=== PATIENT | female | born 1980 | race Caucasian/White ===

== ENCOUNTER 2020-05-27 09:18 | Outpatient (REF) | payer MEDICARE, MEDICAID, SELFPAY ==
[2020-05-27 10:18] LABS: Hematocrit 41.2 % (37-47); Hemoglobin 13.7 g/dl (12.0-16.0); Mean Corpuscular HGB Conc 33.3 g/dl (31.0-35.0); Mean Corpuscular Hemoglobin 32.2 pg (27.0-33.0); Mean Corpuscular Volume 96.9 fL (80-98); Mean Platelet Volume 12.1 fL (9.4-12.3); Platelet Count 205 X10*3/uL (160-400); Red Blood Count 4.25 X10*6/uL (4.20-5.50); Red Cell Distribution Width 12.4 % (11.0-16.0); White Blood Count 8.6 X10*3/uL (4.8-10.8)
[2020-05-27 10:28] LABS: Estimated Average Glucose 94 mg/dL; Hemoglobin A1c % 4.9 %
[2020-05-27 10:49] LABS: Alanine Aminotransferase 7 U/L (0-31); Albumin Level 4.1 g/dL (3.5-5.0); Alkaline Phosphatase 67 U/L (39-117); Anion Gap 14 (12-20); Aspartate Amino Transferase 12 U/L (5-31); Bilirubin Total 0.6 mg/dL (0.0-1.0); Blood Urea Nitrogen 15 mg/dL (9-16); Calcium 9.1 mg/dL (8.4-10.2); Carbon Dioxide 27 mmol/L (22-29); Chloride 108 mmol/L (96-108); Cholesterol 156 mg/dL; Estimated Glomerular Filt Rate > 60; Glucose Fasting 86 mg/dL (60-99); HDL Cholesterol 38 mg/dL; LDL Cholesterol Calculated 109 mg/dl; Potassium 4.6 mmol/L (3.3-5.1); Sodium 144 mmol/L (135-145); Total Protein 5.9 g/dL (6.5-8.0); Triglycerides 47 mg/dL
[2020-05-27 11:11] LABS: TSH reflex Free T4 0.16 uIU/mL (0.32-4.0)
[2020-05-27 12:04] LABS: Free T4 (Free Thyroxine) 0.79 ng/dL (0.71-1.85)
== END 2020-05-27 09:19 | disposition home or self-care (01) ==
LOC: HO.LAB 09:18
PROVIDERS: PCP Physician Assistant; Visit Provider Physician Assistant
DX: I10 Essential (primary) hypertension (principal); Z13.1 Encounter for screening for diabetes mellitus; Z13.220 Encounter for screening for lipoid disorders; Z13.29 Encounter for screening for other suspected endocrine disorder
CPT/HCPCS: 36415; 80053; 80061; 83036; 84439; 84443; 85027

== ENCOUNTER 2020-09-23 07:38 | Emergency (ER) | payer MEDICARE, MEDICAID, SELFPAY ==
[2020-09-23 08:10] VITALS: BP 102/71; PULSE 77; RESP 17; TEMP 36.6; O2SAT 98; BMI 23.5
--- NOTE | 2020-09-23 08:14 | ED_ITS ---
HPI - Headache General Chief Complaint: Headache Stated Complaint: Headache 2 weeks Time Seen by Provider: 09/23/20 08:13 Source: patient Mode of arrival: ambulatory Limitations: no limitations History of Present Illness MD elicited complaint: migraine Pertinent past history: migraines Onset (ago): week(s) (2) Onset description: gradually and while at rest Location: diffuse Severity: similar to previous episodes (has had headaches this long in the past) Quality & Timing: throbbing Exacerbating factors: light and noise Relieving factors: rest Context: occurred at rest Associated symptoms: nausea and photophobia Treatments prior to arrival: other (tried sumatriptan, imitrex) Related Data Home Medications Medication Instructions Recorded Confirmed divalproex 500 mg tablet,extended 1,500 mg PO tab 05/28/20 08/13/20 release 24 hr lurasidone 120 mg tablet mg PO 05/28/20 08/13/20 sumatriptan succinate 50 mg tablet mg PO 05/28/20 08/13/20 famotidine 40 mg tablet mg PO 07/09/20 08/13/20 Previous Rx's Medication Instructions Recorded omeprazole 20 mg capsule,delayed 20 mg PO DAILY 20 Days #20 cap 05/28/20 release ondansetron HCl 8 mg tablet 8 mg PO Q12H 7 Days #14 tab 05/28/20 sucralfate 1 gram tablet 1 g PO BID #60 tab 07/03/20 nicotine 14 mg/24 hr daily 1 patch TRANSDERMAL DAILY 28 Days 08/13/20 transdermal patch #28 ea clonazepam 1 mg tablet 1 mg PO BID 30 Days #60 tab 08/24/20 Allergies Allergy/AdvReac Type Severity Reaction Status Date / Time olanzapine [From ZYPREXA] Allergy Severe SWELLING Verified 08/13/20 16:13 oxcarbazepine Allergy Severe antony's Verified 08/13/20 16:13 [From TRILEPTAL] Rob syndrome gabapentin Allergy Unknown Loss of Verified 08/13/20 16:13 balance lithium [LITHIUM] Allergy Unknown UNKNOWN Verified 08/13/20 16:13 quetiapine [Seroquel] Allergy Unknown Unknown Verified 08/13/20 16:13 sulfamethoxazole Allergy Unknown severe rash Verified 08/13/20 16:13 [From BACTRIM] trimethoprim [From BACTRIM] Allergy Unknown severe rash Verified 08/13/20 16:13 From SEROQUEL Allergy Unknown UNKNOWN Uncoded 06/14/20 10:12 Review of Systems Review of Systems: Constitutional : No Fever, No Chills, No Fatigue ENT/Mouth : No sore throat, No Rhinorrhea Eyes: No Eye Pain, No Swelling, No Redness Cardiovascular : No Chest Pain, No SOB, No Dyspnea on Exertion Respiratory : No Cough, No Sputum Gastrointestinal : pos Nausea, No Vomiting, No Diarrhea, No abdominal Pain Genitourinary : No Dysuria, No Urinary Frequency, No Hematuria, Musculoskeletal : No joint pain, No Myalgias, No Joint Swelling Skin : No Skin Lesions, No rash Neuro : No Weakness, No Numbness, No Dizziness, positive Headache Psych : No Anxiety/Panic, No Depression Heme/Lymph: No Bruising, No Bleeding,No Lymphadenopathy Endocrine : No Polyuria, No Polydipsia All other systems reviewed and are negative [facility] Past Medical History Attestation statement: The following information was validated with the patient. Medical History Bipolar disorder Migraine Surgical History History of tonsillectomy Family History Family History Mother No problems noted. Father No problems noted. Social History Social History Housing: House Alcohol intake: current Patient Tobacco Use Status: Current everyday Tobacco user Tobacco use type: Cigarette Cigarettes Per Day: 12 Advance Directives: No Advance Directives Information Provided: Yes Patient : No Current occupational status: unemployed Physical Exam Vital Signs: Vital Signs: Last Vital Signs Temp 98 F 09/23/20 08:10 Pulse 77 09/23/20 08:10 Resp 17 09/23/20 08:10 BP 102/71 09/23/20 08:10 Pulse Ox 98 09/23/20 08:10 Body Mass Index 23.5 Appearance: Alert. Oriented X3. No acute distress. Eyes: Pupils equal, round and reactive to light. ENT: Pharynx normal. Neck: Normal inspection. Neck supple. no meningeal signs CVS: Normal heart rate and rhythm. Pulses normal. Respiratory: No respiratory distress. Breath sounds normal. Abdomen: Soft and non-tender. Skin: Skin warm and dry. Normal skin color. Normal skin turgor. Extremities: No lower extremity edema. No calf ttp Neuro: Oriented X 3. No motor deficit. No sensory deficit. 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/SAH Discharge Plan Discharge Clinical Impression: Headache, migraine Qualifiers: Migraine type: without aura Status migrainosus presence: with status migrainosus Intractability: not intractable Qualified Code(s): G43.001 - Migraine without aura, not intractable, with status migrainosus Patient Disposition: Home, Self-Care Instructions: Migraine Headache (ED) Additional Instructions: return to ED for any worsening symptoms or concerns you received toradol, reglan, benadryl, magnesium and low dose dexamethasone with good effect in the emergency department Prescriptions: No Action sucralfate 1 gram tablet 1 g PO BID Qty: 60 RF: 3 clonazepam 1 mg tablet 1 mg PO BID 30 Days Qty: 60 RF: 0 Latuda 120 mg tablet PO RF: 0 sumatriptan succinate 50 mg tablet PO RF: 0 divalproex 500 mg tablet extended release 24 hr 1,500 mg PO RF: 0 omeprazole 20 mg capsule,delayed release(DR/EC) 20 mg PO DAILY 20 Days Qty: 20 RF: 1 ondansetron HCl 8 mg tablet 8 mg PO Q12H 7 Days Qty: 14 RF: 0 famotidine 40 mg tablet PO RF: 0 nicotine 14 mg/24 hr patch 24 hour 1 patch transdermal DAILY 28 Days Qty: 28 RF: 0
[2020-09-23] MEDS: Ketorolac Tromethamine 30 MG/ML VIAL IVPUSH (08:55)
[2020-09-23] MEDS: 0.9 % Sodium Chloride 1,000 ML 999 ML IVCONT (08:55)
[2020-09-23] MEDS: dexAMETHasone sod phosphate 4 MG/ML VIAL 6 MG IVPUSH (08:56)
[2020-09-23] MEDS: diphenhydrAMINE HCL 50 MG/ML VIAL 25 MG IVPUSH (08:57)
[2020-09-23] MEDS: Magnesium Sulfate/H2O 2 GM/50 ML PIGGYBACK IV (08:58)
[2020-09-23] MEDS: Metoclopramide HCl 10 MG/2 ML VIAL IVPUSH (08:58)
[2020-09-23] MEDS: Butalb/Acetamin/Caff 50/325/40 TABLET 1 TAB PO (10:26)
[2020-09-23 10:42] VITALS: BP 110/65; PULSE 77; O2SAT 98
== END 2020-09-23 10:43 | disposition home or self-care (01) ==
PROVIDERS: Emergency Provider Emergency Medicine; PCP Physician Assistant
DX: G43.001 Migraine without aura, not intractable, with status migrainosus (principal)
CPT/HCPCS: 96361; 96365; 96366; 96375; 99283; 99284; J1100; J1200; J1885; J2765; J3475

== ENCOUNTER 2020-11-26 09:50 | Outpatient (REF) | payer MEDICARE, MEDICAID, SELFPAY ==
[2020-11-26 11:42] LABS: TSH reflex Free T4 0.52 uIU/mL (0.32-4.0)
== END 2020-11-26 09:51 | disposition home or self-care (01) ==
LOC: HO.LAB 09:50
PROVIDERS: PCP Physician Assistant; Visit Provider Physician Assistant
DX: R79.89 Other specified abnormal findings of blood chemistry (principal)
CPT/HCPCS: 36415; 84443

== ENCOUNTER 2020-12-17 14:49 | Outpatient (REF) | payer MEDICARE, MEDICAID, SELFPAY ==
--- NOTE | ~2020-12-17 | XR_ITS ---
EXAMINATION: XR CHEST CLINICAL INFORMATION: Chest pain COMPARISON: 03/07/2013 TECHNIQUE: 2 views of the chest were obtained. FINDINGS: No significant abnormality is noted involving the heart, lungs, mediastinum, bony thorax or soft tissues. XR/XR chest 2V IMPRESSION: Unremarkable examination.
[2020-12-17 15:23] LABS: Hemoglobin 13.8 g/dl (12.0-16.0); Mean Corpuscular HGB Conc 32.9 g/dl (31.0-35.0); Mean Corpuscular Hemoglobin 32.6 pg (27.0-33.0); Mean Corpuscular Volume 99.3 fL (80-98); Platelet Count 215 X10*3/uL (160-400); Red Blood Count 4.23 X10*6/uL (4.20-5.50); Red Cell Distribution Width 12.5 % (11.0-16.0); White Blood Count 8.3 X10*3/uL (4.8-10.8)
[2020-12-17 15:56] LABS: Alanine Aminotransferase 12 U/L (0-31); Albumin Level 4.1 g/dL (3.5-5.0); Alkaline Phosphatase 63 U/L (39-117); Anion Gap 10 (12-20); Aspartate Amino Transferase 15 U/L (5-31); Bilirubin Direct < 0.2 mg/dL (0.0-0.5); Bilirubin Total 0.2 mg/dL (0.0-1.0); Blood Urea Nitrogen 9 mg/dL (9-16); Calcium 9.2 mg/dL (8.4-10.2); Carbon Dioxide 27 mmol/L (22-29); Chloride 106 mmol/L (96-108); Estimated Glomerular Filt Rate > 60; Glucose Random 84 mg/dL (60-115); Iron 73 mcg/dL (30-160); Lipase 46 U/L (8-78); Percent Iron Saturation 28 % (15-50); Potassium 4.4 mmol/L (3.3-5.1); Sodium 139 mmol/L (135-145); Total Iron Binding Capacity 258 mcg/dL (228-428); Total Protein 6.3 g/dL (6.5-8.0); Unsaturated Iron Binding 185 ug/dL
[2020-12-17 15:58] LABS: Troponin-I High Sensitivity < 3.5 ng/L (<3.5-17.0)
== END 2020-12-17 14:50 | disposition home or self-care (01) ==
LOC: HO.LAB 14:49
PROVIDERS: Absent Provider Nurse Practitioner Family; PCP Physician Assistant; Visit Provider Physician Assistant
DX: R07.89 Other chest pain (principal); R11.0 Nausea; I10 Essential (primary) hypertension; D50.9 Iron deficiency anemia, unspecified
CPT/HCPCS: 36415; 71046; 80048; 80076; 83540; 83690; 84484; 85027

== ENCOUNTER → 2020-12-21 10:14 | Outpatient (REF) | payer MEDICARE, MEDICAID, SELFPAY ==
--- NOTE | 2020-12-21 10:16 | CA_ITS ---
Acquisition Time: 2020-12-21 10:12:36 Total Exercise Time: 00:07:05 Test Indications: CP Medications: SEE CHART Protocol: ARYAN Max HR: 166 BPM 92% of Pred: 179 BPM Max BP: 130/050 mmHG Max Work Load: 8.6 METS Exercise stress test with exercise 7 min 5 sec of Aryan protocol, without anginal symptoms, without arrythmia, with asymptomatic hypotension at baseline and normotensive response to exercise, without EKG changes meeting criteria for ischemia. Test reviewed with Dr Claudio. Referred By: Skye Meyer Overread By: ISSA SOLANO
== END ==
LOC: HO.CARD 10:14
PROVIDERS: PCP Physician Assistant; Visit Provider Nurse Practitioner Family
DX: R07.89 Other chest pain (principal)
CPT/HCPCS: 93017

== ENCOUNTER 2021-01-25 09:30 | Emergency (ER) | payer MEDICARE, MEDICAID, SELFPAY ==
--- NOTE | ~2021-01-25 | CT_ITS ---
EXAMINATION: CT ABDOMEN AND PELVIS WITH CONTRAST CLINICAL INFORMATION: Upper abdominal pain COMPARISON: Renal ultrasound June [address] of the abdomen and pelvis December 2017 TECHNIQUE: Multidetector volumetric images were obtained from the superior aspect of the liver through the pubic symphysis following administration 85 mL of Omnipaque 350 intravenous contrast. Sagittal and coronal reformatted images were obtained on the technologist's workstation. Oral contrast: Yes This CT examination was performed using dose optimization techniques as appropriate, variously including the following: *Automated exposure control *Adjustment of mA and/or kV according to patient size (this includes techniques or standardized protocols for targeted exams where dose is matched to indication/reason for exam; i.e. extremities or head) *Use of iterative reconstruction technique DLP: 486 mGy-cm FINDINGS: LUNG BASES: The visualized lung bases are unremarkable. LIVER, GALLBLADDER, AND BILIARY TREE: The liver is normal in size, shape, and attenuation. No focal hepatic lesion or biliary ductal dilatation is present. The gallbladder is unremarkable with no evidence of radiopaque gallstones, gallbladder wall thickening, or obvious pericholecystic inflammatory changes. PANCREAS: Unremarkable. SPLEEN: Unremarkable. ADRENAL GLANDS: Unremarkable. KIDNEYS AND URETERS: The kidneys are normal in size, shape, and attenuation. No hydronephrosis, hydroureter, or calculi seen. No perinephric stranding. BLADDER: Unremarkable. GASTROINTESTINAL TRACT: The small and large bowel are unremarkable. The appendix is unremarkable. ABDOMINAL WALL: No significant hernia is appreciated. LYMPH NODES: Normal. VASCULAR: Unremarkable. PELVIC VISCERA: There is an IUD seen outside the uterus in the left pelvis adjacent to the iliac vessels. This is similar to previous CT December 2017 There is a 2.5 x 2.5 cm right adnexal cyst. OSSEOUS STRUCTURES: Unremarkable. CT/CT abdomen pelvis w con IMPRESSION: IUD outside the uterus in the left pelvis adjacent to the iliac vessels. This is similar to December 2017 CT scan. 2.5 x 3.5 cm right adnexal cyst. Fleischner guidelines were followed.
[2021-01-25 10:14] VITALS: BP 114/69; PULSE 82; RESP 16; TEMP 36.8; O2SAT 99; BMI 23.5
--- NOTE | 2021-01-25 11:47 | ED_ITS ---
HPI - Abdominal Pain General Chief Complaint: Nausea/Vomiting/Diarrhea Stated Complaint: Abd pain/diarrhea Time Seen by Provider: 01/25/21 11:41 Source: patient Limitations: no limitations History of Present Illness HPI narrative: This is a 40 years old female presented with a chief complaint of abdominal pain and nausea vomiting and diarrhea pain is localized in the epigastric area without radiation she has history of IBS history of bipolar disorder MD elicited complaint: abdominal pain Pertinent past history: none Onset (ago): day(s) (4) Pain Consistency: constant Location: epigastric Severity: moderate Radiation: none Migration to: no migration Exacerbating factors: nothing Relieving factors: nothing Related Data Home Medications Medication Instructions Recorded Confirmed divalproex 500 mg tablet,extended 1,500 mg PO tab 05/28/20 12/17/20 release 24 hr lurasidone 120 mg tablet mg PO 05/28/20 12/17/20 sumatriptan succinate 50 mg tablet mg PO 05/28/20 12/17/20 famotidine 40 mg tablet mg PO 07/09/20 12/17/20 perphenazine 4 mg tablet 8 mg PO BID 12/03/20 12/17/20 Previous Rx's Medication Instructions Recorded ondansetron HCl 8 mg tablet 8 mg PO Q12H 7 Days #14 tab 05/28/20 sucralfate 1 gram tablet 1 g PO BID #180 tab 09/29/20 hydroxyzine HCl 10 mg tablet 10 mg PO BEDTIME 14 Days #14 tab 12/03/20 omeprazole 40 mg capsule,delayed 40 mg PO DAILY 30 Days #30 cap 12/03/20 release ibuprofen 600 mg tablet 600 mg PO Q8H PRN #15 tab 12/17/20 clonazepam 1 mg tablet 1 mg PO BID 30 Days #60 tab 01/07/21 ondansetron HCl 4 mg tablet 4 mg PO Q8H PRN #14 tab 01/25/21 (Zofran) Allergies Allergy/AdvReac Type Severity Reaction Status Date / Time olanzapine [From ZYPREXA] Allergy Severe SWELLING Verified 12/17/20 16:40 oxcarbazepine Allergy Severe antony's Verified 12/17/20 16:40 [From TRILEPTAL] Rob syndrome gabapentin Allergy Unknown Loss of Verified 12/17/20 16:40 balance lithium [LITHIUM] Allergy Unknown UNKNOWN Verified 12/17/20 16:40 quetiapine [Seroquel] Allergy Unknown Unknown Verified 12/17/20 16:40 sulfamethoxazole Allergy Unknown severe rash Verified 12/17/20 16:40 [From BACTRIM] trimethoprim [From BACTRIM] Allergy Unknown severe rash Verified 12/17/20 16:40 From SEROQUEL Allergy Unknown UNKNOWN Uncoded 12/17/20 16:40 Review of Systems Review of Systems Yes all other systems are reviewed and are negative Reports system reviewed and no additional complaints, except as documented Cardiovascular: Reports no additional cardiovascular complaints Respiratory: Reports no additional respiratory complaints Gastrointestinal: Reports abdominal pain, Reports diarrhea, Reports nausea and Reports vomiting Reports system reviewed and no additional complaints, except as documented Physical Exam Vital Signs: Vital Signs: Last Vital Signs Temp 98.3 F 01/25/21 10:14 Pulse 82 01/25/21 10:14 Resp 16 01/25/21 10:14 BP 114/69 01/25/21 10:14 Pulse Ox 99 01/25/21 10:14 Body Mass Index 23.5 Const: General: cooperative HENMT: Head: Yes normal to inspection Face and sinus: Yes normal facial exam Mouth: Normal oral and palatal mucosa present Throat: Yes posterior oropharynx normal Neck: Neck: Yes normal visual inspection, Yes full ROM, Yes no lymphadenopathy and Yes no meningeal signs Chest: Chest palpation & inspection: normal inspection of the chest Resp: Effort & Inspection: normal respiratory effort Auscultation: clear to auscultation bilaterally Cardio: Jugular venous distension: no JVD Rate: regular rate Rhythm: regular rhythm GI: Inspection: Yes normal to inspection Palpation (GI): Soft to palpation, not firm, nontender and no guarding Skin: General skin exam: no rashes or lesions noted, elasticity normal and turgor normal Lesions: no lesions Rashes: no rashes Trauma: no lacerations or abrasions Wounds: no wounds Neuro: General: no meningeal signs Course Reevaluation(s) Reevaluation #1: feeling better Ct showed normal small BOWELL AND LARGE BOWEL,incidental finding IUD outside the Uterus since prior ct of 2018 ,thi was dislosed to pt and mother,I gave copy of ct,she will call her OBGYN MDM - Abdominal Pain MDM Narrative Medical decision making narrative: This is a 40 years old healthy presented with abdominal pain nausea vomiting diarrhea we are going to get baseline blood work, CT with summer child caregiver fluid antiemetic ,will re-evaluate after above. Lab Data Result diagrams: 01/25/21 12:04 01/25/21 12:04 Labs: Lab Results 01/25/21 01/25/21 01/25/21 Range/Units 12:04 12:04 12:04 WBC 10.5 (4.8-10.8) X10*3/uL RBC 4.07 L (4.20-5.50) X10*6/uL Hgb 13.3 (12.0-16.0) g/dl Hct 39.9 (37.0-47.0) % MCV 98.0 (80.0-98.0) fL MCH 32.7 (27.0-33.0) pg MCHC 33.3 (31.0-35.0) g/dl RDW 13.1 (11.0-16.0) % Plt Count 214 (160-400) X10*3/uL MPV 11.6 (9.4-12.3) fL Immature Gran % (Auto) 0.3 (0.0-0.4) % Neut % (Auto) 63.5 (45-73) % Lymph % (Auto) 29.4 (20-40) % [place]orne % (Auto) 5.4 (2-11) % Eos % (Auto) 1.0 (0-4) % Baso % (Auto) 0.4 (0-2) % Lymph # (Auto) 3.1 (1.2-4.9) X10*3/uL [place]orne # (Auto) 0.6 (0.1-1.2) X10*3/uL Eos # (Auto) 0.1 (0.0-0.4) X10*3/uL Baso # (Auto) 0.0 (0.0-0.2) X10*3/uL Abs Immat Gran (auto) 0.03 (0.00-0.03) X10*3/uL Absolute Neuts (auto) 6.7 (2.0-8.3) x10*3/uL Absolute Nucleated RBC 0.000 (0.0-0.012) X10*3/uL Nucleated RBC % (auto) 0.0 (0.0-0.2) /100WBC Sodium 142 (135-145) mmol/L Potassium 4.1 (3.3-5.1) mmol/L Chloride 109 H (96-108) mmol/L Carbon Dioxide 26 (22-29) mmol/L Anion Gap 11 L (12-20) BUN 10 (9-16) mg/dL Creatinine 0.85 (0.5-1.4) mg/dL Estim Creat Clear Calc 84.7 Estimated GFR > 60 Random Glucose 105 (60-115) mg/dL Calcium 8.7 (8.4-10.2) mg/dL Total Bilirubin 0.3 (0.0-1.0) mg/dL AST 14 (5-31) U/L ALT 12 (0-31) U/L Alkaline Phosphatase 69 (39-117) U/L Total Protein 6.0 L (6.5-8.0) g/dL Albumin 3.9 (3.5-5.0) g/dL Lipase 29 (8-78) U/L Beta HCG, Quant < 2 mIU/mL Imaging Data CT scan - abdomen: Radiologist's impression: BLADDER: Unremarkable.? GASTROINTESTINAL TRACT: The small and large bowel are unremarkable. The appendix is unremarkable.? ABDOMINAL WALL: No significant hernia is appreciated.? LYMPH NODES: Normal. VASCULAR: Unremarkable. PELVIC VISCERA: There is an IUD seen outside the uterus in the left pelvis adjacent to the iliac vessels. This is similar to previous CT December 2017 There is a 2.5 x 2.5 cm right adnexal cyst. OSSEOUS STRUCTURES: Unremarkable.? CT/CT abdomen pelvis w con IMPRESSION: IUD outside the uterus in the left pelvis adjacent to the iliac vessels. This is similar to December 2017 CT scan. 2.5 x 3.5 cm right adnexal cyst. ? Fleischner guidelines were followed. Dictated By: Holley Ruby MD Signed By: <Electronically signed by Holley Ruby MD in OV> 01/25/21 1310 Discharge Plan Discharge Clinical Impression: Nausea, Abdominal pain Patient Disposition: Home, Self-Care Instructions: Abdominal Pain (ED) Additional Instructions: please follow up with your Primary Cre Doctor,The ct showed that you have an IUD outside the Uterus please folow up with your OBGYN as wel Prescriptions: New ondansetron HCl [Zofran] 4 mg tablet 4 mg PO Q8H PRN (Reason: nausea and vomiting) Qty: 14 RF: 0 No Action sucralfate 1 gram tablet 1 g PO BID Qty: 180 RF: 1 clonazepam 1 mg tablet 1 mg PO BID 30 Days Qty: 60 RF: 0 Latuda 120 mg tablet PO RF: 0 sumatriptan succinate 50 mg tablet PO RF: 0 divalproex 500 mg tablet extended release 24 hr 1,500 mg PO RF: 0 ondansetron HCl 8 mg tablet 8 mg PO Q12H 7 Days Qty: 14 RF: 0 famotidine 40 mg tablet PO RF: 0 ibuprofen 600 mg tablet 600 mg PO Q8H PRN (Reason: pain) Qty: 15 RF: 0 perphenazine 4 mg tablet 8 mg PO BID RF: 0 omeprazole 40 mg capsule,delayed release(DR/EC) 40 mg PO DAILY 30 Days Qty: 30 RF: 2 hydroxyzine HCl 10 mg tablet 10 mg PO BEDTIME 14 Days Qty: 14 RF: 0 PMFSH Past Medical History Medical History Bipolar disorder Migraine Surgical History History of tonsillectomy Family History Family History Mother No problems noted. Father No problems noted. Social History Social History Housing: House Alcohol intake: never Patient Tobacco Use Status: Current everyday Tobacco user Tobacco use type: Cigarette Cigarettes Per Day: 12 e-Cigarette/Vaping Use: Never Used Use of substances other than those prescribed or required for medical reasons: No Advance Directives: No Advance Directives Information Provided: No service: No Current occupational status: unemployed and disabled
[2021-01-25] MEDS: 0.9 % Sodium Chloride 1,000 ML 999 ML IVCONT (12:05)
[2021-01-25 12:08] LABS: MANUAL DIFF FLAG NO
[2021-01-25] MEDS: diphenhydrAMINE HCL 50 MG/ML VIAL 25 MG IVPUSH (12:09)
[2021-01-25 12:11] LABS: Basophils Percent Auto 0.4 % (0-2); Eosinophils Absolute Auto 0.1 X10*3/uL (0.0-0.4); Hematocrit 39.9 % (37.0-47.0); Hemoglobin 13.3 g/dl (12.0-16.0); Imm Gran Abs Auto 0.03 X10*3/uL (0.00-0.03); Imm Gran Pct Auto 0.3 % (0.0-0.4); Lymphocytes Absolute Auto 3.1 X10*3/uL (1.2-4.9); Lymphocytes Percent Auto 29.4 % (20-40); Mean Corpuscular HGB Conc 33.3 g/dl (31.0-35.0); Mean Corpuscular Hemoglobin 32.7 pg (27.0-33.0); Mean Platelet Volume 11.6 fL (9.4-12.3); Monocytes Absolute Auto 0.6 X10*3/uL (0.1-1.2); Monocytes Percent Auto 5.4 % (2-11); Neutrophils Absolute Auto 6.7 x10*3/uL (2.0-8.3); Neutrophils Percent Auto 63.5 % (45-73); Platelet Count 214 X10*3/uL (160-400); Red Blood Count 4.07 X10*6/uL (4.20-5.50); Red Cell Distribution Width 13.1 % (11.0-16.0); White Blood Count 10.5 X10*3/uL (4.8-10.8)
[2021-01-25] MEDS: Metoclopramide HCl 10 MG/2 ML VIAL IVPUSH (12:12)
[2021-01-25 12:25] LABS: Alanine Aminotransferase 12 U/L (0-31); Albumin Level 3.9 g/dL (3.5-5.0); Alkaline Phosphatase 69 U/L (39-117); Anion Gap 11 (12-20); Aspartate Amino Transferase 14 U/L (5-31); Bilirubin Total 0.3 mg/dL (0.0-1.0); Blood Urea Nitrogen 10 mg/dL (9-16); Calcium 8.7 mg/dL (8.4-10.2); Carbon Dioxide 26 mmol/L (22-29); Chloride 109 mmol/L (96-108); Creatinine Clr Calc Pharmacy 84.7; Estimated Glomerular Filt Rate > 60; Glucose Random 105 mg/dL (60-115); Lipase 29 U/L (8-78); Potassium 4.1 mmol/L (3.3-5.1); Sodium 142 mmol/L (135-145)
[2021-01-25 12:31] LABS: HCG Quantitative < 2 mIU/mL
[2021-01-25] MEDS: iohexoL 350 MG/ML 100 ML INFUS..BTL IV (13:02)
[2021-01-25] MEDS: ondansetron HCL 4 MG/2 ML VIAL IVPUSH (13:45)
[2021-01-25 14:16] VITALS: BP 100/61; PULSE 68; RESP 18; O2SAT 100
== END 2021-01-25 14:20 | disposition home or self-care (01) ==
PROVIDERS: Emergency Provider Emergency Medicine; PCP Physician Assistant
DX: R11.0 Nausea (principal); R10.9 Unspecified abdominal pain; R93.5 Abnormal findings on diagnostic imaging of other abdominal regions, including retroperitoneum; T83.32XA Displacement of intrauterine contraceptive device, initial encounter; Y82.8 Other medical devices associated with adverse incidents
CPT/HCPCS: 36415; 74177; 80053; 83690; 84702; 85025; 96361; 96374; 96375; 99284; J1200; J2405; J2765; Q9967

== ENCOUNTER 2021-03-16 09:38 | Outpatient (REF) | payer MEDICARE, MEDICAID, SELFPAY ==
--- NOTE | ~2021-03-16 | FL_ITS ---
EXAMINATION: UPPER GI AIR-CONTRAST STUDY/BARIUM SWALLOW CLINICAL INFORMATION: Nausea with vomiting. COMPARISON: None. TECHNIQUE: Routine upper GI air-contrast study was performed applied and lying position. Barium swallow was performed in upright view. FINDINGS: Following oral administration of thick barium and and effervescent granules, there is normal propagation of bolus from the oral cavity through the pharynx and esophagus and into the stomach without any evidence of obstruction, narrowing or stricture. On oral administration of barium-coated turkey, there is normal propagation of bolus from the oral cavity through the esophagus and stomach without any evidence of obstruction, narrowing or stricture. No extrinsic compression is seen. The mucosal pattern of the esophagus is normal. On placing patient supine and prone lying, the course, caliber and peristalsis of the stomach, duodenal bulb and the sweep are normal. The mucosal pattern of the stomach and the duodenum is normal. Mild gastroesophageal reflux without hiatal hernia is noted. FL/FL upper GI w Ba Swallow IMPRESSION: Mild gastroesophageal reflux without hiatal hernia in supine position. The esophagus is widely patent. The mucosal pattern of the stomach and the esophagus is normal. Fluoroscopy time: 2.4 minutes. Dose area product: 10.66 Gy-cm2
== END 2021-03-16 09:39 | disposition home or self-care (01) ==
LOC: HO.XRAY 09:38
PROVIDERS: PCP Physician Assistant; Visit Provider Physician Assistant
DX: R13.10 Dysphagia, unspecified (principal); R11.2 Nausea with vomiting, unspecified
CPT/HCPCS: 74240

== ENCOUNTER → 2021-04-05 14:08 | Outpatient (BNVA) | payer MEDICARE, MEDICAID, SELFPAY | PROVIDERS: PCP Physician Assistant; Referring Provider Physician Assistant; Visit Provider Internal Medicine Gastroenterology | DX: K21.9 Gastro-esophageal reflux disease without esophagitis (principal); R11.2 Nausea with vomiting, unspecified | CPT/HCPCS: Q3014 ==

== ENCOUNTER → 2021-04-14 08:05 | Outpatient (REF) | payer MEDICARE, MEDICAID, SELFPAY ==
--- NOTE | ~2021-04-14 | NM_ITS ---
EXAMINATION: RADIONUCLIDE SOLID FOOD GASTRIC EMPTYING 4-HOUR STUDY CLINICAL INFORMATION: Early satiety. COMPARISON: No previous gastric emptying study is available for comparison. TECHNIQUE: A standard meal consisting of 4 oz of Egg Beaters brand equivalent tagged with 1.0 mCi Tc-99m Sulfur Colloid, 8 oz water and 2 slices of toast with jelly was administered orally to the patient. Images were obtained using a dual head gamma camera in the anterior and posterior projections over of the stomach immediately post ingestion and at hourly intervals up to 4 hours post ingestion. The anterior and posterior counts at each time interval were averaged using the geometric mean and expressed as percentage of the immediate post ingestion counts. FINDINGS: There is good visualization of activity in the stomach immediately post ingestion. As the study progresses, there is only fair clearance of activity from the stomach as a study progresses. At the end of the study there is moderately severe abnormal retention of activity in the stomach at 4 hours. Retention in the stomach at each time interval was: 1 hour 91% (normal 37%-90%) 2 hours 77% (normal 30%-60%) 3 hours 39% 4 hours 37% (normal 0%-10%) NM/NM gastric emptying study IMPRESSION: Abnormal study. There is moderately severe abnormal retention of solid food in the stomach at 4 hours.
== END ==
LOC: HO.NUCMED 08:05
PROVIDERS: Visit Provider Internal Medicine Gastroenterology
DX: R68.81 Early satiety (principal)
CPT/HCPCS: 78264; A9541

== ENCOUNTER 2021-05-07 08:06 | Outpatient (REF) | payer MEDICARE, MEDICAID, SELFPAY ==
[2021-05-07 09:11] LABS: MANUAL DIFF FLAG NO
[2021-05-07 09:53] LABS: Basophils Percent Auto 0.4 % (0-2); Eosinophils Absolute Auto 0.1 X10*3/uL (0.0-0.4); Eosinophils Percent Auto 1.3 % (0-4); Hematocrit 43.3 % (37.0-47.0); Hemoglobin 14.2 g/dl (12.0-16.0); Imm Gran Abs Auto 0.03 X10*3/uL (0.00-0.03); Imm Gran Pct Auto 0.3 % (0.0-0.4); Lymphocytes Absolute Auto 1.7 X10*3/uL (1.2-4.9); Lymphocytes Percent Auto 17.4 % (20-40); Mean Corpuscular HGB Conc 32.8 g/dl (31.0-35.0); Mean Corpuscular Hemoglobin 32.6 pg (27.0-33.0); Mean Corpuscular Volume 99.3 fL (80.0-98.0); Mean Platelet Volume 12.8 fL (9.4-12.3); Monocytes Absolute Auto 0.7 X10*3/uL (0.1-1.2); Monocytes Percent Auto 7.3 % (2-11); Neutrophils Percent Auto 73.3 % (45-73); Platelet Count 155 X10*3/uL (160-400); Red Blood Count 4.36 X10*6/uL (4.20-5.50); Red Cell Distribution Width 13.1 % (11.0-16.0); White Blood Count 9.6 X10*3/uL (4.8-10.8)
[2021-05-07 10:00] LABS: Alanine Aminotransferase 16 U/L (0-31); Albumin Level 4.2 g/dL (3.5-5.0); Alkaline Phosphatase 75 U/L (39-117); Anion Gap 11 (12-20); Aspartate Amino Transferase 17 U/L (5-31); Bilirubin Total 0.4 mg/dL (0.0-1.0); Blood Urea Nitrogen 10 mg/dL (9-16); Calcium 9.4 mg/dL (8.4-10.2); Carbon Dioxide 27 mmol/L (22-29); Chloride 105 mmol/L (96-108); Estimated Glomerular Filt Rate > 60; Glucose Random 82 mg/dL (60-115); Potassium 4.2 mmol/L (3.3-5.1); Sodium 139 mmol/L (135-145); Total Protein 6.6 g/dL (6.5-8.0)
[2021-05-07 10:20] LABS: Ferritin 66 ng/mL (10-250); TSH reflex Free T4 0.16 uIU/mL (0.32-4.0); Vitamin D 25-OH Total 18.2 ng/mL (>30)
[2021-05-07 10:55] LABS: Free T4 (Free Thyroxine) 0.88 ng/dL (0.71-1.85)
[2021-05-07 10:58] LABS: Folate 19.4 ng/mL (> or = 4.0); Vitamin B12 1664 pg/mL (200-900)
[2021-05-08 07:07] LABS: Triiodothyronine T3 Total 89 ng/dL (76-181)
[2021-05-10 18:32] LABS: IgA 178 mg/dL (47-310); IgG 799 mg/dL (600-1640); IgM 154 mg/dL (50-300)
[2021-05-10 21:36] LABS: Gliadin Deamidated IgA Ab 6.6 U/mL; Gliadin Deamidated IgG Ab <1.0 U/mL; Transglutaminase Ab IgG <1.0 U/mL; Transglutaminase IgA <1.0 U/mL
[2021-05-11 12:52] LABS: Zinc 69 mcg/dL (60-130)
[2021-05-11 16:02] LABS: Vitamin C 1.5 mg/dL (0.3-2.7)
[2021-05-11 16:36] LABS: Triiodothyronine T3 Reverse 14 ng/dL (8-25)
[2021-05-12 17:21] LABS: Alpha-Tocopherol 11.8 mg/L (5.7-19.9); Beta-Gamma Tocopherol 1.9 mg/L (<=4.3); Vitamin B6 9.4 ng/mL (2.1-21.7)
[2021-05-13 10:05] LABS: Vitamin A 48 mcg/dL (38-98)
[2021-05-13 17:27] LABS: Gastrin 883 pg/mL (<=100)
[2021-05-14 02:17] LABS: Nicotinamide <20 ng/mL; Vit B3 - Nicotinic Acid <20 ng/mL
[2021-05-14 17:51] LABS: Histamine Plasma <1.5 ng/mL (< OR = 1.8)
[2021-05-14 23:41] LABS: Hu Antibody Screen, IFA Serum FLUORESCENCE NOTED (NEGATIVE); Hu Antibody Western Blot NEGATIVE (NEGATIVE); Yo Antibody, Serum Screen FLUORESCENCE NOTED (NEGATIVE)
[2021-05-15 19:46] LABS: Vitamin B5 (Pantothenic Acid) 48 ng/mL (<275)
[2021-05-18 22:27] LABS: Vitamin K1 252 pg/mL (130-1500)
== END 2021-05-07 08:07 | disposition home or self-care (01) ==
LOC: HO.LAB 08:06
PROVIDERS: PCP Physician Assistant; Visit Provider Internal Medicine Gastroenterology
DX: K52.839 Microscopic colitis, unspecified (principal); R11.2 Nausea with vomiting, unspecified; R19.7 Diarrhea, unspecified; K75.81 Nonalcoholic steatohepatitis (NASH); G89.29 Other chronic pain; R10.33 Periumbilical pain; R13.10 Dysphagia, unspecified; K31.84 Gastroparesis; R79.89 Other specified abnormal findings of blood chemistry; K21.9 Gastro-esophageal reflux disease without esophagitis
CPT/HCPCS: 36415; 80053; 82180; 82306; 82607; 82728; 82746; 82784; 82941; 83088; 83516; 83520; 84181; 84207; 84439; 84443; 84446; 84480; 84482; 84590; 84591; 84597; 84630; 85025; 86003; 86255; 86256; 86258; 86364

== ENCOUNTER 2021-05-11 18:00 | Emergency (ER) | payer MEDICARE, MEDICAID, SELFPAY ==
--- NOTE | ~2021-05-11 | XR_ITS ---
EXAMINATION: XR ABDOMEN KUB CLINICAL INDICATION: Constipation. Evaluate for ileus. COMPARISON: Gastric emptying study dated from 04/14/[address] abdomen/pelvis dated from 01/25/2021. TECHNIQUE: AP view of the abdomen. FINDINGS: Nonobstructive bowel gas pattern with large volume of stool throughout the colon. Air and stool are identified in the rectum. No acute osseous abnormalities. Pelvic phleboliths. XR/XR KUB IMPRESSION: Nonobstructive bowel gas pattern. Large volume of stool.
[2021-05-11 18:12] VITALS: BP 105/70; PULSE 84; RESP 16; TEMP 36.2; O2SAT 99; BMI 22.4
[2021-05-11 20:11] LABS: Basophils Percent Auto 0.5 % (0-2); Eosinophils Absolute Auto 0.2 X10*3/uL (0.0-0.4); Eosinophils Percent Auto 2.2 % (0-4); Hematocrit 39.3 % (37.0-47.0); Hemoglobin 12.8 g/dl (12.0-16.0); Imm Gran Abs Auto 0.03 X10*3/uL (0.00-0.03); Imm Gran Pct Auto 0.4 % (0.0-0.4); Lymphocytes Absolute Auto 3.5 X10*3/uL (1.2-4.9); Lymphocytes Percent Auto 42.9 % (20-40); MANUAL DIFF FLAG NO; Mean Corpuscular HGB Conc 32.6 g/dl (31.0-35.0); Mean Corpuscular Hemoglobin 32.7 pg (27.0-33.0); Mean Corpuscular Volume 100.5 fL (80.0-98.0); Mean Platelet Volume 11.5 fL (9.4-12.3); Monocytes Absolute Auto 0.8 X10*3/uL (0.1-1.2); Monocytes Percent Auto 9.1 % (2-11); Neutrophils Absolute Auto 3.7 x10*3/uL (2.0-8.3); Neutrophils Percent Auto 44.9 % (45-73); Platelet Count 219 X10*3/uL (160-400); Red Blood Count 3.91 X10*6/uL (4.20-5.50); Red Cell Distribution Width 13.2 % (11.0-16.0); White Blood Count 8.3 X10*3/uL (4.8-10.8)
[2021-05-11 20:19] LABS: Appearance Urine CLEAR; Color Urine YELLOW; Glucose Urine UA NEG (NEG); Leukocyte Esterase Urine NEG (NEG); Nitrite Urine NEG (NEG); Specific Gravity - Urine <= 1.005 (1.005-1.025); Urine Blood NEG (NEG); Urine Ketones NEG (NEG); Urine Protein NEG (NEG-TRACE)
[2021-05-11 20:22] LABS: UPreg QC Valid YES; Urine Pregnancy NEGATIVE (NEGATIVE)
[2021-05-11 20:28] LABS: Anion Gap 14 (12-20); Blood Urea Nitrogen 9 mg/dL (9-16); Calcium 9.5 mg/dL (8.4-10.2); Carbon Dioxide 29 mmol/L (22-29); Chloride 107 mmol/L (96-108); Creatinine Clr Calc Pharmacy 82.8; Estimated Glomerular Filt Rate > 60; Glucose Random 80 mg/dL (60-115); Potassium 4.9 mmol/L (3.3-5.1); Sodium 145 mmol/L (135-145)
[2021-05-11 20:32] LABS: RBC Urine 0 /HPF (0); Squamous Epithelial Cell Urine 1+ /LPF; WBC Urine 0 /HPF (0-4)
[2021-05-11 22:59] VITALS: BP 114/52; PULSE 87; RESP 16; TEMP 36.7; O2SAT 95
--- NOTE | 2021-05-11 23:12 | ED_ITS ---
HPI - Nausea/Vomiting/Diarrhea General Chief complaint: Nausea/Vomiting/Diarrhea Stated complaint: dehydrated vomiting since last wk Time Seen by Provider: 05/11/21 23:12 Source: patient Mode of arrival: ambulatory Limitations: no limitations History of Present Illness HPI Narrative: Patient history of gastroparesis been having diffuse abdominal pain with nausea and vomiting been constipated for last 10 days unable to eat much patient does have psychiatric issues also unable to take Reglan because of psychiatric medication interactions Related Data Home Medications Medication Instructions Recorded Confirmed divalproex 500 mg tablet,extended 1,500 mg PO tab 05/28/20 05/11/21 release 24 hr lurasidone 120 mg tablet mg PO 05/28/20 05/11/21 sumatriptan succinate 50 mg tablet mg PO 05/28/20 05/11/21 famotidine 40 mg tablet mg PO 07/09/20 05/11/21 perphenazine 4 mg tablet 8 mg PO BID 12/03/20 05/11/21 benztropine 0.5 mg tablet 0.5 mg PO DAILY 04/05/21 05/11/21 lurasidone 120 mg tablet (Latuda) 120 mg PO DAILY 04/05/21 05/11/21 topiramate 100 mg capsule 100 mg PO DAILY 04/05/21 05/11/21 sprinkle,extended release 24 hr Previous Rx's Medication Instructions Recorded hydroxyzine HCl 10 mg tablet 10 mg PO BEDTIME 14 Days #14 tab 12/03/20 ibuprofen 600 mg tablet 600 mg PO Q8H PRN #15 tab 12/17/20 ondansetron HCl 4 mg tablet 4 mg PO Q8H PRN #14 tab 01/25/21 (Zofran) sucralfate 1 gram tablet 1 g PO BID #180 tab 02/03/21 clonazepam 1 mg tablet 1 mg PO BID 30 Days #60 tab 03/10/21 omeprazole 40 mg capsule,delayed 40 mg PO DAILY 90 Days #90 cap 05/03/21 release ondansetron HCl 8 mg tablet 8 mg PO Q8H 7 Days #21 tab 05/06/21 cholecalciferol (vitamin D3) 50 50 mcg PO DAILY 90 Days #90 cap 05/11/21 mcg (2,000 unit) capsule bisacodyl 5 mg tablet,delayed 10 mg PO BEDTIME PRN 2 Days #30 tab 05/12/21 release (Bisa-Lax (bisacodyl)) polyethylene glycol 3350 17 17 g PO DAILY #510 g 05/12/21 gram/dose oral powder (Miralax) Allergies Allergy/AdvReac Type Severity Reaction Status Date / Time olanzapine [From ZYPREXA] Allergy Severe SWELLING Verified 05/11/21 11:51 oxcarbazepine Allergy Severe antony's Verified 05/11/21 11:51 [From TRILEPTAL] Rob syndrome gabapentin Allergy Unknown Loss of Verified 05/11/21 11:51 balance lithium [LITHIUM] Allergy Unknown UNKNOWN Verified 05/11/21 11:51 quetiapine [Seroquel] Allergy Unknown Unknown Verified 05/11/21 11:51 sulfamethoxazole Allergy Unknown severe rash Verified 05/11/21 11:51 [From BACTRIM] trimethoprim [From BACTRIM] Allergy Unknown severe rash Verified 05/11/21 11:51 From SEROQUEL Allergy Unknown UNKNOWN Uncoded 04/05/21 14:39 Review of Systems Review of Systems: Yes all other systems are reviewed and are negative [facility] Past Medical History Medical History Bipolar disorder Migraine Surgical History History of tonsillectomy Family History Family History Mother No problems noted. Father No problems noted. Social History Social History Housing: House Alcohol intake: never Patient Tobacco Use Status: Current everyday Tobacco user Tobacco use type: Cigarette Cigarettes Per Day: 12 e-Cigarette/Vaping Use: Never Used Advance Directives: No Advance Directives Information Provided: No service: No Current occupational status: unemployed and disabled Physical Exam Vital Signs: Vital Signs: Last Vital Signs Temp 98.0 F 05/11/21 22:59 Pulse 87 05/11/21 22:59 Resp 16 05/11/21 22:59 BP 114/52 L 05/11/21 22:59 Pulse Ox 95 05/11/21 22:59 BMI result Body Mass Index 22.4 Appearance: Alert. Oriented X3. No acute distress. Anxious Eyes: No pallor/ icterus ENT: Pharynx normal. Oral Mucosa moist Neck: Normal inspection. Neck supple. CVS: Normal heart rate and rhythm. Pulses normal. Respiratory: No respiratory distress. Equal air entry bilateral, no wheezing/rales/rhonchi Abdomen: Soft, mild tenderness upper abdomen Bowel sounds are present, no mass palpable, no CVA tenderness Skin: Skin warm and dry. Normal skin color. Normal skin turgor. Extremities: No lower extremity edema. No calf tenderness Neuro: Oriented X 3. MDM - Nausea/Vomiting/Diarrhea MDM Narrative Medical decision making narrative: Patient gastroparesis and constipation will give Dulcolax and Mag citrate advised to follow with owner Lab Data Attestation: I reviewed the patient's lab results. Result diagrams: 05/11/21 20:06 05/11/21 20:06 Labs: Lab Results 05/11/21 05/11/21 05/11/21 Range/Units 20:06 20:06 20:06 WBC 8.3 (4.8-10.8) X10*3/uL RBC 3.91 L (4.20-5.50) X10*6/uL Hgb 12.8 (12.0-16.0) g/dl Hct 39.3 (37.0-47.0) % MCV 100.5 H (80.0-98.0) fL MCH 32.7 (27.0-33.0) pg MCHC 32.6 (31.0-35.0) g/dl RDW 13.2 (11.0-16.0) % Plt Count 219 D (160-400) X10*3/uL MPV 11.5 (9.4-12.3) fL Immature Gran % (Auto) 0.4 (0.0-0.4) % Neut % (Auto) 44.9 L (45-73) % Lymph % (Auto) 42.9 H (20-40) % Hartley % (Auto) 9.1 (2-11) % Eos % (Auto) 2.2 (0-4) % Baso % (Auto) 0.5 (0-2) % Lymph # (Auto) 3.5 (1.2-4.9) X10*3/uL Hartley # (Auto) 0.8 (0.1-1.2) X10*3/uL Eos # (Auto) 0.2 (0.0-0.4) X10*3/uL Baso # (Auto) 0.0 (0.0-0.2) X10*3/uL Abs Immat Gran (auto) 0.03 (0.00-0.03) X10*3/uL Absolute Neuts (auto) 3.7 (2.0-8.3) x10*3/uL Absolute Nucleated RBC 0.000 (0.0-0.012) X10*3/uL Nucleated RBC % (auto) 0.0 (0.0-0.2) /100WBC Sodium 145 (135-145) mmol/L Potassium 4.9 (3.3-5.1) mmol/L Chloride 107 (96-108) mmol/L Carbon Dioxide 29 (22-29) mmol/L Anion Gap 14 (12-20) BUN 9 (9-16) mg/dL Creatinine 0.86 (0.5-1.4) mg/dL Estim Creat Clear Calc 82.8 Estimated GFR > 60 Random Glucose 80 (60-115) mg/dL Calcium 9.5 (8.4-10.2) mg/dL Magnesium 2.2 (1.6-2.6) mg/dL Urine Color YELLOW Urine Appearance CLEAR Urine pH 6.0 (5.0-8.0) Ur Specific [place] <= 1.005 (1.005-1.025) Urine Protein NEG (NEG-TRACE) MG/DL Urine Glucose (UA) NEG (NEG) MG/DL Urine Ketones NEG (NEG) MG/DL Urine Blood NEG (NEG) Urine Nitrite NEG (NEG) Ur Leukocyte Esterase NEG (NEG) Urine RBC 0 (0) /HPF Urine WBC 0 (0-4) /HPF Ur Squamous Epith Cells 1+ /LPF Urine Bacteria NONE /LPF Urine Test (NEGATIVE) 05/11/21 Range/Units 20:06 WBC (4.8-10.8) X10*3/uL RBC (4.20-5.50) X10*6/uL Hgb (12.0-16.0) g/dl Hct (37.0-47.0) % MCV (80.0-98.0) fL MCH (27.0-33.0) pg MCHC (31.0-35.0) g/dl RDW (11.0-16.0) % Plt Count (160-400) X10*3/uL MPV (9.4-12.3) fL Immature Gran % (Auto) (0.0-0.4) % Neut % (Auto) (45-73) % Lymph % (Auto) (20-40) % Hartley % (Auto) (2-11) % Eos % (Auto) (0-4) % Baso % (Auto) (0-2) % Lymph # (Auto) (1.2-4.9) X10*3/uL Hartley # (Auto) (0.1-1.2) X10*3/uL Eos # (Auto) (0.0-0.4) X10*3/uL Baso # (Auto) (0.0-0.2) X10*3/uL Abs Immat Gran (auto) (0.00-0.03) X10*3/uL Absolute Neuts (auto) (2.0-8.3) x10*3/uL Absolute Nucleated RBC (0.0-0.012) X10*3/uL Nucleated RBC % (auto) (0.0-0.2) /100WBC Sodium (135-145) mmol/L Potassium (3.3-5.1) mmol/L Chloride (96-108) mmol/L Carbon Dioxide (22-29) mmol/L Anion Gap (12-20) BUN (9-16) mg/dL Creatinine (0.5-1.4) mg/dL Estim Creat Clear Calc Estimated GFR Random Glucose (60-115) mg/dL Calcium (8.4-10.2) mg/dL Magnesium (1.6-2.6) mg/dL Urine Color Urine Appearance Urine pH (5.0-8.0) Ur Specific [place] (1.005-1.025) Urine Protein (NEG-TRACE) MG/DL Urine Glucose (UA) (NEG) MG/DL Urine Ketones (NEG) MG/DL Urine Blood (NEG) Urine Nitrite (NEG) Ur Leukocyte Esterase (NEG) Urine RBC (0) /HPF Urine WBC (0-4) /HPF Ur Squamous Epith Cells /LPF Urine Bacteria /LPF Urine Test NEGATIVE (NEGATIVE) Discharge Plan Discharge Clinical Impression: Gastroparesis, Constipation Patient Disposition: Home, Self-Care Instructions: Constipation (ED), Gastroparesis (ED) Additional Instructions: Take stool softener as prescribed Follow with owner as scheduled Prescriptions: New polyethylene glycol 3350 [Miralax] 17 gram/dose powder 17 g PO DAILY Qty: 510 0RF bisacodyl [Bisa-Lax (bisacodyl)] 5 mg tablet,delayed release (DR/EC) 10 mg PO BEDTIME PRN (Reason: constipation) 2 Days Qty: 30 0RF No Action sucralfate 1 gram tablet 1 g PO BID Qty: 180 1RF clonazepam 1 mg tablet 1 mg PO BID 30 Days Qty: 60 2RF Rx Instructions: will start taking Rx BID omeprazole 40 mg capsule,delayed release(DR/EC) 40 mg PO DAILY 90 Days Qty: 90 2RF ondansetron HCl 8 mg tablet 8 mg PO Q8H 7 Days Qty: 21 0RF ondansetron HCl [Zofran] 4 mg tablet 4 mg PO Q8H PRN (Reason: nausea and vomiting) Qty: 14 0RF Latuda 120 mg tablet PO 0RF sumatriptan succinate 50 mg tablet PO 0RF divalproex 500 mg tablet extended release 24 hr 1,500 mg PO 0RF famotidine 40 mg tablet PO 0RF ibuprofen 600 mg tablet 600 mg PO Q8H PRN (Reason: pain) Qty: 15 0RF perphenazine 4 mg tablet 8 mg PO BID 0RF hydroxyzine HCl 10 mg tablet 10 mg PO BEDTIME 14 Days Qty: 14 0RF Rx Instructions: For sleep cholecalciferol (vitamin D3) 50 mcg (2,000 unit) capsule 50 mcg PO DAILY 90 Days Qty: 90 1RF Latuda 120 mg tablet 120 mg PO DAILY 0RF Rx Instructions: must administer with food (at least 350 calories) topiramate 100 mg cap,spralmazle,ER 24hr dose pack 100 mg PO DAILY 0RF benztropine 0.5 mg tablet 0.5 mg PO DAILY 0RF
[2021-05-11 23:48] LABS: Magnesium 2.2 mg/dL (1.6-2.6)
[2021-05-12] MEDS: bisacodyL 5 MG TABLET.DR 10 MG PO (00:57)
[2021-05-12] MEDS: Magnesium Citrate 300 ML SOLUTION PO (00:58)
== END 2021-05-12 01:03 | disposition home or self-care (01) ==
PROVIDERS: Emergency Provider Internal Medicine; PCP Physician Assistant
DX: K31.84 Gastroparesis (principal); K59.00 Constipation, unspecified; F17.200 Nicotine dependence, unspecified, uncomplicated
CPT/HCPCS: 36415; 74018; 80048; 81001; 81025; 83735; 85025; 99283

== ENCOUNTER 2021-05-17 17:02 | Emergency (ER) | payer MEDICARE, MEDICAID, SELFPAY | END 2021-05-17 21:05 | disposition left against medical advice (07) | PROVIDERS: Emergency Provider Emergency Medicine; PCP Physician Assistant | DX: R10.9 Unspecified abdominal pain (principal) ==

== ENCOUNTER 2021-05-18 09:34 | Inpatient (IN) | payer MEDICARE, MEDICAID, SELFPAY ==
--- NOTE | ~2021-05-18 | CT_ITS ---
EXAMINATION: CT CHEST WITHOUT CONTRAST CLINICAL INFORMATION: Evaluate for squamous cell lung carcinoma in view of paraneoplastic syndrome and equivocal antibody test. COMPARISON: No similar priors. TECHNIQUE: Multidetector volumetric CT imaging of the chest was done. Axial MIP volume rendering provided. Sagittal and coronal reformatted images were obtained. This CT examination was performed using dose optimization techniques as appropriate, variously including the following: *Automated exposure control. *Adjustment of mA and/or kV according to patient size (this includes techniques or standardized protocols for targeted exams where dose is matched to indication/reason for exam; i.e. extremities or head). *Use of iterative reconstruction technique. DLP: 108 mGy-cm FINDINGS: LUNGS: No focal airspace opacities, pulmonary nodules or masses. MEDIASTINUM: Normal heart size. No pericardial effusion. No mediastinal lymphadenopathy. No definite hilar lymphadenopathy, although evaluation of the hilar structures is very limited in the absence of intravenous contrast. Normal appearance of the thyroid gland. PLEURA: There is no pleural effusion. No pleural mass or thickening. AXILLA: No lymphadenopathy. UPPER ABDOMEN: Unremarkable. OSSEOUS STRUCTURES: Unremarkable. CT/CT chest wo con IMPRESSION: Normal examination. It is important to know that evaluation of the hilar structures/regions is somewhat suboptimal in the absence of intravenous contrast. Therefore, if there is high clinical suspicious for squamous cell carcinoma, correlation with a CT of the chest with intravenous contrast is recommended as many of these tumors have a central location.
--- NOTE | ~2021-05-18 | XR_ITS ---
EXAMINATION: XR ABDOMEN KUB CLINICAL INDICATION: Constipation. Vomiting. COMPARISON: Previous KUB from earlier this month TECHNIQUE: AP view of the abdomen. FINDINGS: The bowel gas pattern is normal. There is no evidence of free air. There are no suspicious calcifications. Bony structures are unremarkable. XR/XR KUB IMPRESSION: Unremarkable exam.
--- NOTE | ~2021-05-18 | XR_ITS ---
EXAMINATION: XR ABDOMEN KUB CLINICAL INDICATION: Constipation COMPARISON: Previous CT of the abdomen and pelvis 05/18/2021 TECHNIQUE: AP view of the abdomen. FINDINGS: There is decreased stool in the colon. There are no dilated loops of bowel to suggest obstruction. There is no evidence of free air. There are small pelvic calcifications probably representing calcified phleboliths. Bony structures are unremarkable. XR/XR KUB IMPRESSION: Decreased stool the colon. No evidence of obstruction.
--- NOTE | ~2021-05-18 | XR_ITS ---
EXAMINATION: XR HAND, RIGHT CLINICAL INFORMATION: Punched wall COMPARISON: 11/06/2015 TECHNIQUE: PA, lateral, and oblique views of the right hand. FINDINGS: No fracture or dislocation. Alignment is anatomic. Joint spaces are maintained. Mild dorsal soft tissue swelling. XR/XR hand RT 2V IMPRESSION: No fracture or malalignment.
--- NOTE | ~2021-05-18 | CT_ITS ---
EXAMINATION: CT ABDOMEN AND PELVIS WITHOUT CONTRAST CLINICAL INFORMATION: Gastroparesis. COMPARISON: CT abdomen and pelvis 01/25/2021. TECHNIQUE: Multidetector volumetric images were obtained from the superior aspect of the liver through the pubic symphysis without intravenous contrast. Sagittal and coronal reformatted images were obtained on the technologist's workstation. Oral Contrast: Yes, Redicat [address] examination was performed using dose optimization techniques as appropriate, variously including the following: *Automated exposure control. *Adjustment of mA and/or kV according to patient size (this includes techniques or standardized protocols for targeted exams where dose is matched to indication/reason for exam; i.e. extremities or head). *Use of iterative reconstruction technique. DLP: 455 mGy-cm FINDINGS: LUNG BASES: The visualized lung bases are unremarkable. LIVER, GALLBLADDER, AND BILIARY TREE: The liver is normal in size, shape, and attenuation. No focal hepatic lesion or biliary ductal dilatation is present. The gallbladder is unremarkable with no evidence of radiopaque gallstones, gallbladder wall thickening, or obvious pericholecystic inflammatory changes. PANCREAS: Unremarkable. SPLEEN: Unremarkable. ADRENAL GLANDS: Unremarkable. KIDNEYS AND URETERS: The kidneys are normal in size, shape, and attenuation. No hydronephrosis, hydroureter, or calculi seen. No perinephric stranding. BLADDER: The bladder is markedly dilated rising to the level just over 4 cm below the umbilicus with a volume of well over 1 L. No bladder mass or calculi are seen. GASTROINTESTINAL TRACT: The stomach is not dilated. Contrast fills the stomach, small bowel and colon down to the distal rectum. The small and large bowel are unremarkable. The appendix is unremarkable. ABDOMINAL WALL: No significant hernia is appreciated. LYMPH NODES: No retroperitoneal lymphadenopathy. VASCULAR: Unremarkable. PELVIC VISCERA: Normal-appearing uterus is present. An adnexal mass or free intraperitoneal fluid is not seen. OSSEOUS STRUCTURES: Unremarkable. CT/CT abdomen pelvis wo con IMPRESSION: 1. The stomach does not appear dilated and there is no evidence to suggest gastroparesis. 2. Excellent transit time with oral contrast media seen throughout the entire bowel which appears unremarkable. 3. Incidentally noted markedly distended urinary bladder. Fleischner guidelines were followed.
[2021-05-18 09:39] VITALS: BP 136/66; PULSE 111; RESP 20; TEMP 36.6; O2SAT 100; BMI 21.9
--- NOTE | 2021-05-18 10:30 | ED.NAVMDI ---
HPI - Nausea/Vomiting/Diarrhea General Chief complaint: Nausea/Vomiting/Diarrhea Stated complaint: weakness/vomiting/chills Time Seen by Provider: 05/18/21 10:27 Source: patient and family Mode of arrival: ambulatory Limitations: no limitations History of Present Illness MD elicited complaint: nausea, vomiting, abdominal pain and other (constipation) Pertinent past history: other (gastroparesis) Onset (ago): week(s) (2) Description of vomiting: food contents and watery Associated nausea: Yes Associated abdominal pain: Yes Location of pain: diffuse Radiation: diffuse Pain consistency: constant Severity: moderate Quality: dull Exacerbating factors: eating Relieving factors: none Context: other (anxiety, hx of similar episodes) Associated symptoms: loss of appetite, malaise, nausea/vomiting and other (constipation) Treatment prior to arrival: other (tried enemas and lactulose) Related Data Home Medications Medication Instructions Recorded Confirmed divalproex 500 mg tablet,extended 1,500 mg PO DAILY tab 05/28/20 05/18/21 release 24 hr lurasidone 120 mg tablet 120 mg PO DAILY 05/28/20 05/18/21 sumatriptan succinate 50 mg tablet 50 mg PO DAILY PRN 05/28/20 05/18/21 famotidine 40 mg tablet 40 mg PO BEDTIME 07/09/20 05/18/21 perphenazine 4 mg tablet 8 mg PO BID 12/03/20 05/18/21 benztropine 0.5 mg tablet 0.5 mg PO DAILY 04/05/21 05/18/21 bupropion HCl 100 mg tablet,12 hr 2 tab PO QAM 05/18/21 05/18/21 sustained-release erenumab-aooe 140 mg/mL mg SUBCUT Q4W 05/18/21 subcutaneous auto-injector (Aimovig Autoinjector) prucalopride 1 mg tablet 1 tab PO DAILY 05/18/21 05/18/21 (Motegrity) topiramate 100 mg tablet 1 tab PO DAILY 05/18/21 05/18/21 Previous Rx's Medication Instructions Recorded hydroxyzine HCl 10 mg tablet 10 mg PO BEDTIME 14 Days #14 tab 12/03/20 ibuprofen 600 mg tablet 600 mg PO Q8H PRN #15 tab 12/17/20 sucralfate 1 gram tablet 1 g PO BID #180 tab 02/03/21 clonazepam 1 mg tablet 1 mg PO BID 30 Days #60 tab 03/10/21 omeprazole 40 mg capsule,delayed 40 mg PO DAILY 90 Days #90 cap 05/03/21 release ondansetron HCl 8 mg tablet 8 mg PO Q8H 7 Days #21 tab 05/06/21 cholecalciferol (vitamin D3) 50 50 mcg PO DAILY 90 Days #90 cap 05/11/21 mcg (2,000 unit) capsule bisacodyl 5 mg tablet,delayed 10 mg PO BEDTIME PRN 2 Days #30 tab 05/12/21 release (Bisa-Lax (bisacodyl)) polyethylene glycol 3350 17 17 g PO DAILY #510 g 05/12/21 gram/dose oral powder (Miralax) Allergies Allergy/AdvReac Type Severity Reaction Status Date / Time olanzapine [From ZYPREXA] Allergy Severe SWELLING Verified 05/13/21 12:17 oxcarbazepine Allergy Severe antony's Verified 05/13/21 12:17 [From TRILEPTAL] Rob syndrome gabapentin Allergy Unknown Loss of Verified 05/13/21 12:17 balance lithium [LITHIUM] Allergy Unknown UNKNOWN Verified 05/13/21 12:17 quetiapine [Seroquel] Allergy Unknown Unknown Verified 05/13/21 12:17 sulfamethoxazole Allergy Unknown severe rash Verified 05/13/21 12:17 [From BACTRIM] trimethoprim [From BACTRIM] Allergy Unknown severe rash Verified 05/13/21 12:17 From SEROQUEL Allergy Unknown UNKNOWN Uncoded 04/05/21 14:39 Review of Systems Review of Systems: Constitutional : No Weight loss, No Fever, No Chills ENT/Mouth : No sore throat, No Rhinorrhea Eyes: No Swelling, No Redness Cardiovascular : No Chest Pain, No SOB, NoEdema Respiratory : No Cough, No Sputum, No Wheezing Gastrointestinal : Positive Nausea, Positive Vomiting, no Diarrhea, positive abdominal Pain, No Hematochezia, No Melena, pos constipation Genitourinary : No Dysuria, No Urinary Frequency, No Hematuria, No Urgency Musculoskeletal : No joint pain, No Myalgias, No Joint Swelling Skin : No Skin Lesions, No rash Neuro : No Weakness, No Numbness, No Dizziness, No Headache Psych : No Anxiety/Panic, No Depression Heme/Lymph: No Bruising, No Lymphadenopathy Endocrine : No Polyuria, No Polydipsia All other systems reviewed and are negative. Gastrointestinal: Gastrointestinal: Reports nausea PMFSH Past Medical History Attestation statement: The following information was validated with the patient. Medical History Bipolar disorder Chronic nausea GLORIA (generalized anxiety disorder) Gastroparesis Migraine Surgical History History of tonsillectomy Family History Family History Mother No problems noted. Father No problems noted. Social History Social History Housing: House Alcohol intake: never Patient Tobacco Use Status: Current everyday Tobacco user Tobacco use type: Cigarette Cigarettes Per Day: 12 e-Cigarette/Vaping Use: Never Used Use of substances other than those prescribed or required for medical reasons: No Advance Directives: No Advance Directives Information Provided: No Patient : No service: No Current occupational status: unemployed and disabled Physical Exam Vital Signs: Vital Signs: Last Vital Signs Temp 98.1 F 05/18/21 14:32 Pulse 88 05/18/21 14:32 Resp 18 05/18/21 14:32 BP 100/57 L 05/18/21 14:32 Pulse Ox 97 05/18/21 14:32 BMI result Body Mass Index 21.9 Appearance: Alert. Oriented X3. Anxious mild acute distress. Eyes: Pupils equal, round and reactive to light. ENT: Pharynx mildly dry MM Neck: Normal inspection. Neck supple. CVS: Normal heart rate and rhythm. Pulses normal. Respiratory: No respiratory distress. Breath sounds normal. Abdomen: Soft and mild diffuse ttp Rectal: small non-thrombosed hemorrhoids, no impaction felt Skin: Skin warm and dry. Normal skin color. Normal skin turgor. Extremities: No lower extremity edema. Neuro: Oriented X 3. No motor deficit. No sensory deficit. Course Course Course Narrative: Dr. Miller is requesting admission at this time for patient - patient and family aware MDM - Nausea/Vomiting/Diarrhea MDM Narrative Medical decision making narrative: 41 yo female with hx of bipolar disorder, gastroparesis, here with repeat bouts of vomiting here with 2 weeks of vomiting and constipation seen here and [facility] [place] with CT scan on 10/16 given mag citrate and lactulose without relief she is having flatus sent in to ED by her GI doctor for possible admission. At this time records from [facility] [place] requested of CT scan as well as IVF x 2L, IV ativan, zofran, pepcid, KUB for stool burden dispo per results and clinical improvement. Lab Data Result diagrams: 05/18/21 11:14 05/18/21 11:14 Labs: Lab Results 05/18/21 05/18/21 05/18/21 Range/Units 11:14 11:14 11:14 WBC 7.4 (4.8-10.8) X10*3/uL RBC 3.79 L (4.20-5.50) X10*6/uL Hgb 12.5 (12.0-16.0) g/dl Hct 37.5 (37.0-47.0) % MCV 98.9 H (80.0-98.0) fL MCH 33.0 (27.0-33.0) pg MCHC 33.3 (31.0-35.0) g/dl RDW 13.0 (11.0-16.0) % Plt Count 193 (160-400) X10*3/uL MPV 11.9 (9.4-12.3) fL Immature Gran % (Auto) 0.4 (0.0-0.4) % Neut % (Auto) 74.5 H (45-73) % Lymph % (Auto) 17.5 L (20-40) % Jenkins % (Auto) 6.9 (2-11) % Eos % (Auto) 0.3 (0-4) % Baso % (Auto) 0.4 (0-2) % Lymph # (Auto) 1.3 (1.2-4.9) X10*3/uL Jenkins # (Auto) 0.5 (0.1-1.2) X10*3/uL Eos # (Auto) 0.0 (0.0-0.4) X10*3/uL Baso # (Auto) 0.0 (0.0-0.2) X10*3/uL Abs Immat Gran (auto) 0.03 (0.00-0.03) X10*3/uL Absolute Neuts (auto) 5.5 (2.0-8.3) x10*3/uL Absolute Nucleated RBC 0.000 (0.0-0.012) X10*3/uL Nucleated RBC % (auto) 0.0 (0.0-0.2) /100WBC Sodium 143 (135-145) mmol/L Potassium 4.3 (3.3-5.1) mmol/L Chloride 108 (96-108) mmol/L Carbon Dioxide 25 (22-29) mmol/L Anion Gap 14 (12-20) BUN 7 L (9-16) mg/dL Creatinine 0.69 (0.5-1.4) mg/dL Estim Creat Clear Calc 103.3 Estimated GFR > 60 Random Glucose 88 (60-115) mg/dL Calcium 9.2 (8.4-10.2) mg/dL Magnesium 1.9 (1.6-2.6) mg/dL Total Bilirubin 0.2 (0.0-1.0) mg/dL Direct Bilirubin 0.2 (0.0-0.5) mg/dL AST 19 (5-31) U/L ALT 18 (0-31) U/L Alkaline Phosphatase 62 (39-117) U/L Total Protein 5.8 L (6.5-8.0) g/dL Albumin 3.7 (3.5-5.0) g/dL Lipase 16 (8-78) U/L Beta HCG, Quant < 2 mIU/mL COVID-19 (MANDY) Negative (Negative) COVID-19 Clin Com See Note 05/18/21 Range/Units 11:14 WBC (4.8-10.8) X10*3/uL RBC (4.20-5.50) X10*6/uL Hgb (12.0-16.0) g/dl Hct (37.0-47.0) % MCV (80.0-98.0) fL MCH (27.0-33.0) pg MCHC (31.0-35.0) g/dl RDW (11.0-16.0) % Plt Count (160-400) X10*3/uL MPV (9.4-12.3) fL Immature Gran % (Auto) (0.0-0.4) % Neut % (Auto) (45-73) % Lymph % (Auto) (20-40) % [place] % (Auto) (2-11) % Eos % (Auto) (0-4) % Baso % (Auto) (0-2) % Lymph # (Auto) (1.2-4.9) X10*3/uL Jenkins # (Auto) (0.1-1.2) X10*3/uL Eos # (Auto) (0.0-0.4) X10*3/uL Baso # (Auto) (0.0-0.2) X10*3/uL Abs Immat Gran (auto) (0.00-0.03) X10*3/uL Absolute Neuts (auto) (2.0-8.3) x10*3/uL Absolute Nucleated RBC (0.0-0.012) X10*3/uL Nucleated RBC % (auto) (0.0-0.2) /100WBC Sodium (135-145) mmol/L Potassium (3.3-5.1) mmol/L Chloride (96-108) mmol/L Carbon Dioxide (22-29) mmol/L Anion Gap (12-20) BUN (9-16) mg/dL Creatinine (0.5-1.4) mg/dL Estim Creat Clear Calc Estimated GFR Random Glucose (60-115) mg/dL Calcium 9.6 (8.4-10.2) mg/dL Magnesium (1.6-2.6) mg/dL Total Bilirubin (0.0-1.0) mg/dL Direct Bilirubin (0.0-0.5) mg/dL AST (5-31) U/L ALT (0-31) U/L Alkaline Phosphatase (39-117) U/L Total Protein (6.5-8.0) g/dL Albumin (3.5-5.0) g/dL Lipase (8-78) U/L Beta HCG, Quant mIU/mL COVID-19 (MANDY) (Negative) COVID-19 Clin Com Discharge Plan Discharge Clinical Impression: Gastroparesis Vomiting Qualifiers: Vomiting type: unspecified Nausea presence: with nausea Qualified Code(s): R11.2 - Nausea with vomiting, unspecified Patient Disposition: Admitted As Inpatient
--- NOTE | 2021-05-18 10:48 | PHA.MEDREC ---
Pharmacy Consult ? Medication Reconciliation Pharmacy has completed the medication reconciliation.
[2021-05-18 11:20] LABS: MANUAL DIFF FLAG NO
[2021-05-18] MEDS: ondansetron HCL 4 MG/2 ML VIAL IVPUSH (11:24)
[2021-05-18] MEDS: LORazepam 2 MG/ML VIAL 1 MG IVPUSH ×2 (11:24→14:29)
[2021-05-18] MEDS: 0.9 % Sodium Chloride 1,000 ML 999 ML IVCONT ×2 (11:24→11:44)
[2021-05-18] MEDS: Famotidine/PF 20 MG/2 ML VIAL IVPUSH (11:24)
[2021-05-18 11:34] LABS: Calcium 9.6 mg/dL (8.4-10.2)
[2021-05-18 11:35] LABS: Basophils Percent Auto 0.4 % (0-2); Eosinophils Percent Auto 0.3 % (0-4); Hematocrit 37.5 % (37.0-47.0); Hemoglobin 12.5 g/dl (12.0-16.0); Imm Gran Abs Auto 0.03 X10*3/uL (0.00-0.03); Imm Gran Pct Auto 0.4 % (0.0-0.4); Lymphocytes Absolute Auto 1.3 X10*3/uL (1.2-4.9); Lymphocytes Percent Auto 17.5 % (20-40); Mean Corpuscular HGB Conc 33.3 g/dl (31.0-35.0); Mean Corpuscular Volume 98.9 fL (80.0-98.0); Mean Platelet Volume 11.9 fL (9.4-12.3); Monocytes Absolute Auto 0.5 X10*3/uL (0.1-1.2); Monocytes Percent Auto 6.9 % (2-11); Neutrophils Absolute Auto 5.5 x10*3/uL (2.0-8.3); Neutrophils Percent Auto 74.5 % (45-73); Platelet Count 193 X10*3/uL (160-400); Red Blood Count 3.79 X10*6/uL (4.20-5.50); White Blood Count 7.4 X10*3/uL (4.8-10.8)
[2021-05-18 11:40] LABS: Alanine Aminotransferase 18 U/L (0-31); Albumin Level 3.7 g/dL (3.5-5.0); Alkaline Phosphatase 62 U/L (39-117); Anion Gap 14 (12-20); Aspartate Amino Transferase 19 U/L (5-31); Bilirubin Direct 0.2 mg/dL (0.0-0.5); Bilirubin Total 0.2 mg/dL (0.0-1.0); Blood Urea Nitrogen 7 mg/dL (9-16); Calcium 9.2 mg/dL (8.4-10.2); Carbon Dioxide 25 mmol/L (22-29); Chloride 108 mmol/L (96-108); Creatinine Clr Calc Pharmacy 103.3; Estimated Glomerular Filt Rate > 60; Glucose Random 88 mg/dL (60-115); Lipase 16 U/L (8-78); Magnesium 1.9 mg/dL (1.6-2.6); Potassium 4.3 mmol/L (3.3-5.1); Sodium 143 mmol/L (135-145); Total Protein 5.8 g/dL (6.5-8.0)
[2021-05-18 11:43] LABS: COVID-19 Test Negative (Negative); IDNOW Serial# 16C4AD1C
[2021-05-18 11:46] LABS: HCG Quantitative < 2 mIU/mL
[2021-05-18] MEDS: Ondansetron ODT 8 MG TAB.RAPDIS TRANSLINGU ×2 (13:52→21:17)
--- NOTE | 2021-05-18 13:54 | PM.IMHP ---
History of Present Illness Date of Service: 05/18/21 Chief Complaint: Vomiting 41 yo female with hx of bipolar disorder, gastroparesis, here with repeat bouts of vomiting here with 2 weeks of vomiting and constipation seen here and [facility] with CT scan on 10/16 given mag citrate and lactulose without relief she is having flatus sent in to ED by her GI doctor for possible admission. ER Course Given IV fluids x2 L along with IV Ativan Zofran and Pepcid. Call placed to GI who asked for permission and they will see in house Review of Systems Review of Systems: Denies chest pain Denies shortness of breath Admits to nausea vomiting denies diarrhea Denies fever chills PMFSH Medical History Bipolar disorder Chronic nausea GLORIA (generalized anxiety disorder) Gastroparesis Migraine Family History Mother No problems noted. Father No problems noted. Surgical History History of tonsillectomy Social History Housing: House Alcohol intake: never Patient Tobacco Use Status: Current everyday Tobacco user Tobacco use type: Cigarette Cigarettes Per Day: 12 e-Cigarette/Vaping Use: Never Used Use of substances other than those prescribed or required for medical reasons: No Advance Directives: No Advance Directives Information Provided: No Patient : No service: No Current occupational status: unemployed and disabled Meds Allergies Allergy/AdvReac Type Severity Reaction Status Date / Time olanzapine [From ZYPREXA] Allergy Severe SWELLING Verified 05/13/21 12:17 oxcarbazepine Allergy Severe antony's Verified 05/13/21 12:17 [From TRILEPTAL] Rob syndrome gabapentin Allergy Unknown Loss of Verified 05/13/21 12:17 balance lithium [LITHIUM] Allergy Unknown UNKNOWN Verified 05/13/21 12:17 quetiapine [Seroquel] Allergy Unknown Unknown Verified 05/13/21 12:17 sulfamethoxazole Allergy Unknown severe rash Verified 05/13/21 12:17 [From BACTRIM] trimethoprim [From BACTRIM] Allergy Unknown severe rash Verified 05/13/21 12:17 From SEROQUEL Allergy Unknown UNKNOWN Uncoded 04/05/21 14:39 Active Medications: Current Medications Benztropine Mesylate (Benztropine Mesylate 0.5 Mg Tablet) 0.5 mg PO DAILY COUNTS INCLUDE 234 BEDS AT THE [facility] Bisacodyl (Bisacodyl 5 Mg Tablet.Dr) 10 mg PO BEDTIME PRN PRN Reason: constipation Bupropion HCl (Bupropion Hcl Xl 150 Mg Tab.Er.24h) 150 mg PO DAILY COUNTS INCLUDE 234 BEDS AT THE [facility] Clonazepam (Clonazepam 1 Mg Tablet) 1 mg PO BID COUNTS INCLUDE 234 BEDS AT THE [facility] Divalproex Sodium (Divalproex Sodium Er 500 Mg Tab.Er.24h) 1,500 mg PO DAILY COUNTS INCLUDE 234 BEDS AT THE [facility] Enoxaparin Sodium (Enoxaparin Sodium 40 Mg/0.4 Ml Syringe) 40 mg SUBCUT Q24H COUNTS INCLUDE 234 BEDS AT THE [facility] Famotidine (Famotidine 20 Mg Tablet) 40 mg PO BEDTIME [facility] Hydroxyzine HCl (Hydroxyzine Hcl 10 Mg Tablet) 10 mg PO BEDTIME COUNTS INCLUDE 234 BEDS AT THE [facility] Non-Formulary Medication (Lurasidone) 120 mg PO DAILY COUNTS INCLUDE 234 BEDS AT THE [facility] Non-Formulary Medication (Prucalopride [Motegrity]) 1 tab PO DAILY COUNTS INCLUDE 234 BEDS AT THE [facility] Omeprazole (Omeprazole 40 Mg Capsule.) 40 mg PO DAILY@0630 COUNTS INCLUDE 234 BEDS AT THE [facility] Ondansetron HCl (Ondansetron Odt 8 Mg Tab.Rapdis) 8 mg TRANSLINGU Q8H PRN PRN Reason: Nausea and Vomiting Last Admin: 05/18/21 13:52 Dose: 8 mg Documented by: Perphenazine (Perphenazine 8 Mg Tablet) 8 mg PO BID COUNTS INCLUDE 234 BEDS AT THE [facility] Pharmacy Consult (Consult Rx Perform Med Rec) 1 each MISCELLANE ONCE PRN PRN Reason: Consult order Polyethylene Glycol (Polyethylene Glycol 3350 17 Gm Powd.Pack) 17 gm PO DAILY COUNTS INCLUDE 234 BEDS AT THE [facility] Sodium Chloride (0.9 % Sodium Chloride Flush 3 Ml Syringe) 3 ml IVFLUSH QSHIFT COUNTS INCLUDE 234 BEDS AT THE [facility] Sucralfate (Sucralfate 1 Gm Tablet) 1 gm PO BID COUNTS INCLUDE 234 BEDS AT THE [facility] Sumatriptan Succinate (Sumatriptan Succinate 50 Mg Tablet) 50 mg PO DAILY PRN PRN Reason: Migraine Headache Topiramate (Topiramate 100 Mg Tablet) 100 mg PO DAILY COUNTS INCLUDE 234 BEDS AT THE [facility] Vitamin D (Cholecalciferol (Vitamin D3) 25 Mcg Tablet) 50 mcg PO DAILY COUNTS INCLUDE 234 BEDS AT THE [facility] Home Medications Medication Instructions Recorded Confirmed Last Taken Type divalproex 500 mg tablet,extended 1,500 mg PO DAILY tab 05/28/20 05/18/21 Unknown History release 24 hr lurasidone 120 mg tablet 120 mg PO DAILY 05/28/20 05/18/21 Unknown History sumatriptan succinate 50 mg tablet 50 mg PO DAILY PRN 05/28/20 05/18/21 Unknown History famotidine 40 mg tablet 40 mg PO BEDTIME 07/09/20 05/18/21 Unknown History perphenazine 4 mg tablet 8 mg PO BID 12/03/20 05/18/21 Unknown History benztropine 0.5 mg tablet 0.5 mg PO DAILY 04/05/21 05/18/21 Unknown History bupropion HCl 100 mg tablet,12 hr 2 tab PO QAM 05/18/21 05/18/21 Unknown History sustained-release erenumab-aooe 140 mg/mL mg SUBCUT Q4W 05/18/21 Unknown History subcutaneous auto-injector (Aimovig Autoinjector) prucalopride 1 mg tablet 1 tab PO DAILY 05/18/21 05/18/21 Unknown History (Motegrity) topiramate 100 mg tablet 1 tab PO DAILY 05/18/21 05/18/21 Unknown History Physical Exam Vital Signs and Narrative: Vital Signs: Last Vital Signs Temp 97.8 F 05/18/21 09:39 Pulse 111 H 05/18/21 09:39 Resp 20 05/18/21 09:39 BP 136/66 05/18/21 09:39 Pulse Ox 100 05/18/21 09:39 BMI result Body Mass Index 21.9 Const: Other: Awake alert oriented x3 no acute distress HENMT: Other: Membranes moist Resp: Other: Clear to auscultation bilaterally no rales rhonchi and wheezes Cardio: Other: No S4; positive S1-S2; no S3 murmurs or gallops GI: Other: Soft nontender nondistended with normoactive bowel sounds Extrem: Other: No edema bilaterally Results Labs CBC and Chem 7: 05/18/21 11:14 05/18/21 11:14 Labs: Laboratory Results - last 24 hr 05/18/21 05/18/21 05/18/21 11:14 11:14 11:14 MCV 98.9 H MCH 33.0 MCHC 33.3 RDW 13.0 Plt Count 193 MPV 11.9 Immature Gran % (Auto) 0.4 Neut % (Auto) 74.5 H Lymph % (Auto) 17.5 L [place] % (Auto) 6.9 Eos % (Auto) 0.3 Baso % (Auto) 0.4 Lymph # (Auto) 1.3 [place] # (Auto) 0.5 Eos # (Auto) 0.0 Baso # (Auto) 0.0 Abs Immat Gran (auto) 0.03 Absolute Neuts (auto) 5.5 Absolute Nucleated RBC 0.000 Nucleated RBC % (auto) 0.0 Anion Gap 14 Estim Creat Clear Calc 103.3 Estimated GFR > 60 Random Glucose 88 Calcium 9.2 Magnesium 1.9 Total Bilirubin 0.2 Direct Bilirubin 0.2 AST 19 ALT 18 Alkaline Phosphatase 62 Total Protein 5.8 L Albumin 3.7 Lipase 16 Beta HCG, Quant < 2 COVID-19 ([facility]) Negative COVID-19 Clin Com See Note 05/18/21 11:14 MCV MCH MCHC RDW Plt Count MPV Immature Gran % (Auto) Neut % (Auto) Lymph % (Auto) [place] % (Auto) Eos % (Auto) Baso % (Auto) Lymph # (Auto) [place] # (Auto) Eos # (Auto) Baso # (Auto) Abs Immat Gran (auto) Absolute Neuts (auto) Absolute Nucleated RBC Nucleated RBC % (auto) Anion Gap Estim Creat Clear Calc Estimated GFR Random Glucose Calcium 9.6 Magnesium Total Bilirubin Direct Bilirubin AST ALT Alkaline Phosphatase Total Protein Albumin Lipase Beta HCG, Quant COVID-19 ([facility]) COVID-19 Clin Com Imaging Radiologist's Impressions: Impressions KUB X-Ray 05/18/21 10:52 IMPRESSION: Unremarkable exam. Assessment and Plan (1) Gastroparesis: Status: Acute (2) Bipolar disorder: Status: Acute Plan 41 yo female with hx of bipolar disorder, gastroparesis, here with repeat bouts of vomiting here with 2 weeks of vomiting and constipation seen here and [facility] with CT scan on 10/16 given mag citrate and lactulose without relief she is having flatus sent in to ED by her GI doctor for possible admission. 1.Gastroparesis -IVFs; will trial reglan as off psych meds x 5 days -Discussed with GI; will order CT abd /pelvis(attempt contrast) 2.Bipolar - will hold meds and trial reglan. -add back when appropriate(stable now) Full Code Lovenox Will require inpatient admission for 2 midnights given inability take orals; liquid or solids. GI consult and further workup as dictated Quality Stroke Does the patient have a stroke diagnosis?: No VTE Prior VTE?: No VTE Risk Level:: Medical - moderate - high VTE Device Contraindication: Treatment Not Indicated VTE Drug Contraindication: N/A - Med Ordered
--- NOTE | 2021-05-18 13:56 | PC.NURSE ---
PT GIVEN PRN MEDICATION FOR NAUSEA, WILL AWAIT POSITIVE EFFECT BEFORE GIVING ORDERED PO HS MEDS.
[2021-05-18] MEDS: Metoclopramide HCl 10 MG/2 ML VIAL 5 MG IVPUSH (14:26)
[2021-05-18] MEDS: Enoxaparin Sodium 40 MG/0.4 ML SYRINGE SUBCUT (14:26)
[2021-05-18] MEDS: Benztropine Mesylate 0.5 MG TABLET PO (14:31)
[2021-05-18 14:32] VITALS: BP 100/57; PULSE 88; RESP 18; TEMP 36.7; O2SAT 97
[2021-05-18 16:43] VITALS: BP 119/59; PULSE 82; RESP 16; TEMP 36.6; O2SAT 100
[2021-05-18] MEDS: Nicotine 14 MG PATCH.TD24 TRANSDERMA (16:58)
--- NOTE | 2021-05-18 17:04 | PC.NURSE ---
pt transferred from main ED. VSS. pt resting comfortably in the hospital bed. pt drinking PO contrast. denies nausea at this time. Pt also denies pain. pt to go to CT scan after finishing second bottle of contrast.
--- NOTE | 2021-05-18 18:46 | P.CNGI_ITS ---
History of Present Illness Data of Consult Service Date: 05/18/21 Requesting physician: Tamir Molina Primary Care Provider: Unknown Physician HPI Reason for consult: nausea, vomiting, abdo pain ?? 41 yr old f with hx of bipolar d/o and exp lap for IUD perforation of uterus 02/23 who I am asked to see for assessment for abdominal pain and nausea Patient known to me from recent office visit c/o nocturnal emesis, with hives, mental fogginess, and bloating with weight loss and poor appetite. Now presents with 2 wks of ongoing nausea and non blood emesis with severe lower and upper abodminal pain, can be worse with ot without food or positional at times. She has been constipated for last few weeks, passing only small amounts of stool and urine, not passing gas. She has been unable to take her medications for 5 f and feels dehydrated and weak. She also has chills and feels shaky. Not taking narcotics or recreational drugs She has been to [facility] and had CT there which was unremarkable except for portal edema. Other tests; KUB today, unremarkable Routine labs- unremarkable Ba swallow: 03/16/21== mild GERD, no hiatal hernia gasrin elevated at 800 anti Hu and Yo Ab pos, western blot neg GES: pos -37% at 4 hrs TSH- low, fT4 and T3 nml Review of Systems Review of Systems: ROS: Constitutional : No Weight loss, No Fever, + Chills ENT/Mouth :? No sore throat, No Rhinorrhea Eyes: No Swelling, No Redness Cardiovascular : No Chest Pain, No SOB, No Edema Respiratory : No Cough, No Sputum, No Wheezing Gastrointestinal : see HPI Genitourinary : NO??Dysuria, No Urinary Frequency, No Hematuria, No Urgency Musculoskeletal : No joint pain, No Myalgias, No Joint Swelling Skin : No Skin Lesions, No rash Neuro : + Weakness, No Numbness, No Dizziness, No Headache Psych : No Anxiety/Panic, No Depression Heme/Lymph: No Bruising, No Lymphadenopathy Endocrine : No Polyuria, No Polydipsia Yes all other systems are reviewed and are negative [facility] Past Medical History Medical History Bipolar disorder Chronic nausea GLORIA (generalized anxiety disorder) Gastroparesis Migraine Family History Family History Mother No problems noted. Father No problems noted. Surgical History Surgical History History of tonsillectomy Social History Social History Housing: House Alcohol intake: never Patient Tobacco Use Status: Current everyday Tobacco user Tobacco use type: Cigarette Cigarettes Per Day: 12 e-Cigarette/Vaping Use: Never Used Use of substances other than those prescribed or required for medical reasons: No Advance Directives: No Advance Directives Information Provided: No Patient : No service: No Current occupational status: unemployed and disabled Meds Allergies Allergy/AdvReac Type Severity Reaction Status Date / Time olanzapine [From ZYPREXA] Allergy Severe SWELLING Verified 05/13/21 12:17 oxcarbazepine Allergy Severe antony's Verified 05/13/21 12:17 [From TRILEPTAL] Rob syndrome gabapentin Allergy Unknown Loss of Verified 05/13/21 12:17 balance lithium [LITHIUM] Allergy Unknown UNKNOWN Verified 05/13/21 12:17 quetiapine [Seroquel] Allergy Unknown Unknown Verified 05/13/21 12:17 sulfamethoxazole Allergy Unknown severe rash Verified 05/13/21 12:17 [From BACTRIM] trimethoprim [From BACTRIM] Allergy Unknown severe rash Verified 05/13/21 12:17 From SEROQUEL Allergy Unknown UNKNOWN Uncoded 04/05/21 14:39 Active Medications: Current Medications Benztropine Mesylate (Benztropine Mesylate 0.5 Mg Tablet) 0.5 mg PO DAILY [facility] Last Admin: 05/18/21 14:31 Dose: 0.5 mg Documented by: Bisacodyl (Bisacodyl 5 Mg Tablet.Dr) 10 mg PO BEDTIME PRN PRN Reason: constipation Bupropion HCl (Bupropion Hcl Xl 150 Mg Tab.Er.24h) 150 mg PO DAILY [facility] Clonazepam (Clonazepam 1 Mg Tablet) 1 mg PO BID [facility] Divalproex Sodium (Divalproex Sodium Er 500 Mg Tab.Er.24h) 1,500 mg PO DAILY [facility] Enoxaparin Sodium (Enoxaparin Sodium 40 Mg/0.4 Ml Syringe) 40 mg SUBCUT Q24H [facility] Last Admin: 05/18/21 14:26 Dose: 40 mg Documented by: Famotidine (Famotidine 20 Mg Tablet) 40 mg PO BEDTIME [facility] Hydroxyzine HCl (Hydroxyzine Hcl 10 Mg Tablet) 10 mg PO BEDTIME [facility] Nicotine (Nicotine 14 Mg Patch.Td24) 14 mg TRANSDERMA DAILY [facility] Last Admin: 05/18/21 16:58 Dose: 14 mg Documented by: Non-Formulary Medication (Lurasidone) 120 mg PO DAILY [facility] Non-Formulary Medication (Prucalopride [Motegrity]) 1 tab PO DAILY [facility] Omeprazole (Omeprazole 40 Mg Capsule.Dr) 40 mg PO DAILY@0630 [facility] Ondansetron HCl (Ondansetron Odt 8 Mg Tab.Rapdis) 8 mg TRANSLINGU Q8H PRN PRN Reason: Nausea and Vomiting Last Admin: 05/18/21 13:52 Dose: 8 mg Documented by: Perphenazine (Perphenazine 8 Mg Tablet) 8 mg PO BID [facility] Pharmacy Consult (Consult Rx Perform Med Rec) 1 each MISCELLANE ONCE PRN PRN Reason: Consult order Polyethylene Glycol (Polyethylene Glycol 3350 17 Gm Powd.Pack) 17 gm PO DAILY [facility] Sodium Chloride (0.9 % Sodium Chloride Flush 3 Ml Syringe) 3 ml IVFLUSH QSHIFT [facility] Last Admin: 05/18/21 14:59 Dose: Not Given Documented by: Sucralfate (Sucralfate 1 Gm Tablet) 1 gm PO BID [facility] Sumatriptan Succinate (Sumatriptan Succinate 50 Mg Tablet) 50 mg PO DAILY PRN PRN Reason: Migraine Headache Topiramate (Topiramate 100 Mg Tablet) 100 mg PO DAILY [facility] Vitamin D (Cholecalciferol (Vitamin D3) 25 Mcg Tablet) 50 mcg PO DAILY [facility] Home Medications Medication Instructions Recorded Confirmed Last Taken Type divalproex 500 mg tablet,extended 1,500 mg PO DAILY tab 05/28/20 05/18/21 Unknown History release 24 hr lurasidone 120 mg tablet 120 mg PO DAILY 05/28/20 05/18/21 Unknown History sumatriptan succinate 50 mg tablet 50 mg PO DAILY PRN 05/28/20 05/18/21 Unknown History famotidine 40 mg tablet 40 mg PO BEDTIME 07/09/20 05/18/21 Unknown History perphenazine 4 mg tablet 8 mg PO BID 12/03/20 05/18/21 Unknown History benztropine 0.5 mg tablet 0.5 mg PO DAILY 04/05/21 05/18/21 Unknown History bupropion HCl 100 mg tablet,12 hr 2 tab PO QAM 05/18/21 05/18/21 Unknown History sustained-release erenumab-aooe 140 mg/mL mg SUBCUT Q4W 05/18/21 Unknown History subcutaneous auto-injector (Aimovig Autoinjector) prucalopride 1 mg tablet 1 tab PO DAILY 05/18/21 05/18/21 Unknown History (Motegrity) topiramate 100 mg tablet 1 tab PO DAILY 05/18/21 05/18/21 Unknown History Physical Exam Vital Signs: Vital Signs: Last Vital Signs Temp 98 F 05/18/21 16:43 Pulse 82 05/18/21 16:43 Resp 16 05/18/21 16:43 BP 119/59 L 05/18/21 16:43 Pulse Ox 100 05/18/21 16:43 BMI result Body Mass Index 21.9 EXAM: GENERAL: The patient is uncomfortable and weak looking VITAL SIGNS:see workflow HEENT: Nonicteric sclerae, PERRLA, EOMI. Oropharynx clear. Moist mucous membranes. Conjunctivae appear well perfused. No thyroid mass. CHEST: Chest wall is nontender. HEART: Regular rate and rhythm without murmurs. LUNGS: Clear to auscultation bilaterally. ABDOMEN: Soft, positive bowel sounds, nontender, no organomegaly.no flank tenderness SKIN: No rash, no excessive bruising, petechiae, or purpura. dermographism NEUROLOGIC: Cranial nerves II-XII intact without motor/sensory deficit. Psych- appropriate Results Labs CBC & Chem 7: 05/18/21 11:14 05/18/21 11:14 Labs: Short CBC 05/18/21 Range/Units 11:14 WBC 7.4 (4.8-10.8) X10*3/uL Hgb 12.5 (12.0-16.0) g/dl Hct 37.5 (37.0-47.0) % Plt Count 193 (160-400) X10*3/uL BMP 05/18/21 05/18/21 11:14 11:14 Sodium 143 Potassium 4.3 Chloride 108 Carbon Dioxide 25 BUN 7 L Creatinine 0.69 Calcium 9.2 9.6 Liver Function 05/18/21 Range/Units 11:14 Total Bilirubin 0.2 (0.0-1.0) mg/dL Direct Bilirubin 0.2 (0.0-0.5) mg/dL AST 19 (5-31) U/L ALT 18 (0-31) U/L Alkaline Phosphatase 62 (39-117) U/L Albumin 3.7 (3.5-5.0) g/dL Assessment and Plan (1) Gastroparesis: Status: Acute (2) Constipation: Qualifiers: Constipation type: slow transit constipation Qualified Code(s): K59.01 - Slow transit constipation Status: Acute (3) Vomiting: Qualifiers: Vomiting type: unspecified Nausea presence: with nausea Qualified Code(s): R11.2 - Nausea with vomiting, unspecified Status: Acute Plan 1/ Nausea, vomiting and abdominal pain with no obvious causes thus far except for gastroparesis the etiology if which is uncertain. She does have pos anti Hu althought western blot neg, and low TSH with nml T4, and T3 as well as high gastrin (had been on PPI). Thyroid labs may be sign of sick euthyroid syndrome vs partial pituiatry lesion. she may also have adhesions from her recent surgery from IUD perforation which maybe contributing to her symptoms. PLAN: 1/ Recommend IV fluid resus as doing, check orthostatics and cortisol levels 2/ CT A/P with PO and IV contrast, consider CT chest as well givne link of anti hu ab with SCLC 3/scheduled anti emetics, can try short course of IV erythromycin or reglan after getting ECG and making sure QTc is ok 4/ if ongoing sx then may need further w/u with EGD, and brain imaging to r/o central cause Procedures Date of Service Date of Service: 05/18/21
[2021-05-18] MEDS: Barium Sulfate Oral (Vanilla) 450 ML ORAL.SUSP 900 ML PO ×2 (19:15→19:31)
[2021-05-18 21:05] VITALS: BP 112/63; PULSE 73; RESP 18; TEMP 36.1; O2SAT 97
[2021-05-18] MEDS: Perphenazine 8 MG TABLET PO (21:13)
[2021-05-18] MEDS: Sucralfate 1 GM TABLET PO (21:35)
[2021-05-18] MEDS: bisacodyL 5 MG TABLET.DR 10 MG PO (21:36)
[2021-05-18] MEDS: hydrOXYzine HCL 10 MG TABLET PO (21:37)
[2021-05-18] MEDS: clonazePAM 1 MG TABLET PO (21:37)
[2021-05-18] MEDS: Famotidine 20 MG TABLET 40 MG PO (21:37)
[2021-05-18] MEDS: Divalproex Sodium ER 500 MG TAB.ER.24H 1500 MG PO (21:59)
[2021-05-18] MEDS: SUMAtriptan succinate 50 MG TABLET PO (22:41)
[2021-05-18] MEDS: NaPROXEN 500 MG TABLET PO (23:01)
[2021-05-18] MEDS: LORazepam 2 MG/ML VIAL 0.5 MG IVPUSH (23:01)
--- NOTE | 2021-05-18 23:24 | PC.NURSE ---
Assumed care of pt Pt medicated per MAY Pt tolerated well Pt tolerating PO fluids C/o nausea but no vomiting Pt states having migraine/BOYD and panic attack Pt states takes imitrex as a cocktail with aleve and caffeine. Pt given imitrex with diet coke. Dr. Queen asked for aleve. Awaiting orders. Dr. Queen made aware of panic attack. Awaiting orders. Will continue to monitor
[2021-05-18 23:25] VITALS: BP 100/52; PULSE 72; RESP 16; TEMP 36.8; O2SAT 99
--- NOTE | 2021-05-19 | ECG_ITS ---
Test Reason : check qtc Blood Pressure : / mmHG Vent. Rate : 062 BPM Atrial Rate : 062 BPM P-R Int : 136 ms QRS Dur : 072 ms QT Int : 426 ms P-R-T Axes : 059 085 052 degrees QTc Int : 432 ms Normal sinus rhythm Normal ECG When compared with ECG of 24-DEC-2015 11:04, No significant change was found Referred By: Fan Queen Electronically Signed By:NOAH PALACIOS
--- NOTE | 2021-05-19 00:02 | PC.NURSE ---
Pt medicated per orders Pt resting on stretcher with eyes closed Breathing even and unlabored NAD Will continue to monitor
[2021-05-19] MEDS: LORazepam 2 MG/ML VIAL 0.5 MG IVPUSH ×2 (00:55→04:30)
--- NOTE | 2021-05-19 01:02 | PC.NURSE ---
Pt c/o restlessness and shakyness inside. Dr. Queen made aware.
--- NOTE | 2021-05-19 01:03 | PC.NURSE ---
Per central supply technician, pt attempting to walk out of ED. Pt re-directed back to bed. Pt medicated per MAR Per pt, I just feel like I'm going crazy. Pt states takes thorazine at home and helps her when her anxiety gets too bad. Pt requesting dose here. Dr. Queen made aware. Awaiting for orders
--- NOTE | 2021-05-19 01:40 | PC.NURSE ---
Pt still restless at bedside Spoke with Dr. Queen. Per order, will obtain EKG prior to giving thorazine.
[2021-05-19] MEDS: chlorproMAZINE HCl 25 MG TABLET 100 MG PO (02:10)
--- NOTE | 2021-05-19 02:13 | PC.NURSE ---
Pt medicated per MAY. Explained to pt that medication will take a few minutes to work because it is not IV. Pt verbalized understanding Will continue to monitor
--- NOTE | 2021-05-19 02:30 | PC.NURSE ---
Pt pacing in room and in front of room. Pt states I'm just going crazy laying down. Pt reminded that medication will take a while to work. Pt verbalized understanding. Will continue to monitor
--- NOTE | 2021-05-19 03:42 | PC.NURSE ---
Per pt, anxiety is getting better, and she just wants to go to sleep. Pt's curtains closed TV turned off Extra blankets given per request Will continue to monitor
--- NOTE | 2021-05-19 04:29 | PM.EVENT ---
Event Note Date of Service: 05/19/21 Event Note: anxiety: Patient had severe anxiety. Mentioned that she was taking her home medications but nothing stays down secondary to her nausea and vomiting. Patient was given Ativan IV x2, Thorazine. Will consult Psychiatry further recommendations of severe anxiety Right hand injury: Patient mentioned her hand into the wall secondary to severe anxiety. will obtain right hand x-ray.
--- NOTE | 2021-05-19 04:36 | PC.NURSE ---
0406 This nurse was on the phone with Dr. Queen for pt's anxiety. Pt is frustrated and restless in bed. After speaking with the MD, this nurse was made aware by tech that pt punched the wall while this nurse was on the phone. Pt is back on stretcher 2 lacerations noted on RT knuckle. Bleeding controlled. Cleaned and placed bacitracin on lac. Covered with telfa and gauze. Pt tolerated well Pt oriented x 4. Pt denies any SI/HI. Per pt, I'm just tired of this. I just need to release the pressure. 0427 Dr. Queen made aware Pt medicated per MAY Per Dr. Queen, plan is for pt to have psych consult this AM and will manage anxiety with ativan. Will continue to monitor
[2021-05-19 04:56] LABS: MANUAL DIFF FLAG NO
[2021-05-19 04:58] LABS: Basophils Percent Auto 0.8 % (0-2); Eosinophils Absolute Auto 0.1 X10*3/uL (0.0-0.4); Eosinophils Percent Auto 2.1 % (0-4); Hematocrit 34.2 % (37.0-47.0); Hemoglobin 11.6 g/dl (12.0-16.0); Imm Gran Abs Auto 0.01 X10*3/uL (0.00-0.03); Imm Gran Pct Auto 0.2 % (0.0-0.4); Lymphocytes Absolute Auto 2.3 X10*3/uL (1.2-4.9); Mean Corpuscular HGB Conc 33.9 g/dl (31.0-35.0); Mean Corpuscular Hemoglobin 33.1 pg (27.0-33.0); Mean Corpuscular Volume 97.7 fL (80.0-98.0); Mean Platelet Volume 11.9 fL (9.4-12.3); Monocytes Absolute Auto 0.5 X10*3/uL (0.1-1.2); Monocytes Percent Auto 9.5 % (2-11); Neutrophils Absolute Auto 2.3 x10*3/uL (2.0-8.3); Neutrophils Percent Auto 43.4 % (45-73); Platelet Count 179 X10*3/uL (160-400); White Blood Count 5.3 X10*3/uL (4.8-10.8)
[2021-05-19 05:20] LABS: Alanine Aminotransferase 15 U/L (0-31); Albumin Level 3.3 g/dL (3.5-5.0); Alkaline Phosphatase 58 U/L (39-117); Anion Gap 12 (12-20); Aspartate Amino Transferase 15 U/L (5-31); Bilirubin Total 0.3 mg/dL (0.0-1.0); Blood Urea Nitrogen 4 mg/dL (9-16); Calcium 9.1 mg/dL (8.4-10.2); Carbon Dioxide 23 mmol/L (22-29); Chloride 112 mmol/L (96-108); Creatinine Clr Calc Pharmacy 103.3; Estimated Glomerular Filt Rate > 60; Glucose Fasting 78 mg/dL (60-99); Potassium 3.6 mmol/L (3.3-5.1); Sodium 143 mmol/L (135-145); Total Protein 5.1 g/dL (6.5-8.0)
[2021-05-19] MEDS: clonazePAM 1 MG TABLET PO ×2 (06:16→20:05)
[2021-05-19] MEDS: buPROPion HCl XL 150 MG TAB.ER.24H PO (06:16)
--- NOTE | 2021-05-19 06:18 | PC.NURSE ---
Pt pulled bandage off RT hand Pt crying at bedside, stating I don't know why I'm so anxious. Dr. Queen made aware. Per Dr. Queen, ok to give klonopin and wellbutrin early. Pt medicated per MAY Pt tolerated well Explained to pt plan: awaiting psych provider in AM. Pt verbalized understanding. Will continue to monitor
[2021-05-19] MEDS: Nicotine 14 MG PATCH.TD24 TRANSDERMA (09:48)
[2021-05-19] MEDS: Sucralfate 1 GM TABLET PO ×2 (09:48→20:12)
[2021-05-19] MEDS: polyethylene glycoL 3350 17 GM POWD.PACK PO (09:48)
[2021-05-19] MEDS: Topiramate 100 MG TABLET PO (09:48)
[2021-05-19] MEDS: Perphenazine 8 MG TABLET PO ×2 (09:48→20:05)
[2021-05-19] MEDS: Benztropine Mesylate 0.5 MG TABLET PO (09:48)
[2021-05-19] MEDS: Omeprazole 40 MG CAPSULE.DR PO (09:48)
[2021-05-19] MEDS: Cholecalciferol (Vitamin D3) 25 MCG TABLET 50 MCG PO (09:48)
[2021-05-19] MEDS: 0.9 % Sodium Chloride Flush 3 ML SYRINGE IVFLUSH ×3 (09:49→23:32)
[2021-05-19 12:17] LABS: Appearance Urine HAZY; Color Urine STRAW; Glucose Urine UA NEG (NEG); Leukocyte Esterase Urine NEG (NEG); Nitrite Urine NEG (NEG); Specific Gravity - Urine <= 1.005 (1.005-1.025); Urine Blood NEG (NEG); Urine Ketones 5 MG/DL (NEG); Urine Protein NEG (NEG-TRACE)
[2021-05-19] MEDS: Enoxaparin Sodium 40 MG/0.4 ML SYRINGE SUBCUT (12:40)
[2021-05-19 12:42] VITALS: BP 110/72; PULSE 90; RESP 18; TEMP 36.6; O2SAT 98
--- NOTE | 2021-05-19 13:01 | PC.NURSE ---
attempted the foely cath twice with a 16french and or northern irish unsuccessful at this time, dr real aware. pt states she always has a hard time with insertion
[2021-05-19 13:04] LABS: Amphetamine Screen Urine Not Detected (Not Detect); Barbiturates, Urine Not Detected (Not Detect); Benzodiazepines Screen Urine Not Detected (Not Detect); Cannabinoid Screen Urine POSITIVE (Not Detect); Cocaine Screen Urine Not Detected (Not Detect); Fentanyl, urine POSITIVE (Not Detect); Opiate Screen Urine Not Detected (Not Detect); Phencyclidine Screen Urine Not Detected (Not Detect)
[2021-05-19] MEDS: LORazepam 2 MG/ML VIAL 1 MG IVPUSH (13:14)
[2021-05-19] MEDS: Morphine Sulfate 4 MG/ML CARTRIDGE IVPUSH ×2 (13:47→19:05)
--- NOTE | 2021-05-19 14:23 | P.PNIM_ITS ---
Subjective Subjective Date of Service: 05/19/21 Interval History: Increased anxiety overnight with acting out behaviors. Punch wall 2nd anxiety. Remains anxious and fairly uncooperative Review of Systems Denies chest pain Denies shortness of breath Denies nausea vomiting diarrhea Admits to extreme anxiety Physical Exam Vital Signs: Vital Signs: Last Vital Signs Temp 97.9 F 05/19/21 12:42 Pulse 90 05/19/21 12:42 Resp 18 05/19/21 12:42 BP 110/72 05/19/21 12:42 Pulse Ox 98 05/19/21 12:42 BMI result Body Mass Index 21.9 Const: Other: Awake alert oriented x3 no acute distress HENMT: Other: Membranes moist Resp: Other: Clear to auscultation bilaterally no rales rhonchi and wheezes Cardio: Other: No S4; positive S1-S2; no S3 murmurs or gallops GI: Other: Soft nontender nondistended with normoactive bowel sounds Extrem: Other: No edema bilaterally Objective Data Active Medications Benztropine Mesylate (Benztropine Mesylate 0.5 Mg Tablet) 0.5 mg PO DAILY [facility] Last Admin: 05/19/21 09:48 Dose: 0.5 mg Documented by: STEPHEN Bisacodyl (Bisacodyl 5 Mg Tablet.Dr) 10 mg PO BEDTIME PRN PRN Reason: constipation Last Admin: 05/18/21 21:36 Dose: 10 mg Documented by: ANGEL Bupropion HCl (Bupropion Hcl Xl 150 Mg Tab.Er.24h) 150 mg PO DAILY [facility] Last Admin: 05/19/21 06:16 Dose: 150 mg Documented by: ANGEL Clonazepam (Clonazepam 1 Mg Tablet) 1 mg PO BID [facility] Last Admin: 05/19/21 06:16 Dose: 1 mg Documented by: ANGEL Divalproex Sodium (Divalproex Sodium Er 500 Mg Tab.Er.24h) 1,500 mg PO BEDTIME [facility] Last Admin: 05/18/21 21:59 Dose: 1,500 mg Documented by: ANGEL Enoxaparin Sodium (Enoxaparin Sodium 40 Mg/0.4 Ml Syringe) 40 mg SUBCUT Q24H [facility] Last Admin: 05/19/21 12:40 Dose: 40 mg Documented by: STEPHEN Famotidine (Famotidine 20 Mg Tablet) 40 mg PO BEDTIME [facility] Last Admin: 05/18/21 21:37 Dose: 40 mg Documented by: ANGEL Hydroxyzine HCl (Hydroxyzine Hcl 10 Mg Tablet) 10 mg PO BEDTIME [facility] Last Admin: 05/18/21 21:37 Dose: 10 mg Documented by: ANGEL Lurasidone HCl 40 mg/ (Lurasidone HCl 80 mg) 120 mg PO DAILY [facility] Last Admin: 05/19/21 10:44 Dose: 120 mg Documented by: TATI Nicotine (Nicotine 14 Mg Patch.Td24) 14 mg TRANSDERMA DAILY [facility] Last Admin: 05/19/21 09:48 Dose: 14 mg Documented by: STEPHEN Patient Own Medication ( Prucalopride [ Motegrity] 1 Mg Tablet) 1 each PO DAILY [facility] Last Admin: 05/19/21 14:19 Dose: 1 each Documented by: AMAURY Omeprazole (Omeprazole 40 Mg Capsule.Dr) 40 mg PO DAILY@0630 [facility] Last Admin: 05/19/21 09:48 Dose: 40 mg Documented by: STEPHEN Ondansetron HCl (Ondansetron Odt 8 Mg Tab.Rapdis) 8 mg TRANSLINGU Q8H PRN PRN Reason: Nausea and Vomiting Last Admin: 05/18/21 21:17 Dose: 8 mg Documented by: ANGEL Perphenazine (Perphenazine 8 Mg Tablet) 8 mg PO BID [facility] Last Admin: 05/19/21 09:48 Dose: 8 mg Documented by: STEPHEN Pharmacy Consult (Consult Rx Perform Med Rec) 1 each MISCELLANE ONCE PRN PRN Reason: Consult order Polyethylene Glycol (Polyethylene Glycol 3350 17 Gm Powd.Pack) 17 gm PO DAILY [facility] Last Admin: 05/19/21 09:48 Dose: 17 gm Documented by: STEPHEN Sodium Chloride (0.9 % Sodium Chloride Flush 3 Ml Syringe) 3 ml IVFLUSH QSHIFT [facility] Last Admin: 05/19/21 09:49 Dose: 3 ml Documented by: STEPHEN Sucralfate (Sucralfate 1 Gm Tablet) 1 gm PO BID [facility] Last Admin: 05/19/21 09:48 Dose: 1 gm Documented by: STEPHEN Sumatriptan Succinate (Sumatriptan Succinate 50 Mg Tablet) 50 mg PO DAILY PRN PRN Reason: Migraine Headache Last Admin: 05/18/21 22:41 Dose: 50 mg Documented by: ANGEL Topiramate (Topiramate 100 Mg Tablet) 100 mg PO DAILY [facility] Last Admin: 05/19/21 09:48 Dose: 100 mg Documented by: STEPHEN Vitamin D (Cholecalciferol (Vitamin D3) 25 Mcg Tablet) 50 mcg PO DAILY [facility] Last Admin: 05/19/21 09:48 Dose: 50 mcg Documented by: STEPHEN Labs CBC & Chem 7: 05/19/21 04:49 05/19/21 04:49 Labs: Laboratory Results - last 24 hr 05/19/21 05/19/21 05/19/21 04:49 04:49 11:49 MCV 97.7 MCH 33.1 H MCHC 33.9 RDW 13.0 Plt Count 179 MPV 11.9 Immature Gran % (Auto) 0.2 Neut % (Auto) 43.4 L Lymph % (Auto) 44.0 H [place] % (Auto) 9.5 Eos % (Auto) 2.1 Baso % (Auto) 0.8 Lymph # (Auto) 2.3 [place] # (Auto) 0.5 Eos # (Auto) 0.1 Baso # (Auto) 0.0 Abs Immat Gran (auto) 0.01 Absolute Neuts (auto) 2.3 Absolute Nucleated RBC 0.000 Nucleated RBC % (auto) 0.0 Anion Gap 12 Estim Creat Clear Calc 103.3 Estimated GFR > 60 Fasting Glucose 78 Calcium 9.1 Total Bilirubin 0.3 AST 15 ALT 15 Alkaline Phosphatase 58 Total Protein 5.1 L Albumin 3.3 L Urine Color STRAW Urine Appearance HAZY Urine pH 7.0 Ur Specific [place] <= 1.005 Urine Protein NEG Urine Glucose (UA) NEG Urine Ketones 5 Urine Blood NEG Urine Nitrite NEG Ur Leukocyte Esterase NEG Urine Opiates Screen Urine Fentanyl Screen Ur Barbiturates Screen Ur Phencyclidine Scrn Ur Amphetamines Screen U Benzodiazepines Scrn Urine Cocaine Screen U Marijuana (THC) Screen 05/19/21 Unknown MCV MCH MCHC RDW Plt Count MPV Immature Gran % (Auto) Neut % (Auto) Lymph % (Auto) [place] % (Auto) Eos % (Auto) Baso % (Auto) Lymph # (Auto) [place] # (Auto) Eos # (Auto) Baso # (Auto) Abs Immat Gran (auto) Absolute Neuts (auto) Absolute Nucleated RBC Nucleated RBC % (auto) Anion Gap Estim Creat Clear Calc Estimated GFR Fasting Glucose Calcium Total Bilirubin AST ALT Alkaline Phosphatase Total Protein Albumin Urine Color Urine Appearance Urine pH Ur Specific [place] Urine Protein Urine Glucose (UA) Urine Ketones Urine Blood Urine Nitrite Ur Leukocyte Esterase Urine Opiates Screen Not Detected Urine Fentanyl Screen POSITIVE H Ur Barbiturates Screen Not Detected Ur Phencyclidine Scrn Not Detected Ur Amphetamines Screen Not Detected U Benzodiazepines Scrn Not Detected Urine Cocaine Screen Not Detected U Marijuana (THC) Screen POSITIVE H Assessment and Plan (1) Gastroparesis: Status: Acute (2) Bipolar disorder: Status: Acute (3) Urinary retention: Status: Acute Plan 41 yo female with hx of bipolar disorder, gastroparesis, here with repeat bouts of vomiting here with 2 weeks of vomiting and constipation ; CT scan essentially unremarkable save markedly distended bladder. Initial scan postvoid 650 cc: Fully attempted x3 2nd postvoid residual 1 L. Patient refusing additional fully attempts 1.Gastroparesis -IVFs; will trial reglan as off psych meds x 5 days -CT abd unremarkable save distended bladder 2.Bipolar - given overnight actions...Psych consult 3. Urinary Retention - Urgent consult to Urology Full Code Lovenox Will require inpatient admission for 2 midnights given inability take orals; liquid or solids. GI consult and further workup as dictated Quality Stroke Does the patient have a stroke diagnosis?: No VTE Prior VTE?: No VTE Risk Level:: Medical - moderate - high VTE Device Contraindication: Treatment Not Indicated VTE Drug Contraindication: N/A - Med Ordered
--- NOTE | 2021-05-19 14:50 | MHC.CM.PN ---
Met with patient and mother, Paty in regards to discharge planning. Patient lives with Paty, ambulates independently and had no services prior to coming to the hospital. PCP verified. Copy of HCP obtained from Paty and placed in chart. Patient received 3 Moderna vaccines. IMM explained and signed. Paty will transport patient home when medically stable. No services anticipated to be needed because patient is not homebound. Continue to monitor for d/c needs.
--- NOTE | 2021-05-19 15:45 | PC.NURSE ---
dr hinson the psy at bedside evaluating
[2021-05-19 16:00] VITALS: BP 114/69; PULSE 97; RESP 18; TEMP 36.9; O2SAT 98
--- NOTE | 2021-05-19 16:11 | PC.NURSE ---
pt reporting abd pain 11/13, dr real aware, tigered dr real still no marlow in place, dr carey attempted with out any success
--- NOTE | 2021-05-19 17:03 | PC.NURSE ---
dr negro at bedside, fiordaliza 12 luxembourger at bedside
--- NOTE | 2021-05-19 17:14 | PM.PSYCN ---
History of Present Illness Date of Service: 05/19/21 Chief Complaint: gastroparesis Reason for Consult: off psych meds for 5 days HPI Narrative: per ED note from 05/18/21: 41 yo female with hx of bipolar disorder, gastroparesis, here with repeat bouts of vomiting here with 2 weeks of vomiting and constipation seen here and [facility] [place] with CT scan on 10/16 given mag citrate and lactulose without relief she is having flatus sent in to ED by her GI doctor for possible admission. At this time records from [facility] [place] requested of CT scan as well as IVF x 2L, IV ativan, zofran, pepcid, KUB for stool burden dispo per results and clinical improvement. psychiatry was consulted for recommendations on this case as pt had been off of her psych meds for 5 days prior to presentation at the ED. she reported to this sba underwriter that she has been suffering chronic vomiting for weeks, however, and she is not certain how much medication has actually been getting absorbed by her body for that reason. in the past 24H, her usual psychiatric medications of cogentin, wellbutrin, klonopin, depakote, latuda, trilafon, and topamax were restarted, all at their prior outpatient doses aside from wellbutrin. on interview she was fairly sedated, but she had recently gotten some ativan and opiate for pain. she stated she felt she was tolerating the re-initiation of her outpatient regimen well and did not want to modify the dosing presently. she reported she has not been sleeping recently and has had quite an irritable mood. she recognized these as signs of a hypomania. she denied any safety concerns Past Psychiatric History: bipolar disorder, h/o inpatient on M5. outpatient provider through [facility]. Medical Evaluation Reviewed: Yes [facility] Medical History Bipolar disorder Chronic nausea GLORIA (generalized anxiety disorder) Gastroparesis Migraine Surgical History History of tonsillectomy Substance History: tobacco, cannabis Diagnostics Vital Signs (24Hr): Vital Signs - 24 hr 05/18/21 21:05 05/18/21 23:25 05/19/21 12:42 Temperature 97 F 98.2 F 97.9 F Pulse Rate 73 72 90 Respiratory Rate 18 16 18 Blood Pressure 112/63 100/52 L 110/72 Pulse Oximetry 97 99 98 BMI result Body Mass Index 21.9 Labs Results: 05/19/21 04:49 05/19/21 04:49 Labs: Laboratory Results - last 48 hr 05/18/21 05/18/21 05/18/21 11:14 11:14 11:14 WBC 7.4 RBC 3.79 L Hgb 12.5 Hct 37.5 MCV 98.9 H MCH 33.0 MCHC 33.3 RDW 13.0 Plt Count 193 MPV 11.9 Immature Gran % (Auto) 0.4 Neut % (Auto) 74.5 H Lymph % (Auto) 17.5 L [place] % (Auto) 6.9 Eos % (Auto) 0.3 Baso % (Auto) 0.4 Lymph # (Auto) 1.3 [place] # (Auto) 0.5 Eos # (Auto) 0.0 Baso # (Auto) 0.0 Abs Immat Gran (auto) 0.03 Absolute Neuts (auto) 5.5 Absolute Nucleated RBC 0.000 Nucleated RBC % (auto) 0.0 Sodium 143 Potassium 4.3 Chloride 108 Carbon Dioxide 25 Anion Gap 14 BUN 7 L Creatinine 0.69 Estim Creat Clear Calc 103.3 Estimated GFR > 60 Random Glucose 88 Fasting Glucose Calcium 9.2 Magnesium 1.9 Total Bilirubin 0.2 Direct Bilirubin 0.2 AST 19 ALT 18 Alkaline Phosphatase 62 Total Protein 5.8 L Albumin 3.7 Lipase 16 Beta HCG, Quant < 2 Urine Color Urine Appearance Urine pH Ur Specific [place] Urine Protein Urine Glucose (UA) Urine Ketones Urine Blood Urine Nitrite Ur Leukocyte Esterase Urine Opiates Screen Urine Fentanyl Screen Ur Barbiturates Screen Ur Phencyclidine Scrn Ur Amphetamines Screen U Benzodiazepines Scrn Urine Cocaine Screen U Marijuana (THC) Screen COVID-19 (MANDY) Negative COVID-19 Clin Com See Note 05/18/21 05/19/21 05/19/21 11:14 04:49 04:49 WBC 5.3 RBC 3.50 L Hgb 11.6 L Hct 34.2 L MCV 97.7 MCH 33.1 H MCHC 33.9 RDW 13.0 Plt Count 179 MPV 11.9 Immature Gran % (Auto) 0.2 Neut % (Auto) 43.4 L Lymph % (Auto) 44.0 H [place] % (Auto) 9.5 Eos % (Auto) 2.1 Baso % (Auto) 0.8 Lymph # (Auto) 2.3 [place] # (Auto) 0.5 Eos # (Auto) 0.1 Baso # (Auto) 0.0 Abs Immat Gran (auto) 0.01 Absolute Neuts (auto) 2.3 Absolute Nucleated RBC 0.000 Nucleated RBC % (auto) 0.0 Sodium 143 Potassium 3.6 Chloride 112 H Carbon Dioxide 23 Anion Gap 12 BUN 4 L Creatinine 0.69 Estim Creat Clear Calc 103.3 Estimated GFR > 60 Random Glucose Fasting Glucose 78 Calcium 9.6 9.1 Magnesium Total Bilirubin 0.3 Direct Bilirubin AST 15 ALT 15 Alkaline Phosphatase 58 Total Protein 5.1 L Albumin 3.3 L Lipase Beta HCG, Quant Urine Color Urine Appearance Urine pH Ur Specific [place] Urine Protein Urine Glucose (UA) Urine Ketones Urine Blood Urine Nitrite Ur Leukocyte Esterase Urine Opiates Screen Urine Fentanyl Screen Ur Barbiturates Screen Ur Phencyclidine Scrn Ur Amphetamines Screen U Benzodiazepines Scrn Urine Cocaine Screen U Marijuana (THC) Screen COVID-19 (MANDY) COVID-19 Direct Sitters 05/19/21 05/19/21 11:49 Unknown WBC RBC Hgb Hct MCV MCH MCHC RDW Plt Count MPV Immature Gran % (Auto) Neut % (Auto) Lymph % (Auto) [place] % (Auto) Eos % (Auto) Baso % (Auto) Lymph # (Auto) [place] # (Auto) Eos # (Auto) Baso # (Auto) Abs Immat Gran (auto) Absolute Neuts (auto) Absolute Nucleated RBC Nucleated RBC % (auto) Sodium Potassium Chloride Carbon Dioxide Anion Gap BUN Creatinine Estim Creat Clear Calc Estimated GFR Random Glucose Fasting Glucose Calcium Magnesium Total Bilirubin Direct Bilirubin AST ALT Alkaline Phosphatase Total Protein Albumin Lipase Beta HCG, Quant Urine Color STRAW Urine Appearance HAZY Urine pH 7.0 Ur Specific [place] <= 1.005 Urine Protein NEG Urine Glucose (UA) NEG Urine Ketones 5 Urine Blood NEG Urine Nitrite NEG Ur Leukocyte Esterase NEG Urine Opiates Screen Not Detected Urine Fentanyl Screen POSITIVE H Ur Barbiturates Screen Not Detected Ur Phencyclidine Scrn Not Detected Ur Amphetamines Screen Not Detected U Benzodiazepines Scrn Not Detected Urine Cocaine Screen Not Detected U Marijuana (THC) Screen POSITIVE H COVID-19 (MANDY) COVID-19 [employer] Com Imaging Radiology Impressions: ITS Impressions KUB X-Ray 05/18/21 10:52 IMPRESSION: Unremarkable exam. Abdomen/Pelvis CT 05/18/21 19:28 IMPRESSION: 1. The stomach does not appear dilated and there is no evidence to suggest gastroparesis. 2. Excellent transit time with oral contrast media seen throughout the entire bowel which appears unremarkable. 3. Incidentally noted markedly distended urinary bladder. Fleischner guidelines were followed. Hand X-Ray 05/19/21 04:50 IMPRESSION: No fracture or malalignment. Mental Status Exam Mental Status Exam Narrative: lying in bed, covered in blanket. quite sedated, rousable to loud voice and physical contact by RN. good eye contact, no PMA/PMR. cooperative with interview. speech nml rate, amount, loudness, tone, latency. affect constricted, normo-intense, non-labile. mood irritable. denies SI/HI. endorses AH. Medications Medications Current Medications Benztropine Mesylate (Benztropine Mesylate 0.5 Mg Tablet) 0.5 mg PO DAILY [facility] Last Admin: 05/19/21 09:48 Dose: 0.5 mg Documented by: Bisacodyl (Bisacodyl 5 Mg Tablet.) 10 mg PO BEDTIME PRN PRN Reason: constipation Last Admin: 05/18/21 21:36 Dose: 10 mg Documented by: Bupropion HCl (Bupropion Hcl Xl 150 Mg Tab.Er.24h) 150 mg PO DAILY [facility] Last Admin: 05/19/21 06:16 Dose: 150 mg Documented by: Clonazepam (Clonazepam 1 Mg Tablet) 1 mg PO BID [facility] Last Admin: 05/19/21 06:16 Dose: 1 mg Documented by: Divalproex Sodium (Divalproex Sodium Er 500 Mg Tab.Er.24h) 1,500 mg PO BEDTIME [facility] Last Admin: 05/18/21 21:59 Dose: 1,500 mg Documented by: Enoxaparin Sodium (Enoxaparin Sodium 40 Mg/0.4 Ml Syringe) 40 mg SUBCUT Q24H [facility] Last Admin: 05/19/21 12:40 Dose: 40 mg Documented by: Famotidine (Famotidine 20 Mg Tablet) 40 mg PO BEDTIME [facility] Last Admin: 05/18/21 21:37 Dose: 40 mg Documented by: Hydroxyzine HCl (Hydroxyzine Hcl 10 Mg Tablet) 10 mg PO BEDTIME [facility] Last Admin: 05/18/21 21:37 Dose: 10 mg Documented by: Lurasidone HCl 40 mg/ (Lurasidone HCl 80 mg) 120 mg PO DAILY [facility] Last Admin: 05/19/21 10:44 Dose: 120 mg Documented by: Nicotine (Nicotine 14 Mg Patch.Td24) 14 mg TRANSDERMA DAILY [facility] Last Admin: 05/19/21 09:48 Dose: 14 mg Documented by: Patient Own Medication ( Prucalopride [ Motegrity] 1 Mg Tablet) 1 each PO DAILY [facility] Last Admin: 05/19/21 14:19 Dose: 1 each Documented by: Omeprazole (Omeprazole 40 Mg Capsule.Dr) 40 mg PO DAILY@0630 [facility] Last Admin: 05/19/21 09:48 Dose: 40 mg Documented by: Ondansetron HCl (Ondansetron Odt 8 Mg Tab.Rapdis) 8 mg TRANSLINGU Q8H PRN PRN Reason: Nausea and Vomiting Last Admin: 05/18/21 21:17 Dose: 8 mg Documented by: Perphenazine (Perphenazine 8 Mg Tablet) 8 mg PO BID [facility] Last Admin: 05/19/21 09:48 Dose: 8 mg Documented by: Pharmacy Consult (Consult Rx Perform Med Rec) 1 each MISCELLANE ONCE PRN PRN Reason: Consult order Polyethylene Glycol (Polyethylene Glycol 3350 17 Gm Powd.Pack) 17 gm PO DAILY [facility] Last Admin: 05/19/21 09:48 Dose: 17 gm Documented by: Sodium Chloride (0.9 % Sodium Chloride Flush 3 Ml Syringe) 3 ml IVFLUSH [facility] Last Admin: 05/19/21 09:49 Dose: 3 ml Documented by: Sucralfate (Sucralfate 1 Gm Tablet) 1 gm PO BID [facility] Last Admin: 05/19/21 09:48 Dose: 1 gm Documented by: Sumatriptan Succinate (Sumatriptan Succinate 50 Mg Tablet) 50 mg PO DAILY PRN PRN Reason: Migraine Headache Last Admin: 05/18/21 22:41 Dose: 50 mg Documented by: Topiramate (Topiramate 100 Mg Tablet) 100 mg PO DAILY [facility] Last Admin: 05/19/21 09:48 Dose: 100 mg Documented by: Vitamin D (Cholecalciferol (Vitamin D3) 25 Mcg Tablet) 50 mcg PO DAILY [facility] Last Admin: 05/19/21 09:48 Dose: 50 mcg Documented by: Allergies Allergies Allergy/AdvReac Type Severity Reaction Status Date / Time olanzapine [From ZYPREXA] Allergy Severe SWELLING Verified 05/13/21 12:17 oxcarbazepine Allergy Severe antony's Verified 05/13/21 12:17 [From TRILEPTAL] Rob syndrome gabapentin Allergy Unknown Loss of Verified 05/13/21 12:17 balance lithium [LITHIUM] Allergy Unknown UNKNOWN Verified 05/13/21 12:17 quetiapine [Seroquel] Allergy Unknown Unknown Verified 05/13/21 12:17 sulfamethoxazole Allergy Unknown severe rash Verified 05/13/21 12:17 [From BACTRIM] trimethoprim [From BACTRIM] Allergy Unknown severe rash Verified 05/13/21 12:17 From SEROQUEL Allergy Unknown UNKNOWN Uncoded 04/05/21 14:39 Assessment & Plan Assessment & Plan (1) Adverse effect of anticholinergic: Status: Acute Code(s): T44.3X5A - Adverse effect of other parasympatholytics [anticholinergics and antimuscarinics] and spasmolytics, initial encounter (2) Bipolar disorder: Status: Acute Code(s): F31.9 - Bipolar disorder, unspecified Plan pt's home meds have essentially be restarted as she had been taking them prior to 5 days ago, and she is content with that for now. that said, she appears to present with symptoms consistent with excessive anti-cholinergic activity: urinary retention, gastroparesis with vomiting (although CT not supportive), and constipation. her psychiatric regimen contains a medication which has strong anti-cholinergic effects, such as cogentin, and others which may have some moderate anti-cholinergic properties, such as trilafon. depakote can cause nausea as well. she is on two antipsychotics; generally speaking, monotherapy is preferred. polypharmacy may be causing her symptoms, and a close evaluation of the need for her medications should be undertaken and her regimen pared down as much as possible. I spent ___60___ minutes with the patient and/or on the patient floor today, greater than?50% of which was spent counseling/coordinating care.
[2021-05-19] MEDS: Ondansetron ODT 8 MG TAB.RAPDIS TRANSLINGU (18:17)
[2021-05-19 19:59] VITALS: BP 105/53; PULSE 108; RESP 18; TEMP 36.4; O2SAT 96
[2021-05-19] MEDS: Famotidine 20 MG TABLET 40 MG PO (20:05)
[2021-05-19] MEDS: hydrOXYzine HCL 10 MG TABLET PO (20:05)
[2021-05-19] MEDS: Divalproex Sodium ER 500 MG TAB.ER.24H 1500 MG PO (20:06)
[2021-05-19] MEDS: LORazepam 1 MG TABLET PO ×2 (20:29→22:30)
[2021-05-19 20:52] LABS: Lyme Abs Screen <0.90 index
--- NOTE | 2021-05-19 22:27 | PC.NURSE ---
P patient requested Ativan for anxiety I Dr. Queen notified,patient reassured E will adm as ordered
[2021-05-19 23:25] VITALS: BP 100/54; PULSE 76; RESP 17; TEMP 37.1; O2SAT 96
[2021-05-20] MEDS: Omeprazole 40 MG CAPSULE.DR PO (05:53)
[2021-05-20] MEDS: clonazePAM 1 MG TABLET PO ×2 (06:06→21:04)
--- NOTE | 2021-05-20 06:10 | PC.NURSE ---
PATIENT STATED TO BE FEELING INCREASED ANXIETY AND REQUESTING HER PO KLONOPIN TO BE GIVEN AT THIS TIME IF ABLE, 0600. HOSPITALIST ON DUTY WAS ASKED VIA TIGER TEXT AND APPROVAL GIVEN; THEREFORE PATIENT GIVEN HER SCHEDULED 0900 1 MG KLONOPIN AT THIS TIME 0610.
[2021-05-20 06:15] LABS: MANUAL DIFF FLAG NO
[2021-05-20 06:18] LABS: Basophils Percent Auto 0.6 % (0-2); Eosinophils Absolute Auto 0.2 X10*3/uL (0.0-0.4); Eosinophils Percent Auto 3.9 % (0-4); Hematocrit 36.2 % (37.0-47.0); Lymphocytes Absolute Auto 2.9 X10*3/uL (1.2-4.9); Mean Corpuscular HGB Conc 33.1 g/dl (31.0-35.0); Mean Corpuscular Hemoglobin 32.4 pg (27.0-33.0); Mean Corpuscular Volume 97.8 fL (80.0-98.0); Mean Platelet Volume 12.2 fL (9.4-12.3); Monocytes Absolute Auto 0.5 X10*3/uL (0.1-1.2); Monocytes Percent Auto 9.2 % (2-11); Neutrophils Absolute Auto 1.3 x10*3/uL (2.0-8.3); Neutrophils Percent Auto 27.3 % (45-73); Platelet Count 200 X10*3/uL (160-400); White Blood Count 4.9 X10*3/uL (4.8-10.8)
[2021-05-20 06:38] LABS: Alanine Aminotransferase 16 U/L (0-31); Albumin Level 3.4 g/dL (3.5-5.0); Alkaline Phosphatase 56 U/L (39-117); Anion Gap 12 (12-20); Aspartate Amino Transferase 13 U/L (5-31); Bilirubin Total 0.3 mg/dL (0.0-1.0); Blood Urea Nitrogen 4 mg/dL (9-16); Carbon Dioxide 24 mmol/L (22-29); Chloride 111 mmol/L (96-108); Creatinine Clr Calc Pharmacy 93.8; Estimated Glomerular Filt Rate > 60; Glucose Fasting 76 mg/dL (60-99); Potassium 3.8 mmol/L (3.3-5.1); Sodium 143 mmol/L (135-145); Total Protein 5.1 g/dL (6.5-8.0)
[2021-05-20 07:00] VITALS: BP 98/50; PULSE 74; RESP 18; TEMP 36.1; O2SAT 96
[2021-05-20 07:56] LABS: Prolactin 7.7 ng/mL
[2021-05-20] MEDS: Cholecalciferol (Vitamin D3) 25 MCG TABLET 50 MCG PO (08:48)
[2021-05-20] MEDS: Sucralfate 1 GM TABLET PO ×2 (08:49→21:04)
[2021-05-20] MEDS: 0.9 % Sodium Chloride Flush 3 ML SYRINGE IVFLUSH (08:49)
[2021-05-20] MEDS: polyethylene glycoL 3350 17 GM POWD.PACK PO (08:49)
[2021-05-20] MEDS: Benztropine Mesylate 0.5 MG TABLET PO (08:49)
[2021-05-20] MEDS: Nicotine 14 MG PATCH.TD24 TRANSDERMA ×2 (08:49→11:31)
[2021-05-20] MEDS: buPROPion HCl XL 150 MG TAB.ER.24H PO (08:49)
[2021-05-20] MEDS: Topiramate 100 MG TABLET PO (08:49)
[2021-05-20] MEDS: Ondansetron ODT 8 MG TAB.RAPDIS TRANSLINGU (08:50)
[2021-05-20] MEDS: Perphenazine 8 MG TABLET PO ×2 (08:56→21:05)
[2021-05-20 09:34] VITALS: BP 112/70; PULSE 87
[2021-05-20 09:35] VITALS: BP 111/78; PULSE 109
[2021-05-20 09:36] VITALS: BP 132/75; PULSE 117
--- NOTE | 2021-05-20 11:11 | PC.NURSE ---
Skin/wound assessment completed. Patient has 2 skin tears to knuckles on right hand. Xeroform applied to wounds and covered with Tegaderm. No other skin issues noted at this time.
[2021-05-20] MEDS: Enoxaparin Sodium 40 MG/0.4 ML SYRINGE SUBCUT (11:33)
--- NOTE | 2021-05-20 12:32 | HO.PM.IMPN ---
Subjective Subjective Date of Service: 05/20/21 Interval History: Still nauseous, not taking anything PO Armendariz placed Anxious She says her outpatient psychiatrist hasn't seen her in over 2 years Review of Systems Review of Systems: Yes all other systems are reviewed and are negative Physical Exam Vital Signs: Vital Signs: Last Vital Signs Temp 97 F 05/20/21 07:00 Pulse 117 H 05/20/21 09:36 Resp 18 05/20/21 07:00 BP 132/75 05/20/21 09:36 Pulse Ox 96 05/20/21 07:00 BMI result Body Mass Index 21.9 Gen: in no acute distress HEENT: sclera anicteric, moist mucus membranes Neck: supple Lungs: clear to auscultation bilaterally Heart: regular rate and rhythm, no murmurs Abd: soft, non-tender, non-distended Ext: no edema Skin: warm/well-perfused Neuro: alert and oriented x3, no focal findings Psych: appropriate affect Objective Data Active Medications Benztropine Mesylate (Benztropine Mesylate 0.5 Mg Tablet) 0.5 mg PO DAILY [facility] Last Admin: 05/20/21 08:49 Dose: 0.5 mg Documented by: GAIL Bisacodyl (Bisacodyl 5 Mg Tablet.Dr) 10 mg PO BEDTIME PRN PRN Reason: constipation Last Admin: 05/18/21 21:36 Dose: 10 mg Documented by: ANGEL Bupropion HCl (Bupropion Hcl Xl 150 Mg Tab.Er.24h) 150 mg PO DAILY [facility] Last Admin: 05/20/21 08:49 Dose: 150 mg Documented by: GAIL Clonazepam (Clonazepam 1 Mg Tablet) 1 mg PO BID [facility] Last Admin: 05/20/21 06:06 Dose: 1 mg Documented by: DARRIAN Divalproex Sodium (Divalproex Sodium Er 500 Mg Tab.Er.24h) 1,500 mg PO BEDTIME [facility] Last Admin: 05/19/21 20:06 Dose: 1,500 mg Documented by: MIC Enoxaparin Sodium (Enoxaparin Sodium 40 Mg/0.4 Ml Syringe) 40 mg SUBCUT Q24H [facility] Last Admin: 05/20/21 11:33 Dose: 40 mg Documented by: GAIL Famotidine (Famotidine 20 Mg Tablet) 40 mg PO BEDTIME [facility] Last Admin: 05/19/21 20:05 Dose: 40 mg Documented by: MIC Hydroxyzine HCl (Hydroxyzine Hcl 10 Mg Tablet) 10 mg PO BEDTIME [facility] Last Admin: 05/19/21 20:05 Dose: 10 mg Documented by: MIC Lurasidone HCl 40 mg/ (Lurasidone HCl 80 mg) 120 mg PO DAILY [facility] Last Admin: 05/20/21 08:48 Dose: 120 mg Documented by: GAIL Nicotine (Nicotine 14 Mg Patch.Td24) 14 mg TRANSDERMA DAILY [facility] Last Admin: 05/20/21 11:31 Dose: 14 mg Documented by: GAIL Patient Own Medication ( Prucalopride [ Motegrity] 1 Mg Tablet) 1 each PO DAILY [facility] Last Admin: 05/20/21 09:06 Dose: Not Given Documented by: GAIL Non-Admin Reason: Med Not Available Omeprazole (Omeprazole 40 Mg Capsule.Dr) 40 mg PO DAILY@0630 [facility] Last Admin: 05/20/21 05:53 Dose: 40 mg Documented by: DARRIAN Ondansetron HCl (Ondansetron Odt 8 Mg Tab.Rapdis) 8 mg TRANSLINGU Q8H PRN PRN Reason: Nausea and Vomiting Last Admin: 05/20/21 08:50 Dose: 8 mg Documented by: GAIL Perphenazine (Perphenazine 8 Mg Tablet) 8 mg PO BID [facility] Last Admin: 05/20/21 08:56 Dose: 8 mg Documented by: GAIL Pharmacy Consult (Consult Rx Perform Med Rec) 1 each MISCELLANE ONCE PRN PRN Reason: Consult order Polyethylene Glycol (Polyethylene Glycol 3350 17 Gm Powd.Pack) 17 gm PO DAILY [facility] Last Admin: 05/20/21 08:49 Dose: 17 gm Documented by: GAIL Sodium Chloride (0.9 % Sodium Chloride Flush 3 Ml Syringe) 3 ml IVFLUSH QSHIFT [facility] Last Admin: 05/20/21 08:49 Dose: 3 ml Documented by: GAIL Sucralfate (Sucralfate 1 Gm Tablet) 1 gm PO BID [facility] Last Admin: 05/20/21 08:49 Dose: 1 gm Documented by: GAIL Sumatriptan Succinate (Sumatriptan Succinate 50 Mg Tablet) 50 mg PO DAILY PRN PRN Reason: Migraine Headache Last Admin: 05/18/21 22:41 Dose: 50 mg Documented by: ANGEL Topiramate (Topiramate 100 Mg Tablet) 100 mg PO DAILY [facility] Last Admin: 05/20/21 08:49 Dose: 100 mg Documented by: GAIL Vitamin D (Cholecalciferol (Vitamin D3) 25 Mcg Tablet) 50 mcg PO DAILY [facility] Last Admin: 05/20/21 08:48 Dose: 50 mcg Documented by: GAIL Labs CBC & Chem 7: 05/20/21 05:43 05/20/21 05:43 Labs: Laboratory Results - last 24 hr 05/18/21 05/19/21 05/19/21 11:14 11:18 Unknown MCV MCH MCHC RDW Plt Count MPV Immature Gran % (Auto) Neut % (Auto) Lymph % (Auto) [place] % (Auto) Eos % (Auto) Baso % (Auto) Lymph # (Auto) [place] # (Auto) Eos # (Auto) Baso # (Auto) Abs Immat Gran (auto) Absolute Neuts (auto) Absolute Nucleated RBC Nucleated RBC % (auto) Anion Gap Estim Creat Clear Calc Estimated GFR Fasting Glucose Calcium Total Bilirubin AST ALT Alkaline Phosphatase Total Protein Albumin Prolactin 7.7 Urine Opiates Screen Not Detected Urine Fentanyl Screen POSITIVE H Ur Barbiturates Screen Not Detected Ur Phencyclidine Scrn Not Detected Ur Amphetamines Screen Not Detected U Benzodiazepines Scrn Not Detected Urine Cocaine Screen Not Detected U Marijuana (THC) Screen POSITIVE H [place] Screen IgG & IgM <0.90 05/20/21 05/20/21 05:43 05:43 MCV 97.8 MCH 32.4 MCHC 33.1 RDW 13.0 Plt Count 200 MPV 12.2 Immature Gran % (Auto) 0.0 Neut % (Auto) 27.3 L Lymph % (Auto) 59.0 H [place] % (Auto) 9.2 Eos % (Auto) 3.9 Baso % (Auto) 0.6 Lymph # (Auto) 2.9 [place] # (Auto) 0.5 Eos # (Auto) 0.2 Baso # (Auto) 0.0 Abs Immat Gran (auto) 0.00 Absolute Neuts (auto) 1.3 L Absolute Nucleated RBC 0.000 Nucleated RBC % (auto) 0.0 Anion Gap 12 Estim Creat Clear Calc 93.8 Estimated GFR > 60 Fasting Glucose 76 Calcium 9.0 Total Bilirubin 0.3 AST 13 ALT 16 Alkaline Phosphatase 56 Total Protein 5.1 L Albumin 3.4 L Prolactin Urine Opiates Screen Urine Fentanyl Screen Ur Barbiturates Screen Ur Phencyclidine Scrn Ur Amphetamines Screen U Benzodiazepines Scrn Urine Cocaine Screen U Marijuana (THC) Screen Lyme Screen IgG & IgM Assessment and Plan (1) Gastroparesis: Status: Acute (2) Bipolar disorder: Status: Acute (3) Urinary retention: Status: Acute Plan hospital d#3 41yo F with bipolar disorder + gastroparesis admitted with 2 wk of vomiting/constipation and noted to have urinary retention # gastroparesis - continue IV fluids, ondansetron. Unable to use metoclopramide at this point given she is already on 2 antipsychotics. GI folowing # urinary retention - Armendariz, Urology consult, minimize anticholinergics # bipolar disorder - will reach out to psychiatry salon sales consultant to modify regimen to minimize anticholinergic side effects, especially given patient report that she has not seen her outpatient psychiatrist in over 2 years. Currently, she is on valproate, benztropine, bupropion, clonazepam, lurasidone, perphenazine, and topiramate # tobacco abuse - NRT # Utox positive for fentanyl - CARE Team consult # VTE ppx - LMWH Quality Stroke Does the patient have a stroke diagnosis?: No VTE Prior VTE?: No VTE Risk Level:: Medical - moderate - high VTE Device Contraindication: Treatment Not Indicated VTE Drug Contraindication: N/A - Med Ordered
[2021-05-20] MEDS: Lactated Ringers 1,000 ML 100 ML IVCONT (13:16)
--- NOTE | 2021-05-20 14:59 | MHC.CM.PN ---
nurse case resource manager note electronic medical record reviewed along with case discussed on multiple disciplianry rounds , met with patient good eye contact very please and answered my questions reported she still feels nausea . per documetnation patient admutted ( with gastroparesis s/p 2 week hoistory of emesis /constipation and urinary retention, toicology notes positive for fentanyl andmarijuana and bipolar disorder (patients reports she has not seen her psychiatrist in two years plan of care per documentation continue iv fluids , iv onstansetron,gi consult, #for urinary retention marlow catheter placed, for positive drug screen referral to care team to be seen today, mental health - psych referral was done and evaluated by psych discharge plan to be further determined home with her mom no services vs home with care team recomendations as well as psych recomendations care manger to continue to follow pcp dr inna cedillo transportation patient reports she can self arrange
[2021-05-20 15:09] VITALS: BP 102/57; PULSE 94; RESP 18; TEMP 36.9; O2SAT 98
--- NOTE | 2021-05-20 15:24 | MHC.RECOVRN ---
Met with pt in 372 after consult placed to CARE Team for positive fentanyl in UDS. Pt awake, alert, sitting in bed, bright affect. Mom visiting, pt asked mom to leave for discussion. Pt reports utilizing marijuana occasionally to help with anxiety, states I'm a one hit wonder now. I used to smoke all the time but not anymore. Pt reports buying marijuana from a new person and became sick after smoking, states I was sick for a week puking. Pt denies any other substance use. Pt educated regarding risks of overdose, Narcan, importance of getting substances from a known supplier or dispensary. Pt denies questions or concerns. Pt provided with t/w contact information if needed.
--- NOTE | 2021-05-20 16:27 | HO.PSYCHPN ---
Subjective Subjective Date of Service: 05/20/21 Reason For Visit: gastroparesis Interim History: Met with patient and her parents this afternoon, as a follow-up. Dr. Menchaca had seen patient in ED yesterday. She has had gastro paresis, on multiple psychiatric medications, and has had symptoms consistent with excessive anticholinergic activity. I reviewed her medications with them. Was sitting up in bed, fully alert and oriented. Denied any thoughts of harm to self or others, denies any hallucinations. Reports that she feels safe and stable at this time. Medication Compliance: Yes Side effects from medications: Yes (gastroparesis) Review of Systems Acute medical concerns: Yes gastroparesis Review of Systems Constitutional: Reports as per HPI and Reports no additional constitutional complaints Mental Status Exam Mental Status Exam Narrative: Well-developed, well-nourished female, appears stated age. NAD. Eye contact within normal limits. Alert and oriented x4. No involuntary movements noted, motor activity calm, posture within normal limits. [place] in behavior were calm, cooperative. Speech was fluent, unimpaired. Mood ?anxious ?. Affect was mood congruent. Cognition and memory fully intact. Thought process/associations were goal directed, logical, linear. Thought content normal, future oriented. No evidence of any type of delusional thought, no evidence of any type of hallucinations observed, and none reported. Denies any SI/HI. Appears to be a reliable historian. Judgment and insight appear intact at this time. Ambulation not observed. No cogwheeling or rigidity noted. Diagnostics Vital Signs (24Hr): Vital Signs - 24 hr 05/19/21 19:59 05/19/21 23:25 05/20/21 07:00 Temperature 97.5 F 98.7 F 97 F Pulse Rate 108 H 76 74 Respiratory Rate 18 17 18 Blood Pressure 105/53 L 100/54 L 98/50 L Pulse Oximetry 96 96 96 05/20/21 09:34 05/20/21 09:35 05/20/21 09:36 Temperature Pulse Rate 87 109 H 117 H Respiratory Rate Blood Pressure 112/70 111/78 132/75 Pulse Oximetry 05/20/21 15:09 Temperature 98.5 F Pulse Rate 94 Respiratory Rate 18 Blood Pressure 102/57 L Pulse Oximetry 98 BMI result Body Mass Index 21.9 Labs Results: 05/21/21 05:39 05/21/21 05:39 Labs: Laboratory Results - last 48 hr 05/18/21 05/19/21 05/19/21 11:14 04:49 04:49 WBC 5.3 RBC 3.50 L Hgb 11.6 L Hct 34.2 L MCV 97.7 MCH 33.1 H MCHC 33.9 RDW 13.0 Plt Count 179 MPV 11.9 Immature Gran % (Auto) 0.2 Neut % (Auto) 43.4 L Lymph % (Auto) 44.0 H [place] % (Auto) 9.5 Eos % (Auto) 2.1 Baso % (Auto) 0.8 Lymph # (Auto) 2.3 [place] # (Auto) 0.5 Eos # (Auto) 0.1 Baso # (Auto) 0.0 Abs Immat Gran (auto) 0.01 Absolute Neuts (auto) 2.3 Absolute Nucleated RBC 0.000 Nucleated RBC % (auto) 0.0 Sodium 143 Potassium 3.6 Chloride 112 H Carbon Dioxide 23 Anion Gap 12 BUN 4 L Creatinine 0.69 Estim Creat Clear Calc 103.3 Estimated GFR > 60 Fasting Glucose 78 Calcium 9.1 Total Bilirubin 0.3 AST 15 ALT 15 Alkaline Phosphatase 58 Total Protein 5.1 L Albumin 3.3 L Prolactin Urine Color Urine Appearance Urine pH Ur Specific [place] Urine Protein Urine Glucose (UA) Urine Ketones Urine Blood Urine Nitrite Ur Leukocyte Esterase Urine Opiates Screen Urine Fentanyl Screen Ur Barbiturates Screen Ur Phencyclidine Scrn Ur Amphetamines Screen U Benzodiazepines Scrn Urine Cocaine Screen U Marijuana (THC) Screen Lyme Screen IgG & IgM <0.90 05/19/21 05/19/21 05/19/21 11:18 11:49 Unknown WBC RBC Hgb Hct MCV MCH MCHC RDW Plt Count MPV Immature Gran % (Auto) Neut % (Auto) Lymph % (Auto) [place] % (Auto) Eos % (Auto) Baso % (Auto) Lymph # (Auto) [place] # (Auto) Eos # (Auto) Baso # (Auto) Abs Immat Gran (auto) Absolute Neuts (auto) Absolute Nucleated RBC Nucleated RBC % (auto) Sodium Potassium Chloride Carbon Dioxide Anion Gap BUN Creatinine Estim Creat Clear Calc Estimated GFR Fasting Glucose Calcium Total Bilirubin AST ALT Alkaline Phosphatase Total Protein Albumin Prolactin 7.7 Urine Color STRAW Urine Appearance HAZY Urine pH 7.0 Ur Specific [place] <= 1.005 Urine Protein NEG Urine Glucose (UA) NEG Urine Ketones 5 Urine Blood NEG Urine Nitrite NEG Ur Leukocyte Esterase NEG Urine Opiates Screen Not Detected Urine Fentanyl Screen POSITIVE H Ur Barbiturates Screen Not Detected Ur Phencyclidine Scrn Not Detected Ur Amphetamines Screen Not Detected U Benzodiazepines Scrn Not Detected Urine Cocaine Screen Not Detected U Marijuana (THC) Screen POSITIVE H Lyme Screen IgG & IgM 05/20/21 05/20/21 05:43 05:43 WBC 4.9 RBC 3.70 L Hgb 12.0 Hct 36.2 L MCV 97.8 MCH 32.4 MCHC 33.1 RDW 13.0 Plt Count 200 MPV 12.2 Immature Gran % (Auto) 0.0 Neut % (Auto) 27.3 L Lymph % (Auto) 59.0 H [place] % (Auto) 9.2 Eos % (Auto) 3.9 Baso % (Auto) 0.6 Lymph # (Auto) 2.9 [place] # (Auto) 0.5 Eos # (Auto) 0.2 Baso # (Auto) 0.0 Abs Immat Gran (auto) 0.00 Absolute Neuts (auto) 1.3 L Absolute Nucleated RBC 0.000 Nucleated RBC % (auto) 0.0 Sodium 143 Potassium 3.8 Chloride 111 H Carbon Dioxide 24 Anion Gap 12 BUN 4 L Creatinine 0.76 Estim Creat Clear Calc 93.8 Estimated GFR > 60 Fasting Glucose 76 Calcium 9.0 Total Bilirubin 0.3 AST 13 ALT 16 Alkaline Phosphatase 56 Total Protein 5.1 L Albumin 3.4 L Prolactin Urine Color Urine Appearance Urine pH Ur Specific [place] Urine Protein Urine Glucose (UA) Urine Ketones Urine Blood Urine Nitrite Ur Leukocyte Esterase Urine Opiates Screen Urine Fentanyl Screen Ur Barbiturates Screen Ur Phencyclidine Scrn Ur Amphetamines Screen U Benzodiazepines Scrn Urine Cocaine Screen U Marijuana (THC) Screen Lyme Screen IgG & IgM Imaging Radiology Impressions: ITS Impressions KUB X-Ray 05/18/21 10:52 IMPRESSION: Unremarkable exam. Abdomen/Pelvis CT 05/18/21 19:28 IMPRESSION: 1. The stomach does not appear dilated and there is no evidence to suggest gastroparesis. 2. Excellent transit time with oral contrast media seen throughout the entire bowel which appears unremarkable. 3. Incidentally noted markedly distended urinary bladder. Fleischner guidelines were followed. Hand X-Ray 05/19/21 04:50 IMPRESSION: No fracture or malalignment. Medications Medications Current Medications Benztropine Mesylate (Benztropine Mesylate 0.5 Mg Tablet) 0.5 mg PO DAILY [facility] Last Admin: 05/20/21 08:49 Dose: 0.5 mg Documented by: Bisacodyl (Bisacodyl 5 Mg Tablet.) 10 mg PO BEDTIME PRN PRN Reason: constipation Last Admin: 05/18/21 21:36 Dose: 10 mg Documented by: Bupropion HCl (Bupropion Hcl Xl 150 Mg Tab.Er.24h) 150 mg PO DAILY [facility] Last Admin: 05/20/21 08:49 Dose: 150 mg Documented by: Clonazepam (Clonazepam 1 Mg Tablet) 1 mg PO BID [facility] Last Admin: 05/20/21 06:06 Dose: 1 mg Documented by: Divalproex Sodium (Divalproex Sodium Er 500 Mg Tab.Er.24h) 1,500 mg PO BEDTIME [facility] Last Admin: 05/19/21 20:06 Dose: 1,500 mg Documented by: Enoxaparin Sodium (Enoxaparin Sodium 40 Mg/0.4 Ml Syringe) 40 mg SUBCUT Q24H [facility] Last Admin: 05/20/21 11:33 Dose: 40 mg Documented by: Famotidine (Famotidine 20 Mg Tablet) 40 mg PO BEDTIME [facility] Last Admin: 05/19/21 20:05 Dose: 40 mg Documented by: Hydroxyzine HCl (Hydroxyzine Hcl 10 Mg Tablet) 10 mg PO BEDTIME [facility] Last Admin: 05/19/21 20:05 Dose: 10 mg Documented by: Lactated Ringer's (Lr) 1,000 mls @ 100 mls/hr IVCONT .Q10H [facility] Last Admin: 05/20/21 13:16 Dose: 100 mls/hr Documented by: Lurasidone HCl 40 mg/ (Lurasidone HCl 80 mg) 120 mg PO DAILY@1700 [place] Nicotine (Nicotine 14 Mg Patch.Td24) 14 mg TRANSDERMA DAILY [facility] Last Admin: 05/20/21 11:31 Dose: 14 mg Documented by: Patient Own Medication ( Prucalopride [ Motegrity] 1 Mg Tablet) 1 each PO DAILY [facility] Last Admin: 05/20/21 13:07 Dose: 1 each Documented by: Omeprazole (Omeprazole 40 Mg Capsule.) 40 mg PO DAILY@0630 [facility] Last Admin: 05/20/21 05:53 Dose: 40 mg Documented by: Ondansetron HCl (Ondansetron Odt 8 Mg Tab.Rapdis) 8 mg TRANSLINGU Q8H PRN PRN Reason: Nausea and Vomiting Last Admin: 05/20/21 08:50 Dose: 8 mg Documented by: Perphenazine (Perphenazine 8 Mg Tablet) 8 mg PO BID [facility] Last Admin: 05/20/21 08:56 Dose: 8 mg Documented by: Pharmacy Consult (Consult Rx Perform Med Rec) 1 each MISCELLANE ONCE PRN PRN Reason: Consult order Polyethylene Glycol (Polyethylene Glycol 3350 17 Gm Powd.Pack) 17 gm PO DAILY [facility] Last Admin: 05/20/21 08:49 Dose: 17 gm Documented by: Sodium Chloride (0.9 % Sodium Chloride Flush 3 Ml Syringe) 3 ml IVFLUSH QSHIFT [facility] Last Admin: 05/20/21 15:18 Dose: Not Given Documented by: Sucralfate (Sucralfate 1 Gm Tablet) 1 gm PO BID [facility] Last Admin: 05/20/21 08:49 Dose: 1 gm Documented by: Sumatriptan Succinate (Sumatriptan Succinate 50 Mg Tablet) 50 mg PO DAILY PRN PRN Reason: Migraine Headache Last Admin: 05/18/21 22:41 Dose: 50 mg Documented by: Topiramate (Topiramate 100 Mg Tablet) 100 mg PO DAILY [facility] Last Admin: 05/20/21 08:49 Dose: 100 mg Documented by: Vitamin D (Cholecalciferol (Vitamin D3) 25 Mcg Tablet) 50 mcg PO DAILY [facility] Last Admin: 05/20/21 08:48 Dose: 50 mcg Documented by: Allergies Allergies Allergy/AdvReac Type Severity Reaction Status Date / Time olanzapine [From ZYPREXA] Allergy Severe SWELLING Verified 05/13/21 12:17 oxcarbazepine Allergy Severe antony's Verified 05/13/21 12:17 [From TRILEPTAL] Rob syndrome gabapentin Allergy Unknown Loss of Verified 05/13/21 12:17 balance lithium [LITHIUM] Allergy Unknown UNKNOWN Verified 05/13/21 12:17 quetiapine [Seroquel] Allergy Unknown Unknown Verified 05/13/21 12:17 sulfamethoxazole Allergy Unknown severe rash Verified 05/13/21 12:17 [From BACTRIM] trimethoprim [From BACTRIM] Allergy Unknown severe rash Verified 05/13/21 12:17 From SEROQUEL Allergy Unknown UNKNOWN Uncoded 04/05/21 14:39 Assessment & Plan Assessment & Plan (1) Gastroparesis: Status: Acute Code(s): K31.84 - Gastroparesis (2) Bipolar disorder: Status: Acute Code(s): F31.9 - Bipolar disorder, unspecified Assessment and Plan: Discussed patient's multiple psychiatric medications, and anticholinergic side effects, which have greatly contributed to her current inpatient medical stay. Mother was present during interview, per patient's request. Father was in room, but did not participate in conversation. Patient reports she has been on her medications for 20 years, and does not feel comfortable reducing doses or stopping any of them while here. She states she is concerned, as she does not want to experience a hypomanic/manic episode as a result, or become suicidal. She states that she needs the Depakote as is, as she relies on this to keep her mood stable. She states that she needs the Latuda and perphenazine as well. Cogentin was lowered while here to 0.5 mg daily. She had been receiving 1 mg b.i.d. as outpatient. She states though that although she is fearful of developing tardive dyskinesia, she is willing to keep it at the lower dose for now if it will help with gastric motility. She reports that her outpatient provider has not seen her in 2 years, and that the provider has canceled the last 3 scheduled visits. She states that the visits are over the phone due to COVID. She is looking for new provider. (3) Urinary retention: Status: Acute Code(s): R33.9 - Retention of urine, unspecified Plan Psych follow-up 05/20/21: 1. Keep benzotropine at lower dose of 0.5 mg daily rather than outpatient dose of 1 mg b.i.d Will f/u in am tomorrow. hospital d#3 41yo F with bipolar disorder + gastroparesis admitted with 2 wk of vomiting/constipation and noted to have urinary retention # gastroparesis - continue IV fluids, ondansetron. Unable to use metoclopramide at this point given she is already on 2 antipsychotics. GI folowing # urinary retention - Armendariz, Urology consult, minimize anticholinergics # bipolar disorder - will reach out to psychiatry multi site leasing consultant to modify regimen to minimize anticholinergic side effects, especially given patient report that she has not seen her outpatient psychiatrist in over 2 years. Currently, she is on valproate, benztropine, bupropion, clonazepam, lurasidone, perphenazine, and topiramate # tobacco abuse - NRT # Utox positive for fentanyl - CARE Team consult # VTE ppx - LMWH I spent minutes with the patient and/or on the patient floor today, greater than?50% of which was spent counseling/coordinating care. Reason for contiued inpatient stay Substantial Risk for: rapid decompensation and med/psych decompensation
--- NOTE | 2021-05-20 17:08 | PM.UROCN ---
History of Present Illness Consult details Consult date: 05/20/21 Narrative: Agnieszka is a 41-year-old female. Consult regarding urinary retention and difficult Armendariz catheter placement Longstanding psychiatric medications anticholinergic full side effects Urinary retention Gastro paresis Difficult Armendariz catheter placement Twelve Spanish Armendariz catheter placed Narrowed urethra 850 cc drainage it placement of catheter Catheter should remain for 5-7 days per for voiding trial Adequate bowel regimen should be installed Review of Systems Constitutional: Constitutional: Reports as per HPI and Reports no additional constitutional complaints Cardiovascular: Cardiovascular: Reports as per HPI and Reports no additional cardiovascular complaints Respiratory: Respiratory: Reports as per HPI and Reports no additional respiratory complaints Gastrointestinal: Gastrointestinal: Reports as per HPI and Reports no additional gastrointestinal complaints Genitourinary: Genitourinary: Reports as per HPI Musculoskeletal: Musculoskeletal: Reports no additional musculoskeletal complaints and Reports as per HPI Neurologic: Reports system reviewed and no additional complaints, except as documented and Reports as per HPI PMFSH Past Medical History Medical History Bipolar disorder Chronic nausea GLORIA (generalized anxiety disorder) Gastroparesis Migraine Family History Family History Mother No problems noted. Father No problems noted. Surgical History Surgical History History of tonsillectomy Social History Social History Household Members: Other Household Members Other:: mother Housing: House Do you presently have visiting nurse or other home services: No Alcohol intake: never Patient Tobacco Use Status: Current everyday Tobacco user Tobacco use type: Cigarette Cigarette Packs Per Day: 0.5 Cigarettes Per Day: 10.0 Years Smoked: 25 e-Cigarette/Vaping Use: Never Used Second Hand Smoke Exposure: Yes Substance Use Type: Marijuana Advance Directives Date on File: 05/19/21 service: No Current occupational status: unemployed and disabled Meds Allergies Allergy/AdvReac Type Severity Reaction Status Date / Time olanzapine [From ZYPREXA] Allergy Severe SWELLING Verified 05/13/21 12:17 oxcarbazepine Allergy Severe antony's Verified 05/13/21 12:17 [From TRILEPTAL] Rob syndrome gabapentin Allergy Unknown Loss of Verified 05/13/21 12:17 balance lithium [LITHIUM] Allergy Unknown UNKNOWN Verified 05/13/21 12:17 quetiapine [Seroquel] Allergy Unknown Unknown Verified 05/13/21 12:17 sulfamethoxazole Allergy Unknown severe rash Verified 05/13/21 12:17 [From BACTRIM] trimethoprim [From BACTRIM] Allergy Unknown severe rash Verified 05/13/21 12:17 From SEROQUEL Allergy Unknown UNKNOWN Uncoded 04/05/21 14:39 Active Medications: Current Medications Benztropine Mesylate (Benztropine Mesylate 0.5 Mg Tablet) 0.5 mg PO DAILY [facility] Last Admin: 05/20/21 08:49 Dose: 0.5 mg Documented by: Bisacodyl (Bisacodyl 5 Mg Tablet.Dr) 10 mg PO BEDTIME PRN PRN Reason: constipation Last Admin: 05/18/21 21:36 Dose: 10 mg Documented by: Bupropion HCl (Bupropion Hcl Xl 150 Mg Tab.Er.24h) 150 mg PO DAILY [facility] Last Admin: 05/20/21 08:49 Dose: 150 mg Documented by: Clonazepam (Clonazepam 1 Mg Tablet) 1 mg PO BID [facility] Last Admin: 05/20/21 06:06 Dose: 1 mg Documented by: Divalproex Sodium (Divalproex Sodium Er 500 Mg Tab.Er.24h) 1,500 mg PO BEDTIME [facility] Last Admin: 05/19/21 20:06 Dose: 1,500 mg Documented by: Enoxaparin Sodium (Enoxaparin Sodium 40 Mg/0.4 Ml Syringe) 40 mg SUBCUT Q24H [facility] Last Admin: 05/20/21 11:33 Dose: 40 mg Documented by: Famotidine (Famotidine 20 Mg Tablet) 40 mg PO BEDTIME [facility] Last Admin: 05/19/21 20:05 Dose: 40 mg Documented by: Hydroxyzine HCl (Hydroxyzine Hcl 10 Mg Tablet) 10 mg PO BEDTIME [facility] Last Admin: 05/19/21 20:05 Dose: 10 mg Documented by: Lactated Ringer's (Lr) 1,000 mls @ 100 mls/hr IVCONT .Q10H [facility] Last Admin: 05/20/21 13:16 Dose: 100 mls/hr Documented by: Lorazepam (Lorazepam 1 Mg Tablet) 1 mg PO ONCE ONE Stop: 05/20/21 17:04 Lurasidone HCl 40 mg/ (Lurasidone HCl 80 mg) 120 mg PO DAILY@1700 [facility] Nicotine (Nicotine 14 Mg Patch.Td24) 14 mg TRANSDERMA DAILY [facility] Last Admin: 05/20/21 11:31 Dose: 14 mg Documented by: Patient Own Medication ( Prucalopride [ Motegrity] 1 Mg Tablet) 1 each PO DAILY [facility] Last Admin: 05/20/21 13:07 Dose: 1 each Documented by: Omeprazole (Omeprazole 40 Mg Capsule.Dr) 40 mg PO DAILY@0630 [facility] Last Admin: 05/20/21 05:53 Dose: 40 mg Documented by: Ondansetron HCl (Ondansetron Odt 8 Mg Tab.Rapdis) 8 mg TRANSLINGU Q8H PRN PRN Reason: Nausea and Vomiting Last Admin: 05/20/21 08:50 Dose: 8 mg Documented by: Perphenazine (Perphenazine 8 Mg Tablet) 8 mg PO BID [facility] Last Admin: 05/20/21 08:56 Dose: 8 mg Documented by: Pharmacy Consult (Consult Rx Perform Med Rec) 1 each MISCELLANE ONCE PRN PRN Reason: Consult order Polyethylene Glycol (Polyethylene Glycol 3350 17 Gm Powd.Pack) 17 gm PO DAILY [facility] Last Admin: 05/20/21 08:49 Dose: 17 gm Documented by: Sodium Chloride (0.9 % Sodium Chloride Flush 3 Ml Syringe) 3 ml IVFLUSH QSHIFT [facility] Last Admin: 05/20/21 15:18 Dose: Not Given Documented by: Sucralfate (Sucralfate 1 Gm Tablet) 1 gm PO BID [facility] Last Admin: 05/20/21 08:49 Dose: 1 gm Documented by: Sumatriptan Succinate (Sumatriptan Succinate 50 Mg Tablet) 50 mg PO DAILY PRN PRN Reason: Migraine Headache Last Admin: 05/18/21 22:41 Dose: 50 mg Documented by: Topiramate (Topiramate 100 Mg Tablet) 100 mg PO DAILY [facility] Last Admin: 05/20/21 08:49 Dose: 100 mg Documented by: Vitamin D (Cholecalciferol (Vitamin D3) 25 Mcg Tablet) 50 mcg PO DAILY [facility] Last Admin: 05/20/21 08:48 Dose: 50 mcg Documented by: Home Medications Medication Instructions Recorded Confirmed Last Taken Type divalproex 500 mg tablet,extended 1,500 mg PO DAILY tab 05/28/20 05/18/21 Unknown History release 24 hr lurasidone 120 mg tablet 120 mg PO DAILY 05/28/20 05/18/21 Unknown History sumatriptan succinate 50 mg tablet 50 mg PO DAILY PRN 05/28/20 05/18/21 Unknown History famotidine 40 mg tablet 40 mg PO BEDTIME 07/09/20 05/18/21 Unknown History perphenazine 4 mg tablet 8 mg PO BID 12/03/20 05/18/21 Unknown History benztropine 0.5 mg tablet 0.5 mg PO DAILY 04/05/21 05/18/21 Unknown History benztropine 1 mg tablet 1 tab PO BID 05/18/21 05/18/21 05/14/21 History bupropion HCl 100 mg tablet,12 hr 2 tab PO QAM 05/18/21 05/18/21 Unknown History sustained-release chlorpromazine 100 mg tablet 100 mg PO TID 05/18/21 05/18/21 05/14/21 History erenumab-aooe 140 mg/mL mg SUBCUT Q4W 05/18/21 Unknown History subcutaneous auto-injector (Aimovig Autoinjector) prucalopride 1 mg tablet 1 tab PO DAILY 05/18/21 05/18/21 Unknown History (Motegrity) topiramate 100 mg tablet 1 tab PO DAILY 05/18/21 05/18/21 Unknown History Physical Exam Vital Signs: Vital Signs: Last Vital Signs Temp 98.5 F 05/20/21 15:09 Pulse 94 05/20/21 15:09 Resp 18 05/20/21 15:09 BP 102/57 L 05/20/21 15:09 Pulse Ox 98 05/20/21 15:09 BMI result Body Mass Index 21.9 Const: General: cooperative, healthy appearing, comfortable and no acute distress Orientation/consciousness: patient oriented x3 HENMT: Face and sinus: Yes normal facial exam Mouth: moist mucous membranes Neck: Neck: Yes normal visual inspection, Yes full ROM and Yes trachea midline Chest: Chest palpation & inspection: normal inspection of the chest Resp: Effort & Inspection: normal respiratory effort, able to speak in complete sentences and no respiratory distress GI: Inspection: Yes normal to inspection Back/Spine/Pelvis: Cervical Spine: normal cervical lordosis Thoracic/Lumbar Spine: thoracic and lumbar spine normal to inspection Skin: General skin exam: no rashes or lesions noted Neuro: General: patient oriented x3, tone normal and moves all extremities Extrem: General: Yes normal to inspection and Yes capillary refill normal Results Labs Result diagrams: 05/20/21 05:43 05/20/21 05:43 Labs: Abnormal lab results 05/20/21 05/20/21 Range/Units 05:43 05:43 RBC 3.70 L (4.20-5.50) X10*6/uL Hct 36.2 L (37.0-47.0) % Neut % (Auto) 27.3 L (45-73) % Lymph % (Auto) 59.0 H (20-40) % Absolute Neuts (auto) 1.3 L (2.0-8.3) x10*3/uL Chloride 111 H (96-108) mmol/L BUN 4 L (9-16) mg/dL Total Protein 5.1 L (6.5-8.0) g/dL Albumin 3.4 L (3.5-5.0) g/dL Short CBC 05/20/21 Range/Units 05:43 WBC 4.9 (4.8-10.8) X10*3/uL Hgb 12.0 (12.0-16.0) g/dl Hct 36.2 L (37.0-47.0) % Plt Count 200 (160-400) X10*3/uL BMP 05/20/21 05:43 Sodium 143 Potassium 3.8 Chloride 111 H Carbon Dioxide 24 BUN 4 L Creatinine 0.76 Calcium 9.0 Liver Function 05/20/21 Range/Units 05:43 Total Bilirubin 0.3 (0.0-1.0) mg/dL AST 13 (5-31) U/L ALT 16 (0-31) U/L Alkaline Phosphatase 56 (39-117) U/L Albumin 3.4 L (3.5-5.0) g/dL Urine 05/19/21 Range/Units 11:49 Urine Color STRAW Urine Appearance HAZY Urine pH 7.0 (5.0-8.0) Ur Specific [place] <= 1.005 (1.005-1.025) Urine Protein NEG (NEG-TRACE) MG/DL Urine Glucose (UA) NEG (NEG) MG/DL All other labs normal. Assessment and Plan (1) Urinary retention: Status: Acute Plan Voiding trial in 5-7 days Procedures Date of Service Date of Service: 05/19/21 Catheter Insertion (Urinary) Date of insertion: 05/19/21 Replacement of catheter present on admission: No Reason for placing: Acute urinary retention Antiseptic solution prep: Povidone-Iodine Topical anesthesia used: Yes Catheter type/location: Urethral Size (Spanish): 12 Results: successfully catheterized-immediate flow Comment: Difficult Armendariz catheter placement, and 50 cc residual
--- NOTE | 2021-05-20 17:28 | PC.NURSE ---
p patient is requesting Ativan for anxiety notified E Ativan administered as ordered
[2021-05-20] MEDS: LORazepam 1 MG TABLET PO (17:30)
[2021-05-20] MEDS: Divalproex Sodium ER 500 MG TAB.ER.24H 1500 MG PO (21:04)
[2021-05-20] MEDS: Famotidine 20 MG TABLET 40 MG PO (21:05)
[2021-05-20] MEDS: hydrOXYzine HCL 10 MG TABLET PO (21:05)
--- NOTE | 2021-05-20 22:48 | PC.NURSE ---
p patient requesting Trazodone I Dr. Queen notified E awaiting new orders ,patient made aware
[2021-05-20] MEDS: traZODone HCL 50 MG TABLET PO (23:13)
[2021-05-20 23:26] VITALS: BP 100/60; PULSE 89; RESP 17; TEMP 36.3; O2SAT 96
[2021-05-21] MEDS: LORazepam 2 MG/ML VIAL 1 MG IVPUSH (00:53)
[2021-05-21] MEDS: Lactated Ringers 1,000 ML 100 ML IVCONT (00:56)
--- NOTE | 2021-05-21 03:16 | PC.NURSE ---
PATIENT UNHAPPY AT START OF THIS 11-7 SHIFT, AWAITING MEDICATIONS AND FEELS TAKING TOO LONG AND UPSET WITH PPREVIOUS SHIFT RN DESPITE THAT SHE HAD TALKED SEVERAL TIMES VIA TIGER TEXT WITH HOSPITALIST ON DUTY. MD PLACED TRAZADONE ORDER PT REQUESTED AND GIVEN BY THIS WRITE AT APPROXIMATELY 2305. PT VERBALIZING UPSET THAT ITS ONLY ONE TAB AND SHE ASKED FOR 2 TABS STATING TAKES 100MG AT HOME, HOWEVER, NOT NOTED ON HOME MEDICATION LIST. INFORMED PT THAT THIS TILE PICKER WOULD REACH OUT TO MD FOR ADDITIONAL DOSE. PT ALERT, AMBULATORY, STEADY, DENYING PAIN, BUT STATING FEELING INCREASED ANXIETY. PT BECAME RESTLESS VERY QUICKLY, AMBULATED IN HALLWAY, RETURNED TO HER ROOM AND NOTED FIRST BY HER GATEKEEPER TO BE HITTING THE WALL WITH HER HANDS, SHOWING FRUSTRATION, BANGING HER IV POLE INTO FURNITURE, AND UNSAFE SIBLEY CATHETER STRETCHING. UPON ENTERING HER ROOM SHE HAD PROCEEDED TO LIE ON HER BED BUT WAS ROLLING SIDE TO SIDE AND BANGING HER HEAD TO EACH SIDE OF THE BED RAILS. PT ALSO KICKING LOWER BED AND YELLING OUT THAT HER ANXIETY WAS STOPPING HER FROM BEING ABLE TO STOP. SECURITY WAS CALLED FOR ASSISTANCE AND THIS TILE PICKER STAYED AT BEDSIDE TO PROMOTE SAFETY AND CONTINUE TO VERBALLY REDIRECT AND OFFER COMFORT. WHEN SECURITY ARRIVED PT HAD ALREADY STOPPED THRASHING AND HITTING HER HEAD. THEY KINDLY TALKED TO HER AND OFFERED SAFETY MEASURES. NURSING DEVELOPMENTAL WRITING INSTRUCTOR ALERTED AND ALSO SPOKE WITH PATIENT AND HER STAFF. HOSPITALIST ORDERED PO ATIVAN FOR ANXIETY BUT PT INSISTED NEEDED IT THRU HER IV AND AFTER MD UPDATED HE MADE CHANGES TO 1MG IVP WHICH WAS GIVEN AT 0100. PATIENT THEN STATED HER CATHETER WAS BURNING AND IT HURT. NO BLOOD NOTED IN TUBING OR BAG, BALLOON DEFLATED AND POSITION CHECKED WITH URINE FLOW. PT CONTINUED TO VERBALIZE SHE WANTED THE CATHETER OUT DESPITE ALL EXPLANATIONS THAT WHEN IT WAS TUGGED IT MOST LIKELY CAUSED SOME IRRITATION BUT WAS IN PROPER POSITION AND NO BLOOD TINGE NOTED. PT AGAIN WALKED IN HALLWAY, RESTLESS, FIXATED TO REMOVE CATHETER. AGAIN DISCUSSION AND ALSO THAT SIBLEY WAS ORIGINALLY PLACED FOR RETENTION AND IF SHE TRIED LYING DOWN, TRY A COLD PACK,EMPTY DRAINAGE BAG FOR WEIGHT.........PT HOWEVER, WANTED IT OUT AND SAID SHE NEVER USUALLY HAS A CATHETER. NURSING DEVELOPMENTAL WRITING INSTRUCTOR WAS ASKED FOR GUIDANCE AND SHE STATED TO REMOVE IF PATIENT UNCOMFORTABLE AND REQUESTING IT. SIBLEY REMOVED AT 0145 AND EXPLAINED URGE TO VOID MAY TAKE 4-6 HOURS. PT AGAIN BACK INTO BED BUT IMMEDIATELY BACK UP WALKING SAYING SHE NEEDED TO URINATE. NO LUCK IN BR AND SIBLEY CONTENTS WAS AT 650ML UPON REMOVAL. ONCE AGAIN IN BED AND THEN TALKING OF FEELING PRESSURE; BLADDER SCANNED FOR 45ML AT 0210 AND EXPLAINED THE SMALL AMOUNT AND SHOWED HER WHAT 45ML LOOKED LIKE. BY 0245 REQUESTING TO BE SCANNED AGAIN AND AMOUNT NOW 46ML AFTER SEVERAL TESTS. PT RANG BY 0255, NOW WANTING MORE TRAZADONE. NURSING DEVELOPMENTAL WRITING INSTRUCTOR UPDATED AND NOTED UPON RETURN TO HER ROOM AT 0310 THAT SHE WAS RIGHT SIDE LYING, EYES CLOSED AND QUIET. WILL CONTINUE TO MONITOR CLOSELY AND ALLOW HER TO SLEEP.
[2021-05-21] MEDS: Omeprazole 40 MG CAPSULE.DR PO (05:57)
[2021-05-21 06:00] LABS: MANUAL DIFF FLAG NO
[2021-05-21 06:06] LABS: Basophils Absolute Auto 0.1 X10*3/uL (0.0-0.2); Eosinophils Absolute Auto 0.1 X10*3/uL (0.0-0.4); Eosinophils Percent Auto 2.2 % (0-4); Hematocrit 34.5 % (37.0-47.0); Hemoglobin 11.7 g/dl (12.0-16.0); Imm Gran Abs Auto 0.01 X10*3/uL (0.00-0.03); Imm Gran Pct Auto 0.2 % (0.0-0.4); Lymphocytes Absolute Auto 2.2 X10*3/uL (1.2-4.9); Lymphocytes Percent Auto 43.5 % (20-40); Mean Corpuscular HGB Conc 33.9 g/dl (31.0-35.0); Mean Corpuscular Hemoglobin 32.9 pg (27.0-33.0); Mean Corpuscular Volume 96.9 fL (80.0-98.0); Monocytes Absolute Auto 0.5 X10*3/uL (0.1-1.2); Monocytes Percent Auto 10.5 % (2-11); Neutrophils Absolute Auto 2.1 x10*3/uL (2.0-8.3); Neutrophils Percent Auto 42.6 % (45-73); Platelet Count 180 X10*3/uL (160-400); Red Blood Count 3.56 X10*6/uL (4.20-5.50)
[2021-05-21 06:25] LABS: Alanine Aminotransferase 15 U/L (0-31); Albumin Level 3.4 g/dL (3.5-5.0); Alkaline Phosphatase 53 U/L (39-117); Anion Gap 12 (12-20); Aspartate Amino Transferase 11 U/L (5-31); Bilirubin Total 0.3 mg/dL (0.0-1.0); Blood Urea Nitrogen 4 mg/dL (9-16); Calcium 8.8 mg/dL (8.4-10.2); Carbon Dioxide 21 mmol/L (22-29); Chloride 109 mmol/L (96-108); Creatinine Clr Calc Pharmacy 104.8; Estimated Glomerular Filt Rate > 60; Glucose Fasting 85 mg/dL (60-99); Potassium 3.4 mmol/L (3.3-5.1); Sodium 139 mmol/L (135-145); Total Protein 5.1 g/dL (6.5-8.0)
--- NOTE | 2021-05-21 06:29 | PC.NURSE ---
PATIENT GOT OOB AROUND 0450 AND FORGET SHE HAD IVF AND A POLE AND PROCEEDED TO WALK AWAY FROM IT WHICH CAUSED HER IV SITE TO HER LEFT AC TO COME OUT, PT WALKED OUT TO HALLWAY TO SAY WHAT HAPPENED. IV CATHETER NOTED OUT AND INTACT, NO INJURY AND MINIMAL BLEEDING THAT STOPPED VERY QUICKLY. NEW #[address] TO LEFT HAND
[2021-05-21 07:21] LABS: Cortisol Random 4.5 ug/dL
[2021-05-21 07:27] VITALS: BP 108/64; PULSE 90; RESP 19; TEMP 36.1; O2SAT 99
[2021-05-21] MEDS: bisacodyL 5 MG TABLET.DR 10 MG PO ×2 (07:35→21:16)
[2021-05-21] MEDS: Cholecalciferol (Vitamin D3) 25 MCG TABLET 50 MCG PO (07:36)
[2021-05-21] MEDS: Nicotine 14 MG PATCH.TD24 TRANSDERMA (07:36)
[2021-05-21] MEDS: Perphenazine 8 MG TABLET PO ×2 (07:36→21:16)
[2021-05-21] MEDS: Topiramate 100 MG TABLET PO (07:36)
[2021-05-21] MEDS: buPROPion HCl XL 150 MG TAB.ER.24H PO (07:37)
[2021-05-21] MEDS: clonazePAM 1 MG TABLET PO ×2 (07:37→21:16)
[2021-05-21] MEDS: Benztropine Mesylate 0.5 MG TABLET PO (07:37)
[2021-05-21] MEDS: Sucralfate 1 GM TABLET PO ×2 (07:37→21:16)
[2021-05-21] MEDS: polyethylene glycoL 3350 17 GM POWD.PACK PO (07:38)
[2021-05-21] MEDS: Morphine Sulfate 4 MG/ML CARTRIDGE IVPUSH ×2 (09:03→19:07)
--- NOTE | 2021-05-21 09:24 | HO.PM.IMPN ---
Subjective Subjective Date of Service: 05/21/21 Interval History: Reportedly agitated overnight, complaining of pain/burning from Armendariz. Was banging her head into the wall and the catheter came loose. It was removed by nursing staff. Now in extreme discomfort from urinary retention >1L. No BM in weeks. Review of Systems Review of Systems: Yes all other systems are reviewed and are negative Physical Exam Vital Signs: Vital Signs: Last Vital Signs Temp 96.9 F 05/21/21 07:27 Pulse 90 05/21/21 07:27 Resp 19 05/21/21 07:27 BP 108/64 05/21/21 07:27 Pulse Ox 99 05/21/21 07:27 BMI result Body Mass Index 21.9 Gen: uncomfortable + anxious HEENT: sclera anicteric, moist mucus membranes Neck: supple Lungs: clear to auscultation bilaterally Heart: regular rate and rhythm, no murmurs Abd: suprapubic fullness Ext: no edema Skin: warm/well-perfused Neuro: alert and oriented x3, no focal findings Psych: anxious Objective Data Active Medications Benztropine Mesylate (Benztropine Mesylate 0.5 Mg Tablet) 0.5 mg PO DAILY [facility] Last Admin: 05/21/21 07:37 Dose: 0.5 mg Documented by: GAIL Bisacodyl (Bisacodyl 5 Mg Tablet.Dr) 10 mg PO BEDTIME [facility] Bupropion HCl (Bupropion Hcl Xl 150 Mg Tab.Er.24h) 150 mg PO DAILY [facility] Last Admin: 05/21/21 07:37 Dose: 150 mg Documented by: GAIL Clonazepam (Clonazepam 1 Mg Tablet) 1 mg PO BID [facility] Last Admin: 05/21/21 07:37 Dose: 1 mg Documented by: GAIL Divalproex Sodium (Divalproex Sodium Er 500 Mg Tab.Er.24h) 1,500 mg PO BEDTIME [facility] Last Admin: 05/20/21 21:04 Dose: 1,500 mg Documented by: MIC Enoxaparin Sodium (Enoxaparin Sodium 40 Mg/0.4 Ml Syringe) 40 mg SUBCUT Q24H [facility] Last Admin: 05/20/21 11:33 Dose: 40 mg Documented by: GAIL Famotidine (Famotidine 20 Mg Tablet) 40 mg PO BEDTIME [facility] Last Admin: 05/20/21 21:05 Dose: 40 mg Documented by: MIC Hydroxyzine HCl (Hydroxyzine Hcl 10 Mg Tablet) 10 mg PO BEDTIME [facility] Last Admin: 05/20/21 21:05 Dose: 10 mg Documented by: MIC Lactated Ringer's (Lr) 1,000 mls @ 100 mls/hr IVCONT .Q10H [facility] Last Admin: 05/21/21 00:56 Dose: 100 mls/hr Documented by: DARRIAN Lurasidone HCl 40 mg/ (Lurasidone HCl 80 mg) 120 mg PO DAILY@1700 [facility] Morphine Sulfate (Morphine Sulfate 4 Mg/Ml Cartridge) 4 mg IVPUSH Q4H PRN; Protocol PRN Reason: severe pain Last Admin: 05/21/21 09:03 Dose: 4 mg Documented by: GAIL Nicotine (Nicotine 14 Mg Patch.Td24) 14 mg TRANSDERMA DAILY [facility] Last Admin: 05/21/21 07:36 Dose: 14 mg Documented by: GAIL Patient Own Medication ( Prucalopride [ Motegrity] 1 Mg Tablet) 1 each PO DAILY [facility] Last Admin: 05/21/21 07:37 Dose: 1 each Documented by: GAIL Omeprazole (Omeprazole 40 Mg Capsule.Dr) 40 mg PO DAILY@0630 [facility] Last Admin: 05/21/21 05:57 Dose: 40 mg Documented by: DARRIAN Ondansetron HCl (Ondansetron Odt 8 Mg Tab.Rapdis) 8 mg TRANSLINGU Q8H PRN PRN Reason: Nausea and Vomiting Last Admin: 05/20/21 08:50 Dose: 8 mg Documented by: GAIL Perphenazine (Perphenazine 8 Mg Tablet) 8 mg PO BID [facility] Last Admin: 05/21/21 07:36 Dose: 8 mg Documented by: GAIL Pharmacy Consult (Consult Rx Perform Med Rec) 1 each MISCELLANE ONCE PRN PRN Reason: Consult order Polyethylene Glycol (Polyethylene Glycol 3350 17 Gm Powd.Pack) 17 gm PO DAILY [facility] Last Admin: 05/21/21 07:38 Dose: 17 gm Documented by: GAIL Sodium Chloride (0.9 % Sodium Chloride Flush 3 Ml Syringe) 3 ml IVFLUSH QSHIFT [facility] Last Admin: 05/21/21 07:26 Dose: Not Given Documented by: GAIL Non-Admin Reason: IV Running Sucralfate (Sucralfate 1 Gm Tablet) 1 gm PO BID [facility] Last Admin: 05/21/21 07:37 Dose: 1 gm Documented by: GAIL Sumatriptan Succinate (Sumatriptan Succinate 50 Mg Tablet) 50 mg PO DAILY PRN PRN Reason: Migraine Headache Last Admin: 05/18/21 22:41 Dose: 50 mg Documented by: ANGEL Topiramate (Topiramate 100 Mg Tablet) 100 mg PO DAILY [facility] Last Admin: 05/21/21 07:36 Dose: 100 mg Documented by: GAIL Vitamin D (Cholecalciferol (Vitamin D3) 25 Mcg Tablet) 50 mcg PO DAILY [facility] Last Admin: 05/21/21 07:36 Dose: 50 mcg Documented by: GAIL Labs CBC & Chem 7: 05/21/21 05:39 05/21/21 05:39 Labs: Laboratory Results - last 24 hr 05/21/21 05/21/21 05/21/21 05:39 05:39 05:39 MCV 96.9 MCH 32.9 MCHC 33.9 RDW 13.0 Plt Count 180 MPV 12.0 Immature Gran % (Auto) 0.2 Neut % (Auto) 42.6 L Lymph % (Auto) 43.5 H Clark % (Auto) 10.5 Eos % (Auto) 2.2 Baso % (Auto) 1.0 Lymph # (Auto) 2.2 Clark # (Auto) 0.5 Eos # (Auto) 0.1 Baso # (Auto) 0.1 Abs Immat Gran (auto) 0.01 Absolute Neuts (auto) 2.1 Absolute Nucleated RBC 0.000 Nucleated RBC % (auto) 0.0 Anion Gap 12 Estim Creat Clear Calc 104.8 Estimated GFR > 60 Random Glucose TNP Fasting Glucose 85 Calcium 8.8 Total Bilirubin 0.3 AST 11 ALT 15 Alkaline Phosphatase 53 Total Protein 5.1 L Albumin 3.4 L Random Cortisol 4.5 Assessment and Plan (1) Gastroparesis: Status: Acute (2) Bipolar disorder: Status: Acute (3) Urinary retention: Status: Acute Plan hospital d#4 41yo F with bipolar disorder + gastroparesis admitted with 2 wk of vomiting/constipation and noted to have urinary retention # urinary retention - Urology following, replace Armendariz, will need for at least 7d, address constipation # constipation - Miralax, Dulcolax, KUB to check stool burden # gastroparesis - prn ondansetron. unable to use metoclopramide at this point given she is already on 2 antipsychotics. outpt GI f/u. try to minimize anticholinergic medications. # bipolar disorder # agitation - psychiatry consult to modify regimen to minimize anticholinergic side effects, especially given patient report [corroborrated by her mother] that she has not seen her outpatient psychiatrist in over 2 years. currently, she is on valproate, benztropine, bupropion, clonazepam, lurasidone, perphenazine, and topiramate. I believe she would benefit from inpatient psychiatric care given her medical issues are secondary to psychiatric medications and not likely to improve without medication adjustment, which puts her at risk of psychiatric decompensation. # tobacco abuse - NRT # Utox positive for fentanyl - CARE Team consulted, pt denies opioid use # VTE ppx - LMWH Quality Stroke Does the patient have a stroke diagnosis?: No VTE Prior VTE?: No VTE Risk Level:: Medical - moderate - high VTE Device Contraindication: Treatment Not Indicated VTE Drug Contraindication: N/A - Med Ordered
--- NOTE | 2021-05-21 09:33 | MHC.CARE ---
CARE Team met with Pt to provide support. Pt reported she was headbanging last evening because of her anxiety and pain nobody was helping me and stated I usually take klonpin for my anxiety but they said I couldn't have it . T/w spoke with Pt about other coping skills to utilize. Pt reported she was in a lot of pain and wanted to rest. Pt made aware CARE Team is available upon request for further support.
[2021-05-21 11:53] VITALS: BP 93/54; PULSE 100; RESP 18; TEMP 36.4; O2SAT 99
[2021-05-21] MEDS: Enoxaparin Sodium 40 MG/0.4 ML SYRINGE SUBCUT (13:20)
--- NOTE | 2021-05-21 14:39 | PC.NURSE ---
0730 PT UNCOMFORTABLE UNABLE TO VOID. BLADDER SCANNED FOR >999. DR YAN MADE AWARE. ATTEMPTED TO INSERT #12 SIBLEY CATH X2 WITHOUT SUCCESS. DR RUTLEDGE MADE AWARE AND WAS UNABLE TO SEE PT UNTIL THE AFTERNOON. PT WAS GIVEN MORPHINE 4MG IV AT 0900 WITH GOOD EFFECT. SHE DID MANAGE TO NAP. IV FLUIDS WERE ALSO DC'D. KUB WAS DONE TO EVALUATE CONSTIPATION. PT WAS ALSO GIVE MIRALAX AND DUCOLAX. DR RUTLEDGE INTO SEE PT AT APPROX 1400 #12 SIBLEY WAS PLACED AND DRAINED 1200MLS. PT NOW MORE COMFORTABLE.
--- NOTE | 2021-05-21 14:40 | P.CNPS_ITS ---
History of Present Illness Date of Service: 05/21/21 Chief Complaint: gastroparesis Reason for Consult: Reported delayed gastric emptying vomiting urinary retention question of anticholinergic syndrome Requesting physician: Pastora Berrios Discussed with referring provider: Yes Sources of Information: patient interviewed and chart reviewed HPI Narrative: Patient was initially seen by Dr. Menchaca patient has had nausea vomiting times weeks intermittent urinary retention. Has been on a combination of Wellbutrin Depakote Latuda and perphenazine. She does have a history of schizoaffective disorder history of intermittent substance use. Patient tells me she occasional ly smokes marijuana from a dispensary. Denies any regular use of opiates cocaine or other substances. Has some degree of chronic dysphoria intermittent auditory hallucinations. Latuda is used for bipolar depression generally Depakote a mood stabilizer for bipolar disorder and she has been on this chronically. She has also been on Cogentin which was lowered Past Psychiatric History: bipolar disorder, h/o inpatient on M5. outpatient provider through [facility]. Medical Evaluation Reviewed: Yes Case reviewed with the medical staff abdominal CT reviewed which was not generally remarkable there was a slow gastric emptying study. Dr. 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 Substance History: Intermittent use of marijuana cigarettes past use of cocaine and other substances past history of opiate use Trauma History: unclear Diagnostics Vital Signs (24Hr): Vital Signs - 24 hr 05/20/21 15:09 05/20/21 23:26 05/21/21 07:27 Temperature 98.5 F 97.4 F 96.9 F Pulse Rate 94 89 90 Respiratory Rate 18 17 19 Blood Pressure 102/57 L 100/60 108/64 Pulse Oximetry 98 96 99 05/21/21 11:53 Temperature 97.6 F Pulse Rate 100 Respiratory Rate 18 Blood Pressure 93/54 L Pulse Oximetry 99 BMI result Body Mass Index 21.9 Labs Results: 05/21/21 05:39 05/24/21 05:54 Labs: Laboratory Results - last 48 hr 05/18/21 05/19/21 05/20/21 11:14 11:18 05:43 WBC 4.9 RBC 3.70 L Hgb 12.0 Hct 36.2 L MCV 97.8 MCH 32.4 MCHC 33.1 RDW 13.0 Plt Count 200 MPV 12.2 Immature Gran % (Auto) 0.0 Neut % (Auto) 27.3 L Lymph % (Auto) 59.0 H [place] % (Auto) 9.2 Eos % (Auto) 3.9 Baso % (Auto) 0.6 Lymph # (Auto) 2.9 [place] # (Auto) 0.5 Eos # (Auto) 0.2 Baso # (Auto) 0.0 Abs Immat Gran (auto) 0.00 Absolute Neuts (auto) 1.3 L Absolute Nucleated RBC 0.000 Nucleated RBC % (auto) 0.0 Sodium Potassium Chloride Carbon Dioxide Anion Gap BUN Creatinine Estim Creat Clear Calc Estimated GFR Random Glucose Fasting Glucose Calcium Total Bilirubin AST ALT Alkaline Phosphatase Total Protein Albumin Prolactin 7.7 Random Cortisol Lyme Screen IgG & IgM <0.90 Lyme Progressive Test TNP 05/20/21 05/21/21 05/21/21 05:43 05:39 05:39 WBC RBC Hgb Hct MCV MCH MCHC RDW Plt Count MPV Immature Gran % (Auto) Neut % (Auto) Lymph % (Auto) [place] % (Auto) Eos % (Auto) Baso % (Auto) Lymph # (Auto) [place] # (Auto) Eos # (Auto) Baso # (Auto) Abs Immat Gran (auto) Absolute Neuts (auto) Absolute Nucleated RBC Nucleated RBC % (auto) Sodium 143 139 Potassium 3.8 3.4 Chloride 111 H 109 H Carbon Dioxide 24 21 L Anion Gap 12 12 BUN 4 L 4 L Creatinine 0.76 0.68 Estim Creat Clear Calc 93.8 104.8 Estimated GFR > 60 > 60 Random Glucose TNP Fasting Glucose 76 85 Calcium 9.0 8.8 Total Bilirubin 0.3 0.3 AST 13 11 ALT 16 15 Alkaline Phosphatase 56 53 Total Protein 5.1 L 5.1 L Albumin 3.4 L 3.4 L Prolactin Random Cortisol 4.5 Lyme Screen IgG & IgM Lyme Progressive Test 05/21/21 05:39 WBC 5.0 RBC 3.56 L Hgb 11.7 L Hct 34.5 L MCV 96.9 MCH 32.9 MCHC 33.9 RDW 13.0 Plt Count 180 MPV 12.0 Immature Gran % (Auto) 0.2 Neut % (Auto) 42.6 L Lymph % (Auto) 43.5 H [place] % (Auto) 10.5 Eos % (Auto) 2.2 Baso % (Auto) 1.0 Lymph # (Auto) 2.2 [place] # (Auto) 0.5 Eos # (Auto) 0.1 Baso # (Auto) 0.1 Abs Immat Gran (auto) 0.01 Absolute Neuts (auto) 2.1 Absolute Nucleated RBC 0.000 Nucleated RBC % (auto) 0.0 Sodium Potassium Chloride Carbon Dioxide Anion Gap BUN Creatinine Estim Creat Clear Calc Estimated GFR Random Glucose Fasting Glucose Calcium Total Bilirubin AST ALT Alkaline Phosphatase Total Protein Albumin Prolactin Random Cortisol Lyme Screen IgG & IgM Lyme Progressive Test Imaging Radiology Impressions: ITS Impressions KUB X-Ray 05/18/21 10:52 IMPRESSION: Unremarkable exam. Abdomen/Pelvis CT 05/18/21 19:28 IMPRESSION: 1. The stomach does not appear dilated and there is no evidence to suggest gastroparesis. 2. Excellent transit time with oral contrast media seen throughout the entire bowel which appears unremarkable. 3. Incidentally noted markedly distended urinary bladder. Fleischner guidelines were followed. Hand X-Ray 05/19/21 04:50 IMPRESSION: No fracture or malalignment. KUB X-Ray 05/21/21 10:37 IMPRESSION: Decreased stool the colon. No evidence of obstruction. Mental Status Exam Mental Status Exam Narrative: Well-developed, well-nourished female, appears stated age. NAD. Eye contact within normal limits. Alert and oriented x4. some dysphoria and irritability noted reactivity to her mother Speech was fluent, unimpaired. Mood ?anxious ?. Affect was mood congruent. Cognition and memory fully intact. Thought process/associations were goal directed, logical, linear. Thought content normal, future oriented. patient did state she intermittently had auditory hallucinations at home at times with paranoid nature periods of depression Denies any SI/HI. Appears to be a reliable historian. Judgment and insight appear intact at this time. Ambulation not observed. No cogwheeling or rigidity noted. Medications Medications Current Medications Benztropine Mesylate (Benztropine Mesylate 0.5 Mg Tablet) 0.5 mg PO DAILY [facility] Last Admin: 05/21/21 07:37 Dose: 0.5 mg Documented by: Bisacodyl (Bisacodyl 5 Mg Tablet.) 10 mg PO BEDTIME [facility] Bupropion HCl (Bupropion Hcl Xl 150 Mg Tab.Er.24h) 150 mg PO DAILY [facility] Last Admin: 05/21/21 07:37 Dose: 150 mg Documented by: Clonazepam (Clonazepam 1 Mg Tablet) 1 mg PO Q12H PRN PRN Reason: anxiety Divalproex Sodium (Divalproex Sodium Er 500 Mg Tab.Er.24h) 1,500 mg PO BEDTIME [facility] Last Admin: 05/20/21 21:04 Dose: 1,500 mg Documented by: Enoxaparin Sodium (Enoxaparin Sodium 40 Mg/0.4 Ml Syringe) 40 mg SUBCUT Q24H [facility] Last Admin: 05/21/21 13:20 Dose: 40 mg Documented by: Famotidine (Famotidine 20 Mg Tablet) 40 mg PO BEDTIME [facility] Last Admin: 05/20/21 21:05 Dose: 40 mg Documented by: Hydroxyzine HCl (Hydroxyzine Hcl 10 Mg Tablet) 10 mg PO BEDTIME [facility] Last Admin: 05/20/21 21:05 Dose: 10 mg Documented by: Lurasidone HCl 40 mg/ (Lurasidone HCl 80 mg) 120 mg PO DAILY@1700 [facility] Morphine Sulfate (Morphine Sulfate 4 Mg/Ml Cartridge) 4 mg IVPUSH Q4H PRN; Protocol PRN Reason: severe pain Last Admin: 05/21/21 09:03 Dose: 4 mg Documented by: Nicotine (Nicotine 14 Mg Patch.Td24) 14 mg TRANSDERMA DAILY [facility] Last Admin: 05/21/21 07:36 Dose: 14 mg Documented by: Patient Own Medication ( Prucalopride [ Motegrity] 1 Mg Tablet) 1 each PO DAILY [facility] Last Admin: 05/21/21 07:37 Dose: 1 each Documented by: Omeprazole (Omeprazole 40 Mg Capsule.) 40 mg PO DAILY@0630 [facility] Last Admin: 05/21/21 05:57 Dose: 40 mg Documented by: Ondansetron HCl (Ondansetron Odt 8 Mg Tab.Rapdis) 8 mg TRANSLINGU Q8H PRN PRN Reason: Nausea and Vomiting Last Admin: 05/20/21 08:50 Dose: 8 mg Documented by: Perphenazine (Perphenazine 8 Mg Tablet) 8 mg PO BID [facility] Last Admin: 05/21/21 07:36 Dose: 8 mg Documented by: Pharmacy Consult (Consult Rx Perform Med Rec) 1 each MISCELLANE ONCE PRN PRN Reason: Consult order Polyethylene Glycol (Polyethylene Glycol 3350 17 Gm Powd.Pack) 17 gm PO DAILY [facility] Last Admin: 05/21/21 07:38 Dose: 17 gm Documented by: Sodium Chloride (0.9 % Sodium Chloride Flush 3 Ml Syringe) 3 ml IVFLUSH QSHIFT [facility] Last Admin: 05/21/21 07:26 Dose: Not Given Documented by: Sucralfate (Sucralfate 1 Gm Tablet) 1 gm PO BID [facility] Last Admin: 05/21/21 07:37 Dose: 1 gm Documented by: Sumatriptan Succinate (Sumatriptan Succinate 50 Mg Tablet) 50 mg PO DAILY PRN PRN Reason: Migraine Headache Last Admin: 05/18/21 22:41 Dose: 50 mg Documented by: Topiramate (Topiramate 100 Mg Tablet) 100 mg PO DAILY [facility] Last Admin: 05/21/21 07:36 Dose: 100 mg Documented by: Vitamin D (Cholecalciferol (Vitamin D3) 25 Mcg Tablet) 50 mcg PO DAILY [facility] Last Admin: 05/21/21 07:36 Dose: 50 mcg Documented by: Allergies Allergies Allergy/AdvReac Type Severity Reaction Status Date / Time olanzapine [From ZYPREXA] Allergy Severe SWELLING Verified 05/13/21 12:17 oxcarbazepine Allergy Severe antony's Verified 05/13/21 12:17 [From TRILEPTAL] Rob syndrome gabapentin Allergy Unknown Loss of Verified 05/13/21 12:17 balance lithium [LITHIUM] Allergy Unknown UNKNOWN Verified 05/13/21 12:17 quetiapine [Seroquel] Allergy Unknown Unknown Verified 05/13/21 12:17 sulfamethoxazole Allergy Unknown severe rash Verified 05/13/21 12:17 [From BACTRIM] trimethoprim [From BACTRIM] Allergy Unknown severe rash Verified 05/13/21 12:17 From SEROQUEL Allergy Unknown UNKNOWN Uncoded 01/31/22 14:39 Assessment & Plan Assessment & Plan (1) Schizoaffective disorder, bipolar type: Status: Acute Code(s): F25.0 - Schizoaffective disorder, bipolar type (2) Urinary retention: Status: Acute Code(s): R33.9 - Retention of urine, unspecified (3) Gastroparesis: Status: Acute Code(s): K31.84 - Gastroparesis Plan patient has been relatively stable from a psychiatric perspective for number of years she has not been hospitalized but has not been having regular psychiatric care has not seen her psychiatrist Dr. Krista Godoy for an extended period of time would strongly recommend with case management help that the patient be referred for outpatient psychiatric care. Regarding urinary retention nausea very difficult to assign this to her medication that she has been on chronically. Would try and avoid anticholinergics would stop Cogentin monitor for any evidence of EPS check Depakote level she is allergic to multiple medications we could try discontinuing Wellbutrin which can contribute to nausea and has anticholinergic side effects would look at other causes of patient's urinary retention and nausea specially given how chronically she has been on these medications. And she has been stable generally. test was n egative see if stopping cpgentin useful I spent minutes with the patient and/or on the patient floor today, greater than?50% of which was spent counseling/coordinating care. Patient educated on: diagnosis, medication risk/benefits and medical condition Informed Consent: further education needed
[2021-05-21 15:10] VITALS: BP 103/57; PULSE 91; RESP 18; TEMP 36.3; O2SAT 97
--- NOTE | 2021-05-21 16:00 | MHC.CARE ---
Please consult CARE Team when Pt is medically cleared for treatment recommendations and referrals.
--- NOTE | 2021-05-21 16:26 | PM.UROPN ---
Subjective Subjective Date of Service: 05/21/21 Interval history: Catheter was removed last night at behest of the patient Difficult Armendariz catheter placement Has retention on bladder scan Secondary to anticholinergic effects from antipsychotics Catheter is replaced This catheter should not be removed unless approval from urology The patient is aware of this and has consented to participate in this treatment Episode was discussed with treating physician. He and the treating team aware and evaluation with psychiatry has been arranged in order to assess for further management on general hospital floor Physical Exam Vital Signs: Vital Signs: Last Vital Signs Temp 97.4 F 05/21/21 15:10 Pulse 91 05/21/21 15:10 Resp 18 05/21/21 15:10 BP 103/57 L 05/21/21 15:10 Pulse Ox 97 05/21/21 15:10 BMI result Body Mass Index 21.9 Const: General: cooperative, healthy appearing, comfortable and no acute distress Orientation/consciousness: patient oriented x3 HENMT: Face and sinus: Yes normal facial exam Mouth: moist mucous membranes Neck: Neck: Yes normal visual inspection, Yes full ROM and Yes trachea midline Chest: Chest palpation & inspection: normal inspection of the chest Resp: Effort & Inspection: normal respiratory effort, able to speak in complete sentences and no respiratory distress GI: Inspection: Yes normal to inspection Back/Spine/Pelvis: Cervical Spine: normal cervical lordosis Thoracic/Lumbar Spine: thoracic and lumbar spine normal to inspection Skin: General skin exam: no rashes or lesions noted Neuro: General: patient oriented x3, tone normal and moves all extremities Extrem: General: Yes normal to inspection and Yes capillary refill normal Urology Results Labs CBC & Chem 7: 05/21/21 05:39 05/21/21 05:39 Labs: Laboratory Results - last 24 hr 05/18/21 05/21/21 05/21/21 11:14 05:39 05:39 WBC RBC Hgb Hct MCV MCH MCHC RDW Plt Count MPV Immature Gran % (Auto) Neut % (Auto) Lymph % (Auto) [place] % (Auto) Eos % (Auto) Baso % (Auto) Lymph # (Auto) [place] # (Auto) Eos # (Auto) Baso # (Auto) Abs Immat Gran (auto) Absolute Neuts (auto) Absolute Nucleated RBC Nucleated RBC % (auto) Sodium 139 Potassium 3.4 Chloride 109 H Carbon Dioxide 21 L Anion Gap 12 BUN 4 L Creatinine 0.68 Estim Creat Clear Calc 104.8 Estimated GFR > 60 Random Glucose TNP Fasting Glucose 85 Calcium 8.8 Total Bilirubin 0.3 AST 11 ALT 15 Alkaline Phosphatase 53 Total Protein 5.1 L Albumin 3.4 L Random Cortisol 4.5 Lyme Progressive Test TNP 05/21/21 05:39 WBC 5.0 RBC 3.56 L Hgb 11.7 L Hct 34.5 L MCV 96.9 MCH 32.9 MCHC 33.9 RDW 13.0 Plt Count 180 MPV 12.0 Immature Gran % (Auto) 0.2 Neut % (Auto) 42.6 L Lymph % (Auto) 43.5 H [place] % (Auto) 10.5 Eos % (Auto) 2.2 Baso % (Auto) 1.0 Lymph # (Auto) 2.2 [place] # (Auto) 0.5 Eos # (Auto) 0.1 Baso # (Auto) 0.1 Abs Immat Gran (auto) 0.01 Absolute Neuts (auto) 2.1 Absolute Nucleated RBC 0.000 Nucleated RBC % (auto) 0.0 Sodium Potassium Chloride Carbon Dioxide Anion Gap BUN Creatinine Estim Creat Clear Calc Estimated GFR Random Glucose Fasting Glucose Calcium Total Bilirubin AST ALT Alkaline Phosphatase Total Protein Albumin Random Cortisol Lyme Progressive Test Urology Procedures Catheter Insertion (Urinary) Date of insertion: 05/21/21 Time of insertion: 12:00 Replacement of catheter present on admission: No Reason for placing: Acute urinary retention (Catheter had been removed prior night) Catheter type/location: Urethral Size ([place]i): 12 Catheter balloon size (mL): 10 Results: successfully catheterized-immediate flow Progress Note: A&P Assessment and plan (1) Urinary retention: Status: Acute Fall Risk Details Current Medications: Current Medications Bisacodyl (Bisacodyl 5 Mg Tablet.Dr) 10 mg PO BEDTIME [facility] Bupropion HCl (Bupropion Hcl Xl 150 Mg Tab.Er.24h) 150 mg PO DAILY [facility] Last Admin: 05/21/21 07:37 Dose: 150 mg Documented by: Clonazepam (Clonazepam 1 Mg Tablet) 1 mg PO Q6H PRN PRN Reason: anxiety Divalproex Sodium (Divalproex Sodium Er 500 Mg Tab.Er.24h) 1,500 mg PO BEDTIME [facility] Last Admin: 05/20/21 21:04 Dose: 1,500 mg Documented by: Enoxaparin Sodium (Enoxaparin Sodium 40 Mg/0.4 Ml Syringe) 40 mg SUBCUT Q24H [facility] Last Admin: 05/21/21 13:20 Dose: 40 mg Documented by: Famotidine (Famotidine 20 Mg Tablet) 40 mg PO BEDTIME [facility] Last Admin: 05/20/21 21:05 Dose: 40 mg Documented by: Lurasidone HCl 40 mg/ (Lurasidone HCl 80 mg) 120 mg PO DAILY@1700 [facility] Morphine Sulfate (Morphine Sulfate 4 Mg/Ml Cartridge) 4 mg IVPUSH Q4H PRN; Protocol PRN Reason: severe pain Last Admin: 05/21/21 09:03 Dose: 4 mg Documented by: Nicotine (Nicotine 14 Mg Patch.Td24) 14 mg TRANSDERMA DAILY [facility] Last Admin: 05/21/21 07:36 Dose: 14 mg Documented by: Patient Own Medication ( Prucalopride [ Motegrity] 1 Mg Tablet) 1 each PO DAILY [facility] Last Admin: 05/21/21 07:37 Dose: 1 each Documented by: Omeprazole (Omeprazole 40 Mg Capsule.Dr) 40 mg PO DAILY@0630 [facility] Last Admin: 05/21/21 05:57 Dose: 40 mg Documented by: Ondansetron HCl (Ondansetron Odt 8 Mg Tab.Rapdis) 8 mg TRANSLINGU Q8H PRN PRN Reason: Nausea and Vomiting Last Admin: 05/20/21 08:50 Dose: 8 mg Documented by: Perphenazine (Perphenazine 8 Mg Tablet) 8 mg PO BID [facility] Last Admin: 05/21/21 07:36 Dose: 8 mg Documented by: Pharmacy Consult (Consult Rx Perform Med Rec) 1 each MISCELLANE ONCE PRN PRN Reason: Consult order Polyethylene Glycol (Polyethylene Glycol 3350 17 Gm Powd.Pack) 17 gm PO DAILY [facility] Last Admin: 05/21/21 07:38 Dose: 17 gm Documented by: Sodium Chloride (0.9 % Sodium Chloride Flush 3 Ml Syringe) 3 ml IVFLUSH QSHIFT [facility] Last Admin: 05/21/21 07:26 Dose: Not Given Documented by: Sucralfate (Sucralfate 1 Gm Tablet) 1 gm PO BID [facility] Last Admin: 05/21/21 07:37 Dose: 1 gm Documented by: Sumatriptan Succinate (Sumatriptan Succinate 50 Mg Tablet) 50 mg PO DAILY PRN PRN Reason: Migraine Headache Last Admin: 05/18/21 22:41 Dose: 50 mg Documented by: Topiramate (Topiramate 100 Mg Tablet) 100 mg PO DAILY [facility] Last Admin: 05/21/21 07:36 Dose: 100 mg Documented by: Vitamin D (Cholecalciferol (Vitamin D3) 25 Mcg Tablet) 50 mcg PO DAILY [facility] Last Admin: 05/21/21 07:36 Dose: 50 mcg Documented by: Time Spent With Patient Time: Total time spent is greater than 50% in coordination of care (as documented) at patient's floor/unit and/or counseling patient: Time with patient: 15 - 24 minutes Progress Note: Quality Stroke Does the patient have a stroke diagnosis?: No
[2021-05-21] MEDS: Ondansetron ODT 8 MG TAB.RAPDIS TRANSLINGU (17:46)
[2021-05-21] MEDS: Famotidine 20 MG TABLET 40 MG PO (21:14)
[2021-05-21] MEDS: Divalproex Sodium ER 500 MG TAB.ER.24H 1500 MG PO (21:15)
[2021-05-21] MEDS: traZODone HCL 100 MG TABLET PO (22:53)
[2021-05-21 23:49] VITALS: BP 110/60; PULSE 73; RESP 18; TEMP 36.4; O2SAT 99
[2021-05-22] MEDS: 0.9 % Sodium Chloride Flush 3 ML SYRINGE IVFLUSH ×4 (00:23→22:19)
[2021-05-22] MEDS: Omeprazole 40 MG CAPSULE.DR PO (06:42)
[2021-05-22 07:42] VITALS: BP 99/59; PULSE 88; RESP 18; TEMP 36.4; O2SAT 99
[2021-05-22 08:16] LABS: Valproate 83.6 mcg/mL (50.0-100.0)
[2021-05-22] MEDS: Nicotine 14 MG PATCH.TD24 TRANSDERMA (09:01)
[2021-05-22] MEDS: Sucralfate 1 GM TABLET PO ×2 (09:02→20:22)
[2021-05-22] MEDS: Topiramate 100 MG TABLET PO (09:02)
[2021-05-22] MEDS: Perphenazine 8 MG TABLET PO ×2 (09:02→20:22)
[2021-05-22] MEDS: buPROPion HCl XL 150 MG TAB.ER.24H PO (09:02)
[2021-05-22] MEDS: Cholecalciferol (Vitamin D3) 25 MCG TABLET 50 MCG PO (09:02)
[2021-05-22] MEDS: polyethylene glycoL 3350 17 GM POWD.PACK PO (09:03)
[2021-05-22] MEDS: clonazePAM 1 MG TABLET PO ×2 (09:06→20:23)
--- NOTE | 2021-05-22 10:54 | HO.PM.IMPN ---
Subjective Subjective Date of Service: 05/22/21 Interval History: Tried solids last night and threw up. Trying again this morning. Armendariz in place. Less anxious. Review of Systems Review of Systems: Yes all other systems are reviewed and are negative Physical Exam Vital Signs: Vital Signs: Last Vital Signs Temp 97.5 F 05/22/21 07:42 Pulse 88 05/22/21 07:42 Resp 18 05/22/21 07:42 BP 99/59 L 05/22/21 07:42 Pulse Ox 99 05/22/21 07:42 BMI result Body Mass Index 21.9 Gen: NAD HEENT: sclera anicteric, moist mucus membranes Neck: supple Lungs: clear to auscultation bilaterally Heart: regular rate and rhythm, no murmurs Abd: soft, NT Ext: no edema Skin: warm/well-perfused Neuro: alert and oriented x3, no focal findings Psych: anxious Objective Data Active Medications Bisacodyl (Bisacodyl 5 Mg Tablet.) 10 mg PO BEDTIME [facility] Last Admin: 05/21/21 21:16 Dose: 10 mg Documented by: LUCIANA Bupropion HCl (Bupropion Hcl Xl 150 Mg Tab.Er.24h) 150 mg PO DAILY [facility] Last Admin: 05/22/21 09:02 Dose: 150 mg Documented by: CORINNE Clonazepam (Clonazepam 1 Mg Tablet) 1 mg PO Q6H PRN PRN Reason: anxiety Last Admin: 05/22/21 09:06 Dose: 1 mg Documented by: CORINNE Divalproex Sodium (Divalproex Sodium Er 500 Mg Tab.Er.24h) 1,500 mg PO BEDTIME [facility] Last Admin: 05/21/21 21:15 Dose: 1,500 mg Documented by: LUCIANA Enoxaparin Sodium (Enoxaparin Sodium 40 Mg/0.4 Ml Syringe) 40 mg SUBCUT Q24H [facility] Last Admin: 05/21/21 13:20 Dose: 40 mg Documented by: GAIL Famotidine (Famotidine 20 Mg Tablet) 40 mg PO BEDTIME [facility] Last Admin: 05/21/21 21:14 Dose: 40 mg Documented by: LUCIANA Lurasidone HCl 40 mg/ (Lurasidone HCl 80 mg) 120 mg PO DAILY@1700 [facility] Last Admin: 05/21/21 16:43 Dose: 120 mg Documented by: GAIL Morphine Sulfate (Morphine Sulfate 4 Mg/Ml Cartridge) 4 mg IVPUSH Q4H PRN; Protocol PRN Reason: severe pain Last Admin: 05/21/21 19:07 Dose: 4 mg Documented by: LUCIANA Nicotine (Nicotine 14 Mg Patch.Td24) 14 mg TRANSDERMA DAILY [facility] Last Admin: 05/22/21 09:01 Dose: 14 mg Documented by: CORINNE Patient Own Medication ( Prucalopride [ Motegrity] 1 Mg Tablet) 1 each PO DAILY [facility] Last Admin: 05/21/21 07:37 Dose: 1 each Documented by: GAIL Omeprazole (Omeprazole 40 Mg Capsule.Dr) 40 mg PO DAILY@0630 [facility] Last Admin: 05/22/21 06:42 Dose: 40 mg Documented by: LUCIANA Ondansetron HCl (Ondansetron Odt 8 Mg Tab.Rapdis) 8 mg TRANSLINGU Q8H PRN PRN Reason: nausea Perphenazine (Perphenazine 8 Mg Tablet) 8 mg PO BID [facility] Last Admin: 05/22/21 09:02 Dose: 8 mg Documented by: CORINNE Pharmacy Consult (Consult Rx Perform Med Rec) 1 each MISCELLANE ONCE PRN PRN Reason: Consult order Polyethylene Glycol (Polyethylene Glycol 3350 17 Gm Powd.Pack) 17 gm PO DAILY [facility] Last Admin: 05/22/21 09:03 Dose: 17 gm Documented by: CORINNE Sodium Chloride (0.9 % Sodium Chloride Flush 3 Ml Syringe) 3 ml IVFLUSH QSHIFT [facility] Last Admin: 05/22/21 09:02 Dose: 3 ml Documented by: CORINNE Sucralfate (Sucralfate 1 Gm Tablet) 1 gm PO BID [facility] Last Admin: 05/22/21 09:02 Dose: 1 gm Documented by: CORINNE Sumatriptan Succinate (Sumatriptan Succinate 50 Mg Tablet) 50 mg PO DAILY PRN PRN Reason: Migraine Headache Last Admin: 05/18/21 22:41 Dose: 50 mg Documented by: ANGEL Topiramate (Topiramate 100 Mg Tablet) 100 mg PO DAILY [facility] Last Admin: 05/22/21 09:02 Dose: 100 mg Documented by: CORINNE Trazodone HCl (Trazodone Hcl 100 Mg Tablet) 100 mg PO BEDTIME PRN PRN Reason: sleep Last Admin: 05/21/21 22:53 Dose: 100 mg Documented by: LUCIANA Vitamin D (Cholecalciferol (Vitamin D3) 25 Mcg Tablet) 50 mcg PO DAILY [facility] Last Admin: 05/22/21 09:02 Dose: 50 mcg Documented by: CORINNE Labs CBC & Chem 7: 05/21/21 05:39 05/21/21 05:39 Labs: Laboratory Results - last 24 hr 05/18/21 05/22/21 11:14 07:21 Valproic Acid 83.6 Lyme Progressive Test TNP Assessment and Plan (1) Gastroparesis: Status: Acute (2) Bipolar disorder: Status: Acute (3) Urinary retention: Status: Acute Plan hospital d#5 41yo F with bipolar disorder + gastroparesis admitted with 2 wk of vomiting/constipation and noted to have urinary retention # urinary retention - Urology replaced Armendariz, will need for at least 7d # constipation - Miralax, Dulcolax # gastroparesis - prn ondansetron. unable to use metoclopramide at this point given she is already on 2 antipsychotics. outpt GI f/u. try to minimize anticholinergic medications. # bipolar disorder # agitation - psychiatry consult to modify regimen to minimize anticholinergic side effects, especially given patient report [corroborrated by her mother] that she has not seen her outpatient psychiatrist in over 2 years. currently, she is on valproate, benztropine, bupropion, clonazepam, lurasidone, perphenazine, and topiramate. I believe she would benefit from inpatient psychiatric care given her medical issues are secondary to psychiatric medications and not likely to improve without medication adjustment, which puts her at risk of psychiatric decompensation. # tobacco abuse - NRT # Utox positive for fentanyl - CARE Team consulted, pt denies opioid use # VTE ppx - LMWH In my clinical judgment, the patient requires continued hospitalization for the following reasons: PO intolerance, psychiatric medication regimen adjustment Quality Stroke Does the patient have a stroke diagnosis?: No VTE Prior VTE?: No VTE Risk Level:: Medical - moderate - high VTE Device Contraindication: Treatment Not Indicated VTE Drug Contraindication: N/A - Med Ordered
[2021-05-22] MEDS: Enoxaparin Sodium 40 MG/0.4 ML SYRINGE SUBCUT (12:06)
[2021-05-22] MEDS: Ondansetron ODT 8 MG TAB.RAPDIS TRANSLINGU ×2 (12:15→20:32)
[2021-05-22 15:56] VITALS: BP 93/45; PULSE 77; RESP 18; TEMP 36.4; O2SAT 98
[2021-05-22] MEDS: Divalproex Sodium ER 500 MG TAB.ER.24H 1500 MG PO (20:22)
[2021-05-22] MEDS: Famotidine 20 MG TABLET 40 MG PO (20:22)
[2021-05-22] MEDS: Morphine Sulfate 4 MG/ML CARTRIDGE IVPUSH (20:22)
[2021-05-22] MEDS: bisacodyL 5 MG TABLET.DR 10 MG PO (20:22)
[2021-05-22] MEDS: traZODone HCL 100 MG TABLET PO (22:18)
[2021-05-23] VITALS: BP 99/55; PULSE 80; RESP 18; TEMP 36.4; O2SAT 96
[2021-05-23] MEDS: Omeprazole 40 MG CAPSULE.DR PO (04:58)
[2021-05-23] MEDS: Morphine Sulfate 4 MG/ML CARTRIDGE IVPUSH ×2 (04:58→16:46)
[2021-05-23 07:41] VITALS: BP 93/52; PULSE 69; RESP 18; TEMP 37.2; O2SAT 97
[2021-05-23] MEDS: Ondansetron ODT 8 MG TAB.RAPDIS TRANSLINGU ×3 (08:51→16:40)
[2021-05-23] MEDS: Nicotine 14 MG PATCH.TD24 TRANSDERMA (08:52)
[2021-05-23] MEDS: Topiramate 100 MG TABLET PO (08:54)
[2021-05-23] MEDS: 0.9 % Sodium Chloride Flush 3 ML SYRINGE IVFLUSH ×2 (08:54→16:40)
[2021-05-23] MEDS: Sucralfate 1 GM TABLET PO ×2 (08:54→20:22)
[2021-05-23] MEDS: buPROPion HCl XL 150 MG TAB.ER.24H PO (08:54)
[2021-05-23] MEDS: Cholecalciferol (Vitamin D3) 25 MCG TABLET 50 MCG PO (08:54)
[2021-05-23] MEDS: Perphenazine 8 MG TABLET PO ×2 (08:55→20:22)
[2021-05-23] MEDS: polyethylene glycoL 3350 17 GM POWD.PACK PO (08:55)
[2021-05-23] MEDS: clonazePAM 1 MG TABLET PO (09:01)
--- NOTE | 2021-05-23 11:13 | HO.PM.IMPN ---
Subjective Subjective Date of Service: 05/23/21 Interval History: Very hungry. However, has epigastric discomfort and postprandial emesis every time she tries to eat Urinary catheter working well Review of Systems Review of Systems: Yes all other systems are reviewed and are negative Physical Exam Vital Signs: Vital Signs: Last Vital Signs Temp 98.9 F 05/23/21 07:41 Pulse 69 05/23/21 07:41 Resp 18 05/23/21 07:41 BP 93/52 L 05/23/21 07:41 Pulse Ox 97 05/23/21 07:41 BMI result Body Mass Index 21.9 Gen: NAD HEENT: sclera anicteric, moist mucus membranes Neck: supple Lungs: clear to auscultation bilaterally Heart: regular rate and rhythm, no murmurs Abd: soft, NT Ext: no edema Skin: warm/well-perfused Neuro: alert and oriented x3, no focal findings Psych: anxious Objective Data Active Medications Bisacodyl (Bisacodyl 5 Mg Tablet.Dr) 10 mg PO BEDTIME [facility] Last Admin: 05/22/21 20:22 Dose: 10 mg Documented by: LUCIANA Bupropion HCl (Bupropion Hcl Xl 150 Mg Tab.Er.24h) 150 mg PO DAILY [facility] Last Admin: 05/23/21 08:54 Dose: 150 mg Documented by: GERBER Clonazepam (Clonazepam 1 Mg Tablet) 1 mg PO Q6H PRN PRN Reason: anxiety Last Admin: 05/23/21 09:01 Dose: 1 mg Documented by: GERBER Divalproex Sodium (Divalproex Sodium Er 500 Mg Tab.Er.24h) 1,500 mg PO BEDTIME [facility] Last Admin: 05/22/21 20:22 Dose: 1,500 mg Documented by: LUCIANA Enoxaparin Sodium (Enoxaparin Sodium 40 Mg/0.4 Ml Syringe) 40 mg SUBCUT Q24H [facility] Last Admin: 05/22/21 12:06 Dose: 40 mg Documented by: MICHAEL Famotidine (Famotidine 20 Mg Tablet) 40 mg PO BEDTIME [facility] Last Admin: 05/22/21 20:22 Dose: 40 mg Documented by: LUCIANA Dextrose/Sodium Chloride (D51/2ns) 1,000 mls @ 100 mls/hr IVCONT .Q10H [facility] Lurasidone HCl 40 mg/ (Lurasidone HCl 80 mg) 120 mg PO DAILY@1700 [facility] Last Admin: 05/22/21 17:50 Dose: 120 mg Documented by: CORINNE Morphine Sulfate (Morphine Sulfate 4 Mg/Ml Cartridge) 4 mg IVPUSH Q4H PRN; Protocol PRN Reason: severe pain Last Admin: 05/23/21 04:58 Dose: 4 mg Documented by: LUCIANA Nicotine (Nicotine 14 Mg Patch.Td24) 14 mg TRANSDERMA DAILY [facility] Last Admin: 05/23/21 08:52 Dose: 14 mg Documented by: GERBER Patient Own Medication ( Prucalopride [ Motegrity] 1 Mg Tablet) 1 each PO DAILY [facility] Last Admin: 05/23/21 08:55 Dose: 1 each Documented by: GERBER Omeprazole (Omeprazole 40 Mg Capsule.Dr) 40 mg PO DAILY@0630 [facility] Last Admin: 05/23/21 04:58 Dose: 40 mg Documented by: LUCIANA Ondansetron HCl (Ondansetron Odt 8 Mg Tab.Rapdis) 8 mg TRANSLINGU TIDAC [facility] Last Admin: 05/23/21 08:51 Dose: 8 mg Documented by: GERBER Perphenazine (Perphenazine 8 Mg Tablet) 8 mg PO BID [facility] Last Admin: 05/23/21 08:55 Dose: 8 mg Documented by: GERBER Pharmacy Consult (Consult Rx Perform Med Rec) 1 each MISCELLANE ONCE PRN PRN Reason: Consult order Polyethylene Glycol (Polyethylene Glycol 3350 17 Gm Powd.Pack) 17 gm PO DAILY [facility] Last Admin: 05/23/21 08:55 Dose: 17 gm Documented by: GERBER Sodium Chloride (0.9 % Sodium Chloride Flush 3 Ml Syringe) 3 ml IVFLUSH QSHIFT [facility] Last Admin: 05/23/21 08:54 Dose: 3 ml Documented by: GERBER Sucralfate (Sucralfate 1 Gm Tablet) 1 gm PO BID [facility] Last Admin: 05/23/21 08:54 Dose: 1 gm Documented by: GERBER Sumatriptan Succinate (Sumatriptan Succinate 50 Mg Tablet) 50 mg PO DAILY PRN PRN Reason: Migraine Headache Last Admin: 05/18/21 22:41 Dose: 50 mg Documented by: ANGEL Topiramate (Topiramate 100 Mg Tablet) 100 mg PO DAILY [facility] Last Admin: 05/23/21 08:54 Dose: 100 mg Documented by: GERBER Trazodone HCl (Trazodone Hcl 100 Mg Tablet) 100 mg PO BEDTIME PRN PRN Reason: sleep Last Admin: 05/22/21 22:18 Dose: 100 mg Documented by: LUCIANA Vitamin D (Cholecalciferol (Vitamin D3) 25 Mcg Tablet) 50 mcg PO DAILY [facility] Last Admin: 05/23/21 08:54 Dose: 50 mcg Documented by: GERBER Labs CBC & Chem 7: 05/21/21 05:39 05/21/21 05:39 Assessment and Plan (1) Gastroparesis: Status: Acute (2) Bipolar disorder: Status: Acute (3) Urinary retention: Status: Acute Plan hospital d#6 41yo F with bipolar disorder + gastroparesis admitted with 2 wk of vomiting/constipation and noted to have urinary retention # urinary retention - Urology replaced Armendariz 05/21/21, will need for at least 7d # constipation - Miralax, Dulcolax # gastroparesis - give ondansetron prior to every meal. unable to use metoclopramide at this point given she is already on 2 antipsychotics. outpt GI f/u. try to minimize anticholinergic medications- Psych d/c'ed bentropine + hydroxyazine - will give maintenance IV fluids and check electrolytes in AM # bipolar disorder # agitation - psychiatry consult to modify regimen to minimize anticholinergic side effects, especially given patient report [corroborrated by her mother] that she has not seen her outpatient psychiatrist in over 2 years. currently, she is on valproate, , clonazepam, lurasidone, perphenazine, and topiramate. # tobacco abuse - NRT # Utox positive for fentanyl - CARE Team consulted, pt denies opioid use # VTE ppx - LMWH # dispo - may require inpatient psychiatric hospitalization In my clinical judgment, the patient requires continued hospitalization for the following reasons: PO intolerance, Quality Stroke Does the patient have a stroke diagnosis?: No VTE Prior VTE?: No VTE Risk Level:: Medical - moderate - high VTE Device Contraindication: Treatment Not Indicated VTE Drug Contraindication: N/A - Med Ordered
[2021-05-23] MEDS: Enoxaparin Sodium 40 MG/0.4 ML SYRINGE SUBCUT (11:47)
[2021-05-23] MEDS: Dextrose 5 % and 0.45 % NaCl 1,000 ML 100 ML IVCONT (13:19)
[2021-05-23 16:00] VITALS: BP 99/63; PULSE 65; RESP 18; TEMP 36.4; O2SAT 97
[2021-05-23] MEDS: bisacodyL 5 MG TABLET.DR 10 MG PO (20:22)
[2021-05-23] MEDS: Famotidine 20 MG TABLET 40 MG PO (20:22)
[2021-05-23] MEDS: Divalproex Sodium ER 500 MG TAB.ER.24H 1500 MG PO (20:22)
[2021-05-23 23:39] VITALS: BP 97/53; PULSE 70; RESP 18; TEMP 36.7; O2SAT 97
--- NOTE | 2021-05-24 | ECG_ITS ---
Test Reason : cp Blood Pressure : / mmHG Vent. Rate : 078 BPM Atrial Rate : 078 BPM P-R Int : 142 ms QRS Dur : 076 ms QT Int : 390 ms P-R-T Axes : 068 080 037 degrees QTc Int : 444 ms Normal sinus rhythm Normal ECG When compared with ECG of 19-MAY-2021 01:52, No significant change was found Referred By: Pastora Berrios Electronically Signed By:Nathaniel Lora
[2021-05-24] MEDS: clonazePAM 1 MG TABLET PO (00:19)
[2021-05-24] MEDS: Dextrose 5 % and 0.45 % NaCl 1,000 ML 100 ML IVCONT ×3 (00:32→16:50)
[2021-05-24] MEDS: Omeprazole 40 MG CAPSULE.DR PO (05:50)
[2021-05-24 06:46] LABS: Anion Gap 10 (12-20); Blood Urea Nitrogen 11 mg/dL (9-16); Calcium 8.6 mg/dL (8.4-10.2); Carbon Dioxide 26 mmol/L (22-29); Chloride 108 mmol/L (96-108); Estimated Glomerular Filt Rate > 60; Glucose Random 97 mg/dL (60-115); Potassium 4.2 mmol/L (3.3-5.1); Sodium 140 mmol/L (135-145)
[2021-05-24 06:53] VITALS: BP 90/50; RESP 18; TEMP 36.4; O2SAT 97
[2021-05-24] MEDS: Ondansetron ODT 8 MG TAB.RAPDIS TRANSLINGU ×3 (07:40→16:15)
[2021-05-24] MEDS: buPROPion HCl XL 150 MG TAB.ER.24H PO (10:40)
[2021-05-24] MEDS: Cholecalciferol (Vitamin D3) 25 MCG TABLET 50 MCG PO (10:40)
[2021-05-24] MEDS: Topiramate 100 MG TABLET PO (10:40)
[2021-05-24] MEDS: Sucralfate 1 GM TABLET PO ×2 (10:40→21:12)
[2021-05-24] MEDS: Nicotine 14 MG PATCH.TD24 TRANSDERMA (10:40)
[2021-05-24] MEDS: polyethylene glycoL 3350 17 GM POWD.PACK PO (10:41)
[2021-05-24] MEDS: Perphenazine 8 MG TABLET PO ×2 (10:48→21:12)
--- NOTE | 2021-05-24 11:40 | P.PNIM_ITS ---
Subjective Subjective Date of Service: 05/24/21 Interval History: Still vomiting after every meal. Abd pain improved. Had small BM yesterday. Urinary catheter functioning. Review of Systems Review of Systems: Yes all other systems are reviewed and are negative Physical Exam Vital Signs: Vital Signs: Last Vital Signs Temp 97.5 F 05/24/21 06:53 Pulse 70 05/23/21 23:39 Resp 18 05/24/21 06:53 BP 90/50 L 05/24/21 06:53 Pulse Ox 97 05/24/21 06:53 BMI result Body Mass Index 21.9 Gen: NAD HEENT: sclera anicteric, moist mucus membranes Neck: supple Lungs: clear to auscultation bilaterally Heart: regular rate and rhythm, no murmurs Abd: soft, NT Ext: no edema Skin: warm/well-perfused Neuro: alert and oriented x3, no focal findings Psych: anxious Objective Data Active Medications Bisacodyl (Bisacodyl 5 Mg Tablet.) 10 mg PO BEDTIME [facility] Last Admin: 05/23/21 20:22 Dose: 10 mg Documented by: GRICEL Bupropion HCl (Bupropion Hcl Xl 150 Mg Tab.Er.24h) 150 mg PO DAILY [facility] Last Admin: 05/24/21 10:40 Dose: 150 mg Documented by: CARMELA Clonazepam (Clonazepam 1 Mg Tablet) 1 mg PO Q6H PRN PRN Reason: anxiety Last Admin: 05/24/21 00:19 Dose: 1 mg Documented by: GRICEL Divalproex Sodium (Divalproex Sodium Er 500 Mg Tab.Er.24h) 1,500 mg PO BEDTIME [facility] Last Admin: 05/23/21 20:22 Dose: 1,500 mg Documented by: GRICEL Enoxaparin Sodium (Enoxaparin Sodium 40 Mg/0.4 Ml Syringe) 40 mg SUBCUT Q24H [facility] Last Admin: 05/23/21 11:47 Dose: 40 mg Documented by: GERBER Famotidine (Famotidine 20 Mg Tablet) 40 mg PO BEDTIME [facility] Last Admin: 05/23/21 20:22 Dose: 40 mg Documented by: GRICEL Dextrose/Sodium Chloride (D51/2ns) 1,000 mls @ 100 mls/hr IVCONT .Q10H [facility] Last Admin: 05/24/21 05:51 Dose: Not Given Documented by: GRICEL Non-Admin Reason: IV Running Lurasidone HCl 40 mg/ (Lurasidone HCl 80 mg) 120 mg PO DAILY@1700 [facility] Last Admin: 05/23/21 16:40 Dose: 120 mg Documented by: LOBITO Morphine Sulfate (Morphine Sulfate 4 Mg/Ml Cartridge) 4 mg IVPUSH Q4H PRN; Protocol PRN Reason: severe pain Last Admin: 05/23/21 16:46 Dose: 4 mg Documented by: LOBITO Nicotine (Nicotine 14 Mg Patch.Td24) 14 mg TRANSDERMA DAILY [facility] Last Admin: 05/24/21 10:40 Dose: 14 mg Documented by: CARMELA Patient Own Medication ( Prucalopride [ Motegrity] 1 Mg Tablet) 1 each PO DAILY [facility] Last Admin: 05/24/21 10:39 Dose: 1 each Documented by: CARMELA Omeprazole (Omeprazole 40 Mg Capsule.Dr) 40 mg PO DAILY@0630 [facility] Last Admin: 05/24/21 05:50 Dose: 40 mg Documented by: GRICEL Ondansetron HCl (Ondansetron Odt 8 Mg Tab.Rapdis) 8 mg TRANSLINGU TIDAC [facility] Last Admin: 05/24/21 07:40 Dose: 8 mg Documented by: CARMELA Perphenazine (Perphenazine 8 Mg Tablet) 8 mg PO BID [facility] Last Admin: 05/24/21 10:48 Dose: 8 mg Documented by: CARMELA Pharmacy Consult (Consult Rx Perform Med Rec) 1 each MISCELLANE ONCE PRN PRN Reason: Consult order Polyethylene Glycol (Polyethylene Glycol 3350 17 Gm Powd.Pack) 17 gm PO DAILY [facility] Last Admin: 05/24/21 10:41 Dose: 17 gm Documented by: CARMELA Sodium Chloride (0.9 % Sodium Chloride Flush 3 Ml Syringe) 3 ml IVFLUSH QSHIFT [facility] Last Admin: 05/24/21 07:40 Dose: Not Given Documented by: CARMELA Non-Admin Reason: IV Running Sucralfate (Sucralfate 1 Gm Tablet) 1 gm PO BID [facility] Last Admin: 05/24/21 10:40 Dose: 1 gm Documented by: CARMELA Sumatriptan Succinate (Sumatriptan Succinate 50 Mg Tablet) 50 mg PO DAILY PRN PRN Reason: Migraine Headache Last Admin: 05/18/21 22:41 Dose: 50 mg Documented by: ANGEL Topiramate (Topiramate 100 Mg Tablet) 100 mg PO DAILY [facility] Last Admin: 05/24/21 10:40 Dose: 100 mg Documented by: CARMELA Trazodone HCl (Trazodone Hcl 100 Mg Tablet) 100 mg PO BEDTIME PRN PRN Reason: sleep Last Admin: 05/22/21 22:18 Dose: 100 mg Documented by: LUCIANA Vitamin D (Cholecalciferol (Vitamin D3) 25 Mcg Tablet) 50 mcg PO DAILY [facility] Last Admin: 05/24/21 10:40 Dose: 50 mcg Documented by: CARMELA Labs CBC & Chem 7: 05/21/21 05:39 05/24/21 05:54 Labs: Laboratory Results - last 24 hr 05/24/21 05:54 Anion Gap 10 L Estim Creat Clear Calc 88.0 Estimated GFR > 60 Random Glucose 97 Calcium 8.6 Assessment and Plan (1) Gastroparesis: Status: Acute (2) Bipolar disorder: Status: Acute (3) Urinary retention: Status: Acute Plan hospital d#7 41yo F with bipolar disorder + gastroparesis admitted with 2 wk of vomiting/constipation and noted to have urinary retention # urinary retention - Urology replaced Armendariz 05/21/21, will need for at least 7d, likely anticholinergic effect of psychiatric medications # constipation - Miralax, Dulcolax; also likely anticholinergic effect # gastroparesis - give ondansetron prior to every meal. unable to use metoclopramide at this point given she is already on 2 antipsychotics. outpt GI f/u. try to minimize anticholinergic medications- Psych d/c'ed bentropine + hydroxyzine but remains on lurasidone + perphenazine - continue maintenance IV fluids # bipolar disorder # agitation - psychiatry consult to modify regimen to minimize anticholinergic side effects, especially given patient report [corroborrated by her mother] that she has not seen her outpatient psychiatrist in over 2 years. currently, she is on valproate, clonazepam, lurasidone, perphenazine, and topiramate. allergic to lithium and oxcarbazepine. # tobacco abuse - NRT # Utox positive for fentanyl - CARE Team consulted, pt denies opioid use # VTE ppx - LMWH # dispo - may require inpatient psychiatric hospitalization In my clinical judgment, the patient requires continued hospitalization for the following reasons: PO intolerance, Quality Stroke Does the patient have a stroke diagnosis?: No VTE Prior VTE?: No VTE Risk Level:: Medical - moderate - high VTE Device Contraindication: Treatment Not Indicated VTE Drug Contraindication: N/A - Med Ordered
[2021-05-24] MEDS: Enoxaparin Sodium 40 MG/0.4 ML SYRINGE SUBCUT (12:38)
[2021-05-24 15:02] VITALS: BP 110/62; PULSE 90; RESP 18; TEMP 36.1; O2SAT 99
[2021-05-24] MEDS: Famotidine 20 MG TABLET 40 MG PO (21:12)
[2021-05-24] MEDS: Divalproex Sodium ER 500 MG TAB.ER.24H 1500 MG PO (21:12)
[2021-05-24] MEDS: bisacodyL 5 MG TABLET.DR 10 MG PO (21:12)
[2021-05-24] MEDS: Morphine Sulfate 4 MG/ML CARTRIDGE IVPUSH (21:13)
[2021-05-24] MEDS: 0.9 % Sodium Chloride Flush 3 ML SYRINGE IVFLUSH (21:13)
[2021-05-24 23:55] VITALS: BP 97/56; PULSE 69; RESP 16; TEMP 36.6; O2SAT 97
[2021-05-25] MEDS: SUMAtriptan succinate 50 MG TABLET PO (04:10)
[2021-05-25] MEDS: Dextrose 5 % and 0.45 % NaCl 1,000 ML 100 ML IVCONT ×3 (04:11→21:34)
[2021-05-25] MEDS: Omeprazole 40 MG CAPSULE.DR PO (05:40)
[2021-05-25 06:56] VITALS: BP 90/52; PULSE 70; RESP 16; TEMP 36.6; O2SAT 98
[2021-05-25] MEDS: Sucralfate 1 GM TABLET PO ×2 (07:59→21:31)
[2021-05-25] MEDS: Cholecalciferol (Vitamin D3) 25 MCG TABLET 50 MCG PO (07:59)
[2021-05-25] MEDS: buPROPion HCl XL 150 MG TAB.ER.24H PO (07:59)
[2021-05-25] MEDS: Perphenazine 8 MG TABLET PO ×2 (07:59→21:32)
[2021-05-25] MEDS: polyethylene glycoL 3350 17 GM POWD.PACK PO (07:59)
[2021-05-25] MEDS: 0.9 % Sodium Chloride Flush 3 ML SYRINGE IVFLUSH ×2 (08:00→16:49)
[2021-05-25] MEDS: Topiramate 100 MG TABLET PO (08:00)
[2021-05-25] MEDS: Nicotine 14 MG PATCH.TD24 TRANSDERMA (08:00)
[2021-05-25] MEDS: Ondansetron ODT 8 MG TAB.RAPDIS TRANSLINGU ×3 (08:00→16:48)
[2021-05-25] MEDS: Cosyntropin 0.25 MG VIAL IVPUSH (09:56)
--- NOTE | 2021-05-25 13:27 | HO.PM.IMPN ---
Subjective Subjective Date of Service: 05/25/21 Interval History: no acute issues overnight; still complaining of nausea and vomiting Review of Systems denies chest pain Denies shortness of breath Admits to nausea vomiting no diarrhea Admits diffuse abdominal discomfort Physical Exam Vital Signs: Vital Signs: Last Vital Signs Temp 97.8 F 05/25/21 06:56 Pulse 70 05/25/21 06:56 Resp 16 05/25/21 06:56 BP 90/52 L 05/25/21 06:56 Pulse Ox 98 05/25/21 06:56 BMI result Body Mass Index 21.9 Const: Other: Awake alert oriented x3 no acute distress HEENT: Other: Membranes moist Resp: Other: Clear to auscultation bilaterally no rales rhonchi and wheezes Cardio: Other: No S4; positive S1-S2; no S3 murmurs or gallops GI: Other: Soft nontender nondistended with normoactive bowel sounds Extrem: Other: No edema bilaterally Objective Data Active Medications Bisacodyl (Bisacodyl 5 Mg Tablet.Dr) 10 mg PO BEDTIME [facility] Last Admin: 05/24/21 21:12 Dose: 10 mg Documented by: TIMMY Bupropion HCl (Bupropion Hcl Xl 150 Mg Tab.Er.24h) 150 mg PO DAILY [facility] Last Admin: 05/25/21 07:59 Dose: 150 mg Documented by: DEMETRIO Clonazepam (Clonazepam 1 Mg Tablet) 1 mg PO Q6H PRN PRN Reason: anxiety Last Admin: 05/24/21 00:19 Dose: 1 mg Documented by: GRICEL Divalproex Sodium (Divalproex Sodium Er 500 Mg Tab.Er.24h) 1,500 mg PO BEDTIME [facility] Last Admin: 05/24/21 21:12 Dose: 1,500 mg Documented by: TIMMY Enoxaparin Sodium (Enoxaparin Sodium 40 Mg/0.4 Ml Syringe) 40 mg SUBCUT Q24H [facility] Last Admin: 05/25/21 12:31 Dose: Not Given Documented by: DEMETRIO Non-Admin Reason: Patient Refused Famotidine (Famotidine 20 Mg Tablet) 40 mg PO BEDTIME [facility] Last Admin: 05/24/21 21:12 Dose: 40 mg Documented by: TIMMY Dextrose/Sodium Chloride (D51/2ns) 1,000 mls @ 100 mls/hr IVCONT .Q10H [facility] Last Admin: 05/25/21 10:03 Dose: 100 mls/hr Documented by: DEMETRIO Lurasidone HCl 40 mg/ (Lurasidone HCl 80 mg) 120 mg PO DAILY@1700 [facility] Last Admin: 05/24/21 16:47 Dose: 120 mg Documented by: KATHERIN Morphine Sulfate (Morphine Sulfate 4 Mg/Ml Cartridge) 4 mg IVPUSH Q4H PRN; Protocol PRN Reason: severe pain Last Admin: 05/24/21 21:13 Dose: 4 mg Documented by: TIMMY Nicotine (Nicotine 14 Mg Patch.Td24) 14 mg TRANSDERMA DAILY [facility] Last Admin: 05/25/21 08:00 Dose: 14 mg Documented by: DEMETRIO Patient Own Medication ( Prucalopride [ Motegrity] 1 Mg Tablet) 1 each PO DAILY [facility] Last Admin: 05/25/21 09:56 Dose: 1 each Documented by: DEMETRIO Omeprazole (Omeprazole 40 Mg Capsule.Dr) 40 mg PO DAILY@0630 [facility] Last Admin: 05/25/21 05:40 Dose: 40 mg Documented by: TIMMY Ondansetron HCl (Ondansetron Odt 8 Mg Tab.Rapdis) 8 mg TRANSLINGU TIDAC [facility] Last Admin: 05/25/21 12:01 Dose: 8 mg Documented by: DEMETRIO Perphenazine (Perphenazine 8 Mg Tablet) 8 mg PO BID [facility] Last Admin: 05/25/21 07:59 Dose: 8 mg Documented by: DEMETRIO Pharmacy Consult (Consult Rx Perform Med Rec) 1 each MISCELLANE ONCE PRN PRN Reason: Consult order Polyethylene Glycol (Polyethylene Glycol 3350 17 Gm Powd.Pack) 17 gm PO DAILY [facility] Last Admin: 05/25/21 07:59 Dose: 17 gm Documented by: DEMETRIO Sodium Chloride (0.9 % Sodium Chloride Flush 3 Ml Syringe) 3 ml IVFLUSH QSHIFT [facility] Last Admin: 05/25/21 08:00 Dose: 3 ml Documented by: DEMETRIO Sucralfate (Sucralfate 1 Gm Tablet) 1 gm PO BID [facility] Last Admin: 05/25/21 07:59 Dose: 1 gm Documented by: DEMETRIO Sumatriptan Succinate (Sumatriptan Succinate 50 Mg Tablet) 50 mg PO DAILY PRN PRN Reason: Migraine Headache Last Admin: 05/25/21 04:10 Dose: 50 mg Documented by: TIMMY Topiramate (Topiramate 100 Mg Tablet) 100 mg PO DAILY [facility] Last Admin: 05/25/21 08:00 Dose: 100 mg Documented by: DEMETRIO Trazodone HCl (Trazodone Hcl 100 Mg Tablet) 100 mg PO BEDTIME PRN PRN Reason: sleep Last Admin: 05/22/21 22:18 Dose: 100 mg Documented by: LUCIANA Vitamin D (Cholecalciferol (Vitamin D3) 25 Mcg Tablet) 50 mcg PO DAILY [facility] Last Admin: 05/25/21 07:59 Dose: 50 mcg Documented by: DEMETRIO Labs CBC & Chem 7: 05/21/21 05:39 05/24/21 05:54 Labs: Laboratory Results - last 24 hr 05/25/21 05/25/21 10:30 11:00 Cortisol Baseline Cancelled Cancelled Cortisol 30 Minute Cancelled Cortisol 60 Minute Cancelled Cancelled Cortisol Sample 2 Cancelled ACTH Resp to Cosyntrop Cancelled Cancelled Cortisol Sukhjinder Time 1 Cancelled Cancelled Cortisol Sukhjinder Time 2 Cancelled Cortisol Sukhjinder Time 3 Cancelled ACTH Comment Cancelled Assessment and Plan (1) Gastroparesis: Status: Acute (2) Bipolar disorder: Status: Acute (3) Urinary retention: Status: Acute Plan 41 yo female with hx of bipolar disorder, gastroparesis, here with repeat bouts of vomiting here with 2 weeks of vomiting and constipation ; CT scan essentially unremarkable save markedly distended bladder. Initial scan postvoid 650 cc: Fully attempted x3 2nd postvoid residual 1 L. Patient refusing additional fully attempts 1.Gastroparesis -IVFs; await further GI input 2.Bipolar - relatively stable on current medical regimen 3. Urinary Retention - as per Urology will keep Armendariz in for 2 weeks. Full Code Lovenox Will require inpatient admission for 2 midnights given inability take orals; liquid or solids. Quality Stroke Does the patient have a stroke diagnosis?: No VTE Prior VTE?: No VTE Risk Level:: Medical - moderate - high VTE Device Contraindication: Treatment Not Indicated VTE Drug Contraindication: N/A - Med Ordered
[2021-05-25] MEDS: clonazePAM 1 MG TABLET PO (14:37)
[2021-05-25 21:24] VITALS: BP 110/58; PULSE 88; RESP 18; TEMP 36.7; O2SAT 97
[2021-05-25] MEDS: Divalproex Sodium ER 500 MG TAB.ER.24H 1500 MG PO (21:31)
[2021-05-25] MEDS: Famotidine 20 MG TABLET 40 MG PO (21:31)
[2021-05-25] MEDS: bisacodyL 5 MG TABLET.DR 10 MG PO (21:32)
[2021-05-25 21:52] VITALS: RESP 18
[2021-05-25] MEDS: Morphine Sulfate 4 MG/ML CARTRIDGE IVPUSH (21:52)
[2021-05-25 22:37] VITALS: BP 105/71; PULSE 88; RESP 16; O2SAT 97
[2021-05-25] MEDS: traZODone HCL 100 MG TABLET PO (23:36)
[2021-05-25 23:39] VITALS: BP 106/57; PULSE 80; RESP 16; TEMP 36.9; O2SAT 99
--- NOTE | 2021-05-26 01:31 | PC.NURSE ---
7p-11p; When this rn came into patient's room for a shift assessment, patient reported she was concerned about possibly getting latuda medication twice on previous shift, patient reported feeling a little dizzy upon assessment, no other reported symptoms. This rn educated patient to remain in bed and call for assistance when necessary. Patient requested to speak to nursing supervisor finishing. This rn assessed patient, vital signs stable, all schedule bedtime medications reviewed with patient prior to administration. Nursing supervisor finishing at bedside addressing patient's concerns. This rn assessed patient's vs again, stable. Educated patient, nursing staff monitoring patient. Dr. Webster made aware.
[2021-05-26] MEDS: Omeprazole 40 MG CAPSULE.DR PO (05:55)
[2021-05-26] MEDS: Dextrose 5 % and 0.45 % NaCl 1,000 ML 100 ML IVCONT (05:55)
[2021-05-26] MEDS: Cholecalciferol (Vitamin D3) 25 MCG TABLET 50 MCG PO (07:27)
[2021-05-26] MEDS: Sucralfate 1 GM TABLET PO (07:27)
[2021-05-26] MEDS: Ondansetron ODT 8 MG TAB.RAPDIS TRANSLINGU (07:28)
[2021-05-26] MEDS: Topiramate 100 MG TABLET PO (07:28)
[2021-05-26] MEDS: Perphenazine 8 MG TABLET PO (07:29)
[2021-05-26] MEDS: buPROPion HCl XL 150 MG TAB.ER.24H PO (07:29)
[2021-05-26] MEDS: clonazePAM 1 MG TABLET PO (07:29)
[2021-05-26] MEDS: polyethylene glycoL 3350 17 GM POWD.PACK PO (07:29)
[2021-05-26] MEDS: Nicotine 14 MG PATCH.TD24 TRANSDERMA (07:30)
[2021-05-26 07:45] VITALS: BP 107/68; PULSE 91; RESP 18; TEMP 36.4; O2SAT 100
[2021-05-26 08:48] LABS: Appearance Urine HAZY; Color Urine YELLOW; Glucose Urine UA NEG (NEG); Leukocyte Esterase Urine 2+ (NEG); Nitrite Urine POS (NEG); UACC Culture Trigger YES; Urine Blood 3+ (NEG); Urine Ketones NEG (NEG); Urine Protein 2+ MG/DL (NEG-TRACE)
[2021-05-26 09:05] LABS: WBC Urine TNTC /HPF (0-4)
[2021-05-26 09:06] LABS: Bacteria Urine 2+ /LPF; Mucus Urine 2+ /LPF; Squamous Epithelial Cell Urine 1+ /LPF; WBC Clumps Urine NOTED
[2021-05-26 12:00] VITALS: BP 101/54; PULSE 81; RESP 18; TEMP 36.5; O2SAT 97
--- NOTE | 2021-05-26 13:37 | MHC.CM.PN ---
NURSE CASE NOTE ELECTRONIC MEDICAL RECORD REVIEWED ALONG WITH CASE DISCUSSED WITH [facility] NURSE AND HOSPITALIST ON PATIENT CARE ROUNDS. PPER HOSPITLAIST Ptient will go home with indewlling marlow catherter and urologist is having it be clamps for period sof time , staff nurse to provide reducatiuon regarding this. discharge plan home no services with (indweeling folety catherter ) pcp- inna [place] patient to call for post dischagre follow up appointment transportation family
--- NOTE | 2021-05-26 13:48 | P.DS_ITS ---
DS: Providers Provider Date of Service: 05/26/21 Date of admission: 05/18/21 12:10 Date of discharge: 05/26/21 Primary care physician: Ramesh Sampson PA-C Consults: 05/18/21 11:49 Consult to Gastroenterology Stat Consulting Provider: Kei Miller Reason for consultation: vomiting, abdominal pain Has provider been notified: Yes 05/18/21 12:14 Consult to Gastroenterology Routine Consulting Provider: Kei Miller Reason for consultation: gastroparesis Has provider been notified: Yes 05/19/21 04:08 Consult to Psychiatry Routine Consulting Provider: Psych Covering Reason for consultation: severe anxiety; missed home meds for 5 days for bipolar/anxiety/depression 05/19/21 14:08 Consult to Urology Stat Consulting Provider: Best Echeverria Reason for consultation: acute urinary retention Has provider been notified: Yes 05/20/21 12:36 Consult to Care Team Routine Comment: Reason for consultation: utox positive for fentanyl 05/21/21 07:53 Consult to Care Team Stat Comment: Reason for consultation: uncontrolled, banging head on wall, psych polypharmacy causing med admit Consult to Psychiatry Stat Consulting Provider: Psych Covering Reason for consultation: uncontrolled, banging head on wall, psych polypharmacy causing med admit DS: Diagnosis Discharge Diagnosis (1) Gastroparesis: Status: Acute (2) Bipolar disorder: Status: Acute (3) Urinary retention: Status: Acute DS: Summary Hospital Course Hospital Course: 41 yo female with hx of bipolar disorder, gastroparesis, here with repeat bouts of vomiting here with 2 weeks of vomiting and constipation seen here and [facility] with CT scan on 10/16 given mag citrate and lactulose without relief she is having flatus sent in to ED by her GI doctor for possible admission. ER Course Given IV fluids x2 L along with IV Ativan Zofran and Pepcid.? Call placed to GI who asked for permission and they will see in house Hospital [facility] Patient admitted to [facility]. CT scan of the abdomen and chest failed to demonstrate any acute pathology. It was noted however that she had a markedly distended bladder and a colon full of stool. Patient failed multiple attempts to empty bladder on her own subsequent bladder scan greater than 999; multiple attempts to insert Armendariz failed and subsequently urology was consulted and placed fully catheter. She was seen in consultation by Psychiatry and meds were adjusted. Over the course of her hospitalization she gradually was able to hold down food at this point time she is medically suitable for discharge. She will be discharged with a Armendariz and follow up with Dr. Echeverria in office for DC. She will follow-up with PCP for routine lab work and psychiatry as scheduled Time Spent with Patient Time attestation: Total time spent providing and/or coordinating discharge services: Discharge coordination time: Greater than 30 minutes Quality: Stroke Does the patient have a stroke diagnosis?: No Physical Exam Vital Signs: Vital Signs: Last Vital Signs Temp 97.7 F 05/26/21 12:00 Pulse 81 05/26/21 12:00 Resp 18 05/26/21 12:00 BP 101/54 L 05/26/21 12:00 Pulse Ox 97 05/26/21 12:00 BMI result Body Mass Index 21.9 Const: Other: Awake alert oriented x3 no acute distress HEENT: Other: Membranes moist Resp: Other: Clear to auscultation bilaterally no rales rhonchi and wheezes Cardio: Other: No S4; positive S1-S2; no S3 murmurs or gallops GI: Other: Soft nontender nondistended with normoactive bowel sounds Extrem: Other: No edema bilaterally DS: Data Data Completed and Pending Labs on day of discharge: Laboratory Results - last 24 hr 05/26/21 08:36 Urine Color YELLOW Urine Appearance HAZY Urine pH 6.0 Ur Specific Goodwin 1.020 Urine Protein 2+ H Urine Glucose (UA) NEG Urine Ketones NEG Urine Blood 3+ H Urine Nitrite POS H Ur Leukocyte Esterase 2+ H Urine RBC 10-14 H Urine WBC TNTC H Urine WBC Clumps NOTED Ur Squamous Epith Cells 1+ Urine Bacteria 2+ Urine Mucus 2+ Discharge Plan Discharge Patient Disposition: Home, Self-Care Discharge Diagnosis: Gastrroparesis secondary to adverse effects of antichilinergic medicines Referrals: Ramesh Sampson PA-C [Primary Care Provider] - 1 Week Discharge Medications: New cefuroxime axetil 500 mg tablet 500 mg PO BID 7 Days Qty: 14 0RF Continued sucralfate 1 gram tablet 1 g PO BID Qty: 180 1RF clonazepam 1 mg tablet 1 mg PO BID 30 Days Qty: 60 2RF Rx Instructions: will start taking Rx BID omeprazole 40 mg capsule,delayed release(DR/EC) 40 mg PO DAILY 90 Days Qty: 90 2RF ondansetron HCl 8 mg tablet 8 mg PO Q8H 7 Days Qty: 21 0RF bupropion HCl 100 mg tablet sustained-release 12 hr 2 tab PO QAM 0RF topiramate 100 mg tablet 1 tab PO DAILY 0RF Motegrity 1 mg tablet 1 tab PO DAILY 0RF Aimovig Autoinjector 140 mg/mL auto-injector subcut Q4W 0RF chlorpromazine 100 mg Tablet 100 mg PO TID 0RF benztropine 1 mg tablet 1 tab PO BID 0RF polyethylene glycol 3350 [Miralax] 17 gram/dose powder 17 g PO DAILY Qty: 510 0RF bisacodyl [Bisa-Lax (bisacodyl)] 5 mg tablet,delayed release (DR/EC) 10 mg PO BEDTIME PRN (Reason: constipation) 2 Days Qty: 30 0RF Latuda 120 mg tablet 120 mg PO DAILY 0RF sumatriptan succinate 50 mg tablet 50 mg PO DAILY PRN (Reason: Migraine Headache) 0RF divalproex 500 mg tablet extended release 24 hr 1,500 mg PO DAILY 0RF famotidine 40 mg tablet 40 mg PO BEDTIME 0RF ibuprofen 600 mg tablet 600 mg PO Q8H PRN (Reason: pain) Qty: 15 0RF perphenazine 4 mg tablet 8 mg PO BID 0RF hydroxyzine HCl 10 mg tablet 10 mg PO BEDTIME 14 Days Qty: 14 0RF Rx Instructions: For sleep cholecalciferol (vitamin D3) 50 mcg (2,000 unit) capsule 50 mcg PO DAILY 90 Days Qty: 90 1RF benztropine 0.5 mg tablet 0.5 mg PO DAILY 0RF Discharge Orders: Discharge Order (Routine); Ordered 05/26/21 Ordered By: Tamir Molina Diet: advance to usual diet Activity on Discharge: As tolerated Stand Alone Forms: Patient Portal Discharge page Care Plan Goals: Follow-up with psychiatry as arranged. Follow-up with GI scheduled Health Concerns: Continue falling until seen by Dr. Echeverria Plan of Treatment: Resume all patient's outpatient med Assessment: See H&P for details
[2021-05-26 15:01] LABS: Cortisol 30 Minute 22.5 mcg/dL; Cortisol 60 Minute 27.6 mcg/dL
[2021-05-26 15:37] LABS: Adrenocorticotropic Hormone 18 pg/mL (6-50)
--- NOTE | 2021-05-26 17:26 | PC.NURSE ---
HOME MED MOTEGRITY BROUGHT TO PHARMACY FOR STORAGE.Patient was discharged today ,forgot med.This RN spoke to pharmacist Dillon and he recommanded to bring it to pharmacy.Family will hot die picker tomorrow.
--- NOTE | 2021-05-27 10:58 | PC.NURSE ---
Home med [employer] returned to Agnieszka Lewis mother.
== END 2021-05-26 15:05 | disposition home or self-care (01) | DRG 392 ==
LOC: HO.ED 11:54 → HO.EDOVER 12:14 → HO.S3 05-19 17:30
PROVIDERS: Family Medicine; Internal Medicine Gastroenterology; Psychiatry & Neurology Psychiatry; Admitting Provider Hospitalist; Emergency Provider Emergency Medicine; PCP Physician Assistant; Visit Provider Hospitalist
DX: K31.84 Gastroparesis (principal); K59.01 Slow transit constipation; F41.9 Anxiety disorder, unspecified; F31.9 Bipolar disorder, unspecified; R33.9 Retention of urine, unspecified; T44.3X5A Adverse effect of other parasympatholytics [anticholinergics and antimuscarinics] and spasmolytics, initial encounter; Z20.822 Contact with and (suspected) exposure to COVID-19; F17.210 Nicotine dependence, cigarettes, uncomplicated; Z71.6 Tobacco abuse counseling; Z88.2 Allergy status to sulfonamides; Z79.1 Long term (current) use of non-steroidal anti-inflammatories (NSAID); Z79.899 Other long term (current) drug therapy
CPT/HCPCS: 36415; 71250; 73120; 74018; 74176; 74177; 80048; 80053; 80076; 80164; 80307; 81001; 81003; 82024; 82310; 82533; 83690; 83735; 84146; 84702; 85025; 86617; 86618; 87086; 87088; 87186; 87635; 93005; 99285; C1758; J0834; J1650; J2060; J2270; J2405; J2765

== ENCOUNTER → 2021-06-10 09:56 | Outpatient (BNVA) | payer MEDICARE, MEDICAID, SELFPAY | PROVIDERS: PCP Physician Assistant; Visit Provider Urology | DX: R33.9 Retention of urine, unspecified (principal); Z88.8 Allergy status to other drugs, medicaments and biological substances | CPT/HCPCS: 51700; 51798 ==

== ENCOUNTER 2021-06-24 12:32 | Day surgery (SDC) | payer MEDICARE, MEDICAID, SELFPAY ==
[2021-06-24 12:34] VITALS: BMI 23.1
[2021-06-24 12:43] VITALS: BP 114/73; PULSE 91; RESP 18; TEMP 36.6; O2SAT 97
[2021-06-24 12:53] LABS: UPreg QC Valid YES; Urine Pregnancy NEGATIVE (NEGATIVE)
--- NOTE | 2021-06-24 13:18 | P.CONAN_ITS ---
[facility] Active Problems Active Problems: All Active Problems (Updated 06/23/21 @ 15:50 by Ramesh Sampson PA-C) Mold exposure (Acute) Schizoaffective disorder, bipolar type (Acute) Urinary retention (Acute) Bipolar disorder (Acute) Dysphagia (Acute) IUD migration (Acute) H/O abdominal surgery (Acute) Chest discomfort (Acute) Screening for diabetes mellitus (DM) (Acute) Screening for hypothyroidism (Acute) Screening for hypercholesterolemia (Acute) Nausea (Acute) GERD (gastroesophageal reflux disease) (Acute) Low TSH level (Acute) Sinusitis (Acute) Smoking (Acute) Past Medical History Medical History (Updated 06/23/21 @ 15:50 by Ramesh Sampson PA-C) Bipolar disorder Chronic nausea GLORIA (generalized anxiety disorder) Gastroparesis Migraine Schizoaffective disorder, bipolar type Functional capacity: independent ambulation Patient : No Family History Family History Mother No problems noted. Father No problems noted. Family history of problems with anesthesia: No Surgical History Surgical History History of tonsillectomy History of Problems with Anesthesia: No Social History Social History Household Members: Other Household Members Other:: mother Housing: House Do you presently have visiting nurse or other home services: No Alcohol intake: never Patient Tobacco Use Status: Current everyday Tobacco user Tobacco use type: Cigarette Cigarette Packs Per Day: 0.5 Cigarettes Per Day: 10.0 Years Smoked: 25 e-Cigarette/Vaping Use: Never Used Second Hand Smoke Exposure: Yes Substance Use Type: Marijuana Are you DNR?: No Advance Directives: Yes Advance Directives on File: Yes Advance Directives Date on File: 05/19/21 service: No Current occupational status: unemployed and disabled Cognitive needs: No Hearing needs: No Vision needs: No Meds Allergies Allergy/AdvReac Type Severity Reaction Status Date / Time olanzapine [From ZYPREXA] Allergy Severe SWELLING Verified 06/23/21 15:40 oxcarbazepine Allergy Severe antony's Verified 06/23/21 15:40 [From TRILEPTAL] Rob syndrome gabapentin Allergy Unknown Loss of Verified 06/23/21 15:40 balance lithium [LITHIUM] Allergy Unknown UNKNOWN Verified 06/23/21 15:40 quetiapine [Seroquel] Allergy Unknown Unknown Verified 06/23/21 15:40 sulfamethoxazole Allergy Unknown severe rash Verified 06/23/21 15:40 [From BACTRIM] trimethoprim [From BACTRIM] Allergy Unknown severe rash Verified 06/23/21 15:40 From SEROQUEL Allergy Unknown UNKNOWN Uncoded 04/05/21 14:39 Home Medications Medication Instructions Recorded Confirmed Last Taken Type divalproex 500 mg tablet,extended 1,500 mg PO DAILY tab 05/28/20 06/23/21 Unknown History release 24 hr sumatriptan succinate 50 mg tablet 50 mg PO DAILY PRN 05/28/20 06/23/21 Unknown History bupropion HCl 100 mg tablet,12 hr 2 tab PO QAM 05/18/21 06/23/21 Unknown History sustained-release chlorpromazine 100 mg tablet 100 mg PO TID 05/18/21 06/23/21 05/14/21 History erenumab-aooe 140 mg/mL mg SUBCUT Q4W 05/18/21 06/23/21 Unknown History subcutaneous auto-injector (Aimovig Autoinjector) topiramate 100 mg tablet 1 tab PO DAILY 05/18/21 06/23/21 Unknown History Exam Exam Date and Time: June 24, 2021 1318 Height,Weight and Vital Signs: Height 5 ft 7 in Weight 67.132 kg Last Vital Signs Temp 98 F 06/24/21 12:43 Pulse 91 06/24/21 12:43 Resp 18 06/24/21 12:43 BP 114/73 06/24/21 12:43 Pulse Ox 97 06/24/21 12:43 Pertinent Lab Results Pertinent Lab Results: Laboratory Tests 06/24/21 12:40 Urine Test NEGATIVE Airway Mallampati Class: II TM Dist: >3cm Neck ROM: Full Heart: RRR Lungs: CTA Assessment and Plan Final Anesthetic Review Family History of Problems with Anesthesia: No History of Problems with Anesthesia: No ASA Class: II Final Preanesthetic Review: No Changes in Pt Med Stat, Meds/Allgs Chart Reviewed, Consent Obtained/Reviewed and Anes Risks/Benef Reviewed Patient Risk: Low Procedure Risk: Low Anesthetic Plan Anesthetic Plan: MAC: Disposition: Standard PACU
--- NOTE | 2021-06-24 13:33 | MHC.SHP ---
Pre-Procedural Eval Section A Date of Service: 06/24/21 Section B Chief Complaint: nausea,vomit,reflux, abnormal bowel habit Relevant Family History (Specify if Yes): No Relevant Social History: Tobacco Use Present Medications: see Short Stay Collaborative assessment Medical History: Significant History (Bipolar disorder Chronic nausea GLORIA (generalized anxiety disorder) Gastroparesis Migraine Schizoaffective disorder, bipolar type) History of Previous Operations: Relevant previous surgery/procedure and date(s) (exp lap for IUD perforation of uterus 02/23) Allergies: Allergies Allergy/AdvReac Type Severity Reaction Status Date / Time olanzapine [From ZYPREXA] Allergy Severe SWELLING Verified 06/23/21 15:40 oxcarbazepine Allergy Severe antony's Verified 06/23/21 15:40 [From TRILEPTAL] Rob syndrome gabapentin Allergy Unknown Loss of Verified 06/23/21 15:40 balance lithium [LITHIUM] Allergy Unknown UNKNOWN Verified 06/23/21 15:40 quetiapine [Seroquel] Allergy Unknown Unknown Verified 06/23/21 15:40 sulfamethoxazole Allergy Unknown severe rash Verified 06/23/21 15:40 [From BACTRIM] trimethoprim [From BACTRIM] Allergy Unknown severe rash Verified 06/23/21 15:40 From SEROQUEL Allergy Unknown UNKNOWN Uncoded 04/05/21 14:39 Review of Systems Sugical H&P ROS: Negative: Constitution, Cardiovascular, Respiratory, Neurological, Psychiatric, Hem-Onc, Allergic/Immunologic, Gastrointestinal, Genitourinary, Musculoskeletal, Integumentary, Endocrine and Eyes/Ears/Nose/Throat Exam Surgical H&P Exam: Normal: HEENT, Normal: Heart, Normal: Lungs, Normal: Extremities, Normal: Abdomen, Normal: Skin and Normal: Neurological Plan Diagnosis/Plan: Unchanged I have reviewed the history and physical and performed a pertinent physical examination on my patient. No changes have occurred unless specified.
--- NOTE | 2021-06-24 13:37 | PM.OP ---
Brief Operative Note Date of Service: 06/24/21 Pre-op diagnosis: nausea, reflux, abnormal bowel habit Post-op diagnosis: same Procedure: see op note Surgeon: Kei Millre MD Anesthesia: MAC Was an Mobile Web Application Developer used for this Procedure?: No Estimated blood loss (mL): 0 Condition: stable Disposition: PACU
--- NOTE | 2021-06-24 13:38 | P.OP_ITS ---
Operative Note Operative Note Date of Service: 06/24/21 Narrative: Operative Information Procedure Description: EGD, Colonoscopy Indication: nausea, abnormal bowel habit, reflux Anesthesia: MAC FLEXIBLE TRANSORAL UPPER GASTROINTESTINAL ENDOSCOPY AND COLONOSCOPY PROCEDURE NOTE UPPER ENDOSCOPY Consent: Indications for the procedure and potential complications of bleeding, perforation, reaction to medications and missed diagnosis were discussed with the patient and informed consent was obtained. Instrument: Olympus GIF H 190 J mid size upper endoscope Monitoring: Vital signs and clinical assessment, continuous EKG monitoring, Pulse oximetry, Carbon Dioxide monitoring and blood pressure monitoring were done throughout the procedure. Procedure: The patient was placed in the left lateral decubitis position and pre-procedure medications were administered and a bite block was placed. The endoscope was inserted into the mouth and advanced under direct vision to the third part of duodenum. A careful inspection was made as the upper endoscope was withdrawn including a retroflexed examination of the proximal stomach; Findings and interventions are described below. Findings: Larynx:normal Esophagus: GE junction at 40 cm, diaphragm hiatus at 40 cm, few eschar type lesions noted in distal esophagus, bx taken from distal and proximal esophagus in separate jars Stomach: Normal mucosa. Biopsies were obtained. Grade 2 flap valve on retroflexed examination of the cardia. pylorus ws dilated with balloon to 19.5 mm with resistance felt but no tears seen. Stomach seemed to have good motility. Duodenum: Normal bulb and descending duodenum, bx taken Intervention: Biopsies as noted above for mast cell and amyloid staining COLONOSCOPY Instrument: Olympus variable stiffness pediatric scope 190L Colonoscopy Monitoring: Vital signs and clinical assessment, continuous EKG monitoring, Pulse oximetry, Carbon Dioxide monitoring and blood pressure monitoring were done throughout the procedure. Colon withdrawal time was 9 minutes. Procedure: The patient was placed in the left lateral decubitis position and pre-procedure medications were administered. After a digital rectal examination of the ano-rectum, the video colonoscope was inserted into the rectum and advanced through the colon to the cecum/TI. The colonoscope was slowly withdrawn in a retrograde panoramic fashion and the colon mucosa was carefully examined including a retroflexed view of the rectum. Findings and interventions are described below. Procedure Difficulty: easy Findings: Terminal Ileum-normal, bx taken random colon bx taken Cecum:normal Ascending Colon: 7-9 mm sessile polyp removed with cold forceps Transverse Colon -normal Descending Colon:normal Sigmoid Colon: normal, Rectum: Retroflexion with small internal hemorrhoids, grade I with skin tags Anorectum - normal Colon preparation: Proctor Bowel Preparation Scale Right colon; 3 Transverse colon: 3 Left colon; 3 (0 = Unprepared colon segment with mucosa not seen due to solid stool that cannot be cleared. 1 = Portion of mucosa of the colon segment seen, but other areas of the colon segment not well seen due to staining, residual stool and/or opaque liquid. 2 = Minor amount of residual staining, small fragments of stool and/or opaque liquid, but mucosa of colon segment seen well. 3 = Entire mucosa of colon segment seen well with no residual staining, small fragments of stool or opaque liquid) Impression and Post Procedure Diagnosis: Endoscopy Findings: esophagitis Colonoscopy Findings: internal hemorrhoids with skin tags colon polyp Plan: Await Pathology results Repeat Colonoscopy in 5-7 years if adenomatous polyp otherwise 10 yrs or earlier if clinically indicated High fiber diet leaflet avoid straining at stool, epsom salts and sitz bath, anusol supps or cream GERD precautions Above findings were reviewed with the patient and relevant handouts were provided if indicated.
[2021-06-24 14:30] VITALS: BP 94/49; PULSE 80; RESP 16; TEMP 37; O2SAT 100
--- NOTE | 2021-06-24 14:32 | HO.POSTANES ---
Post Anesthesia Evaluation Post Anesthesia Evaluation Vital Signs: Vital Signs Temp Pulse Resp BP Pulse Ox 06/24/21 12:43 98 F 91 18 114/73 97 Anesthesia: Monitored Pain Control: Satisfactory Nausea/Vomiting: None Hydration: Adequate Anesthesia-Related Issues: No Anes. Related Issues
[2021-06-24 14:45] VITALS: BP 96/54; PULSE 80; RESP 15; O2SAT 100
[2021-06-24 15:00] VITALS: BP 118/62; PULSE 76; TEMP 36.8; O2SAT 99
== END 2021-06-24 15:27 | disposition home or self-care (01) ==
PROVIDERS: PCP Physician Assistant; Visit Provider Internal Medicine Gastroenterology
PROC: (CPT 45380; principal; 2021-06-24 14:30)
DX: R19.4 Change in bowel habit (principal); D12.2 Benign neoplasm of ascending colon; K64.0 First degree hemorrhoids; K64.4 Residual hemorrhoidal skin tags; K59.01 Slow transit constipation; R10.9 Unspecified abdominal pain; R11.2 Nausea with vomiting, unspecified; K21.9 Gastro-esophageal reflux disease without esophagitis; K31.84 Gastroparesis; K20.80 Other esophagitis without bleeding; K44.9 Diaphragmatic hernia without obstruction or gangrene; F31.9 Bipolar disorder, unspecified; F41.1 Generalized anxiety disorder; R41.840 Attention and concentration deficit; L50.9 Urticaria, unspecified; G43.909 Migraine, unspecified, not intractable, without status migrainosus; Z79.899 Other long term (current) drug therapy; Z88.2 Allergy status to sulfonamides; Z88.8 Allergy status to other drugs, medicaments and biological substances; F17.210 Nicotine dependence, cigarettes, uncomplicated; F12.90 Cannabis use, unspecified, uncomplicated
CPT/HCPCS: 45380; 43245; 43239; 81025; 88305; 88313; 88341; 88342

== ENCOUNTER 2021-07-04 02:21 | Emergency (ER) | payer MEDICARE, MEDICAID, SELFPAY ==
[2021-07-04] VITALS (9 sets, daily range): BP systolic 90–118; BP diastolic 40–80; PULSE 67–88; RESP 14–20; TEMP 36.7; O2SAT 96–99; BMI 21.7
--- NOTE | ~2021-07-04 | CT_ITS ---
EXAMINATION: CT ABDOMEN AND PELVIS WITHOUT CONTRAST CLINICAL INFORMATION: Flank pain. History of kidney stones. COMPARISON: CT abdomen pelvis 05/18/2021. TECHNIQUE: Multidetector volumetric imaging was performed from the superior aspect of the liver through the pubic symphysis. Sagittal and coronal reformatted images were obtained on the technologist's workstation. This CT examination was performed using dose optimization techniques as appropriate, variously including the following: *Automated exposure control *Adjustment of mA and/or kV according to patient size (this includes techniques or standardized protocols for targeted exams where dose is matched to indication/reason for exam; i.e. extremities or head) *Use of iterative reconstruction technique DLP: 398 mGy-cm FINDINGS: LUNG BASES: The visualized lung bases are unremarkable. LIVER, GALLBLADDER, AND BILIARY TREE: The liver is normal in size, shape, and attenuation. No focal hepatic lesion or biliary ductal dilatation is present. The gallbladder is unremarkable with no evidence of radiopaque gallstones, gallbladder wall thickening, or obvious pericholecystic inflammatory changes. PANCREAS: Unremarkable. SPLEEN: Unremarkable. ADRENAL GLANDS: Unremarkable. KIDNEYS AND URETERS: No hydronephrosis or perinephric inflammatory changes. No urolithiasis is noted. Scattered pelvic phleboliths are noted. Close scrutiny to the expected location of the ureters within the pelvis demonstrates no definitive ureteral calculi. BLADDER: Partially decompressed. GASTROINTESTINAL TRACT: No intestinal dilatation or mural thickening. Normal appendix (series 6 image 38, 44, 49). ABDOMINAL WALL: No significant hernia is appreciated. LYMPH NODES: Normal. VASCULAR: Unremarkable. PELVIC VISCERA: Uterus appears diminutive and may be the liver is. No adnexal lesions noted. OSSEOUS STRUCTURES: Minimal multilevel anterior endplate osteophytosis of the visualized thoracic and lumbar spine. CT/CT abdomen pelvis wo con IMPRESSION: *No acute abnormalities identified. *No urolithiasis. Normal appearance of the kidneys and collecting systems. *Normal appendix.
--- NOTE | ~2021-07-04 | XR_ITS ---
EXAMINATION: XR CHEST CLINICAL INFORMATION: Cough. COMPARISON: CT chest 05/24/2021. TECHNIQUE: Frontal view of the chest was obtained. FINDINGS: Normal appearance of the cardiomediastinal structures. No effusions or pneumothoraces. Normal pattern of pulmonary vasculature. No focal pulmonary consolidation. XR/XR chest 1V IMPRESSION: *No acute cardiopulmonary abnormalities.
[2021-07-04 03:09] LABS: Appearance Urine CLEAR; Color Urine STRAW; Glucose Urine UA NEG (NEG); Leukocyte Esterase Urine NEG (NEG); Nitrite Urine NEG (NEG); PH 6.5 (5.0-8.0); Specific Gravity - Urine <= 1.005 (1.005-1.025); UACC Culture Trigger NO; Urine Blood 3+ (NEG); Urine Ketones NEG (NEG); Urine Protein NEG (NEG-TRACE)
[2021-07-04 03:11] LABS: UPreg QC Valid YES; Urine Pregnancy NEGATIVE (NEGATIVE)
[2021-07-04 03:26] LABS: Bacteria Urine 1+ /LPF; Squamous Epithelial Cell Urine 2+ /LPF; WBC Urine 0-2 /HPF (0-4)
[2021-07-04] MEDS: 0.9 % Sodium Chloride 1,000 ML 999 ML IV ×2 (03:47→05:00)
[2021-07-04] MEDS: Ketorolac Tromethamine 30 MG/ML VIAL 15 MG IVPUSH (03:49)
[2021-07-04] MEDS: fentaNYL citrate/PF 100 MCG/2 ML VIAL 25 MCG IVPUSH (04:44)
--- NOTE | 2021-07-04 04:58 | ED_ITS ---
HPI - Abdominal Pain General Chief Complaint: Abdominal Pain Stated Complaint: lt flank pain Time Seen by Provider: 07/04/21 02:24 Source: patient and family Mode of arrival: EMS History of Present Illness HPI narrative: 41-year-old female who presents via EMS for the development of sharp right flank/posterior right upper quadrant pain that radiates across in the subdiaphragmatic manner and was associated with some nausea and vomiting but denies any urinary symptoms and is currently menstruating. Patient states that she does suffer from gastroparesis but has not been having any problems lately and states that the pain developed suddenly while she was sleeping. She does endorse a history kidney stones for which she has been evaluated at [facility]. Otherwise, she denies any shortness of breath, chest pain/palpitations, diarrhea. Related Data Home Medications Medication Instructions Recorded Confirmed divalproex 500 mg tablet,extended 1,500 mg PO DAILY tab 05/28/20 06/23/21 release 24 hr sumatriptan succinate 50 mg tablet 50 mg PO DAILY PRN 05/28/20 06/23/21 bupropion HCl 100 mg tablet,12 hr 2 tab PO QAM 05/18/21 06/23/21 sustained-release chlorpromazine 100 mg tablet 100 mg PO TID 05/18/21 06/23/21 erenumab-aooe 140 mg/mL mg SUBCUT Q4W 05/18/21 06/23/21 subcutaneous auto-injector (Aimovig Autoinjector) topiramate 100 mg tablet 1 tab PO DAILY 05/18/21 06/23/21 Previous Rx's Medication Instructions Recorded clonazepam 1 mg tablet 1 mg PO BID 30 Days #60 tab 03/10/21 bisacodyl 5 mg tablet,delayed 10 mg PO BEDTIME PRN 2 Days #30 tab 05/12/21 release (Bisa-Lax (bisacodyl)) benztropine 0.5 mg tablet 0.5 mg PO DAILY #30 tab 05/26/21 benztropine 1 mg tablet 1 tab PO BID #60 tab 05/26/21 cefuroxime axetil 500 mg tablet 500 mg PO BID 7 Days #14 tab 05/26/21 famotidine 40 mg tablet 40 mg PO BEDTIME #30 tab 05/26/21 hydroxyzine HCl 10 mg tablet 10 mg PO BEDTIME 14 Days #14 tab 05/26/21 lurasidone 120 mg tablet 120 mg PO DAILY #30 tab 05/26/21 omeprazole 40 mg capsule,delayed 40 mg PO DAILY 90 Days #90 cap 05/26/21 release perphenazine 4 mg tablet 8 mg PO BID #60 tab 05/26/21 sucralfate 1 gram tablet 1 g PO BID #180 tab 05/26/21 bisacodyl 5 mg tablet,delayed 10 mg PO ONCE 1 Days #2 tab 05/27/21 release (Dulcolax (bisacodyl)) phenazopyridine 100 mg tablet 100 mg PO TID PRN 5 Days #20 tab 05/28/21 (Pyridium) oxybutynin chloride 5 mg tablet 5 mg PO DAILY PRN 14 Days #14 tab 05/31/21 cholecalciferol (vitamin D3) 50 50 mcg PO DAILY 90 Days #90 cap 06/03/21 mcg (2,000 unit) capsule ondansetron 4 mg disintegrating 4 mg PO Q8H PRN #30 tab 06/14/21 tablet prucalopride 1 mg tablet 1 mg PO DAILY 30 Days #30 tab 06/22/21 (Motegrity) ketorolac 10 mg tablet 10 mg PO Q6H PRN 5 Days #20 tab 07/04/21 Allergies Allergy/AdvReac Type Severity Reaction Status Date / Time olanzapine [From ZYPREXA] Allergy Severe SWELLING Verified 06/23/21 15:40 oxcarbazepine Allergy Severe antony's Verified 06/23/21 15:40 [From TRILEPTAL] Rob syndrome gabapentin Allergy Unknown Loss of Verified 06/23/21 15:40 balance lithium [LITHIUM] Allergy Unknown UNKNOWN Verified 06/23/21 15:40 quetiapine [Seroquel] Allergy Unknown Unknown Verified 06/23/21 15:40 sulfamethoxazole Allergy Unknown severe rash Verified 06/23/21 15:40 [From BACTRIM] trimethoprim [From BACTRIM] Allergy Unknown severe rash Verified 06/23/21 15:40 From SEROQUEL Allergy Unknown UNKNOWN Uncoded 04/05/21 14:39 Review of Systems Review of Systems Pertinent positives and negatives as stated in HPI 10 point review of systems is otherwise negative. PMFSH Past Medical History Source: nursing notes reviewed Medical History Bipolar disorder Chronic nausea GLORIA (generalized anxiety disorder) Gastroparesis Migraine Schizoaffective disorder, bipolar type Surgical History History of tonsillectomy Family History Family History Mother No problems noted. Father No problems noted. Social History Social History Household Members: Other Household Members Other:: mother Housing: House Do you presently have visiting nurse or other home services: No Alcohol intake: never Patient Tobacco Use Status: Current everyday Tobacco user Tobacco use type: Cigarette Cigarette Packs Per Day: 0.5 Cigarettes Per Day: 10.0 Years Smoked: 25 e-Cigarette/Vaping Use: Never Used Second Hand Smoke Exposure: Yes Substance Use Type: Marijuana Advance Directives: Yes Advance Directives on File: Yes Advance Directives Date on File: 05/19/21 service: No Current occupational status: unemployed and disabled Cognitive needs: No Hearing needs: No Vision needs: No Physical Exam ED Vital Signs: Vital Signs - 24 hr 07/04/21 02:27 07/04/21 02:47 07/04/21 04:30 Temperature 98.1 F Pulse Rate 77 75 80 Respiratory Rate 18 16 16 Blood Pressure 118/80 98/56 L 93/48 L Pulse Oximetry 97 97 99 07/04/21 04:44 07/04/21 05:08 07/04/21 05:50 Temperature Pulse Rate 67 75 Respiratory Rate 18 14 20 Blood Pressure 92/51 L 91/46 L Pulse Oximetry 96 99 07/04/21 06:18 Temperature Pulse Rate Respiratory Rate Blood Pressure 90/40 L Pulse Oximetry BMI result Body Mass Index 21.7 VITAL SIGNS: Reviewed. GENERAL: Well developed, well nourished, in no acute distress. HEAD: Normocephalic/atraumatic EYES: PERRLA, EOMI EARS: Ext canals without abnormality OROPHARYNX: no oral lesions noted, posterior pharynx clear LUNGS: Normal breath sounds. No adventitious sounds or accessory muscle use. SpO2<97> CARDIOVASCULAR: Regular rate and rhythm without noted murmurs ABDOMEN: Soft, right upper quadrant pain without CVA tenderness as well as left lower quadrant discomfort, non-distended with bowel sounds. MUSCULOSKELETAL: No tenderness, deformities, or effusions noted on gross inspection. EXTREMITIES: No cyanosis, clubbing or edema. SKIN: Inspection of the skin reveals no rashes NEUROLOGIC: Alert and oriented x 4. Strength and sensation to light touch were grossly intact x 4. Course Course Course Narrative: 41-year-old female with history and clinical presentation suggestive of possible cholecystitis, renal colic, pyelonephritis although the latter is felt to be less likely. Patient has received IV fluids, pain medication and on review of all investigations there is no evidence on CT imaging of stone or intra- abdominal pathology. Review of all investigations negative for evidence to suggest infection, cholecystitis, pneumonia, renal colic. Patient informed of results and on re- evaluation she is feeling much better and is otherwise stable for discharge to home with presumptive treatment for musculoskeletal pain. MDM - Abdominal Pain Lab Data Result diagrams: 07/04/21 05:04 07/04/21 05:04 Labs: Lab Results 07/04/21 07/04/21 07/04/21 Range/Units 02:53 02:54 05:04 WBC 8.7 (4.8-10.8) X10*3/uL RBC 3.59 L (4.20-5.50) X10*6/uL Hgb 11.7 L (12.0-16.0) g/dl Hct 34.7 L (37.0-47.0) % MCV 96.7 (80.0-98.0) fL MCH 32.6 (27.0-33.0) pg MCHC 33.7 (31.0-35.0) g/dl RDW 12.2 (11.0-16.0) % Plt Count 186 (160-400) X10*3/uL MPV 11.8 (9.4-12.3) fL Immature Gran % (Auto) 0.2 (0.0-0.4) % Neut % (Auto) 46.2 (45-73) % Lymph % (Auto) 43.6 H (20-40) % Beadle % (Auto) 7.4 (2-11) % Eos % (Auto) 2.3 (0-4) % Baso % (Auto) 0.3 (0-2) % Lymph # (Auto) 3.8 (1.2-4.9) X10*3/uL Beadle # (Auto) 0.7 (0.1-1.2) X10*3/uL Eos # (Auto) 0.2 (0.0-0.4) X10*3/uL Baso # (Auto) 0.0 (0.0-0.2) X10*3/uL Abs Immat Gran (auto) 0.02 (0.00-0.03) X10*3/uL Absolute Neuts (auto) 4.0 (2.0-8.3) x10*3/uL Absolute Nucleated RBC 0.000 (0.0-0.012) X10*3/uL Nucleated RBC % (auto) 0.0 (0.0-0.2) /100WBC Sodium (135-145) mmol/L Potassium (3.3-5.1) mmol/L Chloride (96-108) mmol/L Carbon Dioxide (22-29) mmol/L Anion Gap (12-20) BUN (9-16) mg/dL Creatinine (0.5-1.4) mg/dL Estim Creat Clear Calc Estimated GFR Random Glucose (60-115) mg/dL Calcium (8.4-10.2) mg/dL Total Bilirubin (0.0-1.0) mg/dL AST (5-31) U/L ALT (0-31) U/L Alkaline Phosphatase (39-117) U/L Total Protein (6.5-8.0) g/dL Albumin (3.5-5.0) g/dL Lipase (8-78) U/L Urine Color STRAW Urine Appearance CLEAR Urine pH 6.5 (5.0-8.0) Ur Specific Oriental <= 1.005 (1.005-1.025) Urine Protein NEG (NEG-TRACE) MG/DL Urine Glucose (UA) NEG (NEG) MG/DL Urine Ketones NEG (NEG) MG/DL Urine Blood 3+ H (NEG) Urine Nitrite NEG (NEG) Ur Leukocyte Esterase NEG (NEG) Urine RBC 15-29 H (0) /HPF Urine WBC 0-2 (0-4) /HPF Ur Squamous Epith Cells 2+ /LPF Urine Bacteria 1+ /LPF Urine Test NEGATIVE (NEGATIVE) 05/01/22 Range/Units 05:04 WBC (4.8-10.8) X10*3/uL RBC (4.20-5.50) X10*6/uL Hgb (12.0-16.0) g/dl Hct (37.0-47.0) % MCV (80.0-98.0) fL MCH (27.0-33.0) pg MCHC (31.0-35.0) g/dl RDW (11.0-16.0) % Plt Count (160-400) X10*3/uL MPV (9.4-12.3) fL Immature Gran % (Auto) (0.0-0.4) % Neut % (Auto) (45-73) % Lymph % (Auto) (20-40) % Beadle % (Auto) (2-11) % Eos % (Auto) (0-4) % Baso % (Auto) (0-2) % Lymph # (Auto) (1.2-4.9) X10*3/uL Beadle # (Auto) (0.1-1.2) X10*3/uL Eos # (Auto) (0.0-0.4) X10*3/uL Baso # (Auto) (0.0-0.2) X10*3/uL Abs Immat Gran (auto) (0.00-0.03) X10*3/uL Absolute Neuts (auto) (2.0-8.3) x10*3/uL Absolute Nucleated RBC (0.0-0.012) X10*3/uL Nucleated RBC % (auto) (0.0-0.2) /100WBC Sodium 142 (135-145) mmol/L Potassium 3.9 (3.3-5.1) mmol/L Chloride 111 H (96-108) mmol/L Carbon Dioxide 24 (22-29) mmol/L Anion Gap 11 L (12-20) BUN 5 L D (9-16) mg/dL Creatinine 0.70 (0.5-1.4) mg/dL Estim Creat Clear Calc 101.7 Estimated GFR > 60 Random Glucose 100 (60-115) mg/dL Calcium 8.2 L (8.4-10.2) mg/dL Total Bilirubin 0.3 (0.0-1.0) mg/dL AST 12 (5-31) U/L ALT 11 (0-31) U/L Alkaline Phosphatase 59 (39-117) U/L Total Protein 5.1 L (6.5-8.0) g/dL Albumin 3.3 L (3.5-5.0) g/dL Lipase 47 (8-78) U/L Urine Color Urine Appearance Urine pH (5.0-8.0) Ur Specific Oriental (1.005-1.025) Urine Protein (NEG-TRACE) MG/DL Urine Glucose (UA) (NEG) MG/DL Urine Ketones (NEG) MG/DL Urine Blood (NEG) Urine Nitrite (NEG) Ur Leukocyte Esterase (NEG) Urine RBC (0) /HPF Urine WBC (0-4) /HPF Ur Squamous Epith Cells /LPF Urine Bacteria /LPF Urine Test (NEGATIVE) Discharge Plan Discharge Clinical Impression: Musculoskeletal back pain, Muscle spasm Patient Disposition: Home, Self-Care Instructions: Musculoskeletal Pain (ED), Muscle Spasm (ED) Additional Instructions: 1. Tylenol 1000 mg, orally, every 6 hours as needed for pain control. Do not exceed 4000 mg within 24 hours. 2. Lidocaine patch, apply to area of maximal tenderness as directed on the outside packaging. 3. Follow-up with your primary care provider on Monday morning for re-evaluation further outpatient management. Return to the ER for worsening symptoms. Prescriptions: New ketorolac 10 mg tablet 10 mg PO Q6H PRN (Reason: pain) 5 Days Qty: 20 0RF Rx Instructions: 1. Patient received Toradol in the emergency room. 2. Patient should stop all other NSAIDs: Ibuprofen, Motrin, Aleve, Naprosyn, etc. No Action clonazepam 1 mg tablet 1 mg PO BID 30 Days Qty: 60 2RF Rx Instructions: will start taking Rx BID bisacodyl [Dulcolax (bisacodyl)] 5 mg tablet,delayed release (DR/EC) 10 mg PO ONCE 1 Days Qty: 2 0RF Rx Instructions: Take 2 tablets at 12:00pm the day before your procedure, bowel prep phenazopyridine [Pyridium] 100 mg tablet 100 mg PO TID PRN (Reason: pain) 5 Days Qty: 20 0RF oxybutynin chloride 5 mg tablet 5 mg PO DAILY PRN (Reason: bladder spasms) 14 Days Qty: 14 0RF ondansetron 4 mg tablet,disintegrating 4 mg PO Q8H PRN (Reason: nausea and vomiting) Qty: 30 0RF Motegrity 1 mg tablet 1 mg PO DAILY 30 Days Qty: 30 2RF bupropion HCl 100 mg tablet sustained-release 12 hr 2 tab PO QAM 0RF topiramate 100 mg tablet 1 tab PO DAILY 0RF Aimovig Autoinjector 140 mg/mL auto-injector subcut Q4W 0RF chlorpromazine 100 mg Tablet 100 mg PO TID 0RF cefuroxime axetil 500 mg tablet 500 mg PO BID 7 Days Qty: 14 0RF benztropine 0.5 mg tablet 0.5 mg PO DAILY Qty: 30 0RF sucralfate 1 gram tablet 1 g PO BID Qty: 180 1RF famotidine 40 mg tablet 40 mg PO BEDTIME Qty: 30 0RF omeprazole 40 mg capsule,delayed release(DR/EC) 40 mg PO DAILY 90 Days Qty: 90 2RF benztropine 1 mg tablet 1 tab PO BID Qty: 60 0RF perphenazine 4 mg tablet 8 mg PO BID Qty: 60 0RF hydroxyzine HCl 10 mg tablet 10 mg PO BEDTIME 14 Days Qty: 14 0RF Rx Instructions: For sleep lurasidone 120 mg tablet 120 mg PO DAILY Qty: 30 0RF bisacodyl [Bisa-Lax (bisacodyl)] 5 mg tablet,delayed release (DR/EC) 10 mg PO BEDTIME PRN (Reason: constipation) 2 Days Qty: 30 0RF sumatriptan succinate 50 mg tablet 50 mg PO DAILY PRN (Reason: Migraine Headache) 0RF divalproex 500 mg tablet extended release 24 hr 1,500 mg PO DAILY 0RF cholecalciferol (vitamin D3) 50 mcg (2,000 unit) capsule 50 mcg PO DAILY 90 Days Qty: 90 1RF Referrals: Ramesh Sampson PA-C [Primary Care Provider] -
[2021-07-04 05:09] LABS: MANUAL DIFF FLAG NO
[2021-07-04 05:10] LABS: Basophils Percent Auto 0.3 % (0-2); Eosinophils Absolute Auto 0.2 X10*3/uL (0.0-0.4); Eosinophils Percent Auto 2.3 % (0-4); Hematocrit 34.7 % (37.0-47.0); Hemoglobin 11.7 g/dl (12.0-16.0); Imm Gran Abs Auto 0.02 X10*3/uL (0.00-0.03); Imm Gran Pct Auto 0.2 % (0.0-0.4); Lymphocytes Absolute Auto 3.8 X10*3/uL (1.2-4.9); Lymphocytes Percent Auto 43.6 % (20-40); Mean Corpuscular HGB Conc 33.7 g/dl (31.0-35.0); Mean Corpuscular Hemoglobin 32.6 pg (27.0-33.0); Mean Corpuscular Volume 96.7 fL (80.0-98.0); Mean Platelet Volume 11.8 fL (9.4-12.3); Monocytes Absolute Auto 0.7 X10*3/uL (0.1-1.2); Monocytes Percent Auto 7.4 % (2-11); Neutrophils Percent Auto 46.2 % (45-73); Platelet Count 186 X10*3/uL (160-400); Red Blood Count 3.59 X10*6/uL (4.20-5.50); Red Cell Distribution Width 12.2 % (11.0-16.0); White Blood Count 8.7 X10*3/uL (4.8-10.8)
[2021-07-04] MEDS: ondansetron HCL 4 MG/2 ML VIAL IVPUSH (05:25)
[2021-07-04 05:28] LABS: Alanine Aminotransferase 11 U/L (0-31); Albumin Level 3.3 g/dL (3.5-5.0); Alkaline Phosphatase 59 U/L (39-117); Anion Gap 11 (12-20); Aspartate Amino Transferase 12 U/L (5-31); Bilirubin Total 0.3 mg/dL (0.0-1.0); Blood Urea Nitrogen 5 mg/dL (9-16); Calcium 8.2 mg/dL (8.4-10.2); Carbon Dioxide 24 mmol/L (22-29); Chloride 111 mmol/L (96-108); Creatinine Clr Calc Pharmacy 101.7; Estimated Glomerular Filt Rate > 60; Glucose Random 100 mg/dL (60-115); Lipase 47 U/L (8-78); Potassium 3.9 mmol/L (3.3-5.1); Sodium 142 mmol/L (135-145); Total Protein 5.1 g/dL (6.5-8.0)
== END 2021-07-04 06:44 | disposition home or self-care (01) ==
PROVIDERS: Emergency Provider Student in an Organized Health Care Education/Training Program; PCP Physician Assistant
DX: M54.9 Dorsalgia, unspecified (principal); M62.830 Muscle spasm of back; R10.9 Unspecified abdominal pain; F17.210 Nicotine dependence, cigarettes, uncomplicated; Z87.442 Personal history of urinary calculi
CPT/HCPCS: 36415; 51798; 71045; 74176; 80053; 81001; 81003; 81025; 83690; 85025; 96361; 96374; 96375; 99284; 99285; J1885; J2405; J3010

== ENCOUNTER → 2021-07-09 10:24 | Outpatient (BNVA) | payer MEDICARE, MEDICAID, SELFPAY | PROVIDERS: PCP Physician Assistant; Referring Provider Physician Assistant; Visit Provider Internal Medicine Gastroenterology | DX: M79.18 Myalgia, other site (principal) | CPT/HCPCS: 99212 ==

== ENCOUNTER → 2021-08-06 12:09 | Outpatient (BNVA) | payer MEDICARE, MEDICAID, SELFPAY | PROVIDERS: PCP Physician Assistant; Visit Provider Dietitian, Registered | DX: K31.84 Gastroparesis (principal) | CPT/HCPCS: 97802 ==

== ENCOUNTER → 2021-08-11 10:11 | Outpatient (BNVA) | payer MEDICARE, MEDICAID, SELFPAY | PROVIDERS: PCP Physician Assistant; Visit Provider Nurse Practitioner Family | DX: M79.18 Myalgia, other site (principal) | CPT/HCPCS: 99202 ==

== ENCOUNTER → 2021-08-16 15:03 | Outpatient (BNVA) | payer MEDICARE, MEDICAID, SELFPAY | PROVIDERS: PCP Physician Assistant; Visit Provider Internal Medicine | DX: M79.18 Myalgia, other site (principal); Z98.890 Other specified postprocedural states | CPT/HCPCS: Q3014 ==

== ENCOUNTER 2021-09-03 06:11 | Emergency (ER) | payer MEDICARE, MEDICAID, SELFPAY ==
[2021-09-03 06:26] VITALS: BP 99/50; PULSE 81; RESP 18; TEMP 36.8; O2SAT 99; BMI 21.9
[2021-09-03 06:56] LABS: MANUAL DIFF FLAG NO
[2021-09-03 06:59] LABS: Basophils Percent Auto 0.4 % (0-2); Eosinophils Absolute Auto 0.4 X10*3/uL (0.0-0.4); Eosinophils Percent Auto 4.6 % (0-4); Hematocrit 39.3 % (37.0-47.0); Hemoglobin 13.5 g/dl (12.0-16.0); Imm Gran Abs Auto 0.04 X10*3/uL (0.00-0.03); Imm Gran Pct Auto 0.5 % (0.0-0.4); Lymphocytes Absolute Auto 1.6 X10*3/uL (1.2-4.9); Lymphocytes Percent Auto 19.8 % (20-40); Mean Corpuscular HGB Conc 34.4 g/dl (31.0-35.0); Mean Corpuscular Hemoglobin 33.5 pg (27.0-33.0); Mean Corpuscular Volume 97.5 fL (80.0-98.0); Mean Platelet Volume 12.1 fL (9.4-12.3); Monocytes Absolute Auto 0.6 X10*3/uL (0.1-1.2); Monocytes Percent Auto 7.9 % (2-11); Neutrophils Absolute Auto 5.4 x10*3/uL (2.0-8.3); Neutrophils Percent Auto 66.8 % (45-73); Platelet Count 198 X10*3/uL (160-400); Red Blood Count 4.03 X10*6/uL (4.20-5.50); Red Cell Distribution Width 13.6 % (11.0-16.0)
[2021-09-03 07:21] LABS: Alanine Aminotransferase 15 U/L (0-31); Albumin Level 3.6 g/dL (3.5-5.0); Alkaline Phosphatase 67 U/L (39-117); Anion Gap 9 (12-20); Aspartate Amino Transferase 15 U/L (5-31); Bilirubin Total < 0.2 mg/dL (0.0-1.0); Blood Urea Nitrogen 11 mg/dL (9-16); Calcium 8.8 mg/dL (8.4-10.2); Carbon Dioxide 26 mmol/L (22-29); Chloride 109 mmol/L (96-108); Creatinine Clr Calc Pharmacy 94.9; Estimated Glomerular Filt Rate > 60; Glucose Random 91 mg/dL (60-115); Potassium 4.2 mmol/L (3.3-5.1); Sodium 140 mmol/L (135-145); Total Protein 5.5 g/dL (6.5-8.0)
== END 2021-09-03 07:54 | disposition left against medical advice (07) ==
PROVIDERS: Emergency Provider Emergency Medicine; PCP Physician Assistant
DX: R11.2 Nausea with vomiting, unspecified (principal); Z79.899 Other long term (current) drug therapy
CPT/HCPCS: 36415; 80053; 85025; 99281; 99283

== ENCOUNTER 2021-09-23 15:39 | Outpatient (REF) | payer MEDICARE, MEDICAID, SELFPAY ==
--- NOTE | ~2021-09-23 | XR_ITS ---
EXAMINATION: XR THORACIC SPINE XR LUMBAR SPINE CLINICAL INFORMATION: Pain in the thoracic spine. Low back pain. COMPARISON: Selected images of chest CT of 05/24/2021 and selected images of the abdomen and pelvic CT of 07/04/2021. Chest x-ray of 07/04/2021. TECHNIQUE: AP and lateral views of the thoracic spine along with swimmer's view. AP and lateral view of lumbar spine along with coned-down lateral view of L5-S1. FINDINGS: There are 12 thoracic-type rib-bearing and 5 lumbar-type [id number] vertebrae. The vertebral body heights and alignment are maintained. Minimal narrowing of L5-S1 disc space, remainder of the disc spaces in the thoracolumbar spine are preserved. No suspicious lytic or blastic osseous lesions. Minimal multilevel anterior endplate hypertrophic spurring is noted in the thoracolumbar spine. Posterior elements appear intact. Visualized lungs are unremarkable. Cardiomediastinal silhouette is stable and normal. Paraspinous soft tissues are unremarkable. Limited evaluation of the sacroiliac joints is unremarkable. XR/XR lumbar spine 2-3V IMPRESSION: No evidence of acute compression fracture or suspicious osseous abnormality in the thoracolumbar spine. Stable mild degenerative disc disease at L5-S1. Minimal thoracolumbar spondylosis.
--- NOTE | ~2021-09-23 | XR_ITS ---
EXAMINATION: XR THORACIC SPINE XR LUMBAR SPINE CLINICAL INFORMATION: Pain in the thoracic spine. Low back pain. COMPARISON: Selected images of chest CT of 05/24/2021 and selected images of the abdomen and pelvic CT of 07/04/2021. Chest x-ray of 07/04/2021. TECHNIQUE: AP and lateral views of the thoracic spine along with swimmer's view. AP and lateral view of lumbar spine along with coned-down lateral view of L5-S1. FINDINGS: There are 12 thoracic-type rib-bearing and 5 lumbar-type [id number] vertebrae. The vertebral body heights and alignment are maintained. Minimal narrowing of L5-S1 disc space, remainder of the disc spaces in the thoracolumbar spine are preserved. No suspicious lytic or blastic osseous lesions. Minimal multilevel anterior endplate hypertrophic spurring is noted in the thoracolumbar spine. Posterior elements appear intact. Visualized lungs are unremarkable. Cardiomediastinal silhouette is stable and normal. Paraspinous soft tissues are unremarkable. Limited evaluation of the sacroiliac joints is unremarkable. XR/XR thoracic spine 2V IMPRESSION: No evidence of acute compression fracture or suspicious osseous abnormality in the thoracolumbar spine. Stable mild degenerative disc disease at L5-S1. Minimal thoracolumbar spondylosis.
[2021-09-23 16:24] LABS: Hematocrit 37.5 % (37.0-47.0); Hemoglobin 12.4 g/dl (12.0-16.0); Mean Corpuscular HGB Conc 33.1 g/dl (31.0-35.0); Mean Corpuscular Hemoglobin 32.4 pg (27.0-33.0); Mean Corpuscular Volume 97.9 fL (80.0-98.0); Mean Platelet Volume 11.4 fL (9.4-12.3); Platelet Count 253 X10*3/uL (160-400); Red Blood Count 3.83 X10*6/uL (4.20-5.50); Red Cell Distribution Width 13.5 % (11.0-16.0); White Blood Count 8.5 X10*3/uL (4.8-10.8)
[2021-09-23 16:47] LABS: Anion Gap 13 (12-20); Blood Urea Nitrogen 5 mg/dL (9-16); Calcium 9.1 mg/dL (8.4-10.2); Carbon Dioxide 24 mmol/L (22-29); Chloride 109 mmol/L (96-108); Estimated Glomerular Filt Rate > 60; Glucose Random 98 mg/dL (60-115); Potassium 4.1 mmol/L (3.3-5.1); Sodium 142 mmol/L (135-145)
[2021-09-23 18:10] LABS: Appearance Urine CLEAR; Color Urine YELLOW; Glucose Urine UA NEG (NEG); Leukocyte Esterase Urine NEG (NEG); Nitrite Urine NEG (NEG); PH 7.5 (5.0-8.0); Urine Blood NEG (NEG); Urine Ketones NEG (NEG); Urine Protein NEG (NEG-TRACE)
[2021-09-27 14:52] LABS: Aspergillus Antigen Not Detected (Not Detected); Index Value 0.12 (<0.50)
== END 2021-09-23 15:40 | disposition home or self-care (01) ==
LOC: HO.LAB 15:39
PROVIDERS: PCP Physician Assistant; Visit Provider Physician Assistant
DX: R13.10 Dysphagia, unspecified (principal); M54.6 Pain in thoracic spine; M54.50 Low back pain, unspecified; R30.0 Dysuria; Z77.120 Contact with and (suspected) exposure to mold (toxic)
CPT/HCPCS: 36415; 72070; 72100; 80048; 81003; 85027; 87103; 87305

== ENCOUNTER → 2021-10-12 11:37 | Outpatient (BNVA) | payer MEDICARE, MEDICAID, SELFPAY | PROVIDERS: PCP Physician Assistant; Visit Provider Dietitian, Registered | DX: K31.84 Gastroparesis (principal); Z71.3 Dietary counseling and surveillance | CPT/HCPCS: 97803 ==

== ENCOUNTER 2021-11-04 14:11 | Outpatient (REF) | payer MEDICARE, MEDICAID, SELFPAY ==
[2021-11-06 08:56] LABS: CA 27.29 11 U/mL (<38); Carbohydrate Antigen 19-9 13 U/mL (<34)
== END 2021-11-04 14:12 | disposition home or self-care (01) ==
LOC: HO.LAB 14:11
PROVIDERS: PCP Physician Assistant; Visit Provider Physician Assistant
DX: R63.4 Abnormal weight loss (principal); T83.32XD Displacement of intrauterine contraceptive device, subsequent encounter; R11.0 Nausea; K31.84 Gastroparesis; R13.10 Dysphagia, unspecified; Z77.120 Contact with and (suspected) exposure to mold (toxic); X58.XXXD Exposure to other specified factors, subsequent encounter
CPT/HCPCS: 36415; 86300; 86301

== ENCOUNTER → 2021-11-15 13:57 | Outpatient (BNVA) | payer MEDICARE, MEDICAID, SELFPAY | PROVIDERS: PCP Physician Assistant; Visit Provider Internal Medicine Gastroenterology | DX: K31.84 Gastroparesis (principal); R94.6 Abnormal results of thyroid function studies | CPT/HCPCS: 99212 ==

== ENCOUNTER → 2022-01-03 14:30 | Outpatient (BNVA) | payer MEDICARE, MEDICAID, SELFPAY | PROVIDERS: PCP Physician Assistant; Visit Provider Internal Medicine Gastroenterology | DX: K31.84 Gastroparesis (principal) | CPT/HCPCS: 99212 ==

== ENCOUNTER → 2022-01-10 12:28 | Outpatient (BNVA) | payer MEDICARE, MEDICAID, SELFPAY | PROVIDERS: PCP Physician Assistant; Visit Provider Physician Assistant | DX: M76.891 Other specified enthesopathies of right lower limb, excluding foot (principal) | CPT/HCPCS: 99202 ==

== ENCOUNTER 2022-01-17 13:19 | Outpatient (REF) | payer MEDICARE, MEDICAID, SELFPAY ==
--- NOTE | ~2022-01-17 | US_ITS ---
EXAMINATION: US EXTREMITY NONVASCULAR CLINICAL INFORMATION: Localized swelling, mass and lump right lower limb/anterior proximal thigh. COMPARISON: CT abdomen and pelvis 07/04/2021. TECHNIQUE: Routine limited imaging to the right proximal thighs performed. FINDINGS: There is an echogenic lesion right anterior thigh with posterior acoustic shadowing. This could represent a solid lesion or a calcification. It corresponds to a calcification seen on the previous CT abdomen and pelvis exam 07/04/2021. US/US extremity nonvascular march IMPRESSION: Clinically palpable lump by patient in the right upper anterior thigh corresponds to an echogenic area corresponding to calcification seen on CT abdomen and pelvis exam 07/04/2021.
== END 2022-01-17 13:20 | disposition home or self-care (01) ==
LOC: HO.US 13:19
PROVIDERS: Visit Provider Physician Assistant
DX: R22.41 Localized swelling, mass and lump, right lower limb (principal)
CPT/HCPCS: 76882

== ENCOUNTER 2022-02-01 11:03 | Outpatient (REF) | payer MEDICARE, MEDICAID, SELFPAY ==
--- NOTE | ~2022-02-01 | MR_ITS ---
EXAMINATION: MR HIP WITHOUT CONTRAST, RIGHT CLINICAL INFORMATION: Hip flexor tendinitis. Anterior palpable finding. Labral repair 10 years ago. COMPARISON: None TECHNIQUE: MRI of the right hip was obtained using routine sequences on a high-field strength magnet. FINDINGS: ACETABULAR LABRUM: Decreased T1/T2 signal at the anterosuperior acetabulum which could represent postsurgical change. Thin, linear fluid signal within the undersurface of the anterosuperior labrum (sagittal image 24), which could represent a recurrent, nondisplaced undersurface labral tear. No additional labral tear. ARTICULAR CARTILAGE/BONE: Mild articular cartilage signal heterogeneity with tiny marginal osteophytes. Degenerative cystic change at the anterior femoral head/neck junction. No stress reaction, fracture, or avascular necrosis. No concerning lytic or blastic osseous lesion. MUSCLES/TENDONS: Increased T2 signal/edema along the gluteus minimus and anterior gluteus medius tendons consistent with [id number] tendinosis. Minimal increased T2 signal along the distal myotendinous junction of the iliopsoas, consistent with a minimal strain. No measurable tendon tear or tendon retraction. JOINT FLUID/BURSA: Trace joint effusion. INTRAPELVIC STRUCTURES: Unremarkable. MR/MR hip RT wo con IMPRESSION: 1. Probable postsurgical change at the anterosuperior acetabulum. Linear fluid signal within the undersurface of the anterosuperior labrum, which could represent a recurrent, nondisplaced undersurface tear. If there is clinical concern, MR arthrography could help further evaluate labral tissue. 2. Hufi-lp-[id number] gluteus minimus and anterior gluteus medius tendinosis. No measurable tendon tear or tendon retraction. 3. Minimal strain of the distal iliopsoas myotendinous junction. 4. Mild right hip osteoarthritis. Trace joint effusion.
== END 2022-02-01 11:04 | disposition home or self-care (01) ==
LOC: HO.MRI 11:03
PROVIDERS: Visit Provider Physician Assistant
DX: M76.899 Other specified enthesopathies of unspecified lower limb, excluding foot (principal)
CPT/HCPCS: 73721

== ENCOUNTER → 2022-02-09 13:28 | Outpatient (BNVA) | payer MEDICARE, MEDICAID, SELFPAY | PROVIDERS: PCP Physician Assistant; Visit Provider Surgery | DX: R22.41 Localized swelling, mass and lump, right lower limb (principal) | CPT/HCPCS: 99202 ==

== ENCOUNTER → 2022-02-23 10:38 | Outpatient (BNVA) | payer MEDICARE, MEDICAID, SELFPAY | PROVIDERS: PCP Physician Assistant; Visit Provider Physician Assistant | DX: M76.891 Other specified enthesopathies of right lower limb, excluding foot (principal) | CPT/HCPCS: 99212 ==

== ENCOUNTER 2022-03-18 07:28 | Outpatient (REF) | payer MEDICARE, MEDICAID, SELFPAY | END 2022-03-18 07:29 | disposition home or self-care (01) | LOC: HO.HOSX 07:28 | PROVIDERS: Visit Provider Physician Assistant | DX: Z13.89 Encounter for screening for other disorder (principal) ==

== ENCOUNTER 2022-09-12 11:35 | Outpatient (AMB) | payer MEDICARE, MEDICAID, SELFPAY ==
--- NOTE | 2022-09-12 11:37 | MHC.PC.OV ---
Vital Signs 09/12/22 11:38 Height 5 ft 7 in Weight 130 lb BMI 20.4 BP 100/62 Blood Pressure Location Lt brachial Position Sitting Pulse 82 Pulse Source Pulse Oximeter Temp Source Skin Pulse Oximetry (%) 99 Oxygen Delivery Method Room Air Intake Visit Reasons: PE Intake Note: Patient is here today for a physical. Thermostat Maker Required: No Allergies olanzapine [From ZYPREXA] Allergy (Severe, Verified 09/12/22 11:48) SWELLING oxcarbazepine [From TRILEPTAL] Allergy (Severe, Verified 09/12/22 11:48) antony's Rob syndrome gabapentin Allergy (Unknown, Verified 09/12/22 11:48) Loss of balance lithium [LITHIUM] Allergy (Unknown, Verified 09/12/22 11:48) UNKNOWN quetiapine [Seroquel] Allergy (Unknown, Verified 09/12/22 11:48) Unknown sulfamethoxazole [From BACTRIM] Allergy (Unknown, Verified 09/12/22 11:48) severe rash trimethoprim [From BACTRIM] Allergy (Unknown, Verified 09/12/22 11:48) severe rash cyclobenzaprine [From Flexeril] Adverse Reaction (Intermediate, Verified 09/12/22 11:48) Agitated From SEROQUEL Allergy (Unknown, Uncoded 09/12/22 11:39) UNKNOWN Medication List - Last Reconciled 09/12/22 by Ramesh Sampson PA-C acetaminophen 500 mg PO Q6H 10 days benztropine 0.5 mg PO BID 90 days bisacodyl (Bisa-Lax (bisacodyl)) 10 mg (2 x 5 mg) PO BEDTIME PRN 2 days bupropion HCl 300 mg PO DAILY 90 days cholecalciferol (vitamin D3) 50 mcg PO DAILY 90 days clonazepam 1 mg PO BID 30 days divalproex ER 1,500 mg (3 x 500 mg) PO DAILY 30 days erenumab-aooe (Aimovig Autoinjector) mg subcut Q4W famotidine 40 mg PO BEDTIME folic acid 20 mg PO DAILY hydroxyzine HCl 25 mg PO BEDTIME ibuprofen 600 mg PO Q8H 7 days ibuprofen mg PO lactulose 30 mL PO BID PRN 30 days Latuda (lurasidone) 80 mg PO DAILY 90 days NS lidocaine 4% (Aspercreme (lidocaine)) 2 patches topical DAILY PRN methocarbamol 750 mg PO BID 15 days mupirocin 2% apply into nostrils (use Q-tips) intranasally 3 times a day; 7 days omeprazole 40 mg PO DAILY 90 days ondansetron 8 mg sublingual Q12H PRN ondansetron 8 mg sublingual Q12H PRN perphenazine 8 mg PO DAILY prucalopride (Motegrity) 2 mg PO DAILY sucralfate 1 g PO BID sumatriptan succinate 50 mg PO DAILY PRN tizanidine 2 mg PO BID Tobacco use date assessed: 09/12/22 Dental Screening Dental Screen Date: 09/12/22 Did you have a dental visit in the last 12 months?: Yes Did you have a dental problem in the last 6 months where you did not have access to dental care?: No Was dental information given to patient?: Patient has dentist HPI PE HPI Details Patient is a 42-year-old female here today for routine annual physical. Patient has a past medical history significant for schizoaffective disorder, bipolar disorder, gastroparesis. Recently underwent left shoulder reconstruction surgery in [place] and doing better. Still has some deficits in her range of motion and has pain over her deltoid region. .. Bipolar disorder: Has lost follow-up with her psychiatrist and now has PCP managing her mental health medication. Does use clonazepam on a very limited p.r.n. basis for high points of anxiety. She feels her mental health is stable on current doses of her mental health medications at this time. .. Gastroparesis: Still has intermittent episodes abdominal pain and cramping. Continues to follow gastroenterology though has difficulty with correspondence. 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 Father No problems noted. Social History Household Members: Other Household Members Other:: mother Housing: House Do you presently have visiting nurse or other home services: No Alcohol intake: never Patient Tobacco Use Status: Current everyday Tobacco user Cigarette Packs Per Day: 0.5 Cigarettes Per Day: 10.0 Years Smoked: 25 e-Cigarette/Vaping Use: Never Used Second Hand Smoke Exposure: Yes Substance Use Type: Marijuana Advance Directives Date on File: 05/19/21 service: No Current occupational status: unemployed and disabled Cognitive needs: No Hearing needs: No Vision needs: No Questionnaire PHQ-9 Over the last 2 weeks, how often have you been bothered by any of the following problems? 1. Little interest or pleasure in doing things: not at all 2. Feeling down, depressed, or hopeless: not at all 3. Trouble falling or staying asleep, or sleeping too much: not at all 4. Feeling tired or having little energy: not at all 5. Poor appetite or overeating: not at all 6. Feeling bad about yourself - or that you are a failure or have let yourself or your family down: not at all 7. Trouble concentrating on things, such as reading the newspaper or watching television: not at all 9. Thoughts that you would be better off or of hurting yourself in some way: not at all Depression Screening Interpretation: Negative 62195 - PHQ-9 Billing: Yes Source: Developed by Drs. Ayush Lara, Anum Boyer, Brendan Herbert and colleagues, with an educational richar from [employer]. Thrive Questionnaire Date Thrive assessed: 09/12/22 I am a: Patient What is your living situation today?: I have a steady place to live Within the past 12 months, did the food you bought not last and you didn't have the money to get more?: Never true Within the past 12 months, did you worry whether your food would run out before you got money to buy more?: Never true AUDIT C Alcohol Use Questionnaire (AUDIT-C) 1. How often do you have a drink containing alcohol?: 2-4 times a month 2. How many drinks containing alcohol do you have on a typical day when you are drinking?: 1 or 2 3. How often do you have six or more drinks on one occasion?: Never Total Score: 2 GLORIA-7 AMB Questionnaire GLORIA-7 Date GLORIA - 7 assessed: 09/12/22 Feeling nervous, anxious, or on edge: 0 = Not at all Not being able to stop or control worryin = Not at all Worrying too much about different things: 0 = Not at all Trouble relaxin = Not at all Being so restless that it is hard to sit still: 0 = Not at all Becoming easily annoyed or irritable: 0 = Not at all Feeling afraid as if something awful might happen: 0 = Not at all Total GLORIA-7 score (0-4 normal; 5-9 mild; 10-14 moderate; 15-21 severe): 0 Source: Developed by Drs. Ayush Lara, Anum Boyer, Brendan Herbert and colleagues, with an educational richar from [employer]. GLORIA-7 Assessment Billing GLORIA-7 Assessment Tool: GLORIA-7 Assessment 83526 Review of Systems Const Denies body aches, Denies chills, Denies excessive sweating, Denies fatigue, Denies fever(s) and Denies headache(s) Eyes Denies blurry vision ENT Denies dysphagia, Denies vertigo, Denies dizziness, Denies headache(s), Denies hearing loss and Denies tinnitus Card Denies chest pain, Denies chest pain with activity, Denies syncope, Denies irregular heart rhythm and Denies dyspnea Resp Denies chest congestion, Denies cough, Denies hemoptysis, Denies dyspnea and Denies wheezing GI Denies abdominal pain, Denies melena, Denies hematochezia, Denies coffee ground emesis, Denies dysphagia, Denies diarrhea, Denies nausea and Denies vomiting Denies urinary frequency, Denies dysuria, Denies urinary hesitancy and Denies urinary urgency Musc Denies arthralgias, Denies limited range of motion, Denies muscle cramps and Denies muscle weakness Skin/Breast Denies rash and Denies skin ulcer Neuro Denies Abnormal speech present, Denies confusion, Denies vertigo, Denies dizziness, Denies syncope, Denies headache(s), Denies memory loss and Denies seizure-like activity Psych Denies anxiety, Denies confusion, Denies depression, Denies memory loss, Denies panic attacks and Denies paranoia Endo Denies excessive sweating, Denies fatigue, Denies flushing, Denies polydipsia and Denies polyuria Aller/Immun Denies wheezing Physical exam (Primary Care) Vital Signs: Last Vital Signs Pulse 82 09/12/22 11:38 BP 100/62 09/12/22 11:38 Pulse Ox 99 09/12/22 11:38 Oxygen Delivery Method Room Air 09/12/22 11:38 BMI result Body Mass Index 20.4 Tobacco/Smoking Status: Tobacco use Status Tobacco use date assessed 09/12/22 09/12/22 11:44 Patient Tobacco Use Status Current everyday Tobacco 09/12/22 11:44 Tobacco use type 08/31/21 12:14 e-Cigarette/Vaping Use Never Used 09/12/22 11:38 Are you ready to quit: No Tobacco cessation counseling provided: Yes Relapse Prevention: discussed the importance of a supportive environment, discussed negative mood or depression after quitting, weight gain after smoking is common and discussed dietary, exercise and/or lifestyle changes Number of minutes spent counselin CPT code: 44079 - 4-10 Minutes Depression Screening Interpretation: Negative Thrive Assessment: Date of Thrive Assessment Date Thrive assessed 09/12/22 09/12/22 11:39 Const General: cooperative, comfortable, no acute distress, alert and awake; No confusion Orientation/consciousness: oriented to person, oriented to place, patient oriented x3 and No confusion HENMT Head: Yes normocephalic Ears: external ears normal and TM's normal bilaterally Face and sinus: No sinus tenderness Mouth: Normal oral and palatal mucosa present and tongue normal Teeth and gingiva: dentition normal and gingiva normal Throat: Yes posterior oropharynx normal, Yes tonsils normal and Yes uvula midline Eyes Conjunctivae: conjunctivae normal Sclerae: sclerae normal Pupils: Equal, round and reactive pupils present EOM: EOMs intact bilaterally Direct Ophthalmoscopy: No no photophobia Neck Neck: Yes no lymphadenopathy, No tender and Yes no JVD Thyroid: Thyroid normal Carotids: no bruits Chest Chest palpation & inspection: no tenderness Resp Effort & Inspection: normal respiratory effort, no audible wheezes, not labored and no stridor Auscultation: no crackles, no rales, no rhonchi and no wheezes Cardio Jugular venous distension: no JVD Rate: regular rate, not bradycardic and not tachycardic Rhythm: regular rhythm Bruits: no carotid bruits Peripheral pulses: Peripheral pulses 2+ throughout GI Inspection: Yes normal to inspection, No abdominal wall ecchymosis and No visible herniation Palpation (GI): Soft to palpation, nontender, no guarding, not rigid and No hepatosplenomegaly present Auscultation: normoactive bowel sounds General: Yes no CVA tenderness Back/Spine/Pelvis Back: no CVA tenderness and No back tenderness Cervical Spine: cervical ROM normal Thoracic/Lumbar Spine: thoracic and lumbar spine normal to inspection, straight leg raise negative bilaterally, No thoraco-lumbar ROM limited and No lumbar spinal tenderness Skin Lesions: no lesions Rashes: no rashes Wounds: no wounds Neuro General: oriented to person, oriented to place, patient oriented x3, CN's II-XI intact bilaterally and No confusion Cranial nerves: Yes Equal, round and reactive pupils present and Yes Normal accommodation reflex present Cognition (Neuro): normal cognition Speech: No Abnormal speech present Gait exam (Neuro): Normal gait present Motor exam (neuro): 5/5 motor strength present throughout Extrem Right upper extremity: full ROM; no cyanosis Left upper extremity: full ROM; no cyanosis Right lower extremity: no edema Left lower extremity: no edema Psych Appearance: grossly normal Mental Status: mental status grossly normal Affect: normal affect Attitude: cooperative Thought process: Normal thought process present Assessment and Plan Assessment & Plan (1) Annual physical exam: Code(s): Z00.00 - Encounter for general adult medical examination without abnormal findings (2) Gastroparesis: Comment: Pt has lost 5 lbs since last visit related to vomiting/gastroparesis/decreased appetite. Recommend Ensure plant based nutritional supplement twice/day for 360 liliane per day and 40 g of protein. Code(s): K31.84 - Gastroparesis Plan: Continues to suffer with gastroparesis. Does use Motegrity is followed by gastroenterology (3) Bipolar disorder: Code(s): F31.9 - Bipolar disorder, unspecified Qualifiers: Active/Remission status: currently active Current bipolar episode type: manic Current episode severity: moderate Qualified Code(s): F31.12 - Bipolar disorder, current episode manic without psychotic features, moderate Plan: She feels her bipolar disorder is fairly well stable with the current mental health medications at this time. Still on waiting list to see new psychiatrist (4) Screening for diabetes mellitus (DM): Code(s): Z13.1 - Encounter for screening for diabetes mellitus (5) Tobacco dependence: Code(s): F17.200 - Nicotine dependence, unspecified, uncomplicated Plan: Unfortunately continues to smoke and does understand she needs to quit. Does report smoking half pack of cigarettes per day and which helps her with her anxieties. Does have a partner who smokes as well. She is willing to try nicotine gum again. (6) Breast cancer screening: Code(s): Z12.39 - Encounter for other screening for malignant neoplasm of breast Qualifiers: Breast cancer screening modality: mammogram Qualified Code(s): Z12.31 - Encounter for screening mammogram for malignant neoplasm of breast Orders: Orders TSH reflex Free T4 Today R79.89 - Other specified abnormal findings of blood chemistry Comprehensive [place]. Panel Fast Today Z13.1 - Encounter for screening for diabetes mellitus Complete Blood Count no Diff Today Z13.1 - Encounter for screening for diabetes mellitus MM screening mammo BI Today Z12.31 - Encounter for screening mammogram for malignant neoplasm of breast Medications: [place] (nicotine (polacrilex)) 4 mg buccal Q2H 110 ea 1RF 30 days NS F17.200 - Nicotine dependence, unspecified, uncomplicated Changed From clonazepam will start taking Rx BID 1 mg PO BID 30 days 60 tabs 2RF F41.1 - Generalized anxiety disorder To clonazepam 1 mg PO BID 30 days PRN 60 tabs 2RF anxiety F41.1 - Generalized anxiety disorder Discontinued lidocaine 4% (Aspercreme (lidocaine)) Discontinued Reason: Doctor's Order 2 patches topical DAILY PRN 30 ea 1RF pain M54.2 - Cervicalgia, S43.005D - Unspecified dislocation of left shoulder joint, subsequent encounter lactulose Discontinued Reason: Doctor's Order 30 mL PO BID 30 days PRN 1,800 mL 0RF constipation methocarbamol Discontinued Reason: Doctor's Order 750 mg PO BID 15 days 30 tabs 1RF S43.005D - Unspecified dislocation of left shoulder joint, subsequent encounter ondansetron Discontinued Reason: Doctor's Order 8 mg sublingual Q12H PRN 90 tabs 1RF for nausea/vomiting Coding Level of Care Code Est Pt Prev Care 40-64y(57855) Diagnoses Annual physical exam Z00.00 Gastroparesis K31.84 Bipolar disorder F31.12 Active/Remission status: currently active Current bipolar episode type: manic Current episode severity: moderate Screening for diabetes mellitus (DM) Z13.1 Tobacco dependence F17.200 Breast cancer screening Z12.31 Breast cancer screening modality: mammogram Additional Codes GLORIA-7 Assessment Billing - GLORIA-7 Assessment Tool: GLORIA-7 Assessment 56528 ([id number]) Vital Signs *Quality* - CPT code: 92769 - 4-10 Minutes ([id number])
[2022-09-12 11:38] VITALS: BP 100/62; PULSE 82; O2SAT 99; BMI 20.4
== END 2022-09-12 12:12 | disposition home or self-care (01) ==
PROVIDERS: Visit Provider Physician Assistant
DX: Z00.00 Encounter for general adult medical examination without abnormal findings (principal); F31.12 Bipolar disorder, current episode manic without psychotic features, moderate; F17.210 Nicotine dependence, cigarettes, uncomplicated; K31.84 Gastroparesis; Z13.1 Encounter for screening for diabetes mellitus; Z12.31 Encounter for screening mammogram for malignant neoplasm of breast
CPT/HCPCS: 99396

== ENCOUNTER → 2022-10-12 12:15 | Outpatient (BNV) | payer MEDICARE, MEDICAID, SELFPAY | PROVIDERS: PCP Physician Assistant; Visit Provider Radiology Diagnostic Radiology | DX: Z12.31 Encounter for screening mammogram for malignant neoplasm of breast (principal) | CPT/HCPCS: 77063; 77067 ==

== ENCOUNTER 2022-10-12 12:18 | Outpatient (REF) | payer MEDICARE, MEDICAID, SELFPAY ==
--- NOTE | ~2022-10-12 | MM_ITS ---
EXAMINATION: MM SCREENING DIGITAL BREAST TOMOSYNTHESIS, BILATERAL CLINICAL INFORMATION: Screening. Asymptomatic. The lifetime risk of breast cancer based on the Tyrer-Cuzick Model is 7.5%. COMPARISON: Mammography: This is a baseline study. TECHNIQUE: Digital breast tomosynthesis is performed in both the craniocaudal and mediolateral oblique views along with computer-aided detection (CAD). Synthesized 2D images are generated from the tomosynthesis. FINDINGS: The breasts are heterogeneously dense, which may obscure small masses (ACR BI-RADS breast composition Category c). There are no significant masses, abnormal calcifications, or other abnormalities. MM/MM tomosynthesis screening BI IMPRESSION: No mammographic evidence of malignancy. ASSESSMENT: BI-RADS BI-RADS 1 - Negative RECOMMENDATION: Routine annual mammography screening. 1 year F/U This examination should not preclude the clinical evaluation of a suspicious palpable abnormality. This patient's information was entered into a reminder system with a target due date for their next mammogram.
== END 2022-10-12 12:19 | disposition home or self-care (01) ==
LOC: HO.MAMMO 12:18
PROVIDERS: PCP Physician Assistant; Visit Provider Physician Assistant
DX: Z12.31 Encounter for screening mammogram for malignant neoplasm of breast (principal)
CPT/HCPCS: 77063; 77067

== ENCOUNTER 2023-02-10 08:23 | Outpatient (REF) | payer MEDICARE, MEDICAID, SELFPAY ==
[2023-02-10 10:01] LABS: Hemoglobin 13.7 g/dl (12.0-16.0); Mean Corpuscular HGB Conc 33.4 g/dl (31.0-35.0); Mean Corpuscular Hemoglobin 32.5 pg (27.0-33.0); Mean Corpuscular Volume 97.4 fL (80.0-98.0); Mean Platelet Volume 12.5 fL (9.4-12.3); Platelet Count 200 X10*3/uL (160-400); Red Blood Count 4.21 X10*6/uL (4.20-5.50); Red Cell Distribution Width 12.9 % (11.0-16.0); White Blood Count 9.8 X10*3/uL (4.8-10.8)
[2023-02-10 11:12] LABS: Alanine Aminotransferase 12 U/L (0-31); Albumin Level 4.2 g/dL (3.5-5.0); Alkaline Phosphatase 72 U/L (39-117); Anion Gap 13 (12-20); Aspartate Amino Transferase 17 U/L (5-31); Bilirubin Total 0.4 mg/dL (0.0-1.0); Blood Urea Nitrogen 11 mg/dL (9-16); Calcium 9.4 mg/dL (8.4-10.2); Carbon Dioxide 28 mmol/L (22-29); Chloride 106 mmol/L (96-108); Estimated Glomerular Filt Rate > 60; Glucose Fasting 76 mg/dL (60-99); Potassium 4.1 mmol/L (3.3-5.1); Sodium 143 mmol/L (135-145); TSH reflex Free T4 0.37 uIU/mL (0.32-4.0); Total Protein 6.6 g/dL (6.5-8.0)
== END 2023-02-10 08:24 | disposition home or self-care (01) ==
LOC: HO.LAB 08:23
PROVIDERS: PCP Physician Assistant; Visit Provider Physician Assistant
DX: Z13.1 Encounter for screening for diabetes mellitus (principal); R94.6 Abnormal results of thyroid function studies
CPT/HCPCS: 36415; 80053; 84443; 85027

== ENCOUNTER 2023-02-13 10:33 | Outpatient (AMB) | payer MEDICARE, MEDICAID, SELFPAY ==
--- NOTE | 2023-02-13 10:45 | A.OFFPC_ITS ---
Vital Signs 02/13/23 10:48 Height 5 ft 7 in Weight 139 lb 4 oz BMI 21.8 BP 80/60 L Blood Pressure Location Lt brachial Position Sitting Pulse 60 Pulse Source Pulse Oximeter Pulse Oximetry (%) 97 Oxygen Delivery Method Room Air Intake Visit Reasons: Follow Up Intake Note: Patient is here to follow up on GERD, Biopolar disorder, Lumbar spine pain. Science Manager Required: No Traffic Clerk: Not Required per policy Accompanied by: Self / Same As Patient Allergies olanzapine [From ZYPREXA] Allergy (Severe, Verified 02/13/23 11:05) SWELLING oxcarbazepine [From TRILEPTAL] Allergy (Severe, Verified 02/13/23 11:05) antony's Rob syndrome gabapentin Allergy (Unknown, Verified 02/13/23 11:05) Loss of balance lithium [LITHIUM] Allergy (Unknown, Verified 02/13/23 11:05) UNKNOWN quetiapine [Seroquel] Allergy (Unknown, Verified 02/13/23 11:05) Unknown sulfamethoxazole [From BACTRIM] Allergy (Unknown, Verified 02/13/23 11:05) severe rash trimethoprim [From BACTRIM] Allergy (Unknown, Verified 02/13/23 11:05) severe rash cyclobenzaprine [From Flexeril] Adverse Reaction (Intermediate, Verified 02/13/23 11:05) Agitated Medication List - Last Reconciled 02/13/23 by Ramesh Sampson PA-C acetaminophen 500 mg PO Q6H 10 days benztropine 0.5 mg PO BID 90 days bisacodyl (Bisa-Lax (bisacodyl)) 10 mg (2 x 5 mg) PO BEDTIME PRN 2 days bupropion HCl 300 mg PO DAILY 90 days cholecalciferol (vitamin D3) 50 mcg PO DAILY 90 days clonazepam 1 mg PO BID PRN 30 days divalproex ER 1,500 mg (3 x 500 mg) PO DAILY 30 days erenumab-aooe (Aimovig Autoinjector) mg subcut Q4W famotidine 40 mg PO BEDTIME folic acid 20 mg PO DAILY hydroxyzine HCl 25 mg PO BEDTIME ibuprofen 600 mg PO Q8H 7 days ibuprofen mg PO Latuda (lurasidone) 80 mg PO DAILY 90 days NS ondansetron 8 mg sublingual Q12H PRN perphenazine 8 mg PO DAILY prucalopride (Motegrity) TAKE 1 TABLET BY MOUTH EVERY DAY sucralfate 1 g PO BID sumatriptan succinate 50 mg PO DAILY PRN tizanidine 2 mg PO BID Tobacco use date assessed: 02/13/23 Dental Screening Dental Screen Date: 02/13/23 Did you have a dental visit in the last 12 months?: Yes Did you have a dental problem in the last 6 months where you did not have access to dental care?: No Was dental information given to patient?: Patient has dentist HPI Follow Up HPI Details Patient is a 43-year-old female here today for a follow-up visit.. Patient has a past medical history significant for schizoaffective disorder, bipolar disorder, gastroparesis. Concerns--> noted low blood pressure today in office. Otherwise patient asymptomatic. She does report having tooth pain over the last 48 hours. Has called her dentist and has an upcoming appointment. Left shoulder tendinopathy: Recently underwent left shoulder reconstruction surgery in [place] and doing better. Still has some deficits in her range of motion and has pain over her deltoid region. .. Bipolar disorder: Has lost follow-up with her psychiatrist and now has PCP managing her mental health medication. Does use clonazepam on a very limited p.r.n. basis for high points of anxiety. She feels her mental health is stable on current doses of her mental health medications at this time. .. Gastroparesis: Still has intermittent episodes abdominal pain and cramping. Continues to follow gastroenterology though has difficulty with correspondence. On moteg 2 mg daily . Tobacco dependency: She does understand she needs to quit smoking and is found it very difficult to do so. She found that nicotine lozenges have been helpful in the past. Laboratory Tests 11/04/21 02/10/23 11:43 08:47 RBC 4.21 Creatinine 0.81 CA 19-9 Antigen 13 TSH 0.37 [facility] Medical History (Updated 02/13/23 @ 11:09 by Ramesh Sampson PA-C) Right thigh pain Schizoaffective disorder, bipolar type Gastroparesis Chronic nausea Migraine Bipolar disorder GLORIA (generalized anxiety disorder) Surgical History History of shoulder surgery Hx of colonoscopy History of esophagogastroduodenoscopy (EGD) History of tonsillectomy Family History Mother No problems noted. Father No problems noted. Social History Household Members: Other Household Members Other:: mother Housing: House Do you presently have visiting nurse or other home services: No Alcohol intake: never Patient Tobacco Use Status: Current everyday Tobacco user Cigarette Packs Per Day: 0.5 Cigarettes Per Day: 10.0 Years Smoked: 25 e-Cigarette/Vaping Use: Never Used Second Hand Smoke Exposure: Yes Substance Use Type: Marijuana Advance Directives Date on File: 05/19/21 service: No Current occupational status: unemployed and disabled Cognitive needs: No Hearing needs: No Vision needs: No Questionnaire Thrive Questionnaire Date Thrive assessed: 09/12/22 GLORIA-7 AMB Questionnaire GLORIA-7 Date GLORIA - 7 assessed: 09/12/22 Source: Developed by Drs. Ayush Lara, Anum Boyer, Brendan Herbert and colleagues, with an educational richar from [employer]. Review of Systems Const Denies headache(s) Eyes Denies loss of vision ENT Denies vertigo, Denies dizziness, Denies headache(s) and Denies sore throat Card Denies chest pain, Denies leg edema and Denies lightheadedness Resp Denies cough, Denies hemoptysis and Denies wheezing GI Denies abdominal pain, Denies melena, Denies constipation, Denies diarrhea and Denies vomiting Denies urinary frequency, Denies dysuria and Denies urinary urgency Musc Denies arthralgias, Denies joint swelling, Denies numbness and Denies tingling Neuro Denies Abnormal speech present, Denies behavioral changes, Denies vertigo, Denies dizziness, Denies headache(s), Denies loss of vision, Denies memory loss, Denies numbness and Denies tingling Psych Denies anxiety, Denies behavioral changes, Denies depression, Denies memory loss and Denies panic attacks Vincent/Lymph Denies easy bleeding and Denies easy bruising Aller/Immun Denies wheezing Physical exam (Primary Care) Vital Signs: Last Vital Signs Pulse 60 02/13/23 10:48 BP 80/60 L 02/13/23 10:48 Pulse Ox 97 02/13/23 10:48 Oxygen Delivery Method Room Air 02/13/23 10:48 BMI result Body Mass Index 21.8 Tobacco/Smoking Status: Tobacco use Status Tobacco use date assessed 02/13/23 02/13/23 11:00 Patient Tobacco Use Status Current everyday Tobacco 02/13/23 11:00 Tobacco use type 08/31/21 12:14 e-Cigarette/Vaping Use Never Used 02/13/23 11:00 Are you ready to quit: Yes Tobacco cessation counseling provided: Yes Items discussed: Nicotine replacement Relapse Prevention: discussed the importance of a supportive environment, discussed negative mood or depression after quitting, weight gain after smoking is common and discussed dietary, exercise and/or lifestyle changes Number of minutes spent counselin CPT code: 00679 - 4-10 Minutes Thrive Assessment: Date of Thrive Assessment Date Thrive assessed 09/12/22 02/13/23 11:00 Const General: healthy appearing, no acute distress, alert and awake Nutritional Appearance: well nourished Orientation/consciousness: oriented to person, oriented to place and oriented to time HENMT Ears: TM's normal bilaterally General nose exam: Normal nasal mucous membranes and turbinates present Eyes Conjunctivae: conjunctivae normal Sclerae: sclerae normal Pupils: Equal, round and reactive pupils present Neck Neck: Yes no lymphadenopathy and Yes no JVD Thyroid: Thyroid normal Carotids: no bruits Resp Effort & Inspection: normal respiratory effort and not tachypneic Auscultation: no crackles, no rales, no rhonchi and no wheezes Cardio Rate: regular rate Rhythm: regular rhythm Heart sounds: no murmurs and normal S1 and S2 GI Palpation (GI): Soft to palpation, nontender, no hepatomegaly and no splenomegaly Auscultation: normal bowel sounds Skin General skin exam: no rashes or lesions noted and dry skin Neuro General: oriented to person, oriented to place and oriented to time Cranial nerves: Yes Equal, round and reactive pupils present Speech: No Abnormal speech present Gait exam (Neuro): Normal gait present Motor exam (neuro): no tremor noted Extrem Right upper extremity: full ROM Left upper extremity: full ROM Right lower extremity: full ROM; no edema Left lower extremity: full ROM; no edema Psych Mental Status: mental status grossly normal Speech and movement: Normal speech and movement present Affect: normal affect Attitude: cooperative Thought process: Normal thought process present Assessment and Plan Assessment & Plan (1) Bipolar disorder: Code(s): F31.9 - Bipolar disorder, unspecified Qualifiers: Active/Remission status: currently active Current bipolar episode type: manic Current episode severity: moderate Qualified Code(s): F31.12 - Bipolar disorder, current episode manic without psychotic features, moderate Plan: She feels her bipolar disorder is fairly well stable with the current mental health medications at this time. Still on waiting list to see new psychiatrist . Will send message to mental health liaison to try to help get her into psychiatrist. (2) Gastroparesis: Comment: Pt has lost 5 lbs since last visit related to vomiting/gastroparesis/decreased appetite. Recommend Ensure plant based nutritional supplement twice/day for 360 liliane per day and 40 g of protein. Code(s): K31.84 - Gastroparesis Plan: Continues to suffer with gastroparesis symptoms. Does use Motegrity is followed by gastroenterology. She has been able to gain some weight since last office visit. (3) Tobacco dependence: Code(s): F17.200 - Nicotine dependence, unspecified, uncomplicated Plan: Unfortunately continues to smoke and does understand she needs to quit. Does report smoking half pack of cigarettes per day and which helps her with her anxieties. Does have a partner who smokes as well. She does report nicotine lozenges name brand with the most effective. (4) Tooth pain: Code(s): K08.89 - Other specified disorders of teeth and supporting structures Plan: Reports over the last 48 hours having tooth pain. Has upcoming appoint with her dentist Medications: New tramadol 50 mg PO BID 4 days PRN 8 tabs 0RF pain K08.89 - Other specified disorders of teeth and supporting structures amoxicillin 500 mg PO Q8H 5 days 15 caps 0RF K08.89 - Other specified disorders of teeth and supporting structures Nicorette (nicotine (polacrilex)) 4 mg buccal Q8H 30 days PRN 108 ea 3RF nicotine cravings NS F17.200 - Nicotine dependence, unspecified, uncomplicated Coding Level of Care Code Est Pt Level 4 (38635) Diagnoses Bipolar affective disorder, currently manic, moderate F31.12 Active/Remission status: currently active Current bipolar episode type: manic Current episode severity: moderate Gastroparesis K31.84 Tobacco dependence F17.200 Tooth pain K08.89 Additional Codes Vital Signs *Quality* - CPT code: 27760 - 4-10 Minutes ([id number])
[2023-02-13 10:48] VITALS: BP 80/60; PULSE 60; O2SAT 97; BMI 21.8
== END 2023-02-13 11:21 | disposition home or self-care (01) ==
PROVIDERS: PCP Physician Assistant; Visit Provider Physician Assistant
DX: F31.12 Bipolar disorder, current episode manic without psychotic features, moderate (principal); K31.84 Gastroparesis; F17.210 Nicotine dependence, cigarettes, uncomplicated; F25.0 Schizoaffective disorder, bipolar type; K08.89 Other specified disorders of teeth and supporting structures
CPT/HCPCS: 99214; 99406

== ENCOUNTER 2023-06-05 11:56 | Outpatient (AMB) | payer MEDICARE, MEDICAID, SELFPAY ==
--- NOTE | 2023-06-05 12:00 | MHC.OFFVIS ---
Intake Vital Signs 06/05/23 12:02 Height 5 ft 7 in Weight 134 lb BMI 21.0 BP 120/105 H Blood Pressure Location Lt brachial Position Sitting Pulse 95 Intake Visit Reasons: refill f/u Intake Note: Patient follow up for refills. Patient cc: constipation and denies any other GI issues. Social Group Worker Required: No Accompanied by: Self / Same As Patient Allergies olanzapine [From ZYPREXA] Allergy (Severe, Verified 06/05/23 11:59) SWELLING oxcarbazepine [From TRILEPTAL] Allergy (Severe, Verified 06/05/23 11:59) antony's Rob syndrome gabapentin Allergy (Unknown, Verified 06/05/23 11:59) Loss of balance lithium [LITHIUM] Allergy (Unknown, Verified 06/05/23 11:59) UNKNOWN quetiapine [Seroquel] Allergy (Unknown, Verified 06/05/23 11:59) Unknown sulfamethoxazole [From BACTRIM] Allergy (Unknown, Verified 06/05/23 11:59) severe rash trimethoprim [From BACTRIM] Allergy (Unknown, Verified 06/05/23 11:59) severe rash cyclobenzaprine [From Flexeril] Adverse Reaction (Intermediate, Verified 06/05/23 11:59) Agitated HPI refill f/u HPI Details 43 yr old f here for f/u RECAP from index visit: She had been throwing up every night for months can be food and bile can feel like she is choking she has no abdominal pain she can go a whole week without going to bathroom, then she can have diarrhea hard to flush no blood in stool, no melena she does have hives she mental fogginess she has bloating ++ she does get flushing and redness she has been losing weight she has poor appetite not on narcotics rigth she takes omeprazole 40 mg prn and it seems to help She did have exp lap surgery 02/2021 for IUD outside uterus Ba swallow: 03/16/21== mild GERD, no hiatal hernia GES: pos 37% at 4 hrs EGD/colonoscopy: 06/24 Endoscopy Findings: esophagitis Colonoscopy Findings: internal hemorrhoids with skin tags colon polyp Path: tubualr adenoma, COMMENT: No amyloid deposition is present (A-E; no subepithelial tissue present in F and G). CD117 Immunohistochemistry (# cells per high powered field): A. Terminal ileum (41) B. Random colon (44) C. Ascending colon polyp (38) D. Duodenum (41) E. Stomach (24) F, G. No subepithelial tissue present precluding analysis. she did have an admission with urine retention causing pain, 05/2020 ?from pych medications I did give her a trial of cromolyn and referred pain clinic for myofascial pain assessment other data: Anti Yo, Hu positive but western blot neg celiac panel--negative lyme--neg Ig level were normal INTERIM: she has issues with constipation every 4-5 days for bowel she gets distended she ran out of motegrity she still throws up every night she takes zofran but not at night weight has been stable, she is recovering from shoulder surgery EXAM: GENERAL: The patient is thin VITAL SIGNS:see workflow HEENT: Nonicteric sclerae, PERRLA, EOMI. Oropharynx clear. Moist mucous membranes. Conjunctivae appear well perfused. No thyroid mass. CHEST: Chest wall is nontender. HEART: Regular rate and rhythm without murmurs. LUNGS: Clear to auscultation bilaterally. ABDOMEN: Soft, positive bowel sounds, non tender , no organomegaly.no flank tenderness- SKIN: No rash, no excessive bruising, petechiae, or purpura. dermographism NEUROLOGIC: Cranial nerves II-XII intact without motor/sensory deficit. A/P: 1/Gastroparesis and nausea, seems to have improved significantly PLAN: 1/check with my RN abt the motegrit,y in meantime use trulance and miralax [facility] Medical History (Updated 02/13/23 @ 11:09 by Ramesh Sampson PA-C) Right thigh pain Schizoaffective disorder, bipolar type Gastroparesis Chronic nausea Migraine Bipolar disorder GLORIA (generalized anxiety disorder) Surgical History (Updated 06/05/23 @ 12:01 by Shirlene Quintana) History of shoulder surgery Hx of colonoscopy History of esophagogastroduodenoscopy (EGD) History of tonsillectomy Family History Mother No problems noted. Father No problems noted. Social History Household Members: Other Household Members Other:: mother Housing: House Do you presently have visiting nurse or other home services: No Alcohol intake: never Patient Tobacco Use Status: Current everyday Tobacco user Cigarette Packs Per Day: 0.5 Cigarettes Per Day: 10.0 Years Smoked: 25 e-Cigarette/Vaping Use: Never Used Second Hand Smoke Exposure: Yes Substance Use Type: Marijuana Advance Directives Date on File: 05/19/21 service: No Current occupational status: unemployed and disabled Cognitive needs: No Hearing needs: No Vision needs: No Physical Exam Vital Signs: Last Vital Signs Pulse 95 06/05/23 12:02 BP 120/105 H 06/05/23 12:02 BMI result Body Mass Index 21.0 Assessment & Plan Assessment & Plan (1) Gastroparesis: Comment: Pt has lost 5 lbs since last visit related to vomiting/gastroparesis/decreased appetite. Recommend Ensure plant based nutritional supplement twice/day for 360 liliane per day and 40 g of protein. Code(s): K31.84 - Gastroparesis Plan: see above Medications: New plecanatide (Trulance) 3 mg PO DAILY 30 tabs 3RF polyethylene glycol 3350 (Miralax) 17 grams PO BID 850 grams 3RF polyethylene glycol 3350 (Miralax) 17 grams PO BID 850 grams 3RF Refilled prucalopride (Motegrity) TAKE 1 TABLET BY MOUTH EVERY DAY 30 tabs 4RF Coding Level of Care Code Est Pt Level 3 (49336) Diagnoses Gastroparesis K31.84
[2023-06-05 12:02] VITALS: BP 120/105; PULSE 95; BMI 21.0
== END 2023-06-05 14:38 | disposition home or self-care (01) ==
PROVIDERS: PCP Physician Assistant; Visit Provider Internal Medicine Gastroenterology
DX: K31.84 Gastroparesis (principal)
CPT/HCPCS: 99213

== ENCOUNTER → 2023-06-05 11:56 | Outpatient (BNVA) | payer MEDICARE, MEDICAID, SELFPAY | PROVIDERS: PCP Physician Assistant; Visit Provider Internal Medicine Gastroenterology | DX: K31.84 Gastroparesis (principal) | CPT/HCPCS: 99212 ==

== ENCOUNTER 2023-09-20 11:13 | Outpatient (AMB) | payer MEDICARE, MEDICAID, SELFPAY ==
[2023-09-20 11:22] VITALS: BP 110/70; PULSE 79; O2SAT 97; BMI 20.1
--- NOTE | 2023-09-20 11:22 | A.OFFPC_ITS ---
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 Required: No Accompanied by: Self / Same As Patient Allergies olanzapine [From ZYPREXA] Allergy (Severe, Verified 09/20/23 11:24) SWELLING oxcarbazepine [From TRILEPTAL] Allergy (Severe, Verified 09/20/23 11:24) antony's Rob syndrome gabapentin Allergy (Unknown, Verified 09/20/23 11:24) Loss of balance lithium [LITHIUM] Allergy (Unknown, Verified 09/20/23 11:24) UNKNOWN quetiapine [Seroquel] Allergy (Unknown, Verified 09/20/23 11:24) Unknown sulfamethoxazole [From BACTRIM] Allergy (Unknown, Verified 09/20/23 11:24) severe rash trimethoprim [From BACTRIM] Allergy (Unknown, Verified 09/20/23 11:24) severe rash cyclobenzaprine [From Flexeril] Adverse Reaction (Intermediate, Verified 09/20/23 11:24) Agitated Medication List - Last Reconciled 09/20/23 by Ramesh Sampson PA-C acetaminophen 500 mg PO Q6H 10 days benztropine 0.5 mg PO BID 90 days bisacodyl (Bisa-Lax (bisacodyl)) 10 mg (2 x 5 mg) PO BEDTIME PRN 2 days bupropion HCl XL 300 mg PO DAILY 90 days cholecalciferol (vitamin D3) 50 mcg PO DAILY 90 days clonazepam 1 mg PO BID PRN 30 days divalproex ER 1,500 mg (3 x 500 mg) PO DAILY 30 days erenumab-aooe (Aimovig Autoinjector) mg subcut Q4W famotidine 40 mg PO BEDTIME folic acid 20 mg PO DAILY hydroxyzine HCl 25 mg PO BEDTIME Latuda (lurasidone) 80 mg PO DAILY 90 days NS Nicorette (nicotine (polacrilex)) 4 mg buccal Q8H PRN 30 days NS perphenazine 8 mg PO DAILY polyethylene glycol 3350 (Miralax) 17 grams PO BID prucalopride (Motegrity) TAKE 1 TABLET BY MOUTH EVERY DAY sucralfate 1 g PO BID sumatriptan succinate 50 mg PO DAILY PRN tizanidine 2 mg PO BID tramadol 50 mg PO BID PRN 4 days Tobacco use date assessed: 09/20/23 Dental Screening Dental Screen Date: 09/20/23 Did you have a dental visit in the last 12 months?: Yes Did you have a dental problem in the last 6 months where you did not have access to dental care?: No Was dental information given to patient?: Patient has dentist HPI pe HPI Details Patient is a 43-year-old female here today for a routine annual physical Patient has a past medical history significant for schizoaffective disorder, bipolar disorder, gastroparesis. Concerns--> noted low blood pressure today in office. Otherwise patient asymptomatic. She does report having tooth pain over the last 48 hours. Has called her dentist and has an upcoming appointment. Left shoulder tendinopathy: Recently underwent left shoulder reconstruction surgery in [place] and doing better though still has pain. Her range of motion is good. She will be following up with [place] orthopedic surgeon to discuss further surgery. .. Bipolar disorder: Now has a psychiatric provider who is managing all of her mental health medications. . Does use clonazepam on a very limited p.r.n. basis for high points of anxiety. She feels her mental health is stable on current doses of her mental health medications at this time. .. Gastroparesis: Still has intermittent episodes abdominal pain and cramping/vomiting. Has lost weight since last office visit Continues to follow gastroenterology here in [place]. On moteg 2 mg daily, . Tobacco dependency: She reports she cut down to 3 cigarettes per day. She does understand she needs to quit smoking and is found it very difficult to do so. She found that nicotine lozenges have been helpful in the past. 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 Father No problems noted. Social History (Updated 09/20/23 @ 11:30 by Ramesh Sampson PA-C) Household Members: Other Household Members Other:: mother Housing: House Do you presently have visiting nurse or other home services: No Alcohol intake: current Alcohol intake frequency: holidays/special occasions only Patient Tobacco Use Status: Current everyday Tobacco user Cigarettes Per Day: 3 Years Smoked: 25 e-Cigarette/Vaping Use: Never Used Second Hand Smoke Exposure: Yes Substance Use Type: Marijuana Advance Directives Date on File: 05/19/21 service: No Current occupational status: unemployed and disabled Cognitive needs: No Hearing needs: No Vision needs: No Questionnaire PHQ-9 Over the last 2 weeks, how often have you been bothered by any of the following problems? 1. Little interest or pleasure in doing things: not at all 2. Feeling down, depressed, or hopeless: not at all 3. Trouble falling or staying asleep, or sleeping too much: not at all 4. Feeling tired or having little energy: not at all 5. Poor appetite or overeating: not at all 6. Feeling bad about yourself - or that you are a failure or have let yourself or your family down: not at all 7. Trouble concentrating on things, such as reading the newspaper or watching television: not at all 8. Moving or speaking so slowly that other people could have noticed. Or the opposite - being so fidgety or restless that you have been moving around a lot more than usual: not at all 9. Thoughts that you would be better off or of hurting yourself in some way: not at all Total score: 0 Depression Screening Interpretation: Negative Depression Screening Done: Yes 87753 - PHQ-9 Billing: Yes Source: Developed by Drs. Ayush Lara, Anum Boyer, Brendan Herbert and colleagues, with an educational richar from [employer]. Thrive Questionnaire Date Thrive assessed: 09/20/23 I am a: Patient What is your living situation today?: I have a steady place to live Within the past 12 months, did the food you bought not last and you didn't have the money to get more?: Never true Within the past 12 months, did you worry whether your food would run out before you got money to buy more?: Never true Do you have trouble paying for medicines?: No Do you have trouble getting transportation to medical appointments?: No Do you have trouble paying your heating and electricity bill?: No Do you have trouble taking care of your child, family member or friend?: No Do you have trouble with day-to-day activities such as bathing, preparing meals, shopping, managing finances, etc.?: No Are you currently unemployed and looking for a job?: No Are you interested in more education?: No Please select the resources that you would like help with: None Currently or been in a relationship where the following occur: No concerns reported THRIVE Score: 0 AUDIT C Alcohol Use Questionnaire (AUDIT-C) 1. How often do you have a drink containing alcohol?: 2-4 times a month 2. How many drinks containing alcohol do you have on a typical day when you are drinking?: 1 or 2 3. How often do you have six or more drinks on one occasion?: Never Total Score: 2 GLORIA-7 AMB Questionnaire GLORIA-7 Date GLORIA - 7 assessed: 09/20/23 Feeling nervous, anxious, or on edge: 0 = Not at all Not being able to stop or control worryin = Not at all Worrying too much about different things: 0 = Not at all Trouble relaxin = Not at all Being so restless that it is hard to sit still: 0 = Not at all Becoming easily annoyed or irritable: 0 = Not at all Feeling afraid as if something awful might happen: 0 = Not at all Total GLORIA-7 score (0-4 normal; 5-9 mild; 10-14 moderate; 15-21 severe): 0 Source: Developed by Drs. Ayush Lara, Anum Boyer, Brendan Herbert and colleagues, with an educational richar from [employer]. GLORIA-7 Assessment Billing GLORIA-7 Assessment Tool: GLORIA-7 Assessment 02427 Review of Systems Const Denies body aches, Denies chills, Denies excessive sweating, Denies fatigue, Denies fever(s) and Denies headache(s) Eyes Denies blurry vision ENT Denies dysphagia, Denies vertigo, Denies dizziness, Denies headache(s), Denies hearing loss and Denies tinnitus Card Denies chest pain, Denies chest pain with activity, Denies syncope, Denies irregular heart rhythm and Denies dyspnea Resp Denies chest congestion, Denies cough, Denies hemoptysis, Denies dyspnea and Denies wheezing GI Denies abdominal pain, Denies melena, Denies hematochezia, Denies coffee ground emesis, Denies dysphagia, Reports dyspepsia, Denies diarrhea, Denies nausea and Reports vomiting Denies urinary frequency, Denies dysuria, Denies urinary hesitancy and Denies urinary urgency Musc Denies arthralgias, Denies limited range of motion, Denies muscle cramps and Denies muscle weakness Skin/Breast Denies rash and Denies skin ulcer Neuro Denies Abnormal speech present, Denies confusion, Denies vertigo, Denies dizziness, Denies syncope, Denies headache(s), Denies memory loss and Denies seizure-like activity Psych Denies anxiety, Denies confusion, Denies depression, Denies memory loss, Denies panic attacks and Denies paranoia Endo Denies excessive sweating, Denies fatigue, Denies flushing, Denies polydipsia and Denies polyuria Aller/Immun Denies wheezing Physical exam (Primary Care) Vital Signs: Last Vital Signs Pulse 79 09/20/23 11:22 BP 110/70 09/20/23 11:22 Pulse Ox 97 09/20/23 11:22 Oxygen Delivery Method Room Air 09/20/23 11:22 BMI result Body Mass Index 20.1 Tobacco/Smoking Status: Tobacco use Status Tobacco use date assessed 02/13/23 02/13/23 11:00 Patient Tobacco Use Status Current everyday Tobacco 02/13/23 11:00 Tobacco use type 08/31/21 12:14 e-Cigarette/Vaping Use Never Used 02/13/23 11:00 Are you ready to quit: No Tobacco cessation counseling provided: Yes Items discussed: Nicotine replacement Relapse Prevention: discussed the importance of a supportive environment, discussed negative mood or depression after quitting, weight gain after smoking is common and discussed dietary, exercise and/or lifestyle changes Number of minutes spent counselin CPT code: 80977 - 4-10 Minutes Depression Screening Interpretation: Negative Thrive Assessment: Date of Thrive Assessment Date Thrive assessed 09/12/22 02/13/23 11:00 Currently or been in a relationship where the following occur: No concerns reported Const General: cooperative, comfortable, no acute distress, alert and awake; No confusion Orientation/consciousness: oriented to person, oriented to place, patient oriented x3 and No confusion HENMT Head: Yes normocephalic Ears: external ears normal and TM's normal bilaterally Face and sinus: No sinus tenderness Mouth: Normal oral and palatal mucosa present and tongue normal Teeth and gingiva: dentition normal and gingiva normal Throat: Yes posterior oropharynx normal, Yes tonsils normal and Yes uvula midline Eyes Conjunctivae: conjunctivae normal Sclerae: sclerae normal Pupils: Equal, round and reactive pupils present EOM: EOMs intact bilaterally Direct Ophthalmoscopy: No no photophobia Neck Neck: Yes no lymphadenopathy, No tender and Yes no JVD Thyroid: Thyroid normal Carotids: no bruits Chest Chest palpation & inspection: no tenderness Resp Effort & Inspection: normal respiratory effort, no audible wheezes, not labored and no stridor Auscultation: no crackles, no rales, no rhonchi and no wheezes Cardio Jugular venous distension: no JVD Rate: regular rate, not bradycardic and not tachycardic Rhythm: regular rhythm Bruits: no carotid bruits Peripheral pulses: Peripheral pulses 2+ throughout GI Inspection: Yes normal to inspection, No abdominal wall ecchymosis and No visible herniation Palpation (GI): Soft to palpation, nontender, no guarding, not rigid and No hepatosplenomegaly present Auscultation: normoactive bowel sounds General: Yes no CVA tenderness Back/Spine/Pelvis Back: no CVA tenderness and No back tenderness Cervical Spine: cervical ROM normal Thoracic/Lumbar Spine: thoracic and lumbar spine normal to inspection, straight leg raise negative bilaterally, No thoraco-lumbar ROM limited and No lumbar spinal tenderness Skin Lesions: no lesions Rashes: no rashes Wounds: no wounds Neuro General: oriented to person, oriented to place, patient oriented x3, CN's II-XI intact bilaterally and No confusion Cranial nerves: Yes Equal, round and reactive pupils present and Yes Normal accommodation reflex present Cognition (Neuro): normal cognition Speech: No Abnormal speech present Gait exam (Neuro): Normal gait present Motor exam (neuro): 5/5 motor strength present throughout Extrem Right upper extremity: full ROM; no cyanosis Left upper extremity: full ROM; no cyanosis Right lower extremity: no edema Left lower extremity: no edema Psych Appearance: grossly normal Mental Status: mental status grossly normal Affect: normal affect Attitude: cooperative Thought process: Normal thought process present Assessment and Plan Assessment & Plan (1) Annual physical exam: Code(s): Z00.00 - Encounter for general adult medical examination without abnormal findings (2) Bipolar disorder: Code(s): F31.9 - Bipolar disorder, unspecified Qualifiers: Active/Remission status: currently active Current bipolar episode type: manic Current episode severity: moderate Qualified Code(s): F31.12 - Bipolar disorder, current episode manic without psychotic features, moderate Plan: She feels her bipolar disorder is fairly well stable with the current mental health medications at this time. She now has a new psychiatrist whom is managing her mental health medications She feels stable from a mental health point of view (3) Gastroparesis: Comment: Pt has lost 5 lbs since last visit related to vomiting/gastroparesis/decreased appetite. Recommend Ensure plant based nutritional supplement twice/day for 360 liliane per day and 40 g of protein. Code(s): K31.84 - Gastroparesis Plan: Continues to suffer with gastroparesis symptoms. Does use Motegrity is followed by gastroenterology. She has been able to gain some weight since last office visit. (4) Tobacco dependence: Code(s): F17.200 - Nicotine dependence, unspecified, uncomplicated Plan: Unfortunately continues to smoke and does understand she needs to quit. Does report smoking half pack of cigarettes per day and which helps her with her anxieties. Does have a partner who smokes as well. She does report nicotine lozenges name brand with the most effective. (5) Schizoaffective disorder, bipolar type: Code(s): F25.0 - Schizoaffective disorder, bipolar type Plan: Followed by psychiatryy, continues on Wellbutrin, Latuda and divalproex Orders: Orders TSH reflex Free T4 Today R79.89 - Other specified abnormal findings of blood chemistry Comprehensive [place]. Panel Fast Today Z13.1 - Encounter for screening for diabetes mellitus Complete Blood Count no Diff Today Z13.1 - Encounter for screening for diabetes mellitus Coding Level of Care Code Est Pt Prev Care 40-64y(08797) Diagnoses Annual physical exam Z00.00 Bipolar affective disorder, currently manic, moderate F31.12 Active/Remission status: currently active Current bipolar episode type: manic Current episode severity: moderate Gastroparesis K31.84 Tobacco dependence F17.200 Schizoaffective disorder, bipolar type F25.0 Additional Codes GLORIA-7 Assessment Billing - GLORIA-7 Assessment Tool: GLORIA-7 Assessment 03214 ([id number]) Vital Signs *Quality* - CPT code: 79248 - 4-10 Minutes ([id number])
== END 2023-09-20 11:40 | disposition home or self-care (01) ==
PROVIDERS: PCP Physician Assistant; Visit Provider Physician Assistant
DX: Z00.00 Encounter for general adult medical examination without abnormal findings (principal); F31.12 Bipolar disorder, current episode manic without psychotic features, moderate; F25.0 Schizoaffective disorder, bipolar type; K31.84 Gastroparesis; F17.200 Nicotine dependence, unspecified, uncomplicated
CPT/HCPCS: 99396

== ENCOUNTER 2023-10-18 12:01 | Outpatient (REF) | payer MEDICARE, MEDICAID, SELFPAY ==
--- NOTE | ~2023-10-18 | MM_ITS ---
EXAMINATION: MM SCREENING DIGITAL BREAST TOMOSYNTHESIS, BILATERAL CLINICAL INFORMATION: Screening. Asymptomatic. COMPARISON: Mammography: This study is compared with 10/12/2022 TECHNIQUE: Digital breast tomosynthesis is performed in both the craniocaudal and mediolateral oblique views along with computer-aided detection (CAD). Synthesized 2D images are generated from the tomosynthesis. FINDINGS: The breasts are heterogeneously dense, which may obscure small masses (ACR BI-RADS breast composition Category c). There are no significant masses, abnormal calcifications, or other abnormalities. MM/MM tomosynthesis screening BI IMPRESSION: No mammographic evidence of malignancy. ASSESSMENT: BI-RADS BI-RADS 1 - Negative RECOMMENDATION: Routine annual mammography screening. 1 year F/U This examination should not preclude the clinical evaluation of a suspicious palpable abnormality. This patient's information was entered into a reminder system with a target due date for their next mammogram. Electronically signed by: Susana Sun MD 11/15/2023 12:43 PM EDT
== END 2023-10-18 12:02 | disposition home or self-care (01) ==
LOC: HO.MAMMO 12:01
PROVIDERS: PCP Physician Assistant; Visit Provider Physician Assistant
DX: Z12.31 Encounter for screening mammogram for malignant neoplasm of breast (principal)
CPT/HCPCS: 77063; 77067

== ENCOUNTER 2023-11-02 11:04 | Outpatient (AMB) | payer MEDICARE, MEDICAID, SELFPAY ==
--- NOTE | 2023-11-02 11:10 | A.OFFPC_ITS ---
Vital Signs 11/02/23 11:13 Height 5 ft 7 in Weight 129 lb BMI 20.2 BP 110/60 Blood Pressure Location Lt brachial Position Sitting Pulse 59 Pulse Source Pulse Oximeter Pulse Oximetry (%) 95 Oxygen Delivery Method Room Air Intake Visit Reasons: Pain on dislocated left shoulder Damper Fitter Required: No Accompanied by: Self / Same As Patient Allergies olanzapine [From ZYPREXA] Allergy (Severe, Verified 11/02/23 11:16) SWELLING oxcarbazepine [From TRILEPTAL] Allergy (Severe, Verified 11/02/23 11:16) antony's Rob syndrome gabapentin Allergy (Unknown, Verified 11/02/23 11:16) Loss of balance lithium [LITHIUM] Allergy (Unknown, Verified 11/02/23 11:16) UNKNOWN quetiapine [Seroquel] Allergy (Unknown, Verified 11/02/23 11:16) Unknown sulfamethoxazole [From BACTRIM] Allergy (Unknown, Verified 11/02/23 11:16) severe rash trimethoprim [From BACTRIM] Allergy (Unknown, Verified 11/02/23 11:16) severe rash cyclobenzaprine [From Flexeril] Adverse Reaction (Intermediate, Verified 11/02/23 11:16) Agitated Medication List - Last Reconciled 11/02/23 by Ramesh Sampson PA-C acetaminophen 500 mg PO Q6H 10 days benztropine 0.5 mg PO BID 90 days bisacodyl (Bisa-Lax (bisacodyl)) 10 mg (2 x 5 mg) PO BEDTIME PRN 2 days bupropion HCl XL 300 mg PO DAILY 90 days cholecalciferol (vitamin D3) 50 mcg PO DAILY 90 days clonazepam 1 mg PO BID PRN 30 days divalproex ER 1,500 mg (3 x 500 mg) PO DAILY 30 days erenumab-aooe (Aimovig Autoinjector) mg subcut Q4W famotidine 40 mg PO BEDTIME folic acid 20 mg PO DAILY hydroxyzine HCl 25 mg PO BEDTIME Latuda (lurasidone) 80 mg PO DAILY 90 days NS Nicorette (nicotine (polacrilex)) 4 mg buccal Q8H PRN 30 days NS perphenazine 8 mg PO DAILY polyethylene glycol 3350 (Miralax) 17 grams PO BID prucalopride (Motegrity) TAKE 1 TABLET BY MOUTH EVERY DAY sucralfate 1 g PO BID sumatriptan succinate 50 mg PO DAILY PRN tizanidine 2 mg PO BID tramadol 50 mg PO BID PRN 4 days Tobacco use date assessed: 09/20/23 Dental Screening Dental Screen Date: 09/20/23 HPI Pain on dislocated left shoulder HPI Details Patient is a 43-year-old female here today for a follow-up visit Patient has a past medical history significant for schizoaffective disorder, bipolar disorder, gastroparesis. Today comes in a lot left shoulder pain. She believes she dislocated her left shoulder while putting on a shirt yesterday. She has been unable to lift her left arm. She is due for repeat left shoulder surgery in [place] in early Dec 2023. PLAN: Be seen at ER for relocation of her left shoulder.. [facility] Medical History Right thigh pain Schizoaffective disorder, bipolar type Gastroparesis Chronic nausea Migraine Bipolar disorder GLORIA (generalized anxiety disorder) Surgical History History of shoulder surgery Hx of colonoscopy History of esophagogastroduodenoscopy (EGD) History of tonsillectomy Family History Mother No problems noted. Father No problems noted. Social History Household Members: Other Household Members Other:: mother Housing: House Do you presently have visiting nurse or other home services: No Alcohol intake: current Alcohol intake frequency: holidays/special occasions only Patient Tobacco Use Status: Current everyday Tobacco user Cigarettes Per Day: 3 Years Smoked: 25 e-Cigarette/Vaping Use: Never Used Second Hand Smoke Exposure: Yes Substance Use Type: Marijuana Advance Directives Date on File: 05/19/21 service: No Current occupational status: unemployed and disabled Cognitive needs: No Hearing needs: No Vision needs: No Questionnaire Thrive Questionnaire Date Thrive assessed: 09/20/23 GLORIA-7 AMB Questionnaire GLORIA-7 Date GLORIA - 7 assessed: 09/20/23 Source: Developed by Drs. Ayush LAnum Barroso, Brendan Herbert and colleagues, with an educational richar from [employer]. Review of Systems Const Denies headache(s) Eyes Denies loss of vision ENT Denies vertigo, Denies dizziness, Denies headache(s) and Denies sore throat Card Denies chest pain, Denies leg edema and Denies lightheadedness Resp Denies cough, Denies hemoptysis and Denies wheezing GI Denies abdominal pain, Denies melena, Denies constipation, Denies diarrhea and Denies vomiting Denies urinary frequency, Denies dysuria and Denies urinary urgency Musc Denies arthralgias, Denies joint swelling, Denies numbness and Denies tingling Neuro Denies Abnormal speech present, Denies behavioral changes, Denies vertigo, Denies dizziness, Denies headache(s), Denies loss of vision, Denies memory loss, Denies numbness and Denies tingling Psych Denies anxiety, Denies behavioral changes, Denies depression, Denies memory loss and Denies panic attacks Vincent/Lymph Denies easy bleeding and Denies easy bruising Aller/Immun Denies wheezing Physical exam (Primary Care) Vital Signs: Last Vital Signs Pulse 59 11/02/23 11:13 BP 110/60 11/02/23 11:13 Pulse Ox 95 11/02/23 11:13 Oxygen Delivery Method Room Air 11/02/23 11:13 BMI result Body Mass Index 20.2 Tobacco/Smoking Status: Tobacco use Status Tobacco use date assessed 09/20/23 11/02/23 11:12 Patient Tobacco Use Status Current everyday Tobacco 11/02/23 11:12 Tobacco use type 08/31/21 12:14 e-Cigarette/Vaping Use Never Used 11/02/23 11:12 Thrive Assessment: Date of Thrive Assessment Date Thrive assessed 09/20/23 11/02/23 11:12 Const Other: APPEARS TO BE VERY UNCOMFORTABLE General: healthy appearing, no acute distress, alert and awake Nutritional Appearance: well nourished Orientation/consciousness: oriented to person, oriented to place and oriented to time HENMT Ears: TM's normal bilaterally General nose exam: Normal nasal mucous membranes and turbinates present Eyes Conjunctivae: conjunctivae normal Sclerae: sclerae normal Pupils: Equal, round and reactive pupils present Neck Neck: Yes no lymphadenopathy and Yes no JVD Thyroid: Thyroid normal Carotids: no bruits Resp Effort & Inspection: normal respiratory effort and not tachypneic Auscultation: no crackles, no rales, no rhonchi and no wheezes Cardio Rate: regular rate Rhythm: regular rhythm Heart sounds: no murmurs and normal S1 and S2 GI Palpation (GI): Soft to palpation, nontender, no hepatomegaly and no splenomegaly Auscultation: normal bowel sounds Skin General skin exam: no rashes or lesions noted and dry skin Neuro General: oriented to person, oriented to place and oriented to time Cranial nerves: Yes Equal, round and reactive pupils present Speech: No Abnormal speech present Gait exam (Neuro): Normal gait present Motor exam (neuro): no tremor noted Extrem Other: LEFT SHOULDER: UNABLE TO LIFT , EXQUISITE AMOUNT OF PAIN TO PALPATION OVER ANTERIOR ASPECT OF LEFT SHOULDER Right upper extremity: full ROM Left upper extremity: full ROM Right lower extremity: full ROM; no edema Left lower extremity: full ROM; no edema Psych Mental Status: mental status grossly normal Speech and movement: Normal speech and movement present Affect: normal affect Attitude: cooperative Thought process: Normal thought process present Assessment and Plan Assessment & Plan (1) Dislocation of left shoulder joint: Code(s): S43.005A - Unspecified dislocation of left shoulder joint, initial encounter Qualifiers: Encounter type: subsequent encounter Qualified Code(s): S43.005D - Unspecified dislocation of left shoulder joint, subsequent encounter Plan: Patient presenting with left shoulder joint dislocation. In moderate to severe pain at this time. Willing to go to the ER for evaluation. Medications: New oxycodone Partial Fill upon patient request. 10 mg PO BID 4 days PRN 8 tabs 0RF pain S43.005D - Unspecified dislocation of left shoulder joint, subsequent encounter Discontinued tramadol Discontinued Reason: Doctor's Order 50 mg PO BID 4 days PRN 8 tabs 0RF pain K08.89 - Other specified disorders of teeth and supporting structures Resumed tizanidine 2 mg PO BID 10 days 20 tabs 1RF for muscle spasm K31.84 - Gastroparesis tizanidine 2 mg PO BID 180 tabs 1RF for muscle spasm K31.84 - Gastroparesis Coding Level of Care Code Est Pt Level 3 (15190) Diagnoses Dislocation of left shoulder joint, subsequent encounter S43.005D Encounter type: subsequent encounter
[2023-11-02 11:13] VITALS: BP 110/60; PULSE 59; O2SAT 95; BMI 20.2
== END 2023-11-02 11:27 | disposition home or self-care (01) ==
PROVIDERS: PCP Physician Assistant; Visit Provider Physician Assistant
DX: S43.005D Unspecified dislocation of left shoulder joint, subsequent encounter (principal)
CPT/HCPCS: 99213

== ENCOUNTER 2023-11-02 11:31 | Emergency (ER) | payer MEDICARE, MEDICAID, SELFPAY ==
--- NOTE | ~2023-11-02 | XR_ITS ---
EXAMINATION: XR SHOULDER, LEFT CLINICAL INFORMATION: Left shoulder dislocation COMPARISON: None available. TECHNIQUE: AP external rotation, scapular Y, and axillary views of the left shoulder. FINDINGS: BONES: Bony structures are intact. Cortical screws are seen fixing the glenoid process. Prominent ring osteophyte formation is seen at the inferior left humeral head. Additional loose bodies are seen inferior to the left glenohumeral joint. There is no focal bone destruction or periosteal reaction seen. JOINTS: Alignment of joints is normal. There is decrease in left glenohumeral joint space. SOFT TISSUE: Soft tissue is normal. No radiopaque foreign body or abnormal air collection is seen. XR/XR shoulder LT min 2V IMPRESSION: 1. Osteoarthritis of the left glenohumeral joint. 2. Status post left glenoid fixation. 3. No fracture or dislocation or signs of osteomyelitis are found. Electronically signed by: Dale Farris MD 11/02/2023 12:03 PM EDT
[2023-11-02 11:57] VITALS: BP 105/67; PULSE 70; RESP 16; TEMP 36.7; O2SAT 95; BMI 21.1
--- NOTE | 2023-11-02 11:57 | ED_ITS ---
HPI - Extremity Injury (Upper) General Chief Complaint: Extremity Injury, Upper Stated Complaint: Dislocated L shoulder Related Data Home Medications ?Medication ?Instructions ?Recorded ?Confirmed sumatriptan succinate 50 mg tablet 50 mg PO DAILY PRN Migraine 05/28/20 11/02/23 Headache erenumab-aooe 140 mg/mL mg subcut Q4W 05/18/21 11/02/23 subcutaneous auto-injector (Aimovig Autoinjector) folic acid 20 mg capsule 20 mg PO DAILY 08/31/21 11/02/23 Previous Rx's ?Medication ?Instructions ?Recorded bisacodyl 5 mg tablet,delayed 10 mg (2 x 5 mg) PO BEDTIME PRN 05/12/21 release (Bisa-Lax (bisacodyl)) constipation 2 days #30 tabs famotidine 40 mg tablet 40 mg PO BEDTIME #30 tabs 05/26/21 acetaminophen 500 mg capsule 500 mg PO Q6H fever 10 days #40 02/17/22 caps sucralfate 1 gram tablet 1 g PO BID #180 tabs 09/26/22 divalproex 500 mg tablet,extended 1,500 mg (3 x 500 mg) PO DAILY 30 09/28/22 release 24 hr days #90 tabs cholecalciferol (vitamin D3) 50 50 mcg PO DAILY 90 days #90 caps 10/18/22 mcg (2,000 unit) capsule perphenazine 8 mg tablet 8 mg PO DAILY #90 tabs 02/01/23 Nicorette 4 mg buccal lozenge 4 mg buccal Q8H PRN nicotine 02/13/23 (nicotine (polacrilex)) cravings 30 days #108 ea clonazepam 1 mg tablet 1 mg PO BID PRN anxiety 30 days 02/20/23 #60 tabs Latuda 80 mg tablet (lurasidone) 80 mg PO DAILY 90 days #90 tabs 04/24/23 polyethylene glycol 3350 17 17 g PO BID #850 grams 06/05/23 gram/dose oral powder (Miralax) prucalopride 2 mg tablet See Rx Instructions .Route 06/06/23 (Motegrity) .COMPLEX #30 tabs benztropine 0.5 mg tablet 0.5 mg PO BID 90 days #180 tabs 06/11/23 hydroxyzine HCl 25 mg tablet 25 mg PO BEDTIME #90 tabs 06/26/23 bupropion HCl 300 mg 24 hr tablet, 300 mg PO DAILY 90 days #90 tabs 08/03/23 extended release oxycodone 10 mg tablet 10 mg PO BID PRN pain 4 days #8 11/02/23 tabs tizanidine 2 mg tablet 2 mg PO BID for muscle spasm 10 11/02/23 days #20 tabs Allergies Allergy/AdvReac Type Severity Reaction Status Date / Time olanzapine [From ZYPREXA] Allergy Severe SWELLING Verified 11/02/23 11:59 oxcarbazepine Allergy Severe antony's Verified 11/02/23 11:59 [From TRILEPTAL] Rob syndrome gabapentin Allergy Unknown Loss of Verified 11/02/23 11:59 balance lithium [LITHIUM] Allergy Unknown UNKNOWN Verified 11/02/23 11:59 quetiapine [Seroquel] Allergy Unknown Unknown Verified 11/02/23 11:59 sulfamethoxazole Allergy Unknown severe rash Verified 11/02/23 11:59 [From BACTRIM] trimethoprim [From BACTRIM] Allergy Unknown severe rash Verified 11/02/23 11:59 cyclobenzaprine AdvReac Intermediate Agitated Verified 11/02/23 11:59 [From Flexeril] [facility] Past Medical History Medical History Right thigh pain Schizoaffective disorder, bipolar type Gastroparesis Chronic nausea Migraine Bipolar disorder GLORIA (generalized anxiety disorder) Surgical History History of shoulder surgery Hx of colonoscopy History of esophagogastroduodenoscopy (EGD) History of tonsillectomy Family History Family History Mother No problems noted. Father No problems noted. Social History Social History Household Members: Other Household Members Other:: mother Housing: House Do you presently have visiting nurse or other home services: No Alcohol intake: current Alcohol intake frequency: holidays/special occasions only Patient Tobacco Use Status: Current everyday Tobacco user Cigarettes Per Day: 3 Years Smoked: 25 e-Cigarette/Vaping Use: Never Used Second Hand Smoke Exposure: Yes Substance Use Type: Marijuana Advance Directives: Yes Advance Directives on File: Yes Advance Directives Date on File: 05/19/21 service: No Current occupational status: unemployed and disabled Cognitive needs: No Hearing needs: No Vision needs: No Physical Exam Vital Signs: Vital Signs: Last Vital Signs Temp 98.1 F 11/02/23 11:57 Pulse 70 11/02/23 11:57 Resp 16 11/02/23 11:57 BP 105/67 11/02/23 11:57 Pulse Ox 95 11/02/23 11:57 O2 Del Method Room Air 11/02/23 11:57 BMI result Body Mass Index 21.1 Course Course Course Narrative: This is a Rapid Medical Examination (RME) performed by Mariana Grissom PA-C in triage. Full HPI, ROS, assessment and treatment plan per primary provider in the Main ED. 43 yo female hx of schizoaffective disorder, bipolar disorder, gastroparesis, hx of multiple shoulder dislocations and ORIF here from PCP office for suspected L shoulder dislocation after putting on her shirt this morning. unable to fully lift left arm. was seen by PCP for this, sent here to re-locate the shoulder. Humphrey Arana PA-C states pain meds and mm relaxer already sent to patient [facility] for pain control. has L shoulder surgery scheduled in [place] for 12/2023. + ttp over anteriolateral left shoulder. unable to full abduct. nv intact. Plan: xr ordered Reevaluation(s) Reevaluation #1: Patient left the emergency department before myself or any of the other clinicians could review or explain physical exam findings, test results, need or lack there of for additional testing, treatment options, or a treatment plan. Discharge Plan Discharge Clinical Impression: Left shoulder pain Patient Disposition: Left W/O Completing Treatment Prescriptions: No Action acetaminophen 500 mg capsule 500 mg PO Q6H 10 Days Qty: 40 0RF sucralfate 1 gram tablet 1 g PO BID Qty: 180 1RF divalproex 500 mg tablet extended release 24 hr 1,500 mg PO DAILY 30 Days Qty: 90 2RF cholecalciferol (vitamin D3) 50 mcg (2,000 unit) capsule 50 mcg PO DAILY 90 Days Qty: 90 2RF perphenazine 8 mg tablet 8 mg PO DAILY Qty: 90 2RF clonazepam 1 mg tablet 1 mg PO BID PRN (Reason: anxiety) 30 Days Qty: 60 1RF lurasidone [Latuda] 80 mg tablet 80 mg PO DAILY 90 Days Qty: 90 2RF Motegrity 2 mg tablet See Rx Instructions .ROUTE .COMPLEX Qty: 30 4RF Dose Instruction: TAKE 1 TABLET BY MOUTH EVERY DAY Rx Instructions: TAKE 1 TABLET BY MOUTH EVERY DAY benztropine 0.5 mg tablet 0.5 mg PO BID 90 Days Qty: 180 1RF hydroxyzine HCl 25 mg tablet 25 mg PO BEDTIME Qty: 90 2RF bupropion HCl 300 mg tablet extended release 24 hr 300 mg PO DAILY 90 Days Qty: 90 2RF Aimovig Autoinjector 140 mg/mL auto-injector subcut Q4W famotidine 40 mg tablet 40 mg PO BEDTIME Qty: 30 0RF bisacodyl [Bisa-Lax (bisacodyl)] 5 mg tablet,delayed release (DR/EC) 10 mg PO BEDTIME PRN (Reason: constipation) 2 Days Qty: 30 0RF sumatriptan succinate 50 mg tablet 50 mg PO DAILY PRN (Reason: Migraine Headache) nicotine (polacrilex) [Nicorette] 4 mg lozenge 4 mg buccal Q8H PRN (Reason: nicotine cravings) 30 Days Qty: 108 3RF tizanidine 2 mg tablet 2 mg PO BID 10 Days Qty: 20 1RF oxycodone 10 mg tablet 10 mg PO BID PRN (Reason: pain) 4 Days Qty: 8 0RF Rx Instructions: Partial Fill upon patient request. folic acid 20 mg capsule 20 mg PO DAILY polyethylene glycol 3350 [Miralax] 17 gram/dose powder 17 g PO BID Qty: 850 3RF Discharge Date/Time: 11/02/23 16:07
== END 2023-11-02 16:07 | disposition left against medical advice (07) ==
LOC: HO.ED 15:51
PROVIDERS: Emergency Provider Emergency Medicine; PCP Physician Assistant
DX: S43.005A Unspecified dislocation of left shoulder joint, initial encounter (principal); X58.XXXA Exposure to other specified factors, initial encounter; Y93.89 Activity, other specified; Y92.89 Other specified places as the place of occurrence of the external cause; Y99.8 Other external cause status
CPT/HCPCS: 73030; 99281; 99283

== ENCOUNTER 2023-12-28 10:43 | Outpatient (AMB) | payer MEDICARE, MEDICAID, SELFPAY ==
[2023-12-28 10:57] VITALS: BP 136/82; PULSE 104; O2SAT 99; BMI 20.2
--- NOTE | 2023-12-28 10:57 | A.OFFPC_ITS ---
Vital Signs 12/28/23 10:57 Height 5 ft 7 in Weight 129 lb 2 oz BMI 20.2 BP 136/82 Blood Pressure Location Rt brachial Position Sitting Pulse 104 H Pulse Source Pulse Oximeter Pulse Oximetry (%) 99 Oxygen Delivery Method Room Air Intake Visit Reasons: Post Surgery Appt Shoulder Allergies olanzapine [From ZYPREXA] Allergy (Severe, Verified 12/29/23 12:00) SWELLING oxcarbazepine [From TRILEPTAL] Allergy (Severe, Verified 12/29/23 12:00) antony's Rob syndrome gabapentin Allergy (Unknown, Verified 12/29/23 12:00) Loss of balance lithium [LITHIUM] Allergy (Unknown, Verified 12/29/23 12:00) UNKNOWN quetiapine [Seroquel] Allergy (Unknown, Verified 12/29/23 12:00) Unknown sulfamethoxazole [From BACTRIM] Allergy (Unknown, Verified 12/29/23 12:00) severe rash trimethoprim [From BACTRIM] Allergy (Unknown, Verified 12/29/23 12:00) severe rash cyclobenzaprine [From Flexeril] Adverse Reaction (Intermediate, Verified 12/29/23 12:00) Agitated Tobacco use date assessed: 09/20/23 Dental Screening Dental Screen Date: 09/20/23 HPI Post Surgery Appt Shoulder HPI Details Patient is a 43-year-old female here today for follow-up visit. She is status post left shoulder replacement done in [place]. [place] [facility] not able to continue her pain medication 2 weeks postop surgery. She now needs PCP to help her with her pain and wean her on her narcotic pain medication. Did have long discussion about habit-forming nature of pain medication and she agrees. She will be starting physical therapy in the next 5-6 weeks. She will need pain reduction medication to get the most benefit out of her physical therapy. Will follow-up with patient every 2 weeks for pain management. Concern--> reports she punched a wall recently and injured her right hand. Had immediate swelling and ecchymosis. Would like an x-ray to evaluate for fracture. [facility] Medical History Right thigh pain Schizoaffective disorder, bipolar type Gastroparesis Chronic nausea Migraine Bipolar disorder GLORIA (generalized anxiety disorder) Surgical History History of shoulder surgery Hx of colonoscopy History of esophagogastroduodenoscopy (EGD) History of tonsillectomy Family History Mother No problems noted. Father No problems noted. Social History Household Members: Other Household Members Other:: mother Housing: House Do you presently have visiting nurse or other home services: No Alcohol intake: current Alcohol intake frequency: holidays/special occasions only Patient Tobacco Use Status: Current everyday Tobacco user Cigarettes Per Day: 3 Years Smoked: 25 e-Cigarette/Vaping Use: Never Used Second Hand Smoke Exposure: Yes Substance Use Type: Marijuana Advance Directives Date on File: 05/19/21 service: No Current occupational status: unemployed and disabled Cognitive needs: No Hearing needs: No Vision needs: No Questionnaire Thrive Questionnaire Date Thrive assessed: 09/20/23 GLORIA-7 AMB Questionnaire GLORIA-7 Date GLORIA - 7 assessed: 09/20/23 Source: Developed by Drs. Ayush Lara, Anum Boyer, Brendan Herbert and colleagues, with an educational richar from [employer]. Review of Systems Const Denies headache(s) Eyes Denies loss of vision ENT Denies vertigo, Denies dizziness, Denies headache(s) and Denies sore throat Card Denies chest pain, Denies leg edema and Denies lightheadedness Resp Denies cough, Denies hemoptysis and Denies wheezing GI Denies abdominal pain, Denies melena, Denies constipation, Denies diarrhea and Denies vomiting Denies urinary frequency, Denies dysuria and Denies urinary urgency Musc Denies arthralgias, Denies joint swelling, Denies numbness and Denies tingling Neuro Denies Abnormal speech present, Denies behavioral changes, Denies vertigo, Denies dizziness, Denies headache(s), Denies loss of vision, Denies memory loss, Denies numbness and Denies tingling Psych Denies anxiety, Denies behavioral changes, Denies depression, Denies memory loss and Denies panic attacks Vincent/Lymph Denies easy bleeding and Denies easy bruising Aller/Immun Denies wheezing Physical exam (Primary Care) Vital Signs: Last Vital Signs Pulse 104 H 12/28/23 10:57 BP 136/82 12/28/23 10:57 Pulse Ox 99 12/28/23 10:57 Oxygen Delivery Method Room Air 12/28/23 10:57 BMI result Body Mass Index 20.2 Tobacco/Smoking Status: Tobacco use Status Tobacco use date assessed 09/20/23 12/28/23 10:58 Patient Tobacco Use Status Current everyday Tobacco 12/28/23 10:58 Tobacco use type 08/31/21 12:14 e-Cigarette/Vaping Use Never Used 12/28/23 10:58 Thrive Assessment: Date of Thrive Assessment Date Thrive assessed 09/20/23 12/28/23 10:58 Const General: healthy appearing, no acute distress, alert and awake Nutritional Appearance: well nourished Orientation/consciousness: oriented to person, oriented to place and oriented to time HENMT Ears: TM's normal bilaterally General nose exam: Normal nasal mucous membranes and turbinates present Eyes Conjunctivae: conjunctivae normal Sclerae: sclerae normal Pupils: Equal, round and reactive pupils present Neck Neck: Yes no lymphadenopathy and Yes no JVD Thyroid: Thyroid normal Carotids: no bruits Resp Effort & Inspection: normal respiratory effort and not tachypneic Auscultation: no crackles, no rales, no rhonchi and no wheezes Cardio Rate: regular rate Rhythm: regular rhythm Heart sounds: no murmurs and normal S1 and S2 GI Palpation (GI): Soft to palpation, nontender, no hepatomegaly and no splenomegaly Auscultation: normal bowel sounds Skin General skin exam: no rashes or lesions noted and dry skin Neuro General: oriented to person, oriented to place and oriented to time Cranial nerves: Yes Equal, round and reactive pupils present Speech: No Abnormal speech present Gait exam (Neuro): Normal gait present Motor exam (neuro): no tremor noted Extrem Other: LEFT UPPER EXTREMITY IN SLING. Right upper extremity: full ROM Left upper extremity: ROM limited Right lower extremity: full ROM; no edema Left lower extremity: full ROM; no edema Psych Mental Status: mental status grossly normal Speech and movement: Normal speech and movement present Affect: normal affect Attitude: cooperative Thought process: Normal thought process present Office Procedures Flu Questionnaire Does the patient have a severe egg allergy?: No Immunizations Fluarix Triv [id number] (PF) 45 mcg (15 mcg x 3)/0.5 mL IM syringe Performing Provider: Ramesh Sampson PA-C [facility] [place] [facility] Documented (not given) by: VEE Soto on 12/28/23 10:58 Reason Not Given: Patient Refused Coding Level of Care Code Est Pt Level 4 (16254) Diagnoses Arthralgia of left shoulder region M25.512 Injury of right hand, initial encounter S69.91XA Encounter type: initial encounter Assessment & Plan Assessment & Plan (1) Arthralgia of left shoulder region: Code(s): M25.512 - Pain in left shoulder Category: Medical Plan: Patient had a complex left shoulder reconstruction tendon surgery in [place]. Now needs PCP to manage her pain. Will do oxycodone 10 mg b.i.d.. Will be starting physical therapy in 6 weeks and will still need pain medication to get her through therapy as she has a complicated case. WE DID DISCUSS HABIT-FORMING NATURE AND ADDICTION POTENTIAL WITH LONG-TERM USE OF OXYCODONE A PATIENT DOES UNDERSTAND AND WILL FOLLOW-UP EVERY 2 WEEKS. (2) Injury of right hand: Code(s): S69.91XA - Unspecified injury of right wrist, hand and finger(s), initial encounter Category: Medical Qualifiers: Encounter type: initial encounter Qualified Code(s): S69.91XA - Unspecified injury of right wrist, hand and finger(s), initial encounter Plan: PATIENT REPORTS PUNCHING A WALL WITH HER RIGHT FIST. HAS BEEN HAVING EDEMA ON ECCHYMOSIS IN HER PALM. WILL SEND FOR X-RAY TO EVALUATE FOR BOXER'S FRACTURE Orders: Orders Influenza [id number] Immunization 12/28/23 Z23 - Encounter for immunization XR hand RT 2V 12/28/23 S69.91XA - Unspecified injury of right wrist, hand and finger(s), initial encounter Medications: Changed From oxycodone Partial Fill upon patient request. 10 mg PO BID 4 days PRN 8 tabs 0RF pain S43.005D - Unspecified dislocation of left shoulder joint, subsequent encounter To oxycodone Partial Fill upon patient request. 10 mg PO BID 14 days 28 tabs 0RF pain S43.005D - Unspecified dislocation of left shoulder joint, subsequent encounter
== END 2023-12-28 11:18 | disposition home or self-care (01) ==
PROVIDERS: PCP Physician Assistant; Visit Provider Physician Assistant
DX: M25.512 Pain in left shoulder (principal); S69.91XA Unspecified injury of right wrist, hand and finger(s), initial encounter

== ENCOUNTER 2023-12-28 10:43 | Outpatient (REF) | payer MEDICARE, MEDICAID, SELFPAY ==
--- NOTE | ~2023-12-28 | XR_ITS ---
EXAMINATION: XR HAND, RIGHT CLINICAL INFORMATION: Punching injury. COMPARISON: Right hand radiographs dated 05/19/2021. TECHNIQUE: PA, lateral, and bilateral oblique views of the right hand. FINDINGS: Mildly displaced and comminuted fracture through the distal fifth metacarpal metaphysis with apex dorsal angulation. No extension to the articular surface. No dislocation. No joint space narrowing or marginal osteophyte. No osseous erosion. No abnormal soft tissue calcification. XR/XR hand RT 2V IMPRESSION: Mildly displaced and comminuted fracture through the distal fifth metacarpal metaphysis with apex dorsal angulation. Electronically signed by: Min Martinez MD 12/29/2023 01:39 PM EDT
== END 2023-12-28 10:44 | disposition home or self-care (01) ==
LOC: HO.XRAY 10:43
PROVIDERS: PCP Physician Assistant; Visit Provider Physician Assistant
DX: M25.512 Pain in left shoulder (principal); S69.91XD Unspecified injury of right wrist, hand and finger(s), subsequent encounter; S43.005D Unspecified dislocation of left shoulder joint, subsequent encounter; X58.XXXD Exposure to other specified factors, subsequent encounter; Z23 Encounter for immunization; Z98.890 Other specified postprocedural states
CPT/HCPCS: 73120; 90471; 99212

== ENCOUNTER 2023-12-29 11:40 | Emergency (ER) | payer MEDICARE, MEDICAID, SELFPAY ==
--- NOTE | ~2023-12-29 | XR_ITS ---
EXAMINATION: XR CHEST CLINICAL INFORMATION: Shortness of breath. Chest pain. COMPARISON: Chest radiograph dated 07/04/2021 and left shoulder radiographs dated 11/02/2023. TECHNIQUE: 2 views of the chest were obtained. FINDINGS: Focal opacity within the right lung base measuring up to 1.6 cm, not seen on the prior examination. Findings are nonspecific and could represent a nodule versus focal infiltrate. No additional airspace opacity. No pleural effusion or pneumothorax. Stable cardiomediastinal silhouette. Partially visualized left glenoid orthopedic hardware in unchanged anatomic alignment. XR/XR chest 2V IMPRESSION: Focal opacity within the right lung base measuring up to 1.6 m, not seen on the prior examination. Findings are nonspecific and could represent a nodule versus focal infiltrate. If there is clinical concern, CT chest could help further evaluate. Electronically signed by: Min Martinez MD 12/29/2023 01:39 PM EDT
--- NOTE | 2023-12-29 11:55 | ED_ITS ---
HPI - General Adult General Chief complaint: Extremity Injury, Upper Stated complaint: l shoulder stitches problem- r hand inj Time Seen by Provider: 12/29/23 14:41 Source: patient Mode of arrival: ambulatory Limitations: no limitations History of Present Illness ED Provider: Heidi Boykin PA-C HPI narrative: Patient is a 43 year old assigned female at with a history of tobacco use and bipolar disorder presenting to the emergency department today with right hand pain. Patient states that 2 weeks ago she punched an object and has had right hand pain ever since. Patient states that she had an outpatient x-ray done that showed a fracture in the right hand. Patient states that she is having ongoing issues with her left shoulder post operatively that she continues to try and get ahold of the [facility] surgeon to address. Patient states that she has had somewhat of a cough as of the last few days. Patient denies any dizziness, lightheadedness, abdominal pain, nausea, vomiting, fever, chills, blurry vision, double vision, loss of vision, chest pain, difficulty breathing, shortness of breath, back pain, night sweats, pain with urination, increased urinary frequency, increased urinary urgency, blood in her urine or stool, syncope or a near syncopal episode, bowel incontinence, bladder incontinence, or any other complaints at this time. Relieving factors: none Exacerbating factors: none Associated symptoms: cough Treatments prior to arrival: none Related Data Home Medications ?Medication ?Instructions ?Recorded ?Confirmed sumatriptan succinate 50 mg tablet 50 mg PO DAILY PRN Migraine 05/28/20 11/02/23 Headache erenumab-aooe 140 mg/mL mg subcut Q4W 05/18/21 11/02/23 subcutaneous auto-injector (Aimovig Autoinjector) folic acid 20 mg capsule 20 mg PO DAILY 08/31/21 11/02/23 Previous Rx's ?Medication ?Instructions ?Recorded bisacodyl 5 mg tablet,delayed 10 mg (2 x 5 mg) PO BEDTIME PRN 05/12/21 release (Bisa-Lax (bisacodyl)) constipation 2 days #30 tabs famotidine 40 mg tablet 40 mg PO BEDTIME #30 tabs 05/26/21 acetaminophen 500 mg capsule 500 mg PO Q6H fever 10 days #40 02/17/22 caps sucralfate 1 gram tablet 1 g PO BID #180 tabs 09/26/22 divalproex 500 mg tablet,extended 1,500 mg (3 x 500 mg) PO DAILY 30 09/28/22 release 24 hr days #90 tabs cholecalciferol (vitamin D3) 50 50 mcg PO DAILY 90 days #90 caps 10/18/22 mcg (2,000 unit) capsule perphenazine 8 mg tablet 8 mg PO DAILY #90 tabs 02/01/23 Nicorette 4 mg buccal lozenge 4 mg buccal Q8H PRN nicotine 02/13/23 (nicotine (polacrilex)) cravings 30 days #108 ea clonazepam 1 mg tablet 1 mg PO BID PRN anxiety 30 days 02/20/23 #60 tabs Latuda 80 mg tablet (lurasidone) 80 mg PO DAILY 90 days #90 tabs 04/24/23 polyethylene glycol 3350 17 17 g PO BID #850 grams 06/05/23 gram/dose oral powder (Miralax) prucalopride 2 mg tablet See Rx Instructions .Route 06/06/23 (Motegrity) .COMPLEX #30 tabs benztropine 0.5 mg tablet 0.5 mg PO BID 90 days #180 tabs 06/11/23 hydroxyzine HCl 25 mg tablet 25 mg PO BEDTIME #90 tabs 06/26/23 bupropion HCl 300 mg 24 hr tablet, 300 mg PO DAILY 90 days #90 tabs 08/03/23 extended release tizanidine 2 mg tablet 2 mg PO BID for muscle spasm 10 11/02/23 days #20 tabs oxycodone 10 mg tablet 10 mg PO BID pain 14 days #28 tabs 12/28/23 amoxicillin 875 mg-potassium 1 tab PO BID 10 days #20 tabs 12/29/23 clavulanate 125 mg tablet doxycycline hyclate 100 mg tablet 100 mg PO BID 7 days #14 tabs 12/29/23 Allergies Allergy/AdvReac Type Severity Reaction Status Date / Time olanzapine [From ZYPREXA] Allergy Severe SWELLING Verified 12/29/23 12:00 oxcarbazepine Allergy Severe antony's Verified 12/29/23 12:00 [From TRILEPTAL] Rob syndrome gabapentin Allergy Unknown Loss of Verified 12/29/23 12:00 balance lithium [LITHIUM] Allergy Unknown UNKNOWN Verified 12/29/23 12:00 quetiapine [Seroquel] Allergy Unknown Unknown Verified 12/29/23 12:00 sulfamethoxazole Allergy Unknown severe rash Verified 12/29/23 12:00 [From BACTRIM] trimethoprim [From BACTRIM] Allergy Unknown severe rash Verified 12/29/23 12:00 cyclobenzaprine AdvReac Intermediate Agitated Verified 12/29/23 12:00 [From Flexeril] Review of Systems 2 Constitutional: Constitutional: Reports no additional constitutional complaints, Denies chills, Denies fever(s) and Denies night sweats Eyes: Eyes: Reports no additional eye complaints, Denies blurry vision, Denies change in vision, Denies diplopia, Denies eye discharge, Denies loss of vision and Denies eye pain ENT: Denies dizziness Cardiovascular: Cardiovascular: Reports no additional cardiovascular complaints, Denies chest pain, Denies lightheadedness, Denies Loss of Consciousness and Denies dyspnea Respiratory: Respiratory: Reports no additional respiratory complaints, Reports cough and Denies dyspnea Gastrointestinal: Gastrointestinal: Reports no additional gastrointestinal complaints, Denies abdominal pain, Denies melena, Denies hematochezia, Denies change in bowel habits and Denies change in stool character Genitourinary: Genitourinary: Denies hematuria, Denies urinary frequency, Denies dysuria, Denies urinary incontinence, Denies urinary hesitancy and Denies urinary urgency Musculoskeletal: Musculoskeletal: Reports no additional musculoskeletal complaints, Denies numbness and Denies tingling Comments: right 5th finger pain / right hand pain Neurologic: Denies dizziness, Denies loss of vision, Denies numbness and Denies tingling Psychiatric: Psychiatric: Reports no additional psychiatric complaints Endocrine: Endocrine: Reports no additional endocrine complaints Hematologic/Lymphatic: Hematologic/Lymphatic: Reports no additional hematologic/lymphatic complaints Allergic/Immunologic: Allergic/Immunologic: Reports no additional allergic/immunologic complaints PMFSH Past Medical History Attestation statement: The following information was validated with the patient. Source: old records reviewed and nursing notes reviewed Medical History Right thigh pain Schizoaffective disorder, bipolar type Gastroparesis Chronic nausea Migraine Bipolar disorder GLORIA (generalized anxiety disorder) Surgical History History of shoulder surgery Hx of colonoscopy History of esophagogastroduodenoscopy (EGD) History of tonsillectomy Family History Family History Mother No problems noted. Father No problems noted. Social History Social History Household Members: Other Household Members Other:: mother Housing: House Do you presently have visiting nurse or other home services: No Alcohol intake: current Alcohol intake frequency: holidays/special occasions only Patient Tobacco Use Status: Current everyday Tobacco user Cigarettes Per Day: 3 Years Smoked: 25 e-Cigarette/Vaping Use: Never Used Second Hand Smoke Exposure: Yes Substance Use Type: Marijuana Advance Directives: Yes Advance Directives on File: Yes Advance Directives Date on File: 05/19/21 service: No Current occupational status: unemployed and disabled Cognitive needs: No Hearing needs: No Vision needs: No Physical Exam ED Vital Signs: Vital Signs - 24 hr 12/29/23 11:56 Temperature 98.7 F Pulse Rate 86 Respiratory Rate 16 Blood Pressure 122/51 L Pulse Oximetry 99 Oxygen Delivery Method Room Air BMI result Body Mass Index 21.1 Const General: cooperative, no acute distress, alert and awake Nutritional Appearance: well nourished Orientation/consciousness: patient oriented x3 Limitations: no limitations HENMT Head: Yes normal to inspection and Yes atraumatic Ears: hearing grossly normal bilaterally and external ears normal General nose exam: Normal external nose present, no nasal discharge noted and no epistaxis Face and sinus: Yes normal facial exam, No abrasion and No laceration Mouth: Normal oral and palatal mucosa present, no drooling and no muffled voice Eyes General: appearance normal, both eyes and all related structures Periorbital: periorbital findings normal Eyelids: Yes eyelids normal Conjunctivae: conjunctivae normal Pupils: Equal, round and reactive pupils present EOM: EOMs intact bilaterally Neck Neck: Yes normal visual inspection, Yes full ROM and Yes no lymphadenopathy Chest Chest palpation & inspection: normal inspection of the chest Resp Effort & Inspection: normal respiratory effort and able to speak in complete sentences GI Inspection: Yes normal to inspection Neuro General: patient oriented x3 and moves all extremities Cranial nerves: Yes Equal, round and reactive pupils present Cognition (Neuro): normal cognition Extrem Other: patient's left shoulder / upper extremity is in a post operative sling / splint pain with palpation and movement of right hand General: Yes capillary refill normal Psych Appearance: grossly normal Mental Status: mental status grossly normal Affect: normal affect Attitude: cooperative Thought process: Normal thought process present Thought content: Normal thought content present Insight: Good insight present (Psych) Course Course Course Narrative: This is an RME performed by Paco Ibarra CNP: Additional HPI, ROS, PE not included below will be deferred to primary provider. Patient is a 43-year-old female who presents to the emergency department. She reports that she is experiencing swelling to the right hand primarily over the car, she punched something approximately 2 weeks ago, resulting in pain and swelling she had an outpatient x-ray done yesterday for which she has not received any results of yet, she does feel as though the swelling has increased today. On evaluation of this x-ray imaging, radiologist impression has not yet resulted but my impression is that she has a fracture of the right 5th metacarpal head fracture, she was made aware of this finding at this time Additionally she reports that she had left shoulder surgery at [facility] on 12/13/2023. She reports that an anchor from the internal hardware had migrated from the shoulder to the axillary area and now she is experiencing left anterolateral pain particularly with respirations. She states that she saw the orthopedic PA on Monday of this week, and she has been ?waiting for a call from doctor? but has not heard back from them. Procedures Orthopedic Splinting/Casting Injury #1: Side: right Upper Extremity Injury Location: hand Upper Extremity Immobilizer: ulnar gutter Medical Decision Making Medical Decision Making MDM Narrative: Patient is a 43 year old assigned female at with a history of tobacco use, bipolar disorder, and recent left shoulder surgery presenting to the emergency department today with right hand pain and a cough. Patient's physical exam was as noted in the physical exam portion of this note. Patient's blood work was unremarkable. Patient's EKG was unremarkable. Patient's chest x-ray showed a focal opacity within the right lung base measuring up to 1.6cm which could represent a nodule versus infiltrate. Patient's right hand x-ray from 12/28/2023 showed a mildly displaced and comminuted fracture through the distal fifth metacarpal metaphysis with apex dorsal angulation. I explained my physical exam findings as well as all test results to the patient. I answered all questions asked by the patient. Patient's right hand was placed in an ulnar gutter splint, without incident. Patient's PMS was intact prior to and after splint placement. Given patient's cough and CXR findings - will treat for CAP. I stressed the importance of the patient taking her medication as directed (either prescribed or as the over the counter packaging recommends). I stressed the importance of the patient following up with her primary care provider and an orthopedic provider. I stressed the importance of the patient returning to the emergency department immediately if her symptoms were to worsen or if she were to develop any dizziness, shortness of breath, difficulty breathing, chest pain, blurry vision, loss of vision, nausea, vomiting, abdominal pain, fever, chills, back pain, or any other complaints. Patient verbalized agreement and understanding with this treatment plan and discharge. Differential Diagnosis Differential Diagnoses: The differential diagnosis associated with the presentation includes Metacarpal fracture PNA Admission/Observation Consideration of admission/observation: Escalation of care including admission/observation considered Patient would have been admitted to the hospital had her work up had any findings where hospital admission was appropriate and her clinical presentation warranted hospital admission. Lab Data [facility] Lab Attestation statement: I reviewed the patient's lab results. My interpretation of these results are in the [facility] Rationale portion of this note. 12/29/23 14:19 12/29/23 14:19 Labs: Lab Results 12/29/23 12/29/23 Range/Units 12:47 14:19 WBC 8.6 (4.8-10.8) X10*3/uL RBC 3.86 L (4.20-5.50) X10*6/uL Hgb 12.6 (12.0-16.0) g/dl Hct 36.2 L (37.0-47.0) % MCV 93.8 (80.0-98.0) fL MCH 32.6 (27.0-33.0) pg MCHC 34.8 (31.0-35.0) g/dl RDW 12.4 (11.0-16.0) % Plt Count 333 D (160-400) X10*3/uL MPV 10.8 (9.4-12.3) fL Immature Gran % (Auto) 0.2 (0.0-0.4) % Neut % (Auto) 64.5 (45-73) % Lymph % (Auto) 26.5 (20-40) % Maries % (Auto) 6.8 (2-11) % Eos % (Auto) 1.3 (0-4) % Baso % (Auto) 0.7 (0-2) % Lymph # (Auto) 2.3 (1.2-4.9) X10*3/uL Maries # (Auto) 0.6 (0.1-1.2) X10*3/uL Eos # (Auto) 0.1 (0.0-0.4) X10*3/uL Baso # (Auto) 0.1 (0.0-0.2) X10*3/uL Abs Immat Gran (auto) 0.02 (0.00-0.03) X10*3/uL Absolute Neuts (auto) 5.5 (2.0-8.3) x10*3/uL Absolute Nucleated RBC 0.000 (0.0-0.012) X10*3/uL Nucleated RBC % (auto) 0.0 (0.0-0.2) /100WBC PT 10.8 L (10.9-12.4) SEC INR 0.9 (0.9-1.1) Sodium 141 (135-145) mmol/L Potassium 3.9 (3.3-5.1) mmol/L Chloride 107 (96-108) mmol/L Carbon Dioxide 27 (22-29) mmol/L Anion Gap 11 L (12-20) BUN 11 (9-16) mg/dL Creatinine 0.76 (0.5-1.4) mg/dL Estim Creat Clear Calc 91.3 Estimated GFR > 60 Random Glucose 81 (60-115) mg/dL Calcium 9.7 (8.4-10.2) mg/dL Total Bilirubin 0.2 (0.0-1.0) mg/dL AST 24 (5-31) U/L ALT 17 (0-31) U/L Alkaline Phosphatase 102 (39-117) U/L Troponin I High Sens < 2.7 (<3.5-17.0) ng/L Total Protein 6.7 (6.5-8.0) g/dL Albumin 4.0 (3.5-5.0) g/dL Influenza Type A (PCR) NEGATIVE (Negative) Influenza Type B (PCR) NEGATIVE (Negative) RSV RNA Qual (PCR) NEGATIVE (Negative) SARS-CoV-2 RNA (RT-PCR) NEGATIVE (Negative) Independent Interpretation I performed an independent interpretation of an: EKG and Plain X-Ray Interpretation: My interpretation is in agreement with the radiologist's impression of these imaging studies. L EXAMINATION: XR HAND, RIGHT CLINICAL INFORMATION: Punching injury. COMPARISON: Right hand radiographs dated 05/19/2021. TECHNIQUE: PA, lateral, and bilateral oblique views of the right hand. FINDINGS: Mildly displaced and comminuted fracture through the distal fifth metacarpal metaphysis with apex dorsal angulation. No extension to the articular surface. No dislocation. No joint space narrowing or marginal osteophyte. No osseous erosion. No abnormal soft tissue calcification. XR/XR hand RT 2V IMPRESSION: Mildly displaced and comminuted fracture through the distal fifth metacarpal metaphysis with apex dorsal angulation. Electronically signed by: Min Martinez MD 12/29/2023 01:39 PM EDT RP Dictated By: Min Martinez MD Signed By: Electronically signed by Min Martinez MD 12/29/23 1339 EXAMINATION: XR CHEST CLINICAL INFORMATION: Shortness of breath. Chest pain. COMPARISON: Chest radiograph dated 07/04/2021 and left shoulder radiographs dated 11/02/2023. TECHNIQUE: 2 views of the chest were obtained. FINDINGS: Focal opacity within the right lung base measuring up to 1.6 cm, not seen on the prior examination. Findings are nonspecific and could represent a nodule versus focal infiltrate. No additional airspace opacity. No pleural effusion or pneumothorax. Stable cardiomediastinal silhouette. Partially visualized left glenoid orthopedic hardware in unchanged anatomic alignment. XR/XR chest 2V IMPRESSION: Focal opacity within the right lung base measuring up to 1.6 m, not seen on the prior examination. Findings are nonspecific and could represent a nodule versus focal infiltrate. If there is clinical concern, CT chest could help further evaluate. Electronically signed by: Min Martinez MD 12/29/2023 01:39 PM EDT RP Dictated By: Min Martinez MD Signed By: Electronically signed by Min Martinez MD 12/29/23 1339 Vent. Rate: 093 BPM Atrial Rate: 093 BPM P-R Int: 140 ms QRS Dur: 070 ms QT Int: 352 ms P-R-T Axes: 076 090 011 degrees QTc Int: 437 ms Normal sinus rhythm Rightward axis When compared with ECG of 24-MAY-2021 19:50, No significant change was found DD/ 1228 Radiology Impression Discussion of test interpretation with radiology: I have reviewed the radiologist's reading. Discharge Plan Discharge Clinical Impression: Boxer's fracture, Cough, Pneumonia Patient Disposition: Home, Self-Care Instructions: Community Acquired Pneumonia (DC), Boxer Fracture (ED), Acute Cough (ED) Additional Instructions: Your chest x-ray showed a possible pneumonia vs. nodule - given that you are having a cough, we will cover you like it's pneumonia but you must follow up with your PCP about this for additional / follow up imaging. Your right hand x- ray showed a broken 5th metacarpal, which we splinted. Do NOT remove the splint. Do NOT get the splint wet. If you start to have any numbness, tingling, or change of color / senstaion in your right fingers, you may loosen your MARCIAL wrap. If you find yourself loosening the MARCIAL wrap to where you see the white part underneath - STOP and report your closest ER immediately. Follow up with your primary care provider and an orthopedist. Return to the emergency department immediately if your symptoms worsen or if you develop any dizziness, shortness of breath, difficulty breathing, chest pain, blurry vision, loss of vision, nausea, vomiting, abdominal pain, fever, chills, back pain, or any other complaints. Prescriptions: New doxycycline hyclate 100 mg tablet 100 mg PO BID 7 Days Qty: 14 0RF amoxicillin-pot clavulanate 875-125 mg tablet 1 tab PO BID 10 Days Qty: 20 0RF No Action acetaminophen 500 mg capsule 500 mg PO Q6H 10 Days Qty: 40 0RF sucralfate 1 gram tablet 1 g PO BID Qty: 180 1RF divalproex 500 mg tablet extended release 24 hr 1,500 mg PO DAILY 30 Days Qty: 90 2RF cholecalciferol (vitamin D3) 50 mcg (2,000 unit) capsule 50 mcg PO DAILY 90 Days Qty: 90 2RF perphenazine 8 mg tablet 8 mg PO DAILY Qty: 90 2RF clonazepam 1 mg tablet 1 mg PO BID PRN (Reason: anxiety) 30 Days Qty: 60 1RF lurasidone [Latuda] 80 mg tablet 80 mg PO DAILY 90 Days Qty: 90 2RF Motegrity 2 mg tablet See Rx Instructions .ROUTE .COMPLEX Qty: 30 4RF Dose Instruction: TAKE 1 TABLET BY MOUTH EVERY DAY Rx Instructions: TAKE 1 TABLET BY MOUTH EVERY DAY benztropine 0.5 mg tablet 0.5 mg PO BID 90 Days Qty: 180 1RF hydroxyzine HCl 25 mg tablet 25 mg PO BEDTIME Qty: 90 2RF bupropion HCl 300 mg tablet extended release 24 hr 300 mg PO DAILY 90 Days Qty: 90 2RF Aimovig Autoinjector 140 mg/mL auto-injector subcut Q4W famotidine 40 mg tablet 40 mg PO BEDTIME Qty: 30 0RF bisacodyl [Bisa-Lax (bisacodyl)] 5 mg tablet,delayed release (DR/EC) 10 mg PO BEDTIME PRN (Reason: constipation) 2 Days Qty: 30 0RF sumatriptan succinate 50 mg tablet 50 mg PO DAILY PRN (Reason: Migraine Headache) nicotine (polacrilex) [Nicorette] 4 mg lozenge 4 mg buccal Q8H PRN (Reason: nicotine cravings) 30 Days Qty: 108 3RF tizanidine 2 mg tablet 2 mg PO BID 10 Days Qty: 20 1RF folic acid 20 mg capsule 20 mg PO DAILY polyethylene glycol 3350 [Miralax] 17 gram/dose powder 17 g PO BID Qty: 850 3RF oxycodone 10 mg tablet 10 mg PO BID 14 Days Qty: 28 0RF Rx Instructions: Partial Fill upon patient request. Referrals: [facility] [Provider Group] (Call to establish and follow up with an orthopedic provider. ) Ramesh Sampson PA-C [Primary Care Provider] - Interventions: ED Discharge Assessment Last Done: 12/29/23 15:29 Print Language: Korean
[2023-12-29 11:56] VITALS: BP 122/51; PULSE 86; RESP 16; TEMP 37.1; O2SAT 99; BMI 21.1
--- NOTE | 2023-12-29 12:00 | ECG_ITS ---
Test Reason : CHEST PAIN Blood Pressure : / mmHG Vent. Rate : 093 BPM Atrial Rate : 093 BPM P-R Int : 140 ms QRS Dur : 070 ms QT Int : 352 ms P-R-T Axes : 076 090 011 degrees QTc Int : 437 ms Poor data quality, interpretation may be adversely affected Normal sinus rhythm Rightward axis Borderline ECG When compared with ECG of 24-MAY-2021 19:50, No significant change was found Referred By: Tammie Ibarra Electronically Signed By:Nathaniel Lora
[2023-12-29 13:31] LABS: Influenza A PCR NEGATIVE (Negative); Influenza B PCR NEGATIVE (Negative); Resp Syncy Virus RNA Qual PCR NEGATIVE (Negative); SARS COV2 PCR INHOUSE NEGATIVE (Negative)
[2023-12-29 14:32] LABS: MANUAL DIFF FLAG NO
[2023-12-29 14:35] LABS: Basophils Absolute Auto 0.1 X10*3/uL (0.0-0.2); Basophils Percent Auto 0.7 % (0-2); Eosinophils Absolute Auto 0.1 X10*3/uL (0.0-0.4); Eosinophils Percent Auto 1.3 % (0-4); Hematocrit 36.2 % (37.0-47.0); Hemoglobin 12.6 g/dl (12.0-16.0); Imm Gran Abs Auto 0.02 X10*3/uL (0.00-0.03); Imm Gran Pct Auto 0.2 % (0.0-0.4); Lymphocytes Absolute Auto 2.3 X10*3/uL (1.2-4.9); Lymphocytes Percent Auto 26.5 % (20-40); Mean Corpuscular HGB Conc 34.8 g/dl (31.0-35.0); Mean Corpuscular Hemoglobin 32.6 pg (27.0-33.0); Mean Corpuscular Volume 93.8 fL (80.0-98.0); Mean Platelet Volume 10.8 fL (9.4-12.3); Monocytes Absolute Auto 0.6 X10*3/uL (0.1-1.2); Monocytes Percent Auto 6.8 % (2-11); Neutrophils Absolute Auto 5.5 x10*3/uL (2.0-8.3); Neutrophils Percent Auto 64.5 % (45-73); Platelet Count 333 X10*3/uL (160-400); Red Blood Count 3.86 X10*6/uL (4.20-5.50); Red Cell Distribution Width 12.4 % (11.0-16.0); White Blood Count 8.6 X10*3/uL (4.8-10.8)
[2023-12-29 14:39] LABS: INTERNATIONAL NORM RATIO 0.9 (0.9-1.1); Prothrombin Time 10.8 SEC (10.9-12.4)
[2023-12-29 14:51] LABS: Alanine Aminotransferase 17 U/L (0-31); Alkaline Phosphatase 102 U/L (39-117); Anion Gap 11 (12-20); Aspartate Amino Transferase 24 U/L (5-31); Bilirubin Total 0.2 mg/dL (0.0-1.0); Blood Urea Nitrogen 11 mg/dL (9-16); Calcium 9.7 mg/dL (8.4-10.2); Carbon Dioxide 27 mmol/L (22-29); Chloride 107 mmol/L (96-108); Creatinine Clr Calc Pharmacy 91.3; Estimated Glomerular Filt Rate > 60; Glucose Random 81 mg/dL (60-115); Potassium 3.9 mmol/L (3.3-5.1); Sodium 141 mmol/L (135-145); Total Protein 6.7 g/dL (6.5-8.0)
[2023-12-29 15:00] LABS: Troponin-I High Sensitivity < 2.7 ng/L (<3.5-17.0)
[2023-12-29 15:29] VITALS: BP 122/51; PULSE 86; RESP 18; TEMP 37.1; O2SAT 99
== END 2023-12-29 15:30 | disposition home or self-care (01) ==
PROVIDERS: Nurse Practitioner Family; Emergency Provider Emergency Medicine Emergency Medical Services; PCP Physician Assistant
DX: S62.91XA Unspecified fracture of right hand, initial encounter for closed fracture (principal); J18.9 Pneumonia, unspecified organism; R06.02 Shortness of breath; R07.89 Other chest pain; R05.9 Cough, unspecified; F17.210 Nicotine dependence, cigarettes, uncomplicated; X58.XXXA Exposure to other specified factors, initial encounter; Y93.89 Activity, other specified; Y92.89 Other specified places as the place of occurrence of the external cause; Y99.8 Other external cause status; Z03.818 Encounter for observation for suspected exposure to other biological agents ruled out; Z79.899 Other long term (current) drug therapy
CPT/HCPCS: 0241U; 36415; 71046; 80053; 84484; 85025; 85610; 93005; 99283; 99284

== ENCOUNTER → 2023-12-29 12:00 | Outpatient (BNV) | payer MEDICARE, MEDICAID, SELFPAY | PROVIDERS: Emergency Provider Emergency Medicine Emergency Medical Services; PCP Physician Assistant; Visit Provider Internal Medicine Cardiovascular Disease | DX: R07.9 Chest pain, unspecified (principal) | CPT/HCPCS: 93010 ==

== ENCOUNTER 2024-01-02 08:26 | Outpatient (AMB) | payer MEDICARE, MEDICAID, SELFPAY ==
--- NOTE | 2024-01-02 08:32 | A.OFFPC_ITS ---
Vital Signs 3 01/02/24 08:35 Height 5 ft 7 in Weight 133 lb BMI 20.8 BP 110/72 Blood Pressure Location Rt brachial Position Sitting Pulse 71 Pulse Source Pulse Oximeter Pulse Oximetry (%) 99 Oxygen Delivery Method Room Air Intake Visit Reasons: [facility] [place]28 shoulder stitches problem- r hand inj Intake Note: Patient is here to follow-up after a visit the emergency department at [facility] on 12/29/23 Allergies olanzapine [From ZYPREXA] Allergy (Severe, Verified 01/02/24 08:39) SWELLING oxcarbazepine [From TRILEPTAL] Allergy (Severe, Verified 01/02/24 08:39) antony's Rob syndrome gabapentin Allergy (Unknown, Verified 01/02/24 08:39) Loss of balance lithium [LITHIUM] Allergy (Unknown, Verified 01/02/24 08:39) UNKNOWN quetiapine [Seroquel] Allergy (Unknown, Verified 01/02/24 08:39) Unknown sulfamethoxazole [From BACTRIM] Allergy (Unknown, Verified 01/02/24 08:39) severe rash trimethoprim [From BACTRIM] Allergy (Unknown, Verified 01/02/24 08:39) severe rash cyclobenzaprine [From Flexeril] Adverse Reaction (Intermediate, Verified 01/02/24 08:39) Agitated Medication List - Last Reconciled 01/02/24 by Ramesh Sampson PA-C acetaminophen 500 mg PO Q6H 10 days amoxicillin-pot clavulanate 875-125 mg 1 tab PO BID 10 days benztropine 0.5 mg PO BID 90 days bisacodyl (Bisa-Lax (bisacodyl)) 10 mg (2 x 5 mg) PO BEDTIME PRN 2 days bupropion HCl XL 300 mg PO DAILY 90 days cholecalciferol (vitamin D3) 50 mcg PO DAILY 90 days clonazepam 1 mg PO BID PRN 30 days divalproex ER 1,500 mg (3 x 500 mg) PO DAILY 30 days doxycycline hyclate 100 mg PO BID 7 days erenumab-aooe (Aimovig Autoinjector) mg subcut Q4W famotidine 40 mg PO BEDTIME folic acid 20 mg PO DAILY hydroxyzine HCl 25 mg PO BEDTIME Latuda (lurasidone) 80 mg PO DAILY 90 days NS Nicorette (nicotine (polacrilex)) 4 mg buccal Q8H PRN 30 days NS oxycodone 10 mg PO BID 14 days perphenazine 8 mg PO DAILY polyethylene glycol 3350 (Miralax) 17 grams PO BID prucalopride (Motegrity) TAKE 1 TABLET BY MOUTH EVERY DAY sucralfate 1 g PO BID sumatriptan succinate 50 mg PO DAILY PRN tizanidine 2 mg PO BID 10 days Tobacco use date assessed: 09/20/23 Dental Screening Dental Screen Date: 09/20/23 HPI [facility] [place] shoulder stitches problem- r hand inj 2 HPI0 Details Patient is a 43-year-old female here Today for ER follow-up visit. Patient reports her her right hand injury, an ongoing left shoulder issues status post reconstructive tendon surgery and a mild cough. Chest X-ray did show a focal opacity versus nodule. She was started on antibiotics for possible pneumonia. Hand x-ray did show mildly displaced comminuted fracture of the 5th metacarpal, does have upcoming appointment with Orthopedics. [facility] Medical History Right thigh pain Schizoaffective disorder, bipolar type Gastroparesis Chronic nausea Migraine Bipolar disorder GLORIA (generalized anxiety disorder) Surgical History History of shoulder surgery Hx of colonoscopy History of esophagogastroduodenoscopy (EGD) History of tonsillectomy Family History Mother No problems noted. Father No problems noted. Social History Household Members: Other Household Members Other:: mother Housing: House Do you presently have visiting nurse or other home services: No Alcohol intake: current Alcohol intake frequency: holidays/special occasions only Patient Tobacco Use Status: Current everyday Tobacco user Cigarettes Per Day: 3 Years Smoked: 25 Packs per year/per ci.75 e-Cigarette/Vaping Use: Never Used Second Hand Smoke Exposure: Yes Substance Use Type: Marijuana Advance Directives Date on File: 05/19/21 service: No Current occupational status: unemployed and disabled Cognitive needs: No Hearing needs: No Vision needs: No Questionnaire Thrive Questionnaire Date Thrive assessed: 09/20/23 AUDIT C Alcohol Use Questionnaire (AUDIT-C) 2. How many drinks containing alcohol do you have on a typical day when you are drinking?: 1 or 2 3. How often do you have six or more drinks on one occasion?: Never Total Score: 0 GLORIA-7 AMB Questionnaire GLORIA-7 Date GLORIA - 7 assessed: 09/20/23 Source: Developed by Drs. Ayush Lara, Anum Boyer, Brendan Herbert and colleagues, with an educational richar from [employer]. Review of Systems Const Denies headache(s) Eyes Denies loss of vision ENT Denies vertigo, Denies dizziness, Denies headache(s) and Denies sore throat Card Denies chest pain, Denies leg edema and Denies lightheadedness Resp Denies cough, Denies hemoptysis and Denies wheezing GI Denies abdominal pain, Denies melena, Denies constipation, Denies diarrhea and Denies vomiting Denies urinary frequency, Denies dysuria and Denies urinary urgency Musc Denies arthralgias, Denies joint swelling, Denies numbness and Denies tingling Neuro Denies Abnormal speech present, Denies behavioral changes, Denies vertigo, Denies dizziness, Denies headache(s), Denies loss of vision, Denies memory loss, Denies numbness and Denies tingling Psych Denies anxiety, Denies behavioral changes, Denies depression, Denies memory loss and Denies panic attacks Vincent/Lymph Denies easy bleeding and Denies easy bruising Aller/Immun Denies wheezing Physical exam (Primary Care) Vital Signs: Last Vital Signs Pulse 71 01/02/24 08:35 BP 110/72 01/02/24 08:35 Pulse Ox 99 01/02/24 08:35 Oxygen Delivery Method Room Air 01/02/24 08:35 BMI result Body Mass Index 20.8 Tobacco/Smoking Status: Tobacco use Status Tobacco use date assessed 09/20/23 01/02/24 08:37 Patient Tobacco Use Status Current everyday Tobacco 01/02/24 08:37 Tobacco use type 08/31/21 12:14 e-Cigarette/Vaping Use Never Used 01/02/24 08:37 Thrive Assessment: Date of Thrive Assessment Date Thrive assessed 09/20/23 01/02/24 08:37 Const General: healthy appearing, no acute distress, alert and awake Nutritional Appearance: well nourished Orientation/consciousness: oriented to person, oriented to place and oriented to time HENMT Ears: TM's normal bilaterally General nose exam: Normal nasal mucous membranes and turbinates present Eyes Conjunctivae: conjunctivae normal Sclerae: sclerae normal Pupils: Equal, round and reactive pupils present Neck Neck: Yes no lymphadenopathy and Yes no JVD Thyroid: Thyroid normal Carotids: no bruits Resp Effort & Inspection: normal respiratory effort and not tachypneic Auscultation: no crackles, no rales, no rhonchi and no wheezes Cardio Rate: regular rate Rhythm: regular rhythm Heart sounds: no murmurs and normal S1 and S2 GI Palpation (GI): Soft to palpation, nontender, no hepatomegaly and no splenomegaly Auscultation: normal bowel sounds Skin General skin exam: no rashes or lesions noted and dry skin Neuro General: oriented to person, oriented to place and oriented to time Cranial nerves: Yes Equal, round and reactive pupils present Speech: No Abnormal speech present Gait exam (Neuro): Normal gait present Motor exam (neuro): no tremor noted Extrem Right upper extremity: full ROM Left upper extremity: full ROM Hand/finger images: 2 1. SWELLING NOTED IN THE AREA OUTLINED. NEUROVASCULAR INTACT DISTAL TO NOTED SWELLING Right lower extremity: full ROM; no edema Left lower extremity: full ROM; no edema Psych Mental Status: mental status grossly normal Speech and movement: Normal speech and movement present Affect: normal affect Attitude: cooperative Thought process: Normal thought process present Coding Level of Care Code Est Pt Level 3 (43662) Diagnoses Closed displaced fracture of shaft of fifth metacarpal bone of right hand with routine healing, subsequent encounter S62.326D Encounter type: subsequent encounter Fracture alignment: displaced Fracture type: closed Laterality: right Metacarpal bone: fifth Fracture healing: with routine healing Opacity of lung on imaging study R91.8 Assessment & Plan Assessment & Plan (1) Fracture, metacarpal shaft: Code(s): S62.329A - Displaced fracture of shaft of unspecified metacarpal bone, initial encounter for closed fracture Category: Medical Qualifiers: Encounter type: subsequent encounter Fracture alignment: displaced F racture type: closed Laterality: right Metacarpal bone: fifth Fracture healing: with routine healing Qualified Code(s): S62.326D - Displaced fracture of shaft of fifth metacarpal bone, right hand, subsequent encounter for fracture with routine healing Plan: Patient suffered a boxer fracture. Does have a mildly displaced comminuted metacarpal fracture. Given patient wrist splint today though did not have an ulnar gutter splint available at the primary care office. Has upcoming appointment with orthopedic for fracture care (2) Opacity of lung on imaging study: Code(s): R91.8 - Other nonspecific abnormal finding of lung field Category: Medical Plan: Was found to have a 1.6 mm right lung opacity on most recent x-ray. Was diagnosed with pneumonia started antibiotics. Of note recently had surgery for her left shoulder which may have caused an aspirate. Will recheck chest x-ray in 2 weeks to evaluate for resolution of this opacity. Orders: Orders 2 XR chest 2V Today R91.8 - Other nonspecific abnormal finding of lung field
[2024-01-02 08:35] VITALS: BP 110/72; PULSE 71; O2SAT 99; BMI 20.8
== END 2024-01-02 09:55 | disposition home or self-care (01) ==
LOC: HO.HMCH 08:27
PROVIDERS: PCP Physician Assistant; Visit Provider Physician Assistant
DX: S62.326D Displaced fracture of shaft of fifth metacarpal bone, right hand, subsequent encounter for fracture with routine healing (principal); R91.8 Other nonspecific abnormal finding of lung field

== ENCOUNTER → 2024-01-02 08:26 | Outpatient (BNVA) | payer MEDICARE, MEDICAID, SELFPAY | PROVIDERS: PCP Physician Assistant; Visit Provider Physician Assistant | DX: S62.326D Displaced fracture of shaft of fifth metacarpal bone, right hand, subsequent encounter for fracture with routine healing (principal); R91.8 Other nonspecific abnormal finding of lung field | CPT/HCPCS: 99212 ==

== ENCOUNTER 2024-01-03 13:05 | Outpatient (REF) | payer MEDICARE, MEDICAID, SELFPAY | END 2024-01-03 13:06 | disposition home or self-care (01) | LOC: HO.HOSX 13:05 | DX: M79.641 Pain in right hand (principal); S62.336A Displaced fracture of neck of fifth metacarpal bone, right hand, initial encounter for closed fracture | CPT/HCPCS: 26600; 73130; 99212 ==

== ENCOUNTER 2024-01-03 13:57 | Outpatient (AMB) | payer MEDICARE, MEDICAID, SELFPAY ==
--- NOTE | 2024-01-03 14:16 | MHC.OFFVIS ---
Intake Visit Reasons: FC-right fifth metacarpal fx Intake Note: Agnieszka is a 43 year old right hand dominant female who presents today as a new patient for a fracture care visit of her right 5th metacarpal fracture s/p ? DOI: 12/12/23. Patient reports she punched a wall resulting in immediate pain. The volar aspect of her palm turned black and blue. Reports she is having continued daily pain which she describes as sharp. Express pain in the wrist, palm of her right hand, 5th MCP joint, and lateral aspect of her 5th digit. She is unable to move her small finger inward. Tylenol does not offer relief. Bone graft on left shoulder done on 12/13/23 so she is unable to take ibuprofen. Allergies olanzapine [From ZYPREXA] Allergy (Severe, Verified 01/03/24 14:22) SWELLING oxcarbazepine [From TRILEPTAL] Allergy (Severe, Verified 01/03/24 14:22) antony's Rob syndrome gabapentin Allergy (Unknown, Verified 01/03/24 14:22) Loss of balance lithium [LITHIUM] Allergy (Unknown, Verified 01/03/24 14:22) UNKNOWN quetiapine [Seroquel] Allergy (Unknown, Verified 01/03/24 14:22) Unknown sulfamethoxazole [From BACTRIM] Allergy (Unknown, Verified 01/03/24 14:22) severe rash trimethoprim [From BACTRIM] Allergy (Unknown, Verified 01/03/24 14:22) severe rash cyclobenzaprine [From Flexeril] Adverse Reaction (Intermediate, Verified 01/03/24 14:22) Agitated HPI HPI FC-right fifth metacarpal fx: Details: Patient is a 43-year-old female who presents for evaluation of right 5th metacarpal neck fracture, date of injury approximately 12/12/2023. The patient reports that at that time, she punched a wall, and began to experience significant pain and swelling over the right 5th metacarpal neck. Of note, the patient did have surgery 2 days later on the left shoulder, which the patient states was for a bone graft. Today, the patient reports that she is still experiencing some discomfort on the right 5th metacarpal neck, but this is improved since date of injury. Patient was previously evaluated in the ED, where she was provided with a ?splint that was way too big?, and her primary care provider's office, where she was given a Velcro wrist splint. The patient states that due to the fact she is only approximately 2 weeks removed from this large shoulder surgery, she would like to avoid any potential surgical intervention if possible. Patient denies any numbness or tingling in the right hand. No other acute complaints or concerns at this time. [facility] Medical History Right thigh pain Schizoaffective disorder, bipolar type Gastroparesis Chronic nausea Migraine Bipolar disorder GLORIA (generalized anxiety disorder) Surgical History History of shoulder surgery Hx of colonoscopy History of esophagogastroduodenoscopy (EGD) History of tonsillectomy Family History Mother No problems noted. Father No problems noted. Social History Household Members: Other Household Members Other:: mother Housing: House Do you presently have visiting nurse or other home services: No Alcohol intake: current Alcohol intake frequency: holidays/special occasions only Patient Tobacco Use Status: Current everyday Tobacco user Cigarettes Per Day: 3 Years Smoked: 25 e-Cigarette/Vaping Use: Never Used Second Hand Smoke Exposure: Yes Substance Use Type: Marijuana Advance Directives Date on File: 05/19/21 service: No Current occupational status: unemployed and disabled Cognitive needs: No Hearing needs: No Vision needs: No Review of Systems Const All systems reviewed & are unremarkable except as noted in HPI and below Physical Exam Extrem Other: Patient is alert, oriented, and in no acute distress. Neuro: Normal sensation of the tips of all digits of the right hand at this time Vascular: Cap refill brisk Pain: Patient reports tenderness to palpation over the right 5th metacarpal neck ROM: Patient is able to make a closed fist and extend all digits of the right hand fully and without difficulty Skin: No lacerations or abrasions. General: Mild edema over the 5th metacarpal neck No ecchymosis, erythema, or evidence of infection. Psych: Appears grossly normal Affect normal Attitude cooperative Office Procedures AMB Fracture Care Details: Right 5th metacarpal neck fracture Fracture Billing Code: Fracture Billing Code Casting/Splints Details: Short-arm ulnar gutter cast 66595-Eata/Wrist Cast Application Procedure code (CPT) selection complete Results Reviewed Results Reviewed: X-rays obtained in the office today and independently reviewed by me, Heath العلي PA-C, demonstrate minimally displaced fracture of the right 5th metacarpal neck with a approximately 10-15 degrees of apex dorsal angulation. Assessment & Plan Assessment & Plan (1) Displaced fracture of neck of right fifth metacarpal bone: Code(s): S62.336A - Displaced fracture of neck of fifth metacarpal bone, right hand, initial encounter for closed fracture Category: Medical Plan 1. Right 5th metacarpal neck fracture Date of injury approximately 12/12/2023 Patient is educated about this injury and the typical recovery course At this time, patient was placed into an ulnar gutter cast with the small and ring fingers of the right hand involved Patient is educated about proper cast care and precautions Patient is amenable to this plan Patient will follow-up in 2 weeks with repeat x-rays, sooner with any acute concerns Coding Level of Care Code New Pt Level 3 (69053) Diagnoses Displaced fracture of neck of right fifth metacarpal bone S62.336A CPT Codes Fracture Care - Fracture Billing Code: Fracture Billing Code ([id number]) Casting - CPT: 33775-Mrpy/Wrist Cast Application ([id number])
== END 2024-01-03 15:09 | disposition home or self-care (01) ==
LOC: HO.HOS 13:58
PROVIDERS: PCP Physician Assistant
DX: S62.336A Displaced fracture of neck of fifth metacarpal bone, right hand, initial encounter for closed fracture (principal)
CPT/HCPCS: 26600; 99213

== ENCOUNTER 2024-01-10 10:54 | Outpatient (AMB) | payer MEDICARE, MEDICAID, SELFPAY ==
--- NOTE | 2024-01-10 11:06 | MHC.OFFVIS ---
Vital Signs 01/10/24 11:09 Height 5 ft 7 in Weight 133 lb BMI 20.8 Intake Visit Reasons: OV- cast change, right fifth metacarpal fx Intake Note: Agnieszka is a 43 year old right hand dominant female who presents today for a cast change of her right 5th metacarpal fracture, DOI: 12/12/23. Patient reports that she had gotten her cast wet today when she was brushing her teeth, states feeling moisture inside her cast. Allergies olanzapine [From ZYPREXA] Allergy (Severe, Verified 01/10/24 11:08) SWELLING oxcarbazepine [From TRILEPTAL] Allergy (Severe, Verified 01/10/24 11:08) antony's Rob syndrome gabapentin Allergy (Unknown, Verified 01/10/24 11:08) Loss of balance lithium [LITHIUM] Allergy (Unknown, Verified 01/10/24 11:08) UNKNOWN quetiapine [Seroquel] Allergy (Unknown, Verified 01/10/24 11:08) Unknown sulfamethoxazole [From BACTRIM] Allergy (Unknown, Verified 01/10/24 11:08) severe rash trimethoprim [From BACTRIM] Allergy (Unknown, Verified 01/10/24 11:08) severe rash cyclobenzaprine [From Flexeril] Adverse Reaction (Intermediate, Verified 01/10/24 11:08) Agitated HPI HPI OV- cast change, right fifth metacarpal fx: Details: 43-year-old female who returns to the office today for a follow-up of right 5th metacarpal fracture, 12/12/23. She presents today for a cast change as she got the cast wet while brushing her teeth today and she now feels moisture inside her cast. [facility] Medical History Right thigh pain Schizoaffective disorder, bipolar type Gastroparesis Chronic nausea Migraine Bipolar disorder GLORIA (generalized anxiety disorder) Surgical History History of shoulder surgery Hx of colonoscopy History of esophagogastroduodenoscopy (EGD) History of tonsillectomy Family History Mother No problems noted. Father No problems noted. Social History Household Members: Other Household Members Other:: mother Housing: House Do you presently have visiting nurse or other home services: No Alcohol intake: current Alcohol intake frequency: holidays/special occasions only Patient Tobacco Use Status: Current everyday Tobacco user Cigarettes Per Day: 3 Years Smoked: 25 e-Cigarette/Vaping Use: Never Used Second Hand Smoke Exposure: Yes Substance Use Type: Marijuana Advance Directives Date on File: 05/19/21 service: No Current occupational status: unemployed and disabled Cognitive needs: No Hearing needs: No Vision needs: No Review of Systems Const All systems reviewed & are unremarkable except as noted in HPI and below Physical Exam Vital Signs: BMI result Body Mass Index 20.8 Extrem Other: Right hand: Normal to inspection. NVI. Office Procedures Casting/Splints 72297-Dysn/Wrist Cast Application Procedure code (CPT) selection complete Assessment & Plan Assessment & Plan (1) Displaced fracture of neck of right fifth metacarpal bone: Code(s): S62.336A - Displaced fracture of neck of fifth metacarpal bone, right hand, initial encounter for closed fracture Category: Medical Plan She was placed back in a boxer fracture cast. She will return in 1 week as planned with cast off and x-rays. Patient Instructions: Scribed for Catie Acosta PA-C, by [employer] medical field representative, on 01/10/2024 at 11:15 AM EST.? I, Catie Acosta PA-C, have personally reviewed and agree with the information entered by the scribe. Coding Level of Care Code Global (45918) Diagnoses Displaced fracture of neck of right fifth metacarpal bone S62.336A CPT Codes Casting - CPT: 14833-Ynqx/Wrist Cast Application ([id number])
[2024-01-10 11:09] VITALS: BMI 20.8
== END 2024-01-10 12:19 | disposition home or self-care (01) ==
LOC: HO.HOS 10:55
PROVIDERS: PCP Physician Assistant; Visit Provider Physician Assistant
DX: S62.336A Displaced fracture of neck of fifth metacarpal bone, right hand, initial encounter for closed fracture (principal); W22.09XA Striking against other stationary object, initial encounter
CPT/HCPCS: 29085; 99024

== ENCOUNTER → 2024-01-10 10:54 | Outpatient (BNVA) | payer MEDICARE, MEDICAID, SELFPAY | PROVIDERS: PCP Physician Assistant; Visit Provider Physician Assistant | DX: S62.336D Displaced fracture of neck of fifth metacarpal bone, right hand, subsequent encounter for fracture with routine healing (principal); X58.XXXD Exposure to other specified factors, subsequent encounter | CPT/HCPCS: 29085; 99212 ==

== ENCOUNTER 2024-01-15 08:42 | Outpatient (AMB) | payer MEDICARE, MEDICAID, SELFPAY ==
--- NOTE | 2024-01-15 08:46 | MHC.PC.OV ---
Vital Signs 01/15/24 08:47 Height 5 ft 7 in Weight 128 lb 6 oz BMI 20.1 BP 110/70 Blood Pressure Location Rt brachial Position Sitting Pulse 70 Pulse Source Pulse Oximeter Pulse Oximetry (%) 96 Oxygen Delivery Method Room Air Intake Visit Reasons: f/u pain managment Intake Note: Patient is here to follow up on pain management. Pt decline flu shot today. Rivet Tosser Required: No Miller Head Assistant Wet Process: Not Required per policy Accompanied by: Self / Same As Patient Allergies olanzapine [From ZYPREXA] Allergy (Severe, Verified 01/15/24 13:51) SWELLING oxcarbazepine [From TRILEPTAL] Allergy (Severe, Verified 01/15/24 13:51) antony's Rob syndrome gabapentin Allergy (Unknown, Verified 01/15/24 13:51) Loss of balance lithium [LITHIUM] Allergy (Unknown, Verified 01/15/24 13:51) UNKNOWN quetiapine [Seroquel] Allergy (Unknown, Verified 01/15/24 13:51) Unknown sulfamethoxazole [From BACTRIM] Allergy (Unknown, Verified 01/15/24 13:51) severe rash trimethoprim [From BACTRIM] Allergy (Unknown, Verified 01/15/24 13:51) severe rash cyclobenzaprine [From Flexeril] Adverse Reaction (Intermediate, Verified 01/15/24 13:51) Agitated Tobacco use date assessed: 01/15/24 Dental Screening Dental Screen Date: 09/20/23 HPI f/u pain managment HPI Details Patient is a 43-year-old female here today for follow-up visit. She is status post left shoulder replacement done in [place]. [place] [facility] not able to continue her pain medication 2 weeks postop surgery. She now needs PCP to help her with her pain and wean her on her narcotic pain medication. She still remains in significant pain particularly when trying to put on her clothes. Did have long discussion about habit-forming nature of pain medication and she agrees. She will be starting physical therapy in the next 3 weeks. She will need pain reduction medication to get the most benefit out of her physical therapy. She is now seeing orthopedics for a displaced metacarpal fracture. Currently in a cast that will likely be removed this week. [facility] Medical History Right thigh pain Schizoaffective disorder, bipolar type Gastroparesis Chronic nausea Migraine Bipolar disorder GLORIA (generalized anxiety disorder) Surgical History History of shoulder surgery Hx of colonoscopy History of esophagogastroduodenoscopy (EGD) History of tonsillectomy Family History Mother No problems noted. Father No problems noted. Social History Household Members: Other Household Members Other:: mother Housing: House Do you presently have visiting nurse or other home services: No Alcohol intake: current Alcohol intake frequency: holidays/special occasions only Patient Tobacco Use Status: Current everyday Tobacco user Tobacco use type: Cigarette Cigarettes Per Day: 3 Years Smoked: 25 e-Cigarette/Vaping Use: Never Used Second Hand Smoke Exposure: Yes Substance Use Type: Marijuana Advance Directives Date on File: 05/19/21 service: No Current occupational status: unemployed and disabled Cognitive needs: No Hearing needs: No Vision needs: No Questionnaire Thrive Questionnaire Date Thrive assessed: 09/20/23 GLORIA-7 AMB Questionnaire GLORIA-7 Date GLORIA - 7 assessed: 09/20/23 Source: Developed by Drs. Ayush Lara, Anum Boyer, Brendan Herbert and colleagues, with an educational richar from [employer]. Review of Systems Const Denies headache(s) Eyes Denies loss of vision ENT Denies vertigo, Denies dizziness, Denies headache(s) and Denies sore throat Card Denies chest pain, Denies leg edema and Denies lightheadedness Resp Denies cough, Denies hemoptysis and Denies wheezing GI Denies abdominal pain, Denies melena, Denies constipation, Denies diarrhea and Denies vomiting Denies urinary frequency, Denies dysuria and Denies urinary urgency Musc Denies arthralgias, Denies joint swelling, Denies numbness and Denies tingling Neuro Denies Abnormal speech present, Denies behavioral changes, Denies vertigo, Denies dizziness, Denies headache(s), Denies loss of vision, Denies memory loss, Denies numbness and Denies tingling Psych Denies anxiety, Denies behavioral changes, Denies depression, Denies memory loss and Denies panic attacks Vincent/Lymph Denies easy bleeding and Denies easy bruising Aller/Immun Denies wheezing Physical exam (Primary Care) Vital Signs: Last Vital Signs Pulse 70 01/15/24 08:47 BP 110/70 01/15/24 08:47 Pulse Ox 96 01/15/24 08:47 Oxygen Delivery Method Room Air 01/15/24 08:47 BMI result Body Mass Index 20.1 Tobacco/Smoking Status: Tobacco use Status Tobacco use date assessed 01/15/24 01/15/24 08:52 Patient Tobacco Use Status Current everyday Tobacco 01/15/24 08:52 Tobacco use type Cigarette 01/15/24 08:52 e-Cigarette/Vaping Use Never Used 01/15/24 08:52 Thrive Assessment: Date of Thrive Assessment Date Thrive assessed 09/20/23 01/15/24 08:52 Const General: healthy appearing, no acute distress, alert and awake Nutritional Appearance: well nourished Orientation/consciousness: oriented to person, oriented to place and oriented to time HENMT Ears: TM's normal bilaterally General nose exam: Normal nasal mucous membranes and turbinates present Eyes Conjunctivae: conjunctivae normal Sclerae: sclerae normal Pupils: Equal, round and reactive pupils present Neck Neck: Yes no lymphadenopathy and Yes no JVD Thyroid: Thyroid normal Carotids: no bruits Resp Effort & Inspection: normal respiratory effort and not tachypneic Auscultation: no crackles, no rales, no rhonchi and no wheezes Cardio Rate: regular rate Rhythm: regular rhythm Heart sounds: no murmurs and normal S1 and S2 GI Palpation (GI): Soft to palpation, nontender, no hepatomegaly and no splenomegaly Auscultation: normal bowel sounds Skin General skin exam: no rashes or lesions noted and dry skin Neuro General: oriented to person, oriented to place and oriented to time Cranial nerves: Yes Equal, round and reactive pupils present Speech: No Abnormal speech present Gait exam (Neuro): Normal gait present Motor exam (neuro): no tremor noted Extrem Other: LEFT UPPER EXTREMITY: WEARING SLING, LIMITED RANGE OF MOTION NOTED Right upper extremity: full ROM Left upper extremity: full ROM Right lower extremity: full ROM; no edema Left lower extremity: full ROM; no edema Psych Mental Status: mental status grossly normal Speech and movement: Normal speech and movement present Affect: normal affect Attitude: cooperative Thought process: Normal thought process present Coding Level of Care Code Est Pt Level 3 (34188) Diagnoses Arthralgia of left shoulder region M25.512 Closed displaced fracture of neck of fifth metacarpal bone of right hand with routine healing, subsequent encounter S62.336D Encounter type: subsequent encounter Fracture healing: with routine healing Fracture type: closed Assessment & Plan Assessment & Plan (1) Arthralgia of left shoulder region: Code(s): M25.512 - Pain in left shoulder Category: Medical Plan: Patient continues in lift upper extremity sling. She does still have pretty significant pain in her left shoulder particularly when moving her shoulder. She is due to start physical therapy in 3 weeks. She will be following up with orthopedic surgeon in [place] in early 02/2024. We did discuss her pain management and agreed upon using oxycodone 10 mg t.i.d. to help control her pain during this short period of time where she is recovering and starting physical therapy. She does understand the risk of dependency to opiates and is willing to be weaned off oxycodone when the time comes. (2) Displaced fracture of neck of right fifth metacarpal bone: Code(s): S62.336A - Displaced fracture of neck of fifth metacarpal bone, right hand, initial encounter for closed fracture Category: Medical Qualifiers: Encounter type: subsequent encounter Fracture healing: with routine healing Fracture type: closed Qualified Code(s): S62.336D - Displaced fracture of neck of fifth metacarpal bone, right hand, subsequent encounter for fracture with routine healing Plan: Patient now followed by [facility]. She is currently in a cast. She anticipates getting her cast off this week. Medications: Changed From acetaminophen 500 mg PO Q6H 10 days 40 caps 0RF fever S43.005D - Unspecified dislocation of left shoulder joint, subsequent encounter To acetaminophen 500 mg PO Q6H PRN 120 caps 1RF fever 30 days S43.005D - Unspecified dislocation of left shoulder joint, subsequent encounter From oxycodone Partial Fill upon patient request. 10 mg PO BID 14 days 28 tabs 0RF pain S43.005D - Unspecified dislocation of left shoulder joint, subsequent encounter To oxycodone Partial Fill upon patient request. 10 mg PO Q8H 42 tabs 0RF pain 14 days S43.005D - Unspecified dislocation of left shoulder joint, subsequent encounter
[2024-01-15 08:47] VITALS: BP 110/70; PULSE 70; O2SAT 96; BMI 20.1
== END 2024-01-15 09:13 | disposition home or self-care (01) ==
PROVIDERS: PCP Physician Assistant; Visit Provider Physician Assistant
DX: M25.512 Pain in left shoulder (principal); S62.336D Displaced fracture of neck of fifth metacarpal bone, right hand, subsequent encounter for fracture with routine healing

== ENCOUNTER → 2024-01-15 08:42 | Outpatient (BNVA) | payer MEDICARE, MEDICAID, SELFPAY | PROVIDERS: PCP Physician Assistant; Visit Provider Physician Assistant | DX: S62.336D Displaced fracture of neck of fifth metacarpal bone, right hand, subsequent encounter for fracture with routine healing (principal); M25.512 Pain in left shoulder | CPT/HCPCS: 29085; 99212 ==

== ENCOUNTER 2024-01-15 13:44 | Outpatient (AMB) | payer MEDICARE, MEDICAID, SELFPAY ==
--- NOTE | 2024-01-15 13:50 | MHC.OFFVIS ---
Vital Signs 01/15/24 13:51 Height 5 ft 7 in Weight 128 lb BMI 20.0 Handedness Right Intake Visit Reasons: OV-right fifth metacarpal fx-cast change Intake Note: Agnieszka is a 43 year old right hand dominant female who presents today for a cast change for her displaced fracture of neck of right fifth metacarpal bone. Patient reports pain in the knuckle of her 5th digit of her right hand. Expresses she feels as if her cast shifted. Allergies olanzapine [From ZYPREXA] Allergy (Severe, Verified 01/15/24 13:51) SWELLING oxcarbazepine [From TRILEPTAL] Allergy (Severe, Verified 01/15/24 13:51) antony's Rob syndrome gabapentin Allergy (Unknown, Verified 01/15/24 13:51) Loss of balance lithium [LITHIUM] Allergy (Unknown, Verified 01/15/24 13:51) UNKNOWN quetiapine [Seroquel] Allergy (Unknown, Verified 01/15/24 13:51) Unknown sulfamethoxazole [From BACTRIM] Allergy (Unknown, Verified 01/15/24 13:51) severe rash trimethoprim [From BACTRIM] Allergy (Unknown, Verified 01/15/24 13:51) severe rash cyclobenzaprine [From Flexeril] Adverse Reaction (Intermediate, Verified 01/15/24 13:51) Agitated HPI HPI OV-right fifth metacarpal fx-cast change: Details: 43-year-old female who returns to the office today for a follow-up of right 5th metacarpal fracture, 12/12/23. She presents today for a cast change as she feels that the cast has loosened, and she is able to move around in it, and is also uncomfortable. [facility] Medical History Right thigh pain Schizoaffective disorder, bipolar type Gastroparesis Chronic nausea Migraine Bipolar disorder GLORIA (generalized anxiety disorder) Surgical History History of shoulder surgery Hx of colonoscopy History of esophagogastroduodenoscopy (EGD) History of tonsillectomy Family History Mother No problems noted. Father No problems noted. Social History Household Members: Other Household Members Other:: mother Housing: House Do you presently have visiting nurse or other home services: No Alcohol intake: current Alcohol intake frequency: holidays/special occasions only Patient Tobacco Use Status: Current everyday Tobacco user Tobacco use type: Cigarette Cigarettes Per Day: 3 Years Smoked: 25 e-Cigarette/Vaping Use: Never Used Second Hand Smoke Exposure: Yes Substance Use Type: Marijuana Advance Directives Date on File: 05/19/21 service: No Current occupational status: unemployed and disabled Cognitive needs: No Hearing needs: No Vision needs: No Physical Exam Vital Signs: BMI result Body Mass Index 20.0 Extrem Other: Right hand: Normal to inspection. NVI. No tenderness to palpation at the fracture site Office Procedures Casting/Splints 65684-[id number]/Wrist Cast Application Procedure code (CPT) selection complete Assessment & Plan Assessment & Plan (1) Displaced fracture of neck of right fifth metacarpal bone: Code(s): S62.336A - Displaced fracture of neck of fifth metacarpal bone, right hand, initial encounter for closed fracture Category: Medical Qualifiers: Encounter type: subsequent encounter Fracture type: closed Fracture healing: with routine healing Qualified Code(s): S62.336D - Displaced fracture of neck of fifth metacarpal bone, right hand, subsequent encounter for fracture with routine healing Plan She was placed back in a boxer fracture cast. She will return for previously scheduled follow-up appointment for cast off and x-rays. Anticipate cast removal at that time dependent on healing Coding Level of Care Code Global (46988) Diagnoses Closed displaced fracture of neck of fifth metacarpal bone of right hand with routine healing, subsequent encounter S62.336D Encounter type: subsequent encounter Fracture type: closed Fracture healing: with routine healing CPT Codes Casting - CPT: 91082-Cjgf/Wrist Cast Application ([id number])
== END 2024-01-15 14:42 | disposition home or self-care (01) ==
PROVIDERS: PCP Physician Assistant
DX: S62.336D Displaced fracture of neck of fifth metacarpal bone, right hand, subsequent encounter for fracture with routine healing (principal)
CPT/HCPCS: 29085; 99024

== ENCOUNTER 2024-01-17 09:39 | Outpatient (REF) | payer MEDICARE, MEDICAID, SELFPAY | END 2024-01-17 09:40 | disposition home or self-care (01) | LOC: HO.HOSX 09:39 | DX: M79.641 Pain in right hand (principal); S62.336D Displaced fracture of neck of fifth metacarpal bone, right hand, subsequent encounter for fracture with routine healing | CPT/HCPCS: 73130; 99212 ==

== ENCOUNTER 2024-01-17 09:50 | Outpatient (AMB) | payer MEDICARE, MEDICAID, SELFPAY ==
--- NOTE | 2024-01-17 10:09 | MHC.OFFVIS ---
Intake Visit Reasons: OV-right fifth metacarpal fx-cast off w/xray Intake Note: Agnieszka is a 43 year old right hand dominant female who presents today with her mother for a follow up visit for her right 5th metacarpal fracture, DOI: 12/12/23. Cast removed and x-rays updated. Patient reports she feels discomfort in her right wrist but assumes this if from the cast. She says she has some pain at her 5th PIP joint and metacarpal. Denies numbness and tingling. She takes Tylenol for pain and finds relief. Accompanied by: Mother Allergies olanzapine [From ZYPREXA] Allergy (Severe, Verified 01/17/24 10:12) SWELLING oxcarbazepine [From TRILEPTAL] Allergy (Severe, Verified 01/17/24 10:12) antony's Rob syndrome gabapentin Allergy (Unknown, Verified 01/17/24 10:12) Loss of balance lithium [LITHIUM] Allergy (Unknown, Verified 01/17/24 10:12) UNKNOWN quetiapine [Seroquel] Allergy (Unknown, Verified 01/17/24 10:12) Unknown sulfamethoxazole [From BACTRIM] Allergy (Unknown, Verified 01/17/24 10:12) severe rash trimethoprim [From BACTRIM] Allergy (Unknown, Verified 01/17/24 10:12) severe rash cyclobenzaprine [From Flexeril] Adverse Reaction (Intermediate, Verified 01/17/24 10:12) Agitated HPI HPI OV-right fifth metacarpal fx-cast off w/xray: Details: Patient is a 43-year-old female who presents for follow-up evaluation of right 5th metacarpal neck fracture, date of injury 12/12/2023. Today, the patient reports that she is feeling well, and experiences no pain at the fracture site. However, the patient does state that since she has had the cast off she has been attempting gentle range of motion, and she notices some discomfort with range of motion of her right small finger, in the wrist and dorsal aspect of the finger. Denies any numbness or tingling in the right hand. No other acute complaints or concerns at this time. [facility] Medical History Right thigh pain Schizoaffective disorder, bipolar type Gastroparesis Chronic nausea Migraine Bipolar disorder GLORIA (generalized anxiety disorder) Surgical History History of shoulder surgery Hx of colonoscopy History of esophagogastroduodenoscopy (EGD) History of tonsillectomy Family History Mother No problems noted. Father No problems noted. Social History Household Members: Other Household Members Other:: mother Housing: House Do you presently have visiting nurse or other home services: No Alcohol intake: current Alcohol intake frequency: holidays/special occasions only Patient Tobacco Use Status: Current everyday Tobacco user Tobacco use type: Cigarette Cigarettes Per Day: 3 Years Smoked: 25 e-Cigarette/Vaping Use: Never Used Second Hand Smoke Exposure: Yes Substance Use Type: Marijuana Advance Directives Date on File: 05/19/21 service: No Current occupational status: unemployed and disabled Cognitive needs: No Hearing needs: No Vision needs: No Physical Exam Extrem Other: Patient is alert, oriented, and in no acute distress. Neuro: Normal sensation of the tips of all digits of the right hand at this time Vascular: Cap refill brisk Pain: Patient reports no tenderness to palpation of the fracture site at the level of the 5th metacarpal neck of the right hand Patient does report some discomfort in the dorsal aspect of the right small finger with range of motion ROM: Patient is able to make a closed fist and extend all digits of the right hand fully, but reports some discomfort in the right small finger when doing so Skin: No lacerations or abrasions. General: No ecchymosis, erythema, or evidence of infection. Psych: Appears grossly normal Affect normal Attitude cooperative Results Reviewed Results Reviewed: X-rays obtained in the office today and independently reviewed by me, Heath العلي PA-C, demonstrate nondisplaced, impacted fracture of the 5th metacarpal neck of the right hand with evidence of interval bony healing. Assessment & Plan Assessment & Plan (1) Displaced fracture of neck of right fifth metacarpal bone: Code(s): S62.336A - Displaced fracture of neck of fifth metacarpal bone, right hand, initial encounter for closed fracture Category: Medical Qualifiers: Encounter type: subsequent encounter Fracture healing: with routine healing Fracture type: closed Qualified Code(s): S62.336D - Displaced fracture of neck of fifth metacarpal bone, right hand, subsequent encounter for fracture with routine healing Plan 1. Right 5th metacarpal neck fracture Date of injury 12/12/2023 Patient appears to be recovering well from her injury Patient is educated about the typical recovery course At this time, patient was not placed back into a cast, and is instead provided with a Velcro wrist splint to be worn with daytime activities and argelia tape Patient is advised on activity modification Patient will follow-up in 4 weeks with repeat x-rays, sooner with any acute concerns Orders: Orders XR hand RT min 3V Today M79.641 - Pain in right hand OT Evaluation and Treatment Today S62.336D - Displaced fracture of neck of fifth metacarpal bone, right hand, subsequent encounter for fracture with routine healing Coding Level of Care Code Global (13896) Diagnoses Closed displaced fracture of neck of fifth metacarpal bone of right hand with routine healing, subsequent encounter S62.336D Encounter type: subsequent encounter Fracture healing: with routine healing Fracture type: closed
== END 2024-01-17 10:50 | disposition home or self-care (01) ==
PROVIDERS: PCP Physician Assistant
DX: S62.336D Displaced fracture of neck of fifth metacarpal bone, right hand, subsequent encounter for fracture with routine healing (principal)
CPT/HCPCS: 99024

== ENCOUNTER 2024-01-29 11:34 | Outpatient (AMB) | payer MEDICARE, MEDICAID, SELFPAY ==
--- NOTE | 2024-01-29 11:35 | MHC.PC.OV ---
Intake Visit Reasons: f/u Pain manangment Allergies olanzapine [From ZYPREXA] Allergy (Severe, Verified 01/29/24 12:04) SWELLING oxcarbazepine [From TRILEPTAL] Allergy (Severe, Verified 01/29/24 12:04) antony's Rob syndrome gabapentin Allergy (Unknown, Verified 01/29/24 12:04) Loss of balance lithium [LITHIUM] Allergy (Unknown, Verified 01/29/24 12:04) UNKNOWN quetiapine [Seroquel] Allergy (Unknown, Verified 01/29/24 12:04) Unknown sulfamethoxazole [From BACTRIM] Allergy (Unknown, Verified 01/29/24 12:04) severe rash trimethoprim [From BACTRIM] Allergy (Unknown, Verified 01/29/24 12:04) severe rash cyclobenzaprine [From Flexeril] Adverse Reaction (Intermediate, Verified 01/29/24 12:04) Agitated Medication List - Last Reconciled 01/29/24 by Ramesh Sampson PA-C acetaminophen 500 mg PO Q6H PRN 30 days benztropine 0.5 mg PO BID 90 days bisacodyl (Bisa-Lax (bisacodyl)) 10 mg (2 x 5 mg) PO BEDTIME PRN 2 days bupropion HCl XL 300 mg PO DAILY 90 days cholecalciferol (vitamin D3) 50 mcg PO DAILY 90 days clonazepam 1 mg PO BID PRN 30 days divalproex ER 1,500 mg (3 x 500 mg) PO DAILY 30 days doxycycline hyclate 100 mg PO BID 7 days erenumab-aooe (Aimovig Autoinjector) mg subcut Q4W famotidine 40 mg PO BEDTIME folic acid 20 mg PO DAILY hydroxyzine HCl 25 mg PO BEDTIME Latuda (lurasidone) 80 mg PO DAILY 90 days NS Nicorette (nicotine (polacrilex)) 4 mg buccal Q8H PRN 30 days NS oxycodone 10 mg PO Q8H 14 days perphenazine 8 mg PO DAILY polyethylene glycol 3350 (Miralax) 17 grams PO BID prucalopride (Motegrity) TAKE 1 TABLET BY MOUTH EVERY DAY sucralfate 1 g PO BID sumatriptan succinate 50 mg PO DAILY PRN tizanidine 2 mg PO BID 30 days Tobacco use date assessed: 01/15/24 Dental Screening Dental Screen Date: 09/20/23 HPI f/u Pain manangment HPI Details Patient is a 43-year-old female being evaluated today via telephone. She is status post left shoulder replacement done in [place]. [place] [facility] not able to continue her pain medication 2 weeks postop surgery. She now needs PCP to help her with her pain and wean her on her narcotic pain medication. She still remains in significant pain particularly when trying to put on her clothes. Did have long discussion about habit-forming nature of pain medication and she agrees. She will be starting physical therapy in the next 2 weeks. She will need pain reduction medication to get the most benefit out of her physical therapy. Of note she has gotten her hand/wrist cast off which has made things easier. [facility] Medical History Right thigh pain Schizoaffective disorder, bipolar type Gastroparesis Chronic nausea Migraine Bipolar disorder GLORIA (generalized anxiety disorder) Surgical History History of shoulder surgery Hx of colonoscopy History of esophagogastroduodenoscopy (EGD) History of tonsillectomy Family History Mother No problems noted. Father No problems noted. Social History Household Members: Other Household Members Other:: mother Housing: House Do you presently have visiting nurse or other home services: No Alcohol intake: current Alcohol intake frequency: holidays/special occasions only Patient Tobacco Use Status: Current everyday Tobacco user Tobacco use type: Cigarette Cigarettes Per Day: 3 Years Smoked: 25 e-Cigarette/Vaping Use: Never Used Second Hand Smoke Exposure: Yes Substance Use Type: Marijuana Advance Directives Date on File: 05/19/21 service: No Current occupational status: unemployed and disabled Cognitive needs: No Hearing needs: No Vision needs: No Questionnaire Thrive Questionnaire Date Thrive assessed: 09/20/23 GLORIA-7 AMB Questionnaire GLORIA-7 Date GLORIA - 7 assessed: 09/20/23 Source: Developed by Drs. Ayush Lara, Anum BBrendan Blank and colleagues, with an educational richar from [employer]. Review of Systems Const Denies headache(s) Eyes Denies loss of vision ENT Denies vertigo, Denies dizziness, Denies headache(s) and Denies sore throat Card Denies chest pain, Denies leg edema and Denies lightheadedness Resp Denies cough, Denies hemoptysis and Denies wheezing GI Denies abdominal pain, Denies melena, Denies constipation, Denies diarrhea and Denies vomiting Denies urinary frequency, Denies dysuria and Denies urinary urgency Musc Details: ADMITS TO LEFT SHOULDER PAIN. Denies arthralgias, Denies joint swelling, Denies numbness and Denies tingling Neuro Denies behavioral changes, Denies vertigo, Denies dizziness, Denies headache(s), Denies loss of vision, Denies memory loss, Denies numbness and Denies tingling Psych Denies anxiety, Denies behavioral changes, Denies depression, Denies memory loss and Denies panic attacks Vincent/Lymph Denies easy bleeding and Denies easy bruising Aller/Immun Denies wheezing Physical exam (Primary Care) Tobacco/Smoking Status: Tobacco use Status Tobacco use date assessed 01/15/24 01/29/24 11:35 Patient Tobacco Use Status Current everyday Tobacco 01/29/24 11:35 Tobacco use type Cigarette 01/29/24 11:35 e-Cigarette/Vaping Use Never Used 01/29/24 11:35 Thrive Assessment: Date of Thrive Assessment Date Thrive assessed 09/20/23 01/29/24 11:35 Telehealth Telehealth Telehealth Platform: Telephone Location of provider rendering services: practice address Location of patient: address on file Telehealth method: voice only Patient verbally consented to treatment: Yes Patient verbally consented to billing insurance company: Yes Patient informed of any privacy concerns related to visit: Yes Minutes spent on Phone/Video with Pt.: 10 Coding Level of Care Code Tele Est Pt Level 3 (02658) Diagnoses Arthralgia of left shoulder region M25.512 Assessment & Plan Assessment & Plan (1) Arthralgia of left shoulder region: Code(s): M25.512 - Pain in left shoulder Category: Medical Plan: Patient continues in lift upper extremity sling. She does still have pretty significant pain in her left shoulder particularly when moving her shoulder. She is due to start physical therapy in 2 weeks. She will be following up with orthopedic surgeon in [place] in early 02/2024. We did discuss her pain management and agreed upon using oxycodone 10 mg t.i.d. to help control her pain during this short period of time where she is recovering and starting physical therapy. She does understand the risk of dependency to opiates and is willing to be weaned off oxycodone when the time comes.
== END 2024-01-29 12:48 | disposition home or self-care (01) ==
LOC: HO.HMCH 11:34
PROVIDERS: PCP Physician Assistant; Visit Provider Physician Assistant
DX: M25.512 Pain in left shoulder (principal)

== ENCOUNTER → 2024-01-29 11:34 | Outpatient (BNVA) | payer MEDICARE, MEDICAID, SELFPAY | PROVIDERS: PCP Physician Assistant; Visit Provider Physician Assistant ==

== ENCOUNTER 2024-02-20 09:22 | Outpatient (AMB) | payer MEDICARE, MEDICAID, SELFPAY ==
--- NOTE | 2024-02-20 09:22 | A.OFFPC_ITS ---
Intake Visit Reasons: follow up pain management ( telehealth) Elevator Attendant Required: No Information Interpreted: non-clinical & clinical Home Energy Inspector: Not Required per policy Accompanied by: Self / Same As Patient Allergies olanzapine [From ZYPREXA] Allergy (Severe, Verified 02/20/24 09:25) SWELLING oxcarbazepine [From TRILEPTAL] Allergy (Severe, Verified 02/20/24 09:25) antony's Rob syndrome gabapentin Allergy (Unknown, Verified 02/20/24 09:25) Loss of balance lithium [LITHIUM] Allergy (Unknown, Verified 02/20/24 09:25) UNKNOWN quetiapine [Seroquel] Allergy (Unknown, Verified 02/20/24 09:25) Unknown sulfamethoxazole [From BACTRIM] Allergy (Unknown, Verified 02/20/24 09:25) severe rash trimethoprim [From BACTRIM] Allergy (Unknown, Verified 02/20/24 09:25) severe rash cyclobenzaprine [From Flexeril] Adverse Reaction (Intermediate, Verified 02/20/24 09:25) Agitated Medication List - Last Reconciled 02/20/24 by Ramesh Sampson PA-C acetaminophen 500 mg PO Q6H PRN 30 days benztropine 0.5 mg PO BID 90 days bisacodyl (Bisa-Lax (bisacodyl)) 10 mg (2 x 5 mg) PO BEDTIME PRN 2 days bupropion HCl XL 300 mg PO DAILY 90 days cholecalciferol (vitamin D3) 50 mcg PO DAILY 90 days clonazepam 1 mg PO BID PRN 30 days divalproex ER 1,500 mg (3 x 500 mg) PO DAILY 30 days doxycycline hyclate 100 mg PO BID 7 days erenumab-aooe (Aimovig Autoinjector) mg subcut Q4W famotidine 40 mg PO BEDTIME folic acid 20 mg PO DAILY hydroxyzine HCl 25 mg PO BEDTIME Latuda (lurasidone) 80 mg PO DAILY 90 days NS Nicorette (nicotine (polacrilex)) 4 mg buccal Q8H PRN 30 days NS oxycodone 10 mg PO Q8H PRN 5 days perphenazine 8 mg PO DAILY polyethylene glycol 3350 (Miralax) 17 grams PO BID prucalopride (Motegrity) TAKE 1 TABLET BY MOUTH EVERY DAY sucralfate 1 g PO BID sumatriptan succinate 50 mg PO DAILY PRN tizanidine 2 mg PO BID 30 days Tobacco use date assessed: 01/15/24 Dental Screening Dental Screen Date: 09/20/23 HPI follow up pain management ( telehealth) HPI Details Patient is a 43-year-old female being evaluated today via telephone. She is status post left shoulder replacement done in [place]. [place] [facility] not able to continue her pain medication 2 weeks postop surgery. She now needs PCP to help her with her pain and wean her on her narcotic pain medication. She still remains in significant pain particularly when trying to put on her clothes. Did have long discussion about habit-forming nature of pain medication and she agrees. She has started physical therapy does is in some considerable pain afterwards. She agrees to use tizanidine and acetaminophen as 1st line for her pain in the use of oxycodone 10 mg for pain scales of 8-10. She will need pain reduction medication to get the most benefit out of her physical therapy. [facility] Medical History Right thigh pain Schizoaffective disorder, bipolar type Gastroparesis Chronic nausea Migraine Bipolar disorder GLORIA (generalized anxiety disorder) Surgical History History of shoulder surgery Hx of colonoscopy History of esophagogastroduodenoscopy (EGD) History of tonsillectomy Family History Mother No problems noted. Father No problems noted. Social History Household Members: Other Household Members Other:: mother Housing: House Do you presently have visiting nurse or other home services: No Alcohol intake: current Alcohol intake frequency: holidays/special occasions only Patient Tobacco Use Status: Current everyday Tobacco user Tobacco use type: Cigarette Cigarettes Per Day: 3 Years Smoked: 25 e-Cigarette/Vaping Use: Never Used Second Hand Smoke Exposure: Yes Substance Use Type: Marijuana Advance Directives Date on File: 05/19/21 service: No Current occupational status: unemployed and disabled Cognitive needs: No Hearing needs: No Vision needs: No Questionnaire Thrive Questionnaire Date Thrive assessed: 09/20/23 GLORIA-7 AMB Questionnaire GLORIA-7 Date GLORIA - 7 assessed: 09/20/23 Source: Developed by Drs. Ayush Lara, Anum Boyer, Brendan Herbert and colleagues, with an educational richar from [employer]. Review of Systems Const Denies headache(s) Eyes Denies loss of vision ENT Denies vertigo, Denies dizziness, Denies headache(s) and Denies sore throat Card Denies chest pain, Denies leg edema and Denies lightheadedness Resp Denies cough, Denies hemoptysis and Denies wheezing GI Denies abdominal pain, Denies melena, Denies constipation, Denies diarrhea and Denies vomiting Denies urinary frequency, Denies dysuria and Denies urinary urgency Musc Denies arthralgias, Denies joint swelling, Denies numbness and Denies tingling Neuro Denies behavioral changes, Denies vertigo, Denies dizziness, Denies headache(s), Denies loss of vision, Denies memory loss, Denies numbness and Denies tingling Psych Denies anxiety, Denies behavioral changes, Denies depression, Denies memory loss and Denies panic attacks Vincent/Lymph Denies easy bleeding and Denies easy bruising Aller/Immun Denies wheezing Physical exam (Primary Care) Tobacco/Smoking Status: Tobacco use Status Tobacco use date assessed 01/15/24 02/20/24 09:23 Patient Tobacco Use Status Current everyday Tobacco 02/20/24 09:23 Tobacco use type Cigarette 02/20/24 09:23 e-Cigarette/Vaping Use Never Used 02/20/24 09:23 Thrive Assessment: Date of Thrive Assessment Date Thrive assessed 09/20/23 02/20/24 09:23 Telehealth Telehealth Telehealth Platform: Telephone Location of provider rendering services: practice address Location of patient: address on file Patient Identification confirmed using: Name, : Yes Telehealth method: voice only Patient verbally consented to treatment: Yes Patient verbally consented to billing insurance company: Yes Patient informed of any privacy concerns related to visit: Yes Minutes spent on Phone/Video with Pt.: 11 Coding Level of Care Code Tele Est Pt Level 4 (89310) Diagnoses Arthralgia of left shoulder region M25.512 Assessment & Plan Assessment & Plan (1) Arthralgia of left shoulder region: Code(s): M25.512 - Pain in left shoulder Category: Medical Plan: Patient continues in lift upper extremity sling. She does still have pretty significant pain in her left shoulder particularly when moving her shoulder. She is due to start physical therapy in 2 weeks. She has followed up with [facility] and reports she has some delayed wound healing and fractures though in her shoulder. She mentions that her surgeon relate to her that it was very difficult/ complex surgery requiring a bone donor. We did discuss her pain management and agreed upon using oxycodone 10 mg t.i.d. to help control her pain during this short period of time where she is recovering and participating in physical therapy She does understand the risk of dependency to opiates and is willing to be weaned off oxycodone when the time comes.
== END 2024-02-20 12:50 | disposition home or self-care (01) ==
LOC: HO.HMCH 09:22
PROVIDERS: PCP Physician Assistant; Visit Provider Physician Assistant
DX: M25.512 Pain in left shoulder (principal)

== ENCOUNTER 2024-02-27 09:08 | Outpatient (REF) | payer MEDICARE, MEDICAID, SELFPAY | END 2024-02-27 09:09 | disposition home or self-care (01) | LOC: HO.HOSX 09:08 | DX: S62.336D Displaced fracture of neck of fifth metacarpal bone, right hand, subsequent encounter for fracture with routine healing (principal) | CPT/HCPCS: 73130; 99212 ==

== ENCOUNTER 2024-02-27 12:53 | Outpatient (AMB) | payer MEDICARE, MEDICAID, SELFPAY ==
--- NOTE | 2024-02-27 12:57 | MHC.OFFVIS ---
Intake Visit Reasons: OV: right 5th metacarpal fracture DOI: 12/12/23 Intake Note: Agnieszka 43 year old right hand dominant female presents today with her for a follow up visit for her right 5th metacarpal fracture, DOI: 12/12/23. Patient reports she is having little to no pain. She also mentions that she hasn't gone to OT. Allergies olanzapine [From ZYPREXA] Allergy (Severe, Verified 02/27/24 13:03) SWELLING oxcarbazepine [From TRILEPTAL] Allergy (Severe, Verified 02/27/24 13:03) antony's Rob syndrome gabapentin Allergy (Unknown, Verified 02/27/24 13:03) Loss of balance lithium [LITHIUM] Allergy (Unknown, Verified 02/27/24 13:03) UNKNOWN quetiapine [Seroquel] Allergy (Unknown, Verified 02/27/24 13:03) Unknown sulfamethoxazole [From BACTRIM] Allergy (Unknown, Verified 02/27/24 13:03) severe rash trimethoprim [From BACTRIM] Allergy (Unknown, Verified 02/27/24 13:03) severe rash cyclobenzaprine [From Flexeril] Adverse Reaction (Intermediate, Verified 02/27/24 13:03) Agitated HPI HPI OV: right 5th metacarpal fracture DOI: 12/12/23: Details: Patient is a 43-year-old female who presents for follow-up evaluation of right 5th metacarpal neck fracture, date of injury 12/12/2023. Today, the patient reports that she is feeling well, and experiences no pain at the fracture site. Patient states that her range of motion has improved significantly since her previous evaluation, and she no longer experiences pain with range of motion, despite never going to occupational therapy... Denies any numbness or tingling in the right hand. No other acute complaints or concerns at this time. [facility] Medical History Right thigh pain Schizoaffective disorder, bipolar type Gastroparesis Chronic nausea Migraine Bipolar disorder GLORIA (generalized anxiety disorder) Surgical History History of shoulder surgery Hx of colonoscopy History of esophagogastroduodenoscopy (EGD) History of tonsillectomy Family History Mother No problems noted. Father No problems noted. Social History Household Members: Other Household Members Other:: mother Housing: House Do you presently have visiting nurse or other home services: No Alcohol intake: current Alcohol intake frequency: holidays/special occasions only Patient Tobacco Use Status: Current everyday Tobacco user Tobacco use type: Cigarette Cigarettes Per Day: 3 Years Smoked: 25 e-Cigarette/Vaping Use: Never Used Second Hand Smoke Exposure: Yes Substance Use Type: Marijuana Advance Directives Date on File: 05/19/21 service: No Current occupational status: unemployed and disabled Cognitive needs: No Hearing needs: No Vision needs: No Physical Exam Extrem Other: Patient is alert, oriented, and in no acute distress. Neuro: Normal sensation of the tips of all digits of the right hand at this time Vascular: Cap refill brisk Pain: Patient reports no tenderness to palpation of the fracture site at the level of the 5th metacarpal neck of the right hand Patient reports no discomfort in the dorsal aspect of the right small finger with range of motion ROM: Patient is able to make a closed fist and extend all digits of the right hand fully Skin: No lacerations or abrasions. General: No ecchymosis, erythema, or evidence of infection. Psych: Appears grossly normal Affect normal Attitude cooperative Results Reviewed Results Reviewed: X-rays obtained in the office today and independently reviewed by me, Heath العلي PA-C, demonstrate nondisplaced, impacted fracture of the 5th metacarpal neck of the right hand with evidence of interval bony healing. Assessment & Plan Assessment & Plan (1) Displaced fracture of neck of right fifth metacarpal bone: Code(s): S62.336A - Displaced fracture of neck of fifth metacarpal bone, right hand, initial encounter for closed fracture Category: Medical Qualifiers: Encounter type: subsequent encounter Fracture type: closed Fracture healing: with routine healing Qualified Code(s): S62.336D - Displaced fracture of neck of fifth metacarpal bone, right hand, subsequent encounter for fracture with routine healing Plan 1. Right 5th metacarpal neck fracture Date of injury 12/12/2023 Patient appears to be recovering well from her injury Patient is educated about the typical recovery course At this time, patient is informed that she is recovering very well from her injury, and will not require any further acute follow-up with us Patient was advised that she should begin to gradually wean out of argelia taping her fingers over the next 2-3 weeks Patient is advised that over the next 3-4 weeks, she can begin to gradually return to normal lifting as tolerated Patient was amenable to this plan Patient will follow-up i as needed with any acute concerns Orders: Orders XR hand RT min 3V 02/27/24 M79.641 - Pain in right hand Coding Level of Care Code Global (14858) Diagnoses Closed displaced fracture of neck of fifth metacarpal bone of right hand with routine healing, subsequent encounter S62.336D Encounter type: subsequent encounter Fracture type: closed Fracture healing: with routine healing
== END 2024-02-27 13:20 | disposition home or self-care (01) ==
PROVIDERS: PCP Physician Assistant
DX: S62.336D Displaced fracture of neck of fifth metacarpal bone, right hand, subsequent encounter for fracture with routine healing (principal)
CPT/HCPCS: 99024

== ENCOUNTER 2024-05-20 15:03 | Outpatient (AMB) | payer MEDICARE, MEDICAID, SELFPAY ==
[2024-05-20 15:06] VITALS: BP 92/52; PULSE 7; O2SAT 97; BMI 20.7
--- NOTE | 2024-05-20 15:06 | MHC.PC.OV ---
Vital Signs 05/20/24 15:06 Height 5 ft 7 in Weight 132 lb BMI 20.7 BP 92/52 L Blood Pressure Location Rt brachial Position Sitting Pulse 7 L Pulse Source Pulse Oximeter Pulse Oximetry (%) 97 Oxygen Delivery Method Room Air Intake Visit Reasons: 6 Month F/U Intake Note: Patient is here for 6 months FU. Ab Initio Etl Developer Required: No Accompanied by: Self / Same As Patient Allergies olanzapine [From ZYPREXA] Allergy (Severe, Verified 05/20/24 15:14) SWELLING oxcarbazepine [From TRILEPTAL] Allergy (Severe, Verified 05/20/24 15:14) antony's Rob syndrome gabapentin Allergy (Unknown, Verified 05/20/24 15:14) Loss of balance lithium [LITHIUM] Allergy (Unknown, Verified 05/20/24 15:14) UNKNOWN quetiapine [Seroquel] Allergy (Unknown, Verified 05/20/24 15:14) Unknown sulfamethoxazole [From BACTRIM] Allergy (Unknown, Verified 05/20/24 15:14) severe rash trimethoprim [From BACTRIM] Allergy (Unknown, Verified 05/20/24 15:14) severe rash cyclobenzaprine [From Flexeril] Adverse Reaction (Intermediate, Verified 05/20/24 15:14) Agitated Medication List - Last Reconciled 05/20/24 by Ramesh Sampson PA-C acetaminophen 500 mg PO Q6H PRN 30 days benztropine 0.5 mg PO BID 90 days bisacodyl (Bisa-Lax (bisacodyl)) 10 mg (2 x 5 mg) PO BEDTIME PRN 2 days bupropion HCl XL 300 mg PO DAILY 90 days cholecalciferol (vitamin D3) 50 mcg PO DAILY 90 days clonazepam 1 mg PO BID PRN 30 days divalproex ER 1,500 mg (3 x 500 mg) PO DAILY 30 days doxycycline hyclate 100 mg PO BID 7 days erenumab-aooe (Aimovig Autoinjector) mg subcut Q4W famotidine 40 mg PO BEDTIME folic acid 20 mg PO DAILY gabapentin 800 mg PO BID 30 days hydroxyzine HCl 25 mg PO BEDTIME Latuda (lurasidone) 80 mg PO DAILY 90 days NS Nicorette (nicotine (polacrilex)) 4 mg buccal Q8H PRN 30 days NS oxycodone 10 mg PO Q8H PRN 4 days perphenazine 8 mg PO DAILY polyethylene glycol 3350 (Miralax) 17 grams PO BID prucalopride (Motegrity) TAKE 1 TABLET BY MOUTH EVERY DAY sucralfate 1 g PO BID sumatriptan succinate 50 mg PO DAILY PRN tizanidine 2 mg PO BID 30 days Tobacco use date assessed: 05/20/24 Dental Screening Dental Screen Date: 05/20/24 Did you have a dental visit in the last 12 months?: Yes Did you have a dental problem in the last 6 months where you did not have access to dental care?: No Was dental information given to patient?: Patient has dentist HPI 6 Month F/U HPI Details Patient is a 44-year-old female here today for a follow-up visit. Patient has a past medical history significant for schizoaffective disorder, bipolar disorder, gastroparesis. Concerns--> noted low blood pressure today in office. Otherwise patient asymptomatic. Left shoulder tendinopathy: Has underwent left shoulder reconstruction surgery in [place] though unfortunately the surgery has failed. She is due to see her surgeon again May 28 for a revision she has been using gabapentin 800 b.i.d. which has been helpful for pain though still has extreme pain when she feels her left shoulder is manipulated in certain manners. She feels her shoulder issue is characterized by dislocation when leaning forward, resulting in acute pain. Previously, gabapentin was effective in managing her pain until the recurrence of subluxation .. Bipolar disorder: Now has a psychiatric provider who is managing all of her mental health medications. . Does use clonazepam on a very limited p.r.n. basis for high points of anxiety. She feels her mental health is stable on current doses of her mental health medications at this time. .. Gastroparesis: Still has intermittent episodes abdominal pain and cramping/vomiting. Has lost weight since last office visit Continues to follow gastroenterology here in [place]. On moteg 2 mg daily, . Tobacco dependency: She reports she cut down to 3 cigarettes per day. She does understand she needs to quit smoking and is found it very difficult to do so. She found that nicotine lozenges have been helpful in the past. [facility] Medical History Right thigh pain Schizoaffective disorder, bipolar type Gastroparesis Chronic nausea Migraine Bipolar disorder GLORIA (generalized anxiety disorder) Surgical History History of shoulder surgery Hx of colonoscopy History of esophagogastroduodenoscopy (EGD) History of tonsillectomy Family History Mother No problems noted. Father No problems noted. Social History Household Members: Other Household Members Other:: mother Housing: House Do you presently have visiting nurse or other home services: No Alcohol intake: current Alcohol intake frequency: holidays/special occasions only Patient Tobacco Use Status: Current everyday Tobacco user Tobacco use type: Cigarette Cigarettes Per Day: 3 Years Smoked: 25 e-Cigarette/Vaping Use: Never Used Second Hand Smoke Exposure: Yes Substance Use Type: Marijuana Advance Directives Date on File: 05/19/21 service: No Current occupational status: unemployed and disabled Cognitive needs: No Hearing needs: No Vision needs: No Questionnaire PHQ-9 Over the last 2 weeks, how often have you been bothered by any of the following problems? 1. Little interest or pleasure in doing things: not at all 2. Feeling down, depressed, or hopeless: not at all 3. Trouble falling or staying asleep, or sleeping too much: not at all 4. Feeling tired or having little energy: not at all 5. Poor appetite or overeating: not at all 6. Feeling bad about yourself - or that you are a failure or have let yourself or your family down: not at all 7. Trouble concentrating on things, such as reading the newspaper or watching television: not at all 8. Moving or speaking so slowly that other people could have noticed. Or the opposite - being so fidgety or restless that you have been moving around a lot more than usual: not at all 9. Thoughts that you would be better off or of hurting yourself in some way: not at all Total score: 0 Depression Screening Interpretation: Negative Depression Screening Done: Yes 59552 - PHQ-9 Billing: Yes Source: Developed by William Adamet B.W. Merlin, Brendan Herbert and colleagues, with an educational richar from [employer]. Thrive Questionnaire Date Thrive assessed: 05/20/24 I am a: Patient What is your living situation today?: I have a steady place to live Within the past 12 months, did the food you bought not last and you didn't have the money to get more?: Never true Within the past 12 months, did you worry whether your food would run out before you got money to buy more?: Never true Do you have trouble paying for medicines?: No Do you have trouble getting transportation to medical appointments?: No Do you have trouble paying your heating and electricity bill?: No Do you have trouble taking care of your child, family member or friend?: No Do you have trouble with day-to-day activities such as bathing, preparing meals, shopping, managing finances, etc.?: No Are you currently unemployed and looking for a job?: No Are you interested in more education?: No Please select the resources that you would like help with: None Currently or been in a relationship where the following occur: No concerns reported THRIVE Score: 0 AUDIT C Alcohol Use Questionnaire (AUDIT-C) 1. How often do you have a drink containing alcohol?: Monthly or less 2. How many drinks containing alcohol do you have on a typical day when you are drinking?: 1 or 2 3. How often do you have six or more drinks on one occasion?: Never Total Score: 1 GLORIA-7 AMB Questionnaire GLORIA-7 Date GLORIA - 7 assessed: 05/20/24 Feeling nervous, anxious, or on edge: 0 = Not at all Not being able to stop or control worryin = Not at all Worrying too much about different things: 0 = Not at all Trouble relaxin = Not at all Being so restless that it is hard to sit still: 0 = Not at all Becoming easily annoyed or irritable: 0 = Not at all Feeling afraid as if something awful might happen: 0 = Not at all Total GLORIA-7 score (0-4 normal; 5-9 mild; 10-14 moderate; 15-21 severe): 0 Source: Developed by Anum Adam Kurt Kroenke and colleagues, with an educational richar from [employer]. GLORIA-7 Assessment Billing GLORIA-7 Assessment Tool: GLORIA-7 Assessment 15558 Review of Systems Const Denies headache(s) Eyes Denies loss of vision ENT Denies vertigo, Denies dizziness, Denies headache(s) and Denies sore throat Card Denies chest pain, Denies leg edema and Denies lightheadedness Resp Denies cough, Denies hemoptysis and Denies wheezing GI Denies abdominal pain, Denies melena, Denies constipation, Denies diarrhea and Denies vomiting Denies urinary frequency, Denies dysuria and Denies urinary urgency Musc Denies arthralgias, Denies joint swelling, Denies numbness and Denies tingling Neuro Denies Abnormal speech present, Denies behavioral changes, Denies vertigo, Denies dizziness, Denies headache(s), Denies loss of vision, Denies memory loss, Denies numbness and Denies tingling Psych Denies anxiety, Denies behavioral changes, Denies depression, Denies memory loss and Denies panic attacks Vincent/Lymph Denies easy bleeding and Denies easy bruising Aller/Immun Denies wheezing Physical exam (Primary Care) Vital Signs: Last Vital Signs Pulse 7 L 05/20/24 15:06 BP 92/52 L 05/20/24 15:06 Pulse Ox 97 05/20/24 15:06 Oxygen Delivery Method Room Air 05/20/24 15:06 BMI result Body Mass Index 20.7 Tobacco/Smoking Status: Tobacco use Status Tobacco use date assessed 05/20/24 05/20/24 15:08 Patient Tobacco Use Status Current everyday Tobacco 05/20/24 15:06 Tobacco use type Cigarette 05/20/24 15:06 e-Cigarette/Vaping Use Never Used 05/20/24 15:06 Are you ready to quit: No Tobacco cessation counseling provided: Yes Items discussed: Nicotine replacement Relapse Prevention: discussed the importance of a supportive environment, discussed negative mood or depression after quitting, weight gain after smoking is common and discussed dietary, exercise and/or lifestyle changes Number of minutes spent counselin CPT code: 78216 - 4-10 Minutes PHQ-9: PHQ-9 Score PHQ-9: Total score 0 05/20/24 15:17 Depression Screening Interpretation: Negative Thrive Assessment: Date of Thrive Assessment Date Thrive assessed 05/20/24 05/20/24 15:08 Currently or been in a relationship where the following occur: No concerns reported Const General: healthy appearing, no acute distress, alert and awake Nutritional Appearance: well nourished Orientation/consciousness: oriented to person, oriented to place and oriented to time HENMT Ears: TM's normal bilaterally General nose exam: Normal nasal mucous membranes and turbinates present Eyes Conjunctivae: conjunctivae normal Sclerae: sclerae normal Pupils: Equal, round and reactive pupils present Neck Neck: Yes no lymphadenopathy and Yes no JVD Thyroid: Thyroid normal Carotids: no bruits Resp Effort & Inspection: normal respiratory effort and not tachypneic Auscultation: no crackles, no rales, no rhonchi and no wheezes Cardio Rate: regular rate Rhythm: regular rhythm Heart sounds: no murmurs and normal S1 and S2 GI Palpation (GI): Soft to palpation, nontender, no hepatomegaly and no splenomegaly Auscultation: normal bowel sounds Skin General skin exam: no rashes or lesions noted and dry skin Neuro General: oriented to person, oriented to place and oriented to time Cranial nerves: Yes Equal, round and reactive pupils present Speech: No Abnormal speech present Gait exam (Neuro): Normal gait present Motor exam (neuro): no tremor noted Extrem Other: LEFT SHOULDER: LIMITED RANGE OF MOTION COMPARED TO THE RIGHT SHOULDER, UNABLE TO LIFT LEFT ARM ABOVE HEAD. Right upper extremity: full ROM Left upper extremity: ROM limited Right lower extremity: full ROM; no edema Left lower extremity: full ROM; no edema Psych Mental Status: mental status grossly normal Speech and movement: Normal speech and movement present Affect: normal affect Attitude: cooperative Thought process: Normal thought process present Coding Level of Care Code Est Pt Level 4 (86058) Diagnoses Arthralgia of left shoulder region M25.512 Tobacco dependence F17.200 Bipolar affective disorder, currently manic, moderate F31.12 Active/Remission status: currently active Current bipolar episode type: manic Current episode severity: moderate Additional Codes GLORIA-7 Assessment Billing - GLORIA-7 Assessment Tool: GLORIA-7 Assessment 47083 ([id number]) PHQ-9 - 04861 - PHQ-9 Billing: Yes ([id number]) Vital Signs *Quality* - CPT code: 57387 - 4-10 Minutes ([id number]) Assessment & Plan Assessment & Plan (1) Arthralgia of left shoulder region: Code(s): M25.512 - Pain in left shoulder Category: Medical Plan: I discussed with the patient her shoulder condition, including the current state of management and the plan to consult a specialist about possible partial reconstruction. Pain management strategies, including additional pain medications for severe episodes, were considered. We reviewed her ongoing anxiety treatment, discussing the benefits of current therapy The patient waits for further consultation to determine necessity of partial reconstruction while managing acute pain episodes with prescribed medication. (2) Tobacco dependence: Code(s): F17.200 - Nicotine dependence, unspecified, uncomplicated Category: Medical Plan: Patient has cut down smoking though still smokes a few cigarettes per day. She does understand she needs to quit. Not interested in nicotine replacement at this time. (3) Bipolar disorder: Code(s): F31.9 - Bipolar disorder, unspecified Category: Medical Qualifiers: Active/Remission status: currently active Current bipolar episode type: manic Current episode severity: moderate Qualified Code(s): F31.12 - Bipolar disorder, current episode manic without psychotic features, moderate Plan: Continues to follow a psych provider whom in his managing her mental health medications. She feels fairly stable from a mental health point of view. Medications: Refilled oxycodone Partial Fill upon patient request. 10 mg PO Q8H PRN 12 tabs 0RF pain 4 days S43.005D - Unspecified dislocation of left shoulder joint, subsequent encounter Discontinued doxycycline hyclate Discontinued Reason: Doctor's Order 100 mg PO BID 7 days 14 tabs 0RF
--- OUTSIDE RECORDS SUMMARY | 2024-05-20 17:35 | XMS_ITS | Continuity of Care Document ---
Author Organization [facility] Address [address] [place] [id number] Care Team Providers Care Aircraft Cleaner Name Role Phone Ramesh Garza Primary Care Physician Encounter [facility] Date(s): 03/07/24 - 05/09/[address] [address] Encounter Diagnosis Pain in left shoulder(Final) - Other specified postprocedural states(Final) - Discharge Disposition: A-D/C Home Attending Physician: Josiah Menendez MD Admitting Physician: Not on Staff, Admitting MD Referring Physician: Josiah Menendez MD Encounter Type: Disch Recurring OP Allergies, Adverse Reactions, Alerts Substance Criticality Severity Reaction Reaction Severity Status lithium edema Active Seroquel edema Active Zyprexa rash Active Bactrim edema Active Trileptal antony sepideh syndrome Active Lactose Active Medications clonazepam 1 mg oral tablet 1 tablet, By Mouth, 2 times a day, 0 Refills, Maintenance, 01/08/11 11:19:52 AM EDT, Tablet Start Date: 01/08/11 Status: Ordered Repeat number: 1 Cogentin 1 mg oral tablet 1 mg, 1, tablet, By Mouth, Daily, 0 Refills Start Date: 12/12/05 Status: Ordered Repeat number: 1 Depakote ER 500 mg oral tablet, extended release 2TABS, By Mouth, Daily at bedtime, 0 Refills Start Date: 12/12/05 Status: Ordered Repeat number: 1 folic acid 1 mg oral tablet 1 tablet, By Mouth, Daily, 5 TABS 1 X DAY, # 30 tablet, 0 Refills, Maintenance, 01/08/11 11:20:17 AMEDT, Tablet Start Date: 01/08/11 Status: Ordered Quantity: 30.0 Unit: tablet Repeat number: 1 Latuda 80 mg oral tablet 1 tablet = 80 mg, By Mouth, Daily, with food, # 30 tablet, 0 Refills, Maintenance, 04/15/16 2:03:39 PM EST, Tablet Start Date: 04/15/16 Status: Ordered Quantity: 30.0 Unit: tablet Repeat number: 1 Maxalt 5 mg oral tablet 1 tablet = 5 mg, By Mouth, Daily, PRN for migraine headache, may repeat dose every 2 hours up to a maximum of 3, # 9 tablet, 0 Refills, Maintenance, 07/21/16 10:58:00 AM EDT, Tablet, [facility] #[id number] Start Date: 07/21/16 Status: Ordered Quantity: 9.0 Unit: tablet Repeat number: 1 Pepcid AC Maximum Strength 20 mg oral tablet 1 tablet = 20 mg, By Mouth, Daily, # 15 tablet, 0 Refills, Maintenance, 09/07/11 9:42:22 PM EDT, Tablet Start Date: 09/07/11 Status: Ordered Quantity: 15.0 Unit: tablet Repeat number: 1 perphenazine 8 mg oral tablet Daily, 0 Refills Start Date: 12/12/05 Status: Ordered Repeat number: 1 traZODone 100 mg oral tablet 100 mg, 1, tablet, By Mouth, Daily at bedtime, Refills 0, Maintenance, 07/12/16 9:30:12 AM EDT Start Date: 07/12/16 Status: Ordered Repeat number: 1 Wellbutrin SR 150 mg/12 hours oral tablet, extended release 2 tablets, By Mouth, 2 times a day, states takes 300mg, # 180 tablet, 0 Refills, Maintenance, 02/02/21 8:37:00 AM EST, ER Tablet, Partial fill upon patient request if the prescription is for a schedule II opioid drug. Start Date: 02/02/21 Status: Ordered Quantity: 180.0 Unit: tablet Repeat number: 1 Zofran 4 mg oral tablet 1 tablet = 4 mg, By Mouth, Every 8 hours, PRN Nausea & Vomiting, # 10 tablet, 0 Refills, Maintenance, 09/03/21 12:59:00 PM EDT, Tablet, [id number], Partial fill upon patient request if the prescription is for a schedule II opioid drug., 158, cm, 05/16/21 3:27:00 EDT, Height, 70, kg, 05/16/21 3:27:00 EDT, Dry Weight Start Date: 09/03/21 Status: Ordered Quantity: 10.0 Unit: tablet Repeat number: 1 Problem List Condition Confirmation Course Effective Dates Status Health St atus Informant Cystitis Confirmed Active Urinary retention Confirmed Active Social History Social History Type Response Smoking Status Current every day sm oker; Tobacco user in household: No entered on: 06/19/14 Sex Female Sex Representation Female (finding) Patient Care team information Care Team Personnel Name: Ramesh Garza Position: Reference Physician Member Role: PCP Address: [address] [place] [address] Telecom: Name: Gely Zuniga RN Position: PARADISES RN Member Role: Primary Care Nurse Name: Yessenia Mc RN Position: TANK RN Member Role: Primary Care Nurse Care Team Related Persons Name: MICHELLE PRICE Name: PENNY PRICE Name: CLAUDIA BACON Insurance Providers Guarantor name: CHRIS PRICE Health Plan Information #: 1 Payer: MEDICARE PART B OUTPT Member Number: [id number] Policy Number: NA Group Number: NA Health Plan Information #: 2 Payer: [facility] Member Number: [id number] Policy Number: NA Group Number: NA
== END 2024-05-20 15:35 | disposition home or self-care (01) ==
LOC: HO.HMCH 15:03
PROVIDERS: PCP Physician Assistant; Visit Provider Physician Assistant
DX: M25.512 Pain in left shoulder (principal); F17.200 Nicotine dependence, unspecified, uncomplicated; F31.12 Bipolar disorder, current episode manic without psychotic features, moderate

== ENCOUNTER → 2024-05-20 15:03 | Outpatient (BNVA) | payer MEDICARE, MEDICAID, SELFPAY | PROVIDERS: PCP Physician Assistant; Visit Provider Physician Assistant | DX: M25.512 Pain in left shoulder (principal); F31.12 Bipolar disorder, current episode manic without psychotic features, moderate; F17.200 Nicotine dependence, unspecified, uncomplicated; Z71.6 Tobacco abuse counseling | CPT/HCPCS: 96127; 99212 ==

== ENCOUNTER 2024-07-05 08:23 | Outpatient (REF) | payer MEDICARE, MEDICAID, SELFPAY ==
--- NOTE | ~2024-07-05 | XR_ITS ---
EXAMINATION: XR SHOULDER, LEFT CLINICAL INFORMATION: LEFT SHOULDER COMPARISON: None available. TECHNIQUE: Views of the left shoulder. FINDINGS: There is a reversed left shoulder prosthesis with prosthetic components in satisfactory alignment. No visible periprosthetic fracture or loosening seen. The AC joint is preserved. There is small bone fragment in the left inferior axilla. No gross soft tissue swelling. Visualized left upper ribs are unremarkable. XR/XR shoulder LT min 2V IMPRESSION: Reverse left shoulder prosthesis in satisfactory alignment. No periprosthetic fracture or loosening seen. Electronically signed by: Mil Patterson MD 07/05/2024 10:24 AM EDT
--- NOTE | ~2024-07-05 | XR_ITS ---
EXAMINATION: XR CHEST CLINICAL INFORMATION: R91.8 - Other nonspecific abnormal finding of lung field COMPARISON: Chest x-ray 12/29/2023 TECHNIQUE: 2 views of the chest were obtained. FINDINGS: Lungs are expanded and clear of acute pneumonic process. There is ill-defined density right lung base similar to previous study. Heart size and pulmonary vascularity is normal. There is a left reverse shoulder prosthesis. Rest the bones are unremarkable. XR/XR chest 2V IMPRESSION: Right lower lobe nodular opacity, worrisome. Recommend CT chest for further evaluation. Electronically signed by: Mil Patterson MD 07/05/2024 10:31 AM EDT
== END 2024-07-05 08:24 | disposition home or self-care (01) ==
LOC: HO.XRAY 08:23
PROVIDERS: PCP Physician Assistant; Visit Provider Orthopaedic Surgery Hand Surgery
DX: R91.8 Other nonspecific abnormal finding of lung field (principal); Z98.890 Other specified postprocedural states
CPT/HCPCS: 71046; 73030

== ENCOUNTER → 2024-07-05 08:31 | Outpatient (BNV) | payer MEDICARE, MEDICAID, SELFPAY | PROVIDERS: PCP Physician Assistant; Visit Provider Radiology Diagnostic Radiology | DX: R91.8 Other nonspecific abnormal finding of lung field (principal); Z96.612 Presence of left artificial shoulder joint | CPT/HCPCS: 71046; 73030 ==

== ENCOUNTER 2024-08-16 13:48 | Outpatient (REF) | payer MEDICARE, MEDICAID, SELFPAY | END 2024-08-16 13:49 | disposition home or self-care (01) | LOC: HO.CT 13:48 | PROVIDERS: PCP Physician Assistant; Visit Provider Physician Assistant | DX: Z13.89 Encounter for screening for other disorder (principal) ==

== ENCOUNTER 2024-08-20 09:52 | Outpatient (REF) | payer MEDICARE, MEDICAID, SELFPAY ==
--- NOTE | ~2024-08-20 | CT_ITS ---
EXAMINATION: CT CHEST WITH CONTRAST CLINICAL INFORMATION: Nodular opacity in the right lower lobe on chest x-ray , smoker COMPARISON: Chest x-ray July 05, [address] chest July 24, 2021 DLP: 146 mGY*cm TECHNIQUE: Multidetector volumetric CT imaging of the chest was obtained after the administration of 65 mL of Omnipaque 350 intravenous contrast without immediate adverse reactions. Axial MIP volume rendering provided. Sagittal and coronal reformatted images were obtained. This CT examination was performed using dose optimization techniques as appropriate, variously including the following: *Automated exposure control *Adjustment of mA and/or kV according to patient size (this includes techniques or standardized protocols for targeted exams where dose is matched to indication/reason for exam; i.e. extremities or head) *Use of iterative reconstruction technique FINDINGS: AVIATION TECHNICAL SYSTEMS SPECIALIST: Nodular opacity that was present on prior x-ray is no longer evident. Changes from a reverse shoulder arthroplasty are present on the left. LUNGS: The lungs are clear with no evidence of inflammation or nodules. MEDIASTINUM: The mediastinum is normal. PLEURA: There is no pleural effusion. No pleural mass or thickening. AXILLA: No lymphadenopathy. UPPER ABDOMEN: Unremarkable OSSEOUS STRUCTURES: Reverse total shoulder arthroplasty on the left is incompletely imaged. There is heterotopic bone along the proximal medial left humerus. There is no abnormal lucency or hardware breaks associated with the glenoid component. Mild disc space narrowing, vacuum phenomena, and anterior osteophytes are present in the midthoracic spine. CT/CT chest w IV con IMPRESSION: Nodular density in the right lung base visible on chest x-ray 6 weeks ago has resolved most consistent with resolved pneumonia or atelectasis. Fleischner guidelines were followed. Electronically signed by: Jordan Leach MD 08/20/2024 11:20 AM EDT
[2024-08-20] MEDS: iohexoL 350 MG/ML 100 ML INFUS..BTL IV (11:09)
== END 2024-08-20 09:53 | disposition home or self-care (01) ==
LOC: HO.CT 09:52
PROVIDERS: PCP Physician Assistant; Visit Provider Physician Assistant
DX: R91.8 Other nonspecific abnormal finding of lung field (principal)
CPT/HCPCS: 71260; Q9967

== ENCOUNTER → 2024-08-20 09:55 | Outpatient (BNV) | payer MEDICARE, MEDICAID, SELFPAY | PROVIDERS: PCP Physician Assistant; Visit Provider Radiology Diagnostic Radiology | DX: M51.34 Other intervertebral disc degeneration, thoracic region (principal) | CPT/HCPCS: 71260 ==

== ENCOUNTER 2024-10-23 12:10 | Outpatient (REF) | payer MEDICARE, MEDICAID, SELFPAY ==
--- NOTE | ~2024-10-23 | MM_ITS ---
EXAMINATION: MM SCREENING DIGITAL BREAST TOMOSYNTHESIS, BILATERAL CLINICAL INFORMATION: Screening. Asymptomatic. COMPARISON: Mammography: Comparison is made with available priors TECHNIQUE: Digital breast mammography with tomosynthesis is performed in both the craniocaudal and mediolateral oblique views along with computer-aided detection (CAD). FINDINGS: There are scattered areas of fibroglandular density (ACR BI-RADS breast composition Category b). Right: There are no significant masses, abnormal calcifications, or other abnormalities. Left: Asymmetry retroareolar region posterior depth on MLO view. No suspicious calcifications or other abnormal findings. MM/MM tomosynthesis screening BI IMPRESSION: Additional imaging is recommended ASSESSMENT: BI-RADS BI-RADS 0 - Incomplete: Needs additional Imaging. RECOMMENDATION: 1. Additional views of the left breast. 2. Targeted ultrasound if warranted after review of the additional views. 3. Radiology department staff will contact the patient for additional imaging. Additional Imaging required This examination should not preclude the clinical evaluation of a suspicious palpable abnormality. This patient's information was entered into a reminder system with a target due date for their next mammogram. Electronically signed by: Carin Dinh DO 10/24/2024 01:24 PM EDT
--- OUTSIDE RECORDS SUMMARY | 2024-10-23 13:14 | XMS_ITS | Clinical Summary ---
Author Organization [facility] Address [facility] [place] [address] Care Team Providers Care Mobile Mechanic Name Role Phone Unknown Primary Care Provider Unavailabl e Social History Tobacco Use Types Packs/Day Years Used Date Smoking Tobacco: Never Assessed Comments Unknown Sex and Gender Information Value Date Recorded Sex Assigned at Not on file Legal Sex Female 7:07 AM EST Gender Identity Not on file Sexual Orientation Not on file Plan of Treatment Health Maintenance Due Date Last Done Comments CT Colonography 1979 Colonoscopy 1979 Colorectal Cancer Screening 1979 FIT DNA 1979 FIT 1979 Sigmoidoscopy (10 year) with FIT yearly 1979 Sigmoidoscopy 1979 HIV screen 1997 Hepatitis C Screening 1997 Hepatitis B vaccine (0-59 yrs) and Risk (1) 1998 Tetanus/Diphtheria/Pertussis Vaccines (1 - Tdap) 02/04 HPV test 2009 PAP Smear 2009 Breast Cancer Share Decision Needed 2019 Breast Cancer screening 2019 Covid-19 Vaccine (1 - season) 2023 Influenza (Flu) vaccine (1 o f 1 - Influenza standard series) 11/04/2024 Care Teams Mobile Mechanic Relationship Specialty Start Date End Date Unknown None PCP - General 02/20/17
--- OUTSIDE RECORDS SUMMARY | 2024-10-23 13:14 | XMS_ITS | Encounter Summary ---
Author Organization [facility] Address [address] [place] [phone] Phone Care Team Providers Care Reservations And Ticketing Agent Name Role Phone Ramesh Sampson Primary Care Provider + Encounter Details Date Type Department Care Team (Late st Contact Info) Description 10/12/2023 Procedure Pass [facility] for Out[facility] - [place] [address] [facility], [address]th [place] [address] Social History Tobacco Use Types Packs/Day Years Used Date Smoking Tobacco: Every Day Cigarettes 0.5 20 Smokeless Tobacco: Never Alcohol Use Standard Drinks/Week Comments Yes 0 (1 standard drink = 0.6 oz pur e alcohol) 1 per week Education Answer Date Recorded Are you interested in more education? Not on jessica e 07/10/2022 Are you concerned about learning? Not on file 07/10/2022 No 07/10/2022 No 07/10/2022 Digital Access Answer Date Recorded No 07/31/2022 No 07/31/2022 Reliable internet access at home? Not on file 07/31/2022 Device with a working camera? Not on file Comments No Sex and Gender Information Value Date Recorded Sex Assigned at Female 10/26/2021 9:12 AM EDT Legal Sex Female 6:41 PM EST Gender Identity Female 10/26/2021 9:12 AM EDT Sexual Orientation Not on file documented as of this encounter Plan of Treatment Upcoming Encounters Date Type Department Care Team (Late st Contact Info) Description 01/23/2025 12:00 PM EST Office [place] [facility] [place], Shoulder Service [address] [facility], 3rd Floor, [address] [place] [address] Josiah Menendez MD [address] [facility] [address] [place] [phone] [email or web address] [email or web address] documented as of this encounter Visit Diagnoses Not on filedocumented in this encounter Care Teams Reservations And Ticketing Agent Relationship Specialty Start Date End Date Ramesh Sampson PA [address] [place] [phone] PCP - General 03/13/19 documented as of this encounter Additional Source Comments The information contained in this document represents components of the legal health record. It is not the complete legal health record.[facility]
== END 2024-10-23 12:11 | disposition home or self-care (01) ==
LOC: HO.MAMMO 12:10
PROVIDERS: PCP Physician Assistant; Visit Provider Physician Assistant
DX: Z12.31 Encounter for screening mammogram for malignant neoplasm of breast (principal)
CPT/HCPCS: 77063; 77067

== ENCOUNTER → 2024-10-23 12:15 | Outpatient (BNV) | payer MEDICARE, MEDICAID, SELFPAY | PROVIDERS: PCP Physician Assistant; Visit Provider Internal Medicine | DX: Z12.31 Encounter for screening mammogram for malignant neoplasm of breast (principal) | CPT/HCPCS: 77063; 77067 ==

== ENCOUNTER 2024-10-28 10:32 | Outpatient (AMB) | payer MEDICARE, MEDICAID, SELFPAY ==
[2024-10-28 10:42] VITALS: BP 112/62; PULSE 92; BMI 20.7
--- NOTE | 2024-10-28 10:42 | MHC.OFFVIS ---
Vital Signs 10/28/24 10:42 Height 5 ft 7 in Weight 132 lb 4.438 oz BMI 20.7 BP 112/62 Blood Pressure Location Lt brachial Position Sitting Pulse 92 Intake Visit Reasons: Follow up Gastroparesis Intake Note: Agnieszka presents in the office as a follow up. CC: lots of constipation and denies pains in the stomach. Collection Manager Required: No Allergies olanzapine (From ZYPREXA) Allergy (Severe, Verified 10/28/24 10:43) SWELLING oxcarbazepine (From TRILEPTAL) Allergy (Severe, Verified 10/28/24 10:43) antony's Rob syndrome gabapentin Allergy (Unknown, Verified 10/28/24 10:43) Loss of balance lithium (LITHIUM) Allergy (Unknown, Verified 10/28/24 10:43) UNKNOWN quetiapine (Seroquel) Allergy (Unknown, Verified 10/28/24 10:43) Unknown sulfamethoxazole (From BACTRIM) Allergy (Unknown, Verified 10/28/24 10:43) severe rash trimethoprim (From BACTRIM) Allergy (Unknown, Verified 10/28/24 10:43) severe rash cyclobenzaprine (From Flexeril) Adverse Reaction (Intermediate, Verified 10/28/24 10:43) Agitated HPI HPI Follow up Gastroparesis: Details: 44 yr old f here for f/u RECAP from index visit: She had been throwing up every night for months can be food and bile can feel like she is choking she has no abdominal pain she can go a whole week without going to bathroom, then she can have diarrhea hard to flush no blood in stool, no melena she does have hives she mental fogginess she has bloating ++ she does get flushing and redness she has been losing weight she has poor appetite not on narcotics rigth she takes omeprazole 40 mg prn and it seems to help She did have exp lap surgery 02/2021 for IUD outside uterus Ba swallow: 03/16/21== mild GERD, no hiatal hernia GES: pos 37% at 4 hrs EGD/colonoscopy: 06/24 Endoscopy Findings: esophagitis Colonoscopy Findings: internal hemorrhoids with skin tags colon polyp Path: tubualr adenoma, COMMENT: No amyloid deposition is present (A-E; no subepithelial tissue present in F and G). CD117 Immunohistochemistry (# cells per high powered field): A. Terminal ileum (41) B. Random colon (44) C. Ascending colon polyp (38) D. Duodenum (41) E. Stomach (24) F, G. No subepithelial tissue present precluding analysis. she did have an admission with urine retention causing pain, 05/2020 ?from pych medications I did give her a trial of cromolyn and referred pain clinic for myofascial pain assessment other data: Anti Yo, Hu positive but western blot neg celiac panel--negative lyme--neg Ig level were normal INTERIM: she is not happy with motegrity 2 mg, seems to have lost effect can be days before going for bowel motion no narcotics no nausea or vomiting EXAM: GENERAL: The patient is thin VITAL SIGNS:see workflow HEENT: Nonicteric sclerae, PERRLA, EOMI. Oropharynx clear. Moist mucous membranes. Conjunctivae appear well perfused. No thyroid mass. CHEST: Chest wall is nontender. HEART: Regular rate and rhythm without murmurs. LUNGS: Clear to auscultation bilaterally. ABDOMEN: Soft, positive bowel sounds, non tender , no organomegaly.no flank tenderness- SKIN: No rash, no excessive bruising, petechiae, or purpura. dermographism NEUROLOGIC: Cranial nerves II-XII intact without motor/sensory deficit. A/P: 1/constipation, slow transit --tolerance to motegrity PLAN: 1/ commence linalcotide 290 mcg and can alternate with motegrity PFS Medical History Right thigh pain Schizoaffective disorder, bipolar type Gastroparesis Chronic nausea Migraine Bipolar disorder GLORIA (generalized anxiety disorder) Surgical History History of shoulder surgery Hx of colonoscopy History of esophagogastroduodenoscopy (EGD) History of tonsillectomy Family History Mother No problems noted. Father No problems noted. Social History Household Members: Other Household Members Other:: mother Housing: House Do you presently have visiting nurse or other home services: No Alcohol intake: current Alcohol intake frequency: holidays/special occasions only Patient Tobacco Use Status: Current everyday Tobacco user Tobacco use type: Cigarette Cigarettes Per Day: 3 Years Smoked: 25 e-Cigarette/Vaping Use: Never Used Second Hand Smoke Exposure: Yes Substance Use Type: Marijuana Advance Directives Date on File: 05/19/21 service: No Current occupational status: unemployed and disabled Cognitive needs: No Hearing needs: No Vision needs: No Physical Exam Vital Signs: Last Vital Signs Pulse 92 10/28/24 10:42 BP 112/62 10/28/24 10:42 BMI result Body Mass Index 20.7 Assessment & Plan Assessment & Plan (1) Dysphagia: Code(s): R13.10 - Dysphagia, unspecified Category: Medical Qualifiers: Dysphagia type: unspecified Qualified Code(s): R13.10 - Dysphagia, unspecified Plan: as above Medications: New linaclotide 290 mcg PO DAILY 30 caps 3RF Discontinued Nicorette (nicotine (polacrilex)) Discontinued Reason: Doctor's Order 4 mg buccal Q8H 30 days PRN 108 ea 3RF nicotine cravings NS F17.200 - Nicotine dependence, unspecified, uncomplicated benztropine Discontinued Reason: Doctor's Order 0.5 mg PO BID 90 days 180 tabs 1RF F25.0 - Schizoaffective disorder, bipolar type sucralfate Discontinued Reason: Doctor's Order 1 g PO BID 180 tabs 1RF Coding Level of Care Code Est Pt Level 3 (53845) Diagnoses Dysphagia, unspecified type R13.10 Dysphagia type: unspecified
--- OUTSIDE RECORDS SUMMARY | 2024-10-28 11:45 | XMS_ITS | Encounter Summary ---
Author Organization [facility] Address [address] [place] [phone] Phone Care Team Providers Care Berry Picker Machine Operator Name Role Phone Ramesh Sampson Primary Care Provider + Encounter Details Date Type Department Care Team (Late st Contact Info) Description 10/12/2023 Procedure Pass [facility] for Outpatient Care - [place] [address] 6th [place] [address] Social History Tobacco Use Types Packs/Day Years [...] Description 01/23/2025 12:00 PM EST [place] [facility] [place], Shoulder Service [address], [address], [address] [place] [address] Josiah Menendez MD [address] [facility] [address] [place] [id number] [email or web address] documented as of this encounter Visit Diagnoses Not on filedocumented in this encounter Care Teams Berry Picker Machine Operator Relationship Specialty Start Date End Date Ramesh Sampson PA [address] [place] [address] PCP - General 03/13/19 documented as of this encounter Additional Source Comments The information contained in this document represents components of the legal health record. It is not the complete legal health record.[facility]
== END 2024-10-28 11:34 | disposition home or self-care (01) ==
LOC: HO.HGI 10:34
PROVIDERS: PCP Physician Assistant; Visit Provider Internal Medicine Gastroenterology
DX: R13.10 Dysphagia, unspecified (principal)
CPT/HCPCS: 99213

== ENCOUNTER → 2024-10-28 10:32 | Outpatient (BNVA) | payer MEDICARE, MEDICAID, SELFPAY | PROVIDERS: PCP Physician Assistant; Visit Provider Internal Medicine Gastroenterology | DX: R13.10 Dysphagia, unspecified (principal) | CPT/HCPCS: 99212 ==

== ENCOUNTER → 2024-11-27 10:00 | Outpatient (BNV) | payer MEDICARE, MEDICAID, SELFPAY | PROVIDERS: PCP Physician Assistant; Visit Provider Internal Medicine | DX: R92.8 Other abnormal and inconclusive findings on diagnostic imaging of breast (principal) | CPT/HCPCS: 76642; 77065; G0279 ==

== ENCOUNTER 2024-11-27 10:12 | Outpatient (REF) | payer MEDICARE, MEDICAID, SELFPAY ==
--- OUTSIDE RECORDS SUMMARY | 2024-11-27 12:33 | XMS_ITS | Encounter Summary ---
Author Organization [facility] Address [address] [place] [address] Phone Care Team Providers Care Forensic Dna Analyst Name Role Phone Ramesh Sampson Primary Care Provider + Reason for Visit * Reason Comments Med Change Request Encounter Details Date Type Department Care Team (Late st Contact Info) Description 10/26/2021 Refill [facility] at [address] [address] Kodi Enriquez PA-C [address] [place] [address] [email or web address] Med Change Request Social History Tobacco Use Types Packs/Day Years Used Date Smoking Tobacco: Every Day Cigarettes 0.5 20 Smokeless Tobacco: Never Alcohol Use Standard Drinks/Week Comments Yes 0 (1 standard drink = 0.6 oz pur e alcohol) 1 week Comments No Sex and Gender Information Value Date Recorded Sex Assigned at Female 10/26/2021 9:12 AM EDT Legal Sex Female 6:41 PM EST Gender Identity Female 10/26/2021 9:12 AM EDT Sexual Orientation Not on file documented as of this encounter Functional Status * Calculated C-SSRS Risk Score (Lifetime/Recent) Answer Date of Assessment Author No Risk Indicated 10/26/2021 9:11 AM EDT Saray Short RN * [place] Suicide Severity Rating Scale (Screener/Recent Self-Report) Question Answer Date of Assessment Author 1. Wish to be (Past 1 Month) No 022 9:11 AM Saray Be RN 2. Non-Specific Active Suici mihir Thoughts (Past 1 Month) No 10/26/2021 9:11 AM MANPREETT Saray Short RN 6. Suicidal Behavior (Lifetime) No 9:11 AM EDT Saray Short RN documented as of this encounter Plan of Treatment Upcoming Encounters Date Type Department Care Team (Late st Contact Info) Description 01/23/2025 12:00 PM EST Office Visit [facility] [place] Department of Orthopaedic Surgery, Shoulder Service [address] [place] [address], 3rd Floor, [address] [place] [address] Josiah Menendez MD [address] [place] [id number] [email or web address] documented as of this encounter Visit Diagnoses Not on filedocumented in this encounter Care Teams Forensic Dna Analyst Relationship Specialty Start Date End Date Ramesh Sampson PA [facility] [place] [address] PCP - General 03/13/19 documented as of this encounter Additional Source Comments The information contained in this document represents components of the legal health record. It is not the complete legal health record.[facility]
--- OUTSIDE RECORDS SUMMARY | 2024-11-27 12:33 | XMS_ITS | Encounter Summary ---
Author Organization [facility] Address [address] [place] [address] Phone Care Team Providers Care Bobcat Driver/Labor Name Role Phone Ramesh Sampson Primary Care Provider + Encounter Details Date Type Department Care Team (Late Contact Info) Description 10/12/[address] [place] [address] [facility], [address] [place], [place] [id number] Social History Tobacco Use Types Packs/Day Years Used Date Smoking Tobacco: Every Day Cigarettes 0.5 20 Smokeless Tobacco: Never Alcohol Use Standard Drinks/Week Comments Yes 0 (1 standard drink = 0.6 oz pur e alcohol) 1 week Education Answer Date Recorded Are you [...] Description 01/23/2025 12:00 PM EST Office [place] [facility] [place] Department of Orthopaedic Surgery, Shoulder Service [address] [facility], 3rd Floor, [address] [place] [address] Josiah Menendez MD [address] [facility] [place] [phone] [email or web address] documented as of this encounter Visit Diagnoses Not on filedocumented in this encounter Care Teams Bobcat Driver/Labor Relationship Specialty Start Date End Date Ramesh Sampson PA [address] [place] [address] PCP - General 03/13/19 documented as of this encounter Additional Source Comments The information contained in this document represents components of the legal health record. It is not the complete legal health record.[facility]
--- OUTSIDE RECORDS SUMMARY | 2024-11-27 12:33 | XMS_ITS | Encounter Summary ---
Author Organization [facility] Address [address] [place] [address] [place] [phone] Phone Care Team Providers Care Detail Maker And Fitter Name Role Phone Ramesh Sampson Primary Care Provider + Encounter Details Date Type Department Care Team (Late st Contact Info) Description 03/13/2019 Procedure Pass [facility] Endoscopy Admitting Dept Virtual Department [address] [place] [address] Social History Tobacco Use Types Packs/Day Years Used Date Smoking Tobacco: Every Day Cigarettes 0.5 20 Smokeless Tobacco: Never Alcohol Use Standard Drinks/Week Comments Yes 0 (1 standard drink = 0.6 oz pur e alcohol) 1 week Comments Unknown Sex and Gender Information Value Date Recorded Sex Assigned at Female 10/26/2021 9:12 AM EDT Legal Sex Female 6:41 PM EST Gender Identity Female 10/26/2021 9:12 AM EDT Sexual Orientation Not on file documented as of this encounter Plan of Treatment Upcoming Encounters Date Type Department Care Team (Late Contact Info) Description 01/23/2025 12:00 PM EST Office [place] [facility] [place] of [place] Surgery, Shoulder Service [address] [place] [address], 3rd Floor, [address] [place] [address] Josiah Menendez MD [address] [place] [address] [place] [phone] [email or web address] documented as of this encounter Visit Diagnoses Not on filedocumented in this encounter Care Teams Detail Maker And Fitter Relationship Specialty Start Date End Date Ramesh Sampson PA [facility] [place] [address] PCP - General 03/13/19 documented as of this encounter Additional Source Comments The information contained in this document represents components of the legal health record. It is not the complete legal health record.[facility]
--- OUTSIDE RECORDS SUMMARY | 2024-11-27 12:33 | XMS_ITS | Clinical Summary ---
Author Organization 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 DEPAKOTE (DIVALPROEX SODIUM) [address]; Dose: 250 MG; Form: Take [address]; Route: PO; Frequency: BID; Directions: Not available; Details: Dispense: Tablet(s); Status: Active; Source: YOAV ELLIOTT; Date: 08/01/2012 3 Active benztropine (COGENTIN) 1 MG tabletIndication s:2 mg in am 1mg at HS 0.5 mg. BENZTROPINE MESYLATE 1 MG TABLET; Dose: 1 MG; Form: Take 1 TABLET; Route: PO; Frequency: BID; Directions: Not available; Details: Dispense: Tablet(s); Status: Active; Source: YOAV ELLIOTT; Date: 08/01/2012 Indications: 2 mg in am 1mg at HS 3 Active buPROPion (WELLBUTRIN) 100 MG immediate release tablet Take 200 mg by mouth every morning. BUPROPION HCL EXTENDED RELEASE (24 HR TAB) 300MG TAB.XL24H; Dose: 300 MG; Form: Take 1 TAB.XL24H; Route: PO; Frequency: QD; Directions: Not available; Details: Dispense: TAB.XL24H; Status: Active; Source: YOAV ELLIOTT; Date: 08/01/2012 3 Active perphenazine (TRILAFON) 4 MG tabletIndication s:8 mg at HS and 4 mg at hs and Am as needed 8 mg every evening. PERPHENAZINE 4 MG TABLET; Dose: 4 MG; Form: Take 1 TABLET; Route: PO; Frequency: QID; Directions: Not available; Details: Dispense: Tablet(s); Status: Active; Source: YOAV ELLIOTT; Date: 08/01/2012 Indications: 8 mg at HS and 4 mg at hs and Am as needed 3 Active clonazePAM (KLONOPIN) 1 MG tablet Take 1 mg by mouth nightly at bedtime as needed for anxiety. Active lurasidone (LATUDA) 20 mg TabIndications:d epression associated with bipolar disorder,in HS Take 80 mg by mouth daily. Indications: bipolar depression, in HS Active famotidine (PEPCID) 20 MG tablet Take 20 mg by mouth nightly at bedtime as needed for heartburn. Active topiramate (TOPAMAX) 100 MG tabletIndication s:nightly Take 100 mg by mouth daily. Indications: nightly Active erenumab-aooe (AIMOVIG AUTOINJECTOR SUBQ)Indications :1x monthly Inject under the skin. Indications: 1x monthly Active MOTEGRITY 2 mg tablet Take 2 mg by mouth every morning. 4 Active senna (SENOKOT) 8.6 mg tablet Take 1 tablet by mouth daily as needed for constipation. 30 tablet 4 Active Additional Information Patient not taking.Reported on 06/05/2024 aspirin 81 MG EC tablet Take 1 tablet (81 mg total) by mouth 2 (two) times a day for 28 days. 56 tablet 4 Active Additional Information Patient not taking.Reported on 06/05/2024 acetaminophen (TYLENOL) 500 MG tabletIndication s:S/P shoulder surgery Take 1-2 tablets (500-1,000 mg total) by mouth every 6 (six) hours as needed for pain (specific location in comments). 42 tablet 4 Active docusate sodium (COLACE) 100 MG capsuleIndicatio ns:S/P shoulder surgery Take 1 capsule (100 mg total) by mouth 2 (two) times a day as needed for mild constipation. 30 capsule 4 Active Additional Information Patient not taking.Reported on 06/05/2024 docusate sodium (COLACE) 100 MG capsule Take 1 capsule (100 mg total) by mouth 2 (two) times a day as needed for mild constipation. 30 capsule 5 Active senna (SENOKOT) 8.6 mg tablet Take 1 tablet by mouth daily as needed for constipation. 14 tablet 5 Active aspirin 81 MG EC tablet Take 1 tablet (81 mg total) by mouth 2 (two) times a day for 28 days. 5 Active ROPivacaine, PF, (NAROPIN) 0.2% Resv 6 mL/hr by Nerve Block route continuous. 250 mL 5 Active HYDROmorphone (DILAUDID) 4 MG tablet Take 0.5-1 tablets (2-4 mg total) by mouth every 4 (four) hours as needed for pain (specific location in comments). Partial fill ok 30 tablet 5 Active traMADoL (ULTRAM) 50 mg tablet Take 1 tablet (50 mg total) by mouth every 8 (eight) hours as needed for pain (specific location in comments) (post surgical shoulder pain). 10 tablet 5 Active Active Problems Problem Noted Date Diagnosed Date Enthesopathy of hip region 03/12/2013 Overview (04/26/2014): Enthesopathy of hip region; Right Encounters Date Type Department Care Team Description 10/03/2024 12:00 PM EDT Office Visit [facility] Department of Orthopaedic Surgery, Shoulder Service [address] [place] [address], 3rd Floor, [address] [place] [address] Josiah Menendez MD S/P shoulder surgery (Primary Dx) 10/03/2024 11:15 AM EDT - 10/03/2024 11:59 PM EDT Hospital Encounter [facility] Imaging - Xray, [place] [address] [facility], 6th Floor, [address] [place] [address] Josiah Menendez MD Discharge Disposition: Home or Self Care 10/02/2024 Orders Only [facility] Department of Orthopaedic Surgery, Shoulder Service [address] [facility], 3rd Floor, [address] [place] [address] Meliza Guerrero MA S/P shoulder surgery (Primary Dx) from Last 3 Months Social History Tobacco Use Types Packs/Day Years Used Date Smoking Tobacco: Every Day Cigarettes 0.5 20 Smokeless Tobacco: Never Tobacco Cessation:Ready to Q uit: Not Asked; Counseling Given: Not Answered Alcohol Use Standard Drinks/Week Comments Yes 3 (1 standard drink = 0.6 oz pur e alcohol) Education Answer Date Recorded Are you interested in more education? Not on jessica e 07/10/2022 Are you concerned about learning? Not on file 07/10/2022 No 07/10/2022 No 07/10/2022 Digital Access Answer Date Recorded No 07/31/2022 No 07/31/2022 Reliable internet access at home? Not on file 07/31/2022 Device with a working camera? Not on file Intimate Partner Violence Answer Date R ecorded Are you denied basic needs s uch as food, clothing, or medical care? No 06/05/2024 In the past 12 months have y ou been in a relationship with a person who hurts, threatens, or tries to control you? No 06/05/2024 Are you denied basic needs s uch as food, clothing, or medical care? No 06/05/2024 In the past 12 months have y ou been in a relationship with a person who hurts, threatens, or tries to control you? No 06/05/2024 Comments No Sex and Gender Information Value Date Recorded Sex Assigned at Female 10/26/2021 9:12 AM EDT Legal Sex Female 6:41 PM EST Gender Identity Female 10/26/2021 9:12 AM EDT Sexual Orientation Not on file Last Filed Vital Signs Vital Sign Reading Time Taken Comments Blood Pressure 92/51 06/05/2024 12:30 PM EDT Pulse 67 06/05/2024 12:30 PM EDT Temperature 36.2 C (97.2 F) 06/05/2024 11:15 AM EDT Respiratory Rate 10 06/05/2024 12:30 PM EDT Oxygen Saturation 97% 06/05/2024 12:30 PM EDT Inhaled Oxygen Concentration - - Weight 56 kg (123 lb 6.4 oz) 06/05/2024 8:12 AM EDT Height 170.2 cm (5' 7 ) 06/05/2024 8:12 AM EDT Body Mass Index 19.33 06/05/2024 8:12 AM EDT Plan of Treatment Upcoming Encounters Date Type Department Care Team (Late st Contact Info) Description 01/23/2025 12:00 PM EST Office Visit [facility] Department of Orthopaedic Surgery, Shoulder Service [address] [place] [address], 3rd Floor, [address] [place] [address] Josiah Menendez MD [address] [place] [id number] [email or web address] Health Maintenance Due Date Last Done Comments LIPID PANEL 1980 VALPROIC ACID (DEPAKENE) LEVEL 1979 DEPRESSION SCREENING 1991 HEPATITIS C SCREENING 1997 HIV ONE-TIME SCREENING (18-65 YEARS) 1997 PNEUMOCOCCAL VACCINES (0-49 years) (1 of 2 - PCV) 1998 PAP SMEAR 02/05/2000 MAMMOGRAM 2019 COLOGUARD 02/05/2024 FIT TEST 02/05/2024 FOBT 02/05/2024 SIGMOIDOSCOPY 02/05/2024 VIRTUAL COLONOSCOPY 02/05/2024 INFLUENZA VACCINE (#1) 2024 COVID-19 VACCINE ( season) 2024 01/04/2022, 02/06/2021, 07/27/2020, Additional history exists Adult Td,Tdap Booster 02/05/2025 02/05/2015 SMOKING Hx and SMOKELESS TOBACCO SCREENING 06/05/2025 06/05/2024 COLONOSCOPY 03/13/2029 03/13/2019 COLORECTAL CANCER SCREENING 03/13/2029 HEPATITIS A VACCINES Aged Out No long er eligible based on patient's age to complete this topic HIB VACCINES Aged Out No longer eligi ble based on patient's age to complete this topic MENINGOCOCCAL VACCINES (ACWY) Aged Out No longer eligible based on patient's age to complete this topic MENINGOCOCCAL VACCINES (B) Aged Out N o longer eligible based on patient's age to complete this topic Medical Devices Implanted Type Area Emergency Department Clinician Device Identifier Shelf Expiration Date Model / Serial / Lot Screw Bone 5x26mm Rsp Glenoid Titanium Humeral Cortical Baseplate Locking - [id number] Implanted:Qty: 1 on 06/05/2024 by Josiah Menendez MD at [facility] Left: Shoulder [employer] 12/19/2028 506-03-126 / / [id number] Screw Bone 5x26mm Rsp Glenoid Titanium Humeral Cortical Baseplate Locking - [id number] Implanted:Qty: 1 on 06/05/2024 by Josiah Menendez MD at [facility] Left: Shoulder [employer] 03/11/2030 506-03-126 / / [id number] Screw Bone 5x26mm Rsp Glenoid Titanium Humeral Cortical Baseplate Locking - [id number] Implanted:Qty: 1 on 06/05/2024 by Josiah Menendez MD at [facility] Left: Shoulder [employer] 12/07/2029 506-03-126 / / [id number] Left Shoulder Hardware Nexplanon Left: Arm Graft Tendon 5.6x3.5x3.1cm Allograft Fresh Distal Tibialis Left - [id number] Implanted:Qty: 1 on 12/13/2023 by Josiah Menendez MD at [facility] Left: Shoulder [employer] 12/15/2023 [id number] / [id number] / Latarjet Experience Screw- 36mm Titanium Implanted:Qty: 1 on 12/13/2023 by Josiah Menendez MD at [facility] Left: Shoulder 10/04/2027 / [id number] / [id number] Screw Bone 4.5x44mm Cannulated Ss Self Drilling Tapping Full Thread Lg Hexagonal Socket - Sster 1/Load Dec 12, 2023 Implanted:Qty: 1 on 12/13/2023 by Josiah Menendez MD at [facility] Left: Shoulder JNJ DEPUY SYNTHES SPINE 214.744 / STER 1/LOAD DEC 12, 2023 / Washer Screw 4.5mm 10 Bone Cannulated Stainless Bx/4ea - Sster 1/Load Dec 12, 2023 Implanted:Qty: 1 on 12/13/2023 by Josiah Menendez MD at [facility] Left: Shoulder JNJ DEPU[employer] SYNTHES SPINE 219.91 / STER 1/LOAD DEC 12, 2023 / Dickens Suture 4.5mm Arthroscopy Reelx Stt Peek Ss Core Knotless Shapr Tip Expandable Bx/5ea - [id number] Implanted:Qty: 1 on 12/13/2023 by Josiah Menendez MD at [facility] Left: Shoulder [employer] [id number] 05/29/2025 3910-600-0 62 / / [id number] Dickens Suture 4.5mm Arthroscopy Reelx Stt Peek Ss Core Knotless Shapr Tip Expandable Bx/5ea - [id number] Implanted:Qty: 1 on 12/13/2023 by Josiah Menendez MD at [facility] Left: Shoulder [employer] [id number] 05/29/2025 3910-600-0 62 / / [id number] Head Glenoid 32mm -4mm Offset Reverse Rsp Glenoid Head Retaining Screw - [id number] Implanted:Qty: 1 on 06/05/2024 by Josiah Menendez MD at [facility] Left: Shoulder [employer] [id number] 04/19/2030 508-32-103 / / [id number] Screw Bone 5x34mm Reverse Rsp Locking - [id number] Implanted:Qty: 1 on 06/05/2024 by Josiah Menendez MD at [facility] Left: Shoulder [employer] 08/08/2029 506-03-134 / / [id number] Stem Humeral 30b149ll Altivate Reverse Small - [id number] Implanted:Qty: 1 on 06/05/2024 by Josiah Menendez MD at [facility] Left: Shoulder [employer] [id number] 04/22/2030 533-10-108 / / [id number] Insert Socket 32mm Small - [id number] Implanted:Qty: 1 on 06/05/2024 by Josiah Menendez MD at [facility] Left: Shoulder [employer] [id number] 06/15/2028 509-02-032 / / [id number] Shoulder Baseplate 18b95nc Reverse Ps Coated - [id number] Implanted:Qty: 1 on 06/05/2024 by Josiah Menendez MD at [facility] Left: Shoulder [employer] [id number] 04/02/2030 508-32-204 / / [id number] Procedures Procedure Name Priority Date/Time Associated Diagnosis Comments XR SHOULDER 2 VIEWS (LEFT) Routine 10/03/2024 11:44 AM EDT S/P shoulder surgery ENDOSCOPY, COLON 03/13/2019 11:5 0 AM EST from Last 3 Months or Most Recently Relevant to Health Maintenance Results * XR SHOULDER 2 VIEWS (LEFT) (10/03/2024 11:44 AM EDT) Anatomical Region Laterality Modality Shoulder Left Computed Radiogr aphy 10/03/2024 2:39 PM EDT Impressions 10/03/2024 4:56 PM EDT FINDINGS/IMPRESSION: Reverse total shoulder arthroplasty, no complication. ATTESTATION: IDr. Antonio as teaching physician, have reviewed the images for this case and if necessary edited the report originally created by Jeff Garcia. Narrative 10/03/2024 4:56 PM EDT XR SHOULDER 2 OR MORE VIEWS (LEFT) Referring clinician's provided indication for this examination in [facility]: Pain COMPARISON: XR SHOULDER 2 OR MORE VIEWS (LEFT) ; XR SHOULDER 2 OR MORE VIEWS (LEFT) Procedure Note Antonio Segura MD - 10/03/2024 XR SHOULDER 2 OR MORE VIEWS (LEFT) Referring clinician's provided indication for this examination in [facility]:Pain COMPARISON: XR SHOULDER 2 OR MORE VIEWS (LEFT) ; XR SHOULDER 2OR MORE VIEWS (LEFT) IMPRESSION: FINDINGS/IMPRESSION: Reverse total shoulder arthroplasty, no complication. ATTESTATION: I, Dr. Antonio Segura as teaching physician, have reviewedthe images for this case and if necessary edited the report originallycreated by Jeff Garcia. us Josiah Menendez MD IMG XR UPPER EXTREMITY Adriana l Result * ENDOSCOPY, COLON (03/13/2019 11:50 AM EST) Narrative Transcriptions Selin Ahmadi MD - 03/13/2019 11:50 AM EST Patient Name: Agnieszka David MD:: SELIN AHMADI MD Procedure Date: 03/13/2019 11:50 AM Date of : 1980 Age: 39 Admit Type: Outpatient Gender: Female Room: [facility] 04 Referring MD: Ramesh Sampson Exam Type: Colonoscopy Indications: Chronic diarrhea, Clinically significant diarrhea of unexplained origin, Weight loss Medications: Monitored Anesthesia Care Procedure: Informed consent was obtained from the patient after discussion of the indications, limitations, alternatives, benefits, and risks of the procedure. Risks specifically discussed include but are not limited to medication reactions, missed lesions, bleeding, perforation, or the need for emergentsurgery. Throughout the procedure, the patient's bloodpressure, pulse, end-tidal CO2, and oxygen saturations were monitored continuously. The Olympus pediatric variable colonoscopePCF-[id number] #2 was introduced through the anus and advanced tothe terminal ileum, with identification of theappendiceal orifice and IC valve. The colonoscopy was performed without difficulty. The patient tolerated theprocedure fairly well. The quality of the bowel preparationwas excellent. Complications: No immediate complications. Estimated blood loss: Minimal. Findings: The perianal and digital rectal examinations were normal. Pertinent negatives include normal sphincter tone. The terminal ileum appeared normal. Biopsies weretaken with a cold forceps for histology. Estimated bloodloss was minimal. Normal mucosa was found in the entire colon.Biopsies for histology were taken with a cold forceps fromthe ascending colon, transverse colon and descendingcolon for evaluation of microscopic colitis. Retroflexion in the right colon was performed. The exam was otherwise without abnormality on direct and retroflexion views. Anal papilla(e) were hypertrophied. Impression: - The examined portion of the ileum was normal. Biopsied. - Normal mucosa in the entire examined colon.Biopsied. - The examination was otherwise normal on direct and retroflexion views. - Anal papilla(e) were hypertrophied. Recommendation: - I will send results of your biopsy to you and your referring physician or provider. If you do notreceive notification within 3 weeks, please call ouroffice. - Repeat colonoscopy in 10 years for screeningpurposes. - Return to GI office as previously scheduled. SELIN AHMADI MD 03/13/2019 12:15:54 PM This report has been signed electronically. Number of Addenda: 0 Note Initiated On: 03/13/2019 11:50 AM Procedure Code(s): --- Professional --- 52410, Colonoscopy, flexible; with biopsy, single or multiple --- Technical --- 62080, Colonoscopy, flexible; with biopsy, single or multiple Diagnosis Code(s): --- Professional --- K52.9, Noninfective gastroenteritis and colitis, unspecified R19.7, Diarrhea, unspecified R63.4, Abnormal weight loss --- Technical --- K52.9, Noninfective gastroenteritis and colitis, unspecified R19.7, Diarrhea, unspecified R63.4, Abnormal weight loss CPT copyright 2018 [employer]. All rights reserved. The codes documented in this report are preliminary and upon operations leader reviewmay be revised to meet current compliance requirements. Procedure Date: 03/13/2019 11:50:[address] [place] [address] Ramesh PAUL GI PROCEDURE ORDERABLES Edited Result - Final from Last 3 Months or Most Recently Relevant to Health Maintenance Insurance MEDICARE PART A & B [facility] MEDICARE PART A & B [facility] MEDICARE PART A & B [place] [facility] [place] [facility] [place] MEDICARE PART A & B HEALTH MEDICARE PART A & B [facility] Care Teams Hide Puller Relationship Specialty Start Date End Date Ramesh Sampson PA [address] [place] [id number] PCP - General 03/13/19 Additional Source Comments The information contained in this document represents components of the legal health record. It is not the complete legal health record.[facility]
--- OUTSIDE RECORDS SUMMARY | 2024-11-27 12:33 | XMS_ITS | Encounter Summary ---
Author Organization [facility] Address [address] [place] [address] Phone Care Team Providers Care Last Dipper Name Role Phone Ramesh Sampson Primary Care Provider + Encounter Details Date Type Department Care Team (Late st Contact Info) Description 12/13/2023 Procedure Pass [facility] [address] [place] [address] Social History Tobacco Use Types Packs/Day Years [...] as food, clothing, or medical care? No 12/07/2023 In the past 12 months have y ou been in a relationship with a person who hurts, threatens, or tries to control you? No 12/07/2023 Are you denied basic needs s uch as food, clothing, or medical care? No 12/07/2023 In the past 12 months have y ou been in a relationship with a person who hurts, threatens, or tries to control you? No 12/07/2023 Comments No Sex and Gender Information Value [...] [facility] Department of Orthopaedic Surgery, Shoulder Service [address] [place] [address], 3rd Floor, [address] [place] [address] Josiah Menendez MD [address] [address] [email or web address] documented as of this encounter Visit Diagnoses Not on filedocumented in this encounter Care Teams Last Dipper Relationship Specialty Start Date End Date Ramesh Sampson PA [address] [place] [address] PCP - General 03/13/19 documented as of this encounter Additional Source Comments The information contained in this document represents components of the legal health record. It is not the complete legal health record.[facility]
--- OUTSIDE RECORDS SUMMARY | 2024-11-27 12:33 | XMS_ITS | Encounter Summary ---
Author Organization [facility] Address [address] [place] [address] Phone Care Team Providers Care Inspector Soldering Name Role Phone Ramesh Sampson Primary Care Provider + Encounter Details Date Type Department Care Team (Late st Contact Info) Description 10/12/2023 Procedure Pass [facility] [address] [facility], 6th [place] [address] Social History Tobacco Use Types Packs/Day Years [...] Description 01/23/2025 12:00 PM EST Office Visit [facility] Department of Orthopaedic Surgery, Shoulder Service [address] [facility], 3rd Floor, [address] [place] [address] Josiah Menendez MD 55 [facility] [place] [id number] [email or web address] documented as of this encounter Visit Diagnoses Not on filedocumented in this encounter Care Teams Inspector Soldering Relationship Specialty Start Date End Date Ramesh Sampson PA [address] [place] [phone] PCP - General 03/13/19 documented as of this encounter Additional Source Comments The information contained in this document represents components of the legal health record. It is not the complete legal health record.[facility]
--- OUTSIDE RECORDS SUMMARY | 2024-11-27 12:33 | XMS_ITS | Clinical Summary ---
Author Organization [facility] Address [facility] [place] [address] Care Team Providers Care Wing Scorer Name Role Phone Unknown Primary Care Provider [...] screening 2019 Covid-19 Vaccine (1 - season) 2024 Influenza (Flu) vaccine (1 o f 1 - Influenza standard series) 11/04/2024 Care Teams Wing Scorer Relationship Specialty Start Date End Date Unknown None PCP - General 02/20/17
--- OUTSIDE RECORDS SUMMARY | 2024-11-27 12:33 | XMS_ITS | Encounter Summary ---
Author Organization [facility] Address [address] [place] [address] Phone Care Team Providers Care Platform Software Engineer Name Role Phone Ramesh Sampson Primary Care Provider + Encounter Details Date Type Department Care Team (Late st Contact Info) Description 05/28/2024 Procedure Pass [facility] [address] [place] [address] Social History Tobacco Use Types Packs/Day Years [...] 01/23/2025 12:00 PM EST Office [place] [facility] Department of [place]opaedic Surgery, Shoulder Service [address] [place] [address], 3rd Floor, [address] [place] [address] Josiah Menendez MD 55 [facility] [place] [id number] [email or web address] documented as of this encounter Visit Diagnoses Not on filedocumented in this encounter Care Teams Platform Software Engineer Relationship Specialty Start [place] [address] [place] [phone] PCP - General 03/13/19 documented as of this encounter Additional Source Comments The information contained in this document represents components of the legal health record. It is not the complete legal health record.[facility]
--- OUTSIDE RECORDS SUMMARY | 2024-11-27 12:33 | XMS_ITS | Encounter Summary ---
Author Organization [facility] Address [address] [place] [address] [place] [address] Phone Care Team Providers Care Customer Security Clerk Name Role Phone Ramesh Sampson Primary Care Provider + Encounter Details Date Type Department Care Team (Late st Contact Info) Description 05/28/2024 Procedure Pass [facility] CT Imaging, De Dios [address] [place] [address] Social History Tobacco Use Types Packs/Day Years [...] Description 01/23/2025 12:00 PM EST Office [place] [facility] [place] of Orthopaedic Surgery, Shoulder Service [address] [place] [address], 3rd Floor, [address] [place] [address] Josiah Menendez MD [address] [address] [email or web address] documented as of this encounter Visit Diagnoses Not on filedocumented in this encounter Care Teams Customer Security Clerk Relationship Specialty Start Date End Date Ramesh Sampson PA [address] [place] [address] PCP - General 03/13/19 documented as of this encounter Additional Source Comments The information contained in this document represents components of the legal health record. It is not the complete legal health record.[facility]
--- OUTSIDE RECORDS SUMMARY | 2024-11-27 12:33 | XMS_ITS | Encounter Summary ---
Author Organization [facility] Address [address] [place] [address] [address] [place] [address] Phone Care Team Providers Care Repair Armature Winder Name Role Phone ElenaWalt Primary Care Provider [phone] Ramesh Sampson Primary Care Provider + Encounter Details Date Type Department Care Team (Latest Contact Info) Description 02/08/2019 Transcribe Orders [facility] [address] 2nd [place] [address] Antonio Aleman MD 10 [facility] 2 [place] [address] [email or web address] Loss of weight (Primary Dx); Chronic diarrhea of unknown origin Social History Tobacco Use Types Packs/Day Years Used Date Smoking Tobacco: Every Day Alcohol Use Standard Drinks/Week Comments Not Asked 0 (1 standard drink = 0.6 oz pur e alcohol) Comments Unknown Sex and Gender Information Value Date Recorded Sex Assigned at Female 10/26/2021 9:12 AM EDT Legal Sex Female 6:41 PM EST Gender Identity Female 10/26/2021 9:12 AM EDT Sexual Orientation Not on file documented as of this encounter Plan of Treatment Upcoming Encounters Date Type Department Care Team (Late st Contact Info) Description 01/23/2025 12:00 PM EST Office Visit [facility] Department of Orthopaedic Surgery, Shoulder Service 55 [facility], 3rd Floor, [address] [place] [address] Josiah Menendez MD 55 [facility] YA[address] [place] [phone] [email or web address] documented as of this encounter Results * C-Reactive Protein (02/08/2019 1:33 PM EST) C REACTIVE PROTEIN 0.6 0.0 - 4.0 mg/L [facility] Blood 02/08/2019 1:33 PM EST 02/08/2019 1:37 PM EST Antonio Aleman MD LAB BLOOD ORDERABLES Final Res ult Performing Organization Address [facility] Co de Phone Number [address] [address] * Immunoglobulin A (02/08/2019 1:33 PM EST) IgA 131 70 - 400 mg/dL [facility] Blood 02/08/2019 1:33 PM EST 02/08/2019 1:37 PM EST Antonio Aleman MD LAB BLOOD ORDERABLES Final Res ult Performing Organization Address [facility] Co de Phone Number [address] [address] * Tissue transglutaminase IgA (02/08/2019 1:33 PM EST) TTG IGA ANTIBODY <1.2 <4.0 (Negative) U/mL [facility] Blood 02/08/2019 1:33 PM EST 02/08/2019 1:37 PM EST Antonio Aleamn MD LAB BLOOD ORDERABLES Final Res ult Performing Organization Address City/[facility]/ZIP Co de Phone Number [facility] [address] [place] [address] documented in this encounter Visit Diagnoses Diagnosis Loss of weight- Primary Chronic diarrhea of unknown origin Diarrhea documented in this encounter Care Teams Repair Armature Winder Relationship Specialty Start Date End Date ElenaWalt DO PCP - General Family Medicine 05/01/13 03/12/19 Ramesh Sampson PA [address] [place] [address] PCP - General 03/13/19 documented as of this encounter Additional Source Comments The information contained in this document represents components of the legal health record. It is not the complete legal health record.[facility]
--- OUTSIDE RECORDS SUMMARY | 2024-11-27 12:33 | XMS_ITS | Encounter Summary ---
Author Organization [facility] Address [address] [place] [address] Phone Care Team Providers Care Match Maker Name Role Phone Ramesh Sampson Primary Care Provider + Encounter Details Date Type Department Care Team (Late st Contact Info) Description 06/05/2024 Procedure Pass [facility] [address] [place] [address] Social History Tobacco Use Types Packs/Day Years Used Date Smoking Tobacco: Every Day Cigarettes 0.5 20 Smokeless Tobacco: Never Alcohol Use Standard Drinks/Week Comments Yes 3 [...] Description 01/23/2025 12:00 PM EST Office [place] [facility] Department of Orthopaedic Surgery, Shoulder Service [address] [facility], 3rd Floor, [address] [place] [address] Josiah Menendez MD 55 [facility] [place] [phone] [email or web address] documented as of this encounter Visit Diagnoses Not on filedocumented in this encounter Care Teams Match Maker Relationship Specialty Start Date End Date Ramesh Sampson PA [address] [place] [address] PCP - General 03/13/19 documented as of this encounter Additional Source Comments The information contained in this document represents components of the legal health record. It is not the complete legal health record.[facility]
--- OUTSIDE RECORDS SUMMARY | 2024-11-27 12:33 | XMS_ITS | Encounter Summary ---
Author Organization [facility] Address [address] [place] [address] [place] [address] Phone Care Team Providers Care First Cook Name Role Phone Ramesh Sampson Primary Care Provider + Encounter Details Date Type Department Care Team (Late st Contact Info) Description 10/12/2023 Procedure Pass [facility] General Imaging [address] [place] [address] Social History Tobacco Use Types Packs/Day Years [...] Description 01/23/2025 12:00 PM EST Office [place] [facility] Department of Orthopaedic Surgery, Shoulder Service 55 [facility], 3rd Floor, [address] [place] [address] Josiah Menendez MD 55 [facility] YA[address] [place] [address] [email or web address] documented as of this encounter Visit Diagnoses Not on filedocumented in this encounter Care Teams First Cook Relationship Specialty Start Date End Date Ramesh Sampson PA [address] [place] [address] PCP - General 03/13/19 documented as of this encounter Additional Source Comments The information contained in this document represents components of the legal health record. It is not the complete legal health record.[facility]
--- OUTSIDE RECORDS SUMMARY | 2024-11-27 12:33 | XMS_ITS | Encounter Summary ---
Author Organization [facility] Address [address] [place] [address] Phone Care Team Providers Care Manager Appointment Name Role Phone Ramesh Sampson Primary Care Provider + Encounter Details Date Type Department Care Team (Late st Contact Info) Description 10/12/2023 Procedure Pass [facility] Imaging [address] [place] [address] Social History Tobacco Use Types Packs/Day Years [...] Description 01/23/2025 12:00 PM EST Office Visit [facility] Department of Orthopaedic Surgery, Shoulder Service 55 [facility], 3rd Floor, [address] [place] [address] Josiah Menendez MD 55 [facility] YA[address] [place] [address] [email or web address] documented as of this encounter Visit Diagnoses Not on filedocumented in this encounter Care Teams Manager Appointment Relationship Specialty [place] [address] [place] [address] PCP - General 03/13/19 documented as of this encounter Additional Source Comments The information contained in this document represents components of the legal health record. It is not the complete legal health record.[facility]
== END 2024-11-27 10:13 | disposition home or self-care (01) ==
LOC: HO.MAMMO 10:12
PROVIDERS: PCP Physician Assistant; Visit Provider Physician Assistant
DX: N64.89 Other specified disorders of breast (principal)
CPT/HCPCS: 76642; 77061; 77065

== ENCOUNTER 2024-12-04 08:25 | Outpatient (REF) | payer MEDICARE, MEDICAID, SELFPAY ==
[2024-12-04 08:47] LABS: MANUAL DIFF FLAG NO
[2024-12-04 08:57] LABS: Hematocrit 40.1 % (37.0-47.0); Hemoglobin 13.3 g/dl (12.0-16.0); Imm Gran Abs Auto 0.02 X10*3/uL (0.00-0.03); Imm Gran Pct Auto 0.3 % (0.0-0.4); Lymphocytes Absolute Auto 1.4 X10*3/uL (1.2-4.9); Mean Corpuscular HGB Conc 33.2 g/dl (31.0-35.0); Mean Corpuscular Hemoglobin 32.1 pg (27.0-33.0); Mean Corpuscular Volume 96.9 fL (80.0-98.0); NRBC Abs Auto 0.000 X10*3/uL (0.0-0.012); NRBC Pct Auto 0.0 /100WBC (0.0-0.2); Platelet Count 199 X10*3/uL (160-400); Red Blood Count 4.14 X10*6/uL (4.20-5.50); White Blood Count 7.4 X10*3/uL (4.8-10.8)
--- OUTSIDE RECORDS SUMMARY | 2024-12-04 08:59 | XMS_ITS | Encounter Summary ---
Author Organization [facility] Address [address] [place] [address] [address] [place] [address] Phone Care Team Providers Care Electric Deicer Inspector Name Role Phone ElenaWalt Primary Care Provider [phone] Ramesh Sampson Primary Care Provider + Encounter Details Date Type Department Care Team (Latest Contact Info) Description 02/08/2019 Transcribe Orders [facility] [address] 2nd [place] [address] Antonio Aleman MD 10 [facility] 2 [place] [address] [email or web address] Loss of weight (Primary Dx); Chronic diarrhea [...] Description 01/23/2025 12:00 PM EST Office [place] [facility] Department of Orthopaedic Surgery, Shoulder Service 55 [facility], 3rd Floor, [address] [place] [address] Josiah Menendez MD 55 [facility] YA[address] [place] [address] [email or web address] documented as of this encounter Results * C-Reactive Protein (02/08/2019 1:33 PM EST) C REACTIVE PROTEIN 0.6 0.0 - 4.0 mg/L [facility] Blood 02/08/2019 1:33 PM EST 02/08/2019 1:37 PM EST Antonio Aleman MD LAB BLOOD ORDERABLES Final Res ult Performing Organization Address [facility] Co de Phone Number [address] [address] * Immunoglobulin A (02/08/2019 1:33 PM EST) IgA 131 70 - 400 mg/dL [facility] Blood 02/08/2019 1:33 PM EST 02/08/2019 1:37 PM EST Antonio Aleman MD LAB BLOOD ORDERABLES Final Res ult Performing Organization Address [facility] Co de Phone Number [address] [address] * Tissue transglutaminase IgA (02/08/2019 1:33 PM EST) TTG IGA ANTIBODY <1.2 <4.0 (Negative) U/mL [facility] Blood 02/08/2019 1:33 PM EST 02/08/2019 1:37 PM EST Antonio Aleman MD LAB BLOOD ORDERABLES Final Res ult Performing Organization Address City/[facility]/ZIP Co de Phone Number [facility] [address] [place] [address] documented in this encounter Visit Diagnoses Diagnosis Loss of weight- Primary Chronic diarrhea of unknown origin Diarrhea documented in this encounter Care Teams Electric Deicer Inspector Relationship Specialty Start Date End Date ElenaWalt DO PCP - General Family Medicine 05/01/13 03/12/19 Ramesh Sampson PA [address] [place] [address] PCP - General 03/13/19 documented as of this encounter Additional Source Comments The information contained in this document represents components of the legal health record. It is not the complete legal health record.[facility]
--- OUTSIDE RECORDS SUMMARY | 2024-12-04 08:59 | XMS_ITS | Encounter Summary ---
Author Organization [facility] Address [address] [place] [address] [place] [address] Phone Care Team Providers Care Exhibitions Curator Name Role Phone Ramesh Sampson Primary Care Provider + Encounter Details Date Type Department Care Team (Late st Contact Info) Description 03/13/2019 Procedure Pass [facility]oscopy Admitting Dept Virtual Department 30 [place] [address] Social History Tobacco Use Types Packs/Day Years [...] Description 01/23/2025 12:00 PM EST Office Visit [facility] Department of Orthopaedic Surgery, Shoulder Service [address] [place] [address], 3rd Floor, [address] [place] [address] Josiah Menendez MD [address] [place] [address] [place] [address] [email or web address] documented as of this encounter Visit Diagnoses Not on filedocumented in this encounter Care Teams Exhibitions Curator Relationship Specialty Start Date End Date Ramesh Sampson PA [facility] [place] [address] PCP - General 03/13/19 documented as of this encounter Additional Source Comments The information contained in this document represents components of the legal health record. It is not the complete legal health record.[facility]
--- OUTSIDE RECORDS SUMMARY | 2024-12-04 08:59 | XMS_ITS | Encounter Summary ---
Author Organization [facility] Address [address] [place] [address] Phone Care Team Providers Care Manager Community Outreach Name Role Phone Ramesh Sampson Primary Care Provider + Encounter Details Date Type Department Care Team (Late st Contact Info) Description 12/13/2023 Procedure Pass [facility] [address] [place] [address] Social History Tobacco Use Types Packs/Day Years [...] Description 01/23/2025 12:00 PM EST Office Visit [facility] Department of Orthopaedic Surgery, Shoulder Service [address] [place] [address], 3rd Floor, [address] [place] [address] Josiah Menendez MD [address] [address] [email or web address] documented as of this encounter Visit Diagnoses Not on filedocumented in this encounter Care Teams Manager Community Outreach Relationship Specialty Start Date End Date Ramesh Sampson PA [address] [place] [address] PCP - General 03/13/19 documented as of this encounter Additional Source Comments The information contained in this document represents components of the legal health record. It is not the complete legal health record.[facility]
--- OUTSIDE RECORDS SUMMARY | 2024-12-04 08:59 | XMS_ITS | Encounter Summary ---
Author Organization [facility] Address [address] [place] [address] Phone Care Team Providers Care Geological Drafter Name Role Phone Ramesh Sampson Primary Care Provider + Encounter Details Date Type Department Care Team (Late st Contact Info) Description 10/12/2023 Procedure Pass [facility] Imaging [address] [place] [address] Social History Tobacco Use Types Packs/Day Years [...] Description 01/23/2025 12:00 PM EST Office Visit [facility] Department of Orthopaedic Surgery, Shoulder Service 55 [facility], 3rd Floor, [address] [place] [address] Josiah Menendez MD 55 [facility] YA[address] [place] [address] [email or web address] documented as of this encounter Visit Diagnoses Not on filedocumented in this encounter Care Teams Geological Drafter Relationship Specialty [place] [address] [place] [address] PCP - General 03/13/19 documented as of this encounter Additional Source Comments The information contained in this document represents components of the legal health record. It is not the complete legal health record.[facility]
--- OUTSIDE RECORDS SUMMARY | 2024-12-04 08:59 | XMS_ITS | Encounter Summary ---
Author Organization [facility] Address [address] [place] [address] Phone Care Team Providers Care Precision Grinder External Name Role Phone Ramesh Sampson Primary Care Provider + Encounter Details Date Type Department Care Team (Late st Contact Info) Description 10/12/2023 Procedure Pass [email or web address] for Outpatient Care - CT [address] [facility], 6th [place] [address] Social History Tobacco Use Types Packs/Day Years [...] Description 01/23/2025 12:00 PM EST Office Visit [facility] Department of Orthopaedic Surgery, Shoulder Service [address] [facility], 3rd Floor, [address] [place] [address] Josiah Menendez MD 55 [facility] YA[address] [place] [address] [email or web address]@[email or web address] documented as of this encounter Visit Diagnoses Not on filedocumented in this encounter Care Teams Precision Grinder External Relationship Specialty Start Date End Date Ramesh Sampson PA [address] [place] [address] PCP - General 03/13/19 documented as of this encounter Additional Source Comments The information contained in this document represents components of the legal health record. It is not the complete legal health record.[facility]
--- OUTSIDE RECORDS SUMMARY | 2024-12-04 08:59 | XMS_ITS | Encounter Summary ---
Author Organization [facility] Address [address] [place] [address] Phone Care Team Providers Care Sheet Metal Production Worker Name Role Phone Ramesh Sampson Primary Care Provider + Encounter Details Date Type Department Care Team (Late st Contact Info) Description 10/12/[address] [facility] General Imaging [address] [place] [address] Social History Tobacco Use Types Packs/Day Years [...] Description 01/23/2025 12:00 PM EST Office Visit [facility] Department of Orthopaedic Surgery, Shoulder Service 55 [facility], 3rd Floor, [address] [place] [address] Josiah Menendez MD 55 [facility] YA[address] [place] [address] [email or web address] documented as of this encounter Visit Diagnoses Not on filedocumented in this encounter Care Teams Sheet Metal Production Worker Relationship Specialty Start Date End Date Ramesh Sampson PA [address] [place] [address] PCP - General 03/13/19 documented as of this encounter Additional Source Comments The information contained in this document represents components of the legal health record. It is not the complete legal health record.[facility]
--- OUTSIDE RECORDS SUMMARY | 2024-12-04 08:59 | XMS_ITS | Encounter Summary ---
Author Organization [facility] Address [address] [place] [address] Phone Care Team Providers Care Anesthesiologist/Physician Name Role Phone Ramesh Sampson Primary Care Provider + Encounter Details Date Type Department Care Team (Late Contact Info) Description 10/12/[address] - [place] [address] [facility], [address] [place], [place] [phone] Social History Tobacco Use Types Packs/Day Years [...] 01/23/2025 12:00 PM EST Office Visit [facility] Department of Orthopaedic Surgery, Shoulder Service 55 [facility], 3rd Floor, [address] [place] [address] Josiah Menendez MD 55 [facility] [place] [address] SHIRA@[email or web address] documented as of this encounter Visit Diagnoses Not on filedocumented in this encounter Care Teams Anesthesiologist/Physician Relationship Specialty Start Date End Date Ramesh Sampson PA [address] [place] [address] PCP - General 03/13/19 documented as of this encounter Additional Source Comments The information contained in this document represents components of the legal health record. It is not the complete legal health record.[facility]
--- OUTSIDE RECORDS SUMMARY | 2024-12-04 08:59 | XMS_ITS | Clinical Summary ---
Author Organization [facility] Address [facility] [address] Care Team Providers Care Batterboard Setter Name Role Phone Unknown Primary Care Provider [...] - Influenza standard series) 11/04/2024 Care Teams Batterboard Setter Relationship Specialty Start Date End Date Unknown None PCP - General 02/20/17
--- OUTSIDE RECORDS SUMMARY | 2024-12-04 09:00 | XMS_ITS | Encounter Summary ---
Author Organization [facility] Address [address] [place] [address] Phone Care Team Providers Care Insurance Account Representative Name Role Phone Ramesh Sampson Primary Care Provider + Reason for Visit * Reason Comments Med Change Request Encounter Details Date Type Department Care Team (Late st Contact Info) Description 10/26/2021 Refill [facility] at [address] [address] Kodi Enriquez PA-C [address] [place] [address] [email or web address] Med Change Request Social History Tobacco Use [...] 9:11 AM EDT Saray Short RN * Wake Suicide Severity Rating Scale (Screener/Recent Self-Report) Question [...] Description 01/23/2025 12:00 PM EST Office Visit [facility] Department of Orthopaedic Surgery, Shoulder Service [address] [place] [address], 3rd Floor, [address] [place] [address] Josiah Menendez MD [address] [place] [address] [email or web address] documented as of this encounter Visit Diagnoses Not on filedocumented in this encounter Care Teams Insurance Account Representative Relationship Specialty Start Date End Date Ramesh Sampson PA [facility] [place] [address] PCP - General 03/13/19 documented as of this encounter Additional Source Comments The information contained in this document represents components of the legal health record. It is not the complete legal health record.[facility]
--- OUTSIDE RECORDS SUMMARY | 2024-12-04 09:00 | XMS_ITS | Encounter Summary ---
Author Organization [facility] Address [address] [place] [address] [place] [address] Phone Care Team Providers Care Orthodontist Name Role Phone Ramesh Sampson Primary Care Provider + Encounter Details Date Type Department Care Team (Late st Contact Info) Description 05/28/2024 Procedure Pass [facility] CT Imaging, De Dios [address] [place] [address] Social History Tobacco Use Types Packs/Day Years [...] Description 01/23/2025 12:00 PM EST Office Visit [facility] Department of Orthopaedic Surgery, Shoulder Service [address] [place] [address], 3rd Floor, [address] [place] [address] Josiah Menendez MD [address] [address] [email or web address]@[email or web address] documented as of this encounter Visit Diagnoses Not on filedocumented in this encounter Care Teams Orthodontist Relationship Specialty Start Date End Date Ramesh Sampson PA [address] [place] [address] PCP - General 03/13/19 documented as of this encounter Additional Source Comments The information contained in this document represents components of the legal health record. It is not the complete legal health record.[facility]
--- OUTSIDE RECORDS SUMMARY | 2024-12-04 09:00 | XMS_ITS | Encounter Summary ---
Author Organization [facility] Address [address] [place] [address] Phone Care Team Providers Care Conduit Worker Name Role Phone Ramesh Sampson Primary Care Provider + Encounter Details Date Type Department Care Team (Late st Contact Info) Description 05/28/2024 Procedure Pass [facility] [address] [place] [address] Social History Tobacco Use Types Packs/Day Years [...] [place] Department of Orthopaedic Surgery, Shoulder Service [address] [place] [address], 3rd Floor, [address] [place] [address] Josiah Menendez MD [address] [facility] [place] [id number] [email or web address] documented as of this encounter Visit Diagnoses Not on filedocumented in this encounter Care Teams Conduit Worker Relationship Specialty Start [place] [address] [place] [id number] PCP - General 03/13/19 documented as of this encounter Additional Source Comments The information contained in this document represents components of the legal health record. It is not the complete legal health record.[facility]
--- OUTSIDE RECORDS SUMMARY | 2024-12-04 09:00 | XMS_ITS | Clinical Summary ---
Author Organization [facility] Address [address] [place] [address] Phone Care Team Providers Care Garage Mechanic Name Role Phone Ramesh Sampson Primary Care Provider + Allergies Active Allergy Reactions Criticality Noted Date Comments Sulfamethoxazole-Trimeth oprim Rash Low 03/12/2019 [place] Other (See Comments) High 08/01/2012 ODUGIE ROB SYNDROME Milk Containing Products (Dairy) Diarrhea [...] Description 10/03/2024 12:00 PM EDT Office Visit [facility] Department of Orthopaedic Surgery, Shoulder Service [address] [place] [address], 3rd Floor, [address] [place] [address] Josiah Menendez MD S/P shoulder surgery (Primary Dx) 10/03/2024 11:15 AM EDT - 10/03/2024 11:59 PM EDT Hospital Encounter [facility] Imaging - Xray, [place] [address] [facility], 6th Floor, [address] [place] [address] Josiah Menendez MD Discharge Disposition: Home or Self Care 10/02/2024 Orders Only [facility] Department of Orthopaedic Surgery, Shoulder Service [address] [facility], 3rd Floor, [address] [place] [address] Meliza Guerrero MA S/P shoulder surgery (Primary [...] [place] Department of Orthopaedic Surgery, Shoulder Service [address] [place] [address], 3rd Floor, [address] [place] [address] Josiah Menendez MD [address] [place], [place] [id number] [email or web address] Health Maintenance Due Date Last Done Comments [...] this topic Medical Devices Implanted Type Area Public Housing Interviewer Device Identifier Shelf Expiration Date Model / Serial / Lot Screw Bone 5x26mm Rsp Glenoid Titanium Humeral Cortical Baseplate Locking - [id number] Implanted:Qty: 1 on 06/05/2024 by Josiah Menendez MD at [facility] Left: Shoulder [employer] 12/19/2028 506-03-126 / / [id number] Screw Bone 5x26mm Rsp Glenoid Titanium Humeral Cortical Baseplate Locking - [id number] Implanted:Qty: 1 on 06/05/2024 by Josiah Menendez MD at [facility] Left: Shoulder [employer] 03/11/2030 506-03-126 / / [id number] Screw Bone 5x26mm Rsp Glenoid Titanium Humeral Cortical Baseplate Locking - [id number] Implanted:Qty: 1 on 06/05/2024 by Josiah Menendez MD at [facility] Left: Shoulder [employer]O SURGICAL 12/07/2029 506-03-126 / / [id number] Left Shoulder Hardware Nexplanon Left: Arm Graft Tendon 5.6x3.5x3.1cm Allograft Fresh Distal Tibialis Left - [id number] Implanted:Qty: 1 on 12/13/2023 by Josiah Menendez MD at [facility] Left: Shoulder [employer] 12/15/2023 [id number] / [id number] / Latarjet Experience Screw- 36mm Titanium Implanted:Qty: 1 on 12/13/2023 by Josiah Menendez MD at [facility] Left: Shoulder 10/04/2027 / [id number] / [id number] Screw Bone 4.5x44mm Cannulated Ss Self Drilling Tapping Full Thread Lg Hexagonal Socket - Sster 1/Load Dec 12, 2023 Implanted:Qty: 1 on 12/13/2023 by Josiah Menendez MD at [facility] Left: Shoulder JNJ DEPUY SYNTHES SPINE 214.744 / STER 1/LOAD DEC 12, 2023 / Washer Screw 4.5mm 10 Bone Cannulated Stainless Bx/4ea - Sster 1/Load Dec 12, 2023 Implanted:Qty: 1 on 12/13/2023 by Josiah Menendez MD at [facility] Left: Shoulder JNJ DEPUY SYNTHES SPINE 219.91 / STER 1/LOAD DEC 12, 2023 / Lovejoy Suture 4.5mm Arthroscopy Reelx Stt Peek Ss Core Knotless Shapr Tip Expandable Bx/5ea - [id number] Implanted:Qty: 1 on 12/13/2023 by Josiah Menendez MD at [facility] Left: Shoulder [facility] [id number] 05/29/2025 3910-600-0 62 / / [id number] Lovejoy Suture 4.5mm Arthroscopy Reelx Stt Peek Ss Core Knotless Shapr Tip Expandable Bx/5ea - [id number] Implanted:Qty: 1 on 12/13/2023 by Josiah Menendez MD at [facility] Left: Shoulder [facility] [id number] 05/29/2025 3910-600-0 62 / / [id number] Head Glenoid 32mm -4mm Offset Reverse Rsp Glenoid Head Retaining Screw - [id number] Implanted:Qty: 1 on 06/05/2024 by Josiah Menendez MD at [facility] Left: Shoulder [employer] [id number] 04/19/2030 508-32-103 / / [id number] Screw Bone 5x34mm Reverse Rsp Locking - [id number] Implanted:Qty: 1 on 06/05/2024 by Josiah Menendez MD at [facility] Left: Shoulder [employer]O SURGICAL 08/08/2029 506-03-134 / / [id number] Stem Humeral 15g888zs Altivate Reverse Small - [id number] Implanted:Qty: 1 on 06/05/2024 by Josiah Menendez MD at [facility] Left: Shoulder [employer] [id number] 04/22/2030 533-10-108 / / [id number] Insert Socket 32mm Small - [id number] Implanted:Qty: 1 on 06/05/2024 by Josiah Menendez MD at [facility] Left: Shoulder [employer] [id number] 06/15/2028 509-02-032 / / [id number] Shoulder Baseplate 46g32xq Reverse Ps Coated - [id number] Implanted:Qty: 1 on 06/05/2024 by Josiah Menendez MD at [facility] Left: Shoulder DJO SURGICAL [id number] 04/02/2030 508-32-204 / / [id number] Procedures Procedure Name Priority Date/Time Associated Diagnosis [...] clinician's provided indication for this examination in [facility]: Pain COMPARISON: XR SHOULDER 2 OR MORE VIEWS (LEFT) ; XR SHOULDER 2 OR MORE VIEWS (LEFT) Procedure Note Antonio Segura MD - 10/03/2024 XR SHOULDER 2 OR MORE VIEWS (LEFT) Referring clinician's provided indication for this examination in [facility]:Pain COMPARISON: XR SHOULDER 2 OR MORE VIEWS [...] 40 Admit Type: Outpatient Gender: Female Room: [facility] 04 Referring MD: Ramesh Sampson Exam Type: [...] 11:50 AM Procedure Code(s): --- Professional --- 32428, Colonoscopy, flexible; with biopsy, single or multiple --- Technical --- 89849, Colonoscopy, flexible; with biopsy, single or multiple Diagnosis Code(s): --- Professional --- K52.9, Noninfective gastroenteritis and colitis, unspecified R19.7, Diarrhea, unspecified R63.4, Abnormal weight loss --- Technical --- K52.9, Noninfective gastroenteritis and colitis, unspecified R19.7, Diarrhea, unspecified R63.4, Abnormal weight loss CPT copyright 2018 [employer]. All rights reserved. The codes documented in this report are preliminary and upon silverware assembler reviewmay be revised to meet current compliance requirements. Procedure Date: 03/13/2019 11:50:[address] [place] [address] Ramesh PAUL GI PROCEDURE ORDERABLES Edited Result - Final from Last 3 Months or Most Recently Relevant to Health Maintenance Insurance MEDICARE PART A & B [facility] MEDICARE PART A & B [facility] MEDICARE PART A & B [place] [facility] B Member Subscriber Plan / Payer ( fective 2012-Present) Name:gAnieszka Conley Member ID:[id number] Relation to Subscriber:Self Name:Agnieszka Conley Subscriber ID:[id number] Payer ID:[id number] Group ID:Not on file Type:Medicare Address: [facility] Helpful Alliance [facility] [address] [place], [place] [id number] [place] PART A & B Member Subscriber Plan / Payer ( fective 2012-Present) Name:Agnieszka Conley Member ID:[id number] Relation to Subscriber:Self Name:Agnieszka Conley Subscriber ID:[id number] Payer ID:[id number] Group ID:Not on file Type:Medicare Address: [facility] [employer] [facility] [address] [place] [phone] [facility] PART A & B [place] MEDIC[place] PART A & B HEALTH MEDICARE PART A & B [facility] Care Teams Garage Mechanic Relationship Specialty Start Date End Date Ramesh Sampson PA [address] [place] [phone] PCP - General 03/13/19 Additional Source Comments The information contained in this document represents components of the legal health record. It is not the complete legal health record.[facility]
--- OUTSIDE RECORDS SUMMARY | 2024-12-04 09:00 | XMS_ITS | Encounter Summary ---
Author Organization [facility] Address [address] [place] [address] Phone Care Team Providers Care Potato Spotter Name Role Phone Ramesh Sampson Primary Care Provider + Encounter Details Date Type Department Care Team (Late st Contact Info) Description 06/05/2024 Procedure Pass [facility] [address] [place] [address] Social History Tobacco Use Types Packs/Day Years [...] Description 01/23/2025 12:00 PM EST Office Visit [facility] Department of Orthopaedic Surgery, Shoulder Service [address] [facility], 3rd Floor, [address] [place] [address] Josiah Menendez MD 55 [facility] [place] [id number] [email or web address] documented as of this encounter Visit Diagnoses Not on filedocumented in this encounter Care Teams Potato Spotter Relationship Specialty Start Date End Date Ramesh Sampson PA [address] [place] [address] PCP - General 03/13/19 documented as of this encounter Additional Source Comments The information contained in this document represents components of the legal health record. It is not the complete legal health record.[facility]
[2024-12-04 09:53] LABS: Alanine Aminotransferase 17 U/L (0-31); Albumin Level 4.6 g/dL (3.5-5.0); Alkaline Phosphatase 75 U/L (39-117); Anion Gap 11 (12-20); Aspartate Amino Transferase 25 U/L (5-31); Blood Urea Nitrogen 15 mg/dL (9-16); Calcium 9.4 mg/dL (8.4-10.2); Carbon Dioxide 30 mmol/L (22-29); Chloride 105 mmol/L (96-108); Cholesterol 181 mg/dL (<200); Estimated Glomerular Filt Rate > 60; HDL Cholesterol 63 mg/dL (>40); Magnesium 2.1 mg/dL (1.6-2.6); Potassium 4.5 mmol/L (3.3-5.1); Sodium 141 mmol/L (135-145); Total Protein 6.9 g/dL (6.5-8.0); Triglycerides 48 mg/dL (<150)
[2024-12-04 10:11] LABS: Thyroid Stimulating Hormone 0.62 uIU/mL (0.32-4.0)
[2024-12-04 10:28] LABS: Vitamin B12 398 pg/mL (200-900)
== END 2024-12-04 08:26 | disposition home or self-care (01) ==
LOC: HO.LAB 08:25
PROVIDERS: PCP Physician Assistant; Visit Provider Nurse Practitioner Psychiatric/Mental Health
DX: F25.0 Schizoaffective disorder, bipolar type (principal); F41.1 Generalized anxiety disorder; F12.20 Cannabis dependence, uncomplicated; Z13.6 Encounter for screening for cardiovascular disorders
CPT/HCPCS: 36415; 80053; 80061; 80164; 82607; 83735; 84443; 85025

== ENCOUNTER 2025-01-14 15:04 | Outpatient (AMB) | payer MEDICARE, MEDICAID, SELFPAY ==
--- NOTE | 2025-01-14 15:12 | A.OFFPC_ITS ---
Vital Signs 01/14/25 15:13 Height 5 ft 7 in Weight 128 lb 2 oz BMI 20.1 BP 110/60 Blood Pressure Location Lt brachial Position Sitting Pulse 113 H Pulse Source Pulse Oximeter Temp 97.8 F Temp Source Temporal Artery Scan Pulse Oximetry (%) 97 Oxygen Delivery Method Room Air Intake Visit Reasons: annual exam Intake Note: Patient is here today for a physical. Commercial Field Inspector Required: No Control Systems Technician: Not Required per policy Accompanied by: Self / Same As Patient Allergies olanzapine (From ZYPREXA) Allergy (Severe, Verified 01/14/25 15:22) SWELLING oxcarbazepine (From TRILEPTAL) Allergy (Severe, Verified 01/14/25 15:22) antony's Rob syndrome gabapentin Allergy (Unknown, Verified 01/14/25 15:22) Loss of balance lithium (LITHIUM) Allergy (Unknown, Verified 01/14/25 15:22) UNKNOWN quetiapine (Seroquel) Allergy (Unknown, Verified 01/14/25 15:22) Unknown sulfamethoxazole (From BACTRIM) Allergy (Unknown, Verified 01/14/25 15:22) severe rash trimethoprim (From BACTRIM) Allergy (Unknown, Verified 01/14/25 15:22) severe rash cyclobenzaprine (From Flexeril) Adverse Reaction (Intermediate, Verified 01/14/25 15:22) Agitated Medication List - Last Reconciled 01/14/25 by Ramesh Sampson PA-C acetaminophen 500 mg PO Q6H PRN 30 days bisacodyl (Bisa-Lax (bisacodyl)) 10 mg (2 x 5 mg) PO BEDTIME PRN 2 days bupropion HCl XL 300 mg PO DAILY 90 days cholecalciferol (vitamin D3) 50 mcg PO DAILY 90 days clonazepam 1 mg PO BID PRN 30 days divalproex ER 1,500 mg (3 x 500 mg) PO DAILY 30 days erenumab-aooe (Aimovig Autoinjector) mg subcut Q4W famotidine 40 mg PO BEDTIME folic acid 20 mg PO DAILY gabapentin 800 mg PO BID 30 days hydroxyzine HCl 25 mg PO BEDTIME Latuda (lurasidone) 80 mg PO DAILY 90 days NS linaclotide 290 mcg PO DAILY perphenazine 8 mg PO BID polyethylene glycol 3350 (Miralax) 17 grams PO BID prucalopride 2 mg PO DAILY sumatriptan succinate 50 mg PO DAILY PRN tizanidine 2 mg PO BID 30 days Tobacco use date assessed: 01/14/25 Dental Screening Dental Screen Date: 05/20/24 [facility] annual exam HPI Details Patient is a 44-year-old female here today Annual physical Patient has a past medical history significant for schizoaffective disorder, bipolar disorder, gastroparesis. Left shoulder tendinopathy: She has a history of a shoulder dislocation and subsequently underwent a reverse shoulder replacement, with procedures in February and April. She reports constant pain and feels as if the shoulder is dislocating again, noting a bump on the shoulder. Her range of motion is limited, specifically being unable to place her hand behind her back, and states that physical therapy worsened her condition. .. Bipolar disorder: Now has a psychiatric provider who is managing all of her mental health medications. . Does use clonazepam on a very limited p.r.n. basis for high points of anxiety. She feels her mental health is stable on current doses of her mental health medications at this time. She admits she has been a bit manic as of late as her family has noticed. She has been gambling a bit more maximal all critical parts. Advised her to discuss these symptoms for a psychiatrist as she seems to be a bit manic at the moment. .. Gastroparesis: Still has intermittent episodes abdominal pain and cramping/vomiting. Has lost weight since last office visit Continues to follow gastroenterology here in [place]. On moteg 2 mg daily, . Tobacco dependency: She reports she cut down to 3 cigarettes per day. She does understand she needs to quit smoking and is found it very difficult to do so. She found that nicotine lozenges have been helpful in the past. Mammogram: Up-to-date date with mammogram and ultrasound Curriculum Counselor: She is looking for a new vp digital marketing, has been referred to [place] [facility] digital marketing for Pap screening Vaccines: Up-to-date with COVID vaccine, tetanus vaccine, needs pneumonia vaccine (considering) PENDING SALE TO [facility] Medical History Right thigh pain Schizoaffective disorder, bipolar type Gastroparesis Chronic nausea Migraine Bipolar disorder GLORIA (generalized anxiety disorder) Surgical History History of shoulder surgery Hx of colonoscopy History of esophagogastroduodenoscopy (EGD) History of tonsillectomy Family History Mother No problems noted. Father No problems noted. Social History Household Members: Other Household Members Other:: mother Housing: House Do you presently have visiting nurse or other home services: No Alcohol intake: current Alcohol intake frequency: holidays/special occasions on ly Patient Tobacco Use Status: Current everyday Tobacco user Tobacco use type: Cigarette Cigarette Packs Per Day: 0.5 Cigarettes Per Day: 4 Years Smoked: 25 e-Cigarette/Vaping Use: Currently Using Second Hand Smoke Exposure: Yes Substance Use Type: Marijuana Advance Directives Date on File: 05/19/21 service: No Current occupational status: unemployed and disabled Cognitive needs: No Hearing needs: No Vision needs: No Questionnaire Thrive Questionnaire Date Thrive assessed: 05/20/24 GLORIA-7 AMB Questionnaire GLORIA-7 Date GLORIA - 7 assessed: 05/20/24 Source: Developed by Drs. Ayush Lara, Anum Boyer, Brendan Herbert and colleagues, with an educational richar from [email or web address]. Review of Systems Const Denies body aches, Denies chills, Denies excessive sweating, Denies fatigue, Denies fever(s) and Denies headache(s) Eyes Denies blurry vision ENT Denies dysphagia, Denies vertigo, Denies dizziness, Denies headache(s), Denies hearing loss and Denies tinnitus Card Denies chest pain, Denies chest pain with activity, Denies syncope, Denies irregular heart rhythm and Denies dyspnea Resp Denies chest congestion, Denies cough, Denies hemoptysis, Denies dyspnea and Denies wheezing GI Denies abdominal pain, Denies melena, Denies hematochezia, Denies coffee ground emesis, Denies dysphagia, Denies diarrhea, Denies nausea and Denies vomiting Denies urinary frequency, Denies dysuria, Denies urinary hesitancy and Denies urinary urgency Musc Denies arthralgias, Denies limited range of motion, Denies muscle cramps and Denies muscle weakness Skin/Breast Denies rash and Denies skin ulcer Neuro Denies Abnormal speech present, Denies confusion, Denies vertigo, Denies dizziness, Denies syncope, Denies headache(s), Denies memory loss and Denies seizure-like activity Psych Denies anxiety, Denies confusion, Denies depression, Denies memory loss, Denies panic attacks and Denies paranoia Endo Denies excessive sweating, Denies fatigue, Denies flushing, Denies polydipsia and Denies polyuria Aller/Immun Denies wheezing Physical exam (Primary Care) Vital Signs: Last Vital Signs Temp 97.8 F 01/14/25 15:13 Pulse 113 H 01/14/25 15:13 BP 110/60 01/14/25 15:13 Pulse Ox 97 01/14/25 15:13 Oxygen Delivery Method Room Air 01/14/25 15:13 BMI result Body Mass Index 20.1 Tobacco/Smoking Status: Tobacco use Status Tobacco use date assessed 01/14/25 01/14/25 15:19 Patient Tobacco Use Status Current everyday Tobacco 01/14/25 15:19 Tobacco use type Cigarette 01/14/25 15:19 e-Cigarette/Vaping Use Currently Using 01/14/25 15:19 Are you ready to quit: No Tobacco cessation counseling provided: Yes Items discussed: Nicotine replacement Relapse Prevention: discussed the importance of a supportive environment, discussed negative mood or depression after quitting, weight gain after smoking is common and discussed dietary, exercise and/or lifestyle changes Number of minutes spent counselin CPT code: 74468 - 4-10 Minutes Thrive Assessment: Date of Thrive Assessment Date Thrive assessed 05/20/24 01/14/25 15:19 Const General: cooperative, comfortable, no acute distress, alert and awake; No confusion Orientation/consciousness: oriented to person, oriented to place, patient oriented x3 and No confusion HENMT Head: Yes normocephalic Ears: external ears normal and TM's normal bilaterally Face and sinus: No sinus tenderness Mouth: Normal oral and palatal mucosa present and tongue normal Teeth and gingiva: dentition normal and gingiva normal Throat: Yes posterior oropharynx normal, Yes tonsils normal and Yes uvula midline Eyes Conjunctivae: conjunctivae normal Sclerae: sclerae normal Pupils: Equal, round and reactive pupils present EOM: EOMs intact bilaterally Direct Ophthalmoscopy: No no photophobia Neck Neck: Yes no lymphadenopathy, No tender and Yes no JVD Thyroid: Thyroid normal Carotids: no bruits Chest Chest palpation & inspection: no tenderness Resp Effort & Inspection: normal respiratory effort, no audible wheezes, not labored and no stridor Auscultation: no crackles, no rales, no rhonchi and no wheezes Cardio Jugular venous distension: no JVD Rate: regular rate, not bradycardic and not tachycardic Rhythm: regular rhythm Bruits: no carotid bruits Peripheral pulses: Peripheral pulses 2+ throughout GI Inspection: Yes normal to inspection, No abdominal wall ecchymosis and No visible herniation Palpation (GI): Soft to palpation, nontender, no guarding, not rigid and No hepatosplenomegaly present Auscultation: normoactive bowel sounds General: Yes no CVA tenderness Back/Spine/Pelvis Back: no CVA tenderness and No back tenderness Cervical Spine: cervical ROM normal Thoracic/Lumbar Spine: thoracic and lumbar spine normal to inspection, straight leg raise negative bilaterally, No thoraco-lumbar ROM limited and No lumbar spinal tenderness Skin Lesions: no lesions Rashes: no rashes Wounds: no wounds Neuro General: oriented to person, oriented to place, patient oriented x3, CN's II-XI intact bilaterally and No confusion Cranial nerves: Yes Equal, round and reactive pupils present and Yes Normal accommodation reflex present Cognition (Neuro): normal cognition Speech: No Abnormal speech present Gait exam (Neuro): Normal gait present Motor exam (neuro): 5/5 motor strength present throughout Extrem Right upper extremity: full ROM; no cyanosis Left upper extremity: full ROM; no cyanosis Right lower extremity: no edema Left lower extremity: no edema Psych Appearance: grossly normal Mental Status: mental status grossly normal Affect: normal affect Attitude: cooperative Thought process: Normal thought process present Coding Level of Care Code Est Pt Prev Care 40-64y(37950) Diagnoses Annual physical exam Z00.00 Arthralgia of left shoulder region M25.512 Tobacco dependence F17.200 Bipolar affective disorder, currently manic, moderate F31.12 Active/Remission status: currently active Current bipolar episode type: manic Current episode severity: moderate Additional Codes Vital Signs *Quality* - CPT code: 72751 - 4-10 Minutes ([id number]) Assessment & Plan Assessment & Plan (1) Annual physical exam: Code(s): Z00.00 - Encounter for general adult medical examination without abnormal findings Category: Medical Plan: as per HPI (2) Arthralgia of left shoulder region: Code(s): M25.512 - Pain in left shoulder Category: Medical Plan: Patient is status post reverse shoulder replacement. She feels she still has pain in the area and dislocates at times. She has not been able to continue with physical therapy She continues to follow [facility]. (3) Tobacco dependence: Code(s): F17.200 - Nicotine dependence, unspecified, uncomplicated Category: Medical Plan: Patient has cut down smoking though still smokes a few cigarettes per day. She does understand she needs to quit. Not interested in nicotine replacement at this time. (4) Bipolar disorder: Code(s): F31.9 - Bipolar disorder, unspecified Category: Medical Qualifiers: Active/Remission status: currently active Current bipolar episode type: manic Current episode severity: moderate Qualified Code(s): F31.12 - Bipolar disorder, current episode manic without psychotic features, moderate Plan: Continues to follow a psych provider whom in his managing her mental health medications. She has been a bit made it as of late as she has been gambling much more and maxing out her credit cards. Advised her to discuss these symptoms with a psychiatrist as she needs help with her manic tendencies. . Medications: New ibuprofen 800 mg PO Q8H 30 tabs 1RF 10 days M25.512 - Pain in left shoulder
[2025-01-14 15:13] VITALS: BP 110/60; PULSE 113; TEMP 36.6; O2SAT 97; BMI 20.1
--- OUTSIDE RECORDS SUMMARY | 2025-01-14 16:48 | XMS_ITS | Encounter Summary ---
Author Organization [facility] Address [address] [place] [address] Phone Care Team Providers Care Manufacturing Clerk Name Role Phone Ramesh Sampson Primary Care Provider + Encounter Details Date Type Department Care Team (Late st Contact Info) Description 10/12/2023 Procedure Pass [facility] General Imaging [address] [place] [address] Social History Tobacco Use Types Packs/Day Years [...] PM EST Office [place] [facility] [place] of [place]opaedic Surgery, Shoulder Service [address], 3rd Floor, [address] [place] [address] Josiah Menendez MD 55 [facility] YA[address] [place] [address] [email or web address] documented as of this encounter Visit Diagnoses Not on filedocumented in this encounter Care Teams Manufacturing Clerk Relationship Specialty Start Date End Date Ramesh Sampson PA [address] [place] [address] PCP - General 03/13/19 documented as of this encounter Additional Source Comments The information contained in this document represents components of the legal health record. It is not the complete legal health record.[facility]
--- OUTSIDE RECORDS SUMMARY | 2025-01-14 16:48 | XMS_ITS | Encounter Summary ---
Author Organization [facility] Address [address] [place] [address] [place] [address] Phone Care Team Providers Care Thread Milling Machine Set Up Operator Name Role Phone Ramesh Sampson Primary Care Provider + Encounter Details Date Type Department Care Team (Late st Contact Info) Description 03/13/2019 Procedure Pass [facility] Endoscopy Admitting Dept Virtual Department 30 [place] [address] Social History Tobacco Use Types Packs/Day Years [...] Description 01/23/2025 12:00 PM EST Office Visit [facility] [place] Department of Orthopaedic Surgery, Shoulder Service [address] [place] [address], 3rd Floor, [address] [place] [address] Josiah Menendez MD [address] [place] [address] [place] [address] [email or web address] [place].[facility] documented as of this encounter Visit Diagnoses Not on filedocumented in this encounter Care Teams Thread Milling Machine Set Up Operator Relationship Specialty Start Date End Date Ramesh Sampson PA [facility] [place] [address] PCP - General 03/13/19 documented as of this encounter Additional Source Comments The information contained in this document represents components of the legal health record. It is not the complete legal health record.[facility]
--- OUTSIDE RECORDS SUMMARY | 2025-01-14 16:48 | XMS_ITS | Encounter Summary ---
Author Organization [facility] Address [address] [place] [address] [place] [address] Phone Care Team Providers Care Radial Saw Operator Name Role Phone Ramesh Sampson Primary Care Provider + Encounter Details Date Type Department Care Team (Late st Contact Info) Description 05/28/[address] [facility] CT Imaging, [place] [address] [place] [address] Social History Tobacco Use Types Packs/Day Years [...] Description 01/23/2025 12:00 PM EST Office [place] [facility] Department of Orthopaedic Surgery, Shoulder Service [address] [place] [address], 3rd Floor, [address] [place] [address] Josiah Menendez MD [address] [address] [email or web address] documented as of this encounter Visit Diagnoses Not on filedocumented in this encounter Care Teams Radial Saw Operator Relationship Specialty Start Date End Date Ramesh Sampson PA [address] [place] [address] PCP - General 03/13/19 documented as of this encounter Additional Source Comments The information contained in this document represents components of the legal health record. It is not the complete legal health record.[facility]
--- OUTSIDE RECORDS SUMMARY | 2025-01-14 16:48 | XMS_ITS | Encounter Summary ---
Author Organization [facility] Address [address] [place] [address] Phone Care Team Providers Care Metal Mockup Maker Name Role Phone Ramesh Sampson Primary Care Provider + Encounter Details Date Type Department Care Team (Late Contact Info) Description 10/12/[address] Imaging - [place] [address] [facility], [address] [place], [place] [id number] Social History Tobacco Use Types Packs/Day Years [...] Description 01/23/2025 12:00 PM EST Office [place] [facility] Department of Orthopaedic Surgery, Shoulder Service 55 [facility], 3rd Floor, [address] [place] [address] Josiah Menendez MD 55 [facility] [place] [address] [email or web address] documented as of this encounter Visit Diagnoses Not on filedocumented in this encounter Care Teams Metal Mockup Maker Relationship Specialty Start Date End Date Ramesh Sampson PA [address] [place] [address] PCP - General 03/13/19 documented as of this encounter Additional Source Comments The information contained in this document represents components of the legal health record. It is not the complete legal health record.[facility]
--- OUTSIDE RECORDS SUMMARY | 2025-01-14 16:48 | XMS_ITS | Clinical Summary ---
Author Organization [facility] Address [facility] [place] [address] Care Team Providers Care Software Support Representative Name Role Phone Unknown Primary Care Provider [...] - Influenza standard series) 11/04/2024 Care Teams Software Support Representative Relationship Specialty Start Date End Date Unknown None PCP - General 02/20/17
--- OUTSIDE RECORDS SUMMARY | 2025-01-14 16:48 | XMS_ITS | Encounter Summary ---
Author Organization [facility] Address [address] [place] [address] Phone Care Team Providers Care Pharmacy Laboratory Technician Name Role Phone Ramesh Sampson Primary Care Provider + Encounter Details Date Type Department Care Team (Late st Contact Info) Description 10/12/2023 Procedure Pass [facility] [place] 32 [facility], 6th [place] [address] Social History Tobacco Use Types Packs/Day Years [...] Description 01/23/2025 12:00 PM EST Office Visit [facility] Department of Orthopaedic Surgery, Shoulder Service 55 [facility], 3rd Floor, [address] [place] [address] Josiah Menendez MD 55 [facility] Y[address] [place] [address] [email or web address] documented as of this encounter Visit Diagnoses Not on filedocumented in this encounter Care Teams Pharmacy Laboratory Technician Relationship Specialty Start Date End Date Ramesh Sampson PA [address] [place] [address] PCP - General 03/13/19 documented as of this encounter Additional Source Comments The information contained in this document represents components of the legal health record. It is not the complete legal health record.[facility]
--- OUTSIDE RECORDS SUMMARY | 2025-01-14 16:48 | XMS_ITS | Encounter Summary ---
Author Organization [facility] Address [address] [place] [address] Phone Care Team Providers Care Team Driver Name Role Phone Ramesh Sampson Primary Care Provider + Encounter Details Date Type Department Care Team (Late st Contact Info) Description 12/13/2023 Procedure Pass [facility] [address] [place] [address] Social History Tobacco Use Types Packs/Day Years [...] Description 01/23/2025 12:00 PM EST Office Visit [facility] [place] Department of Orthopaedic Surgery, Shoulder Service [address] [place] [address], 3rd Floor, [address] [place] [address] Josiah Menendez MD [address] [address] [email or web address] documented as of this encounter Visit Diagnoses Not on filedocumented in this encounter Care Teams Team Driver Relationship Specialty Start Date End Date Ramesh Samposn PA [address] [place] [address] PCP - General 03/13/19 documented as of this encounter Additional Source Comments The information contained in this document represents components of the legal health record. It is not the complete legal health record.[facility]
--- OUTSIDE RECORDS SUMMARY | 2025-01-14 16:48 | XMS_ITS | Encounter Summary ---
Author Organization [facility] Address [address] [place] [address] Phone Care Team Providers Care Criminal Defense Lawyer Name Role Phone Ramesh Sampson Primary Care Provider + Encounter Details Date Type Department Care Team (Late st Contact Info) Description 10/12/2023 Procedure Pass [facility] Imaging [address] [place] [address] Social History Tobacco Use Types Packs/Day Years [...] Description 01/23/2025 12:00 PM EST Office Visit [facility] [place] Department of Orthopaedic Surgery, Shoulder Service [address] [facility], 3rd Floor, [address] [place] [address] Josiah Menendez MD 55 [facility] Y[address] [place] [address] [email or web address] documented as of this encounter Visit Diagnoses Not on filedocumented in this encounter Care Teams Criminal Defense Lawyer Relationship Specialty [place] [address] [place] [address] PCP - General 03/13/19 documented as of this encounter Additional Source Comments The information contained in this document represents components of the legal health record. It is not the complete legal health record.[facility]
--- OUTSIDE RECORDS SUMMARY | 2025-01-14 16:48 | XMS_ITS | Encounter Summary ---
Author Organization [facility] Address [address] [place] [address] Phone Care Team Providers Care Qa Internship Name Role Phone Ramesh Sampson Primary Care Provider + Encounter Details Date Type Department Care Team (Late st Contact Info) Description 06/05/[address] [facility] [address] [place] [address] Social History Tobacco Use Types Packs/Day Years [...] Description 01/23/2025 12:00 PM EST Office Visit [facility] Department of Orthopaedic Surgery, Shoulder Service [address] [facility], 3rd Floor, [address] [place] [address] Josiah Menendez MD 55 [facility]-[address] [place] [address] [email or web address] documented as of this encounter Visit Diagnoses Not on filedocumented in this encounter Care Teams Qa Internship Relationship Specialty Start Date End Date Ramesh Sampson PA [address] [place] [address] PCP - General 03/13/19 documented as of this encounter Additional Source Comments The information contained in this document represents components of the legal health record. It is not the complete legal health record.[facility]
--- OUTSIDE RECORDS SUMMARY | 2025-01-14 16:48 | XMS_ITS | Clinical Summary ---
Author Organization [facility] Address [address] [place] [address] Phone Care Team Providers Care Gamer Name Role Phone Ramesh Sampson Primary Care Provider + Allergies Active Allergy Reactions Criticality Noted Date Comments Sulfamethoxazole-Trimeth oprim Rash Low 03/12/2019 [place] Other (See Comments) High 08/01/2012 DOUGIE ROB [...] Encounters Date Type Department Care Team Description 12/15/2024 Refill [facility] Department of Orthopaedic Surgery, Shoulder Service [address] [place], 3rd Floor, [address] [place] [address] Bita Walker MD Medication Refill from Last 3 Months Social History Tobacco [...] Description 01/23/2025 12:00 PM EST Office Visit [facility] Department of Orthopaedic Surgery, Shoulder Service [address], 3rd Floor, [address] [place] [address] Josiah Menendez MD 55 [facility] YA[address] [place] [address] [email or web address] Maintenance Due Date Last Done Comments [...] on patient's age to complete this topic IPV VACCINES Aged Out No longer eligi ble based on patient's age to complete this topic MENINGOCOCCAL VACCINES (ACWY) Aged Out No longer eligible based on patient's age to complete this topic MENINGOCOCCAL VACCINES (B) Aged Out N o longer eligible based on patient's age to complete this topic Medical Devices Implanted Type Area Battery Repairer Device Identifier Shelf Expiration Date Model / Serial / Lot Screw Bone 5x26mm Rsp Glenoid Titanium Humeral Cortical Baseplate Locking - [id number] Implanted:Qty: 1 on 06/05/2024 by Josiah Menendez MD at [facility] Left: Shoulder [employer] 12/19/2028 506-03-126 / / [id number] Screw Bone 5x26mm Rsp Glenoid Titanium Humeral Cortical Baseplate Locking - [id number] Implanted:Qty: 1 on 06/05/2024 by Josiah Menendez MD at [facility] Left: Shoulder [employer] 03/11/2030 506-03-126 / / [id number] Screw Bone 5x26mm Rsp Glenoid Titanium Humeral Cortical Baseplate Locking - [id number] Implanted:Qty: 1 on 06/05/2024 by Josiah Menendez MD at [facility] Left: Shoulder [employer] 12/07/2029 506-03-126 / / [id number] Left Shoulder Hardware Nexplanon Left: Arm Graft Tendon 5.6x3.5x3.1cm Allograft Fresh Distal Tibialis Left - [id number] Implanted:Qty: 1 on 12/13/2023 by Josiah Menendez MD at [facility] Left: Shoulder [employer] 12/15/2023 [id number] / [id number] / Dionne Experience Screw- 36mm Titanium Implanted:Qty: 1 on 12/13/2023 by Josiah Menendez MD at [facility] Left: Shoulder 10/04/2027 / [id number] / [id number] Screw Bone 4.5x44mm Cannulated Ss Self Drilling Tapping Full Thread Lg Hexagonal Socket - Sster 1/Load 6 Dec 12, 2023 Implanted:Qty: 1 on 12/13/2023 by Josiah Menendez MD at [facility] Left: Shoulder JNJ DEPUY SYNTHES SPINE 214.744 / STER 1/LOAD 6 DEC 12, 2023 / Washer Screw 4.5mm 10 Bone Cannulated Stainless Bx/4ea - Sster 1/Load Dec 12, 2023 Implanted:Qty: 1 on 12/13/2023 by Josiah Menendez MD at [facility] Left: Shoulder JNJ DEPU[employer] SYNTHES SPINE 219.91 / STER 1/LOAD DEC 12, 2023 / [place] Suture 4.5mm Arthroscopy Reelx Stt Peek Ss Core Knotless Shapr Tip Expandable Bx/5ea - [id number] Implanted:Qty: 1 on 12/13/2023 by Josiah Menendez MD at [facility] Left: Shoulder [employer] [id number] 05/29/2025 3910-600-0 62 / / [id number] [place] Suture 4.5mm Arthroscopy Reelx Stt Peek Ss Core Knotless Shapr Tip Expandable Bx/5ea - [id number] Implanted:Qty: 1 on 12/13/2023 by Josiah Menendez MD at [facility] Left: Shoulder [employer] [id number] 05/29/2025 3910-600-0 62 / / [id number] Head Glenoid 32mm -4mm Offset Reverse Rsp Glenoid Head Retaining Screw - [id number] Implanted:Qty: 1 on 06/05/2024 by Josiah Menendez MD at [facility] Left: Shoulder [employer] [id number] 04/19/2030 508-32-103 / / [id number] Screw Bone 5x34mm Reverse Rsp Locking - [id number] Implanted:Qty: 1 on 06/05/2024 by Josiah Menendez MD at [facility] Left: Shoulder [employer] 08/08/2029 506-03-134 / / [id number] Stem Humeral 41x038nt Altivate Reverse Small - [id number] Implanted:Qty: 1 on 06/05/2024 by Josiah Menendez MD at [facility] Left: Shoulder [employer] [id number] 04/22/2030 533-10-108 / / [id number] Insert Socket 32mm Small - [id number] Implanted:Qty: 1 on 06/05/2024 by Josiah Menendez MD at [facility] Left: Shoulder [employer] [id number] 06/15/2028 509-02-032 / / [id number] Shoulder Baseplate 26t31ob Reverse Ps Coated - [id number] Implanted:Qty: 1 on 06/05/2024 by Josiah Menendez MD at [facility] Left: Shoulder [employer] [id number] 04/02/2030 508-32-204 / / [id number] Procedures Procedure Name Priority Date/Time Associated Diagnosis Comments ENDOSCOPY, COLON 03/13/2019 11:5 0 AM EST from Last 3 Months or Most Recently Relevant to Health Maintenance Results * ENDOSCOPY, COLON (03/13/2019 11:50 AM EST) Narrative Transcriptions Selin Ahmadi MD - 03/13/2019 11:50 AM EST Patient Name: Agnieszka David MD:: SELIN AHMADI MD Procedure Date: 03/13/2019 11:50 AM Date of : 1980 Age: 39 Admit Type: Outpatient Gender: Female Room: [place] [address] Referring MD: Ramesh Sampson Exam Type: Colonoscopy [...] 11:50 AM Procedure Code(s): --- Professional --- 52042, Colonoscopy, flexible; with biopsy, single or multiple --- Technical --- 25945, Colonoscopy, flexible; with biopsy, single or multiple Diagnosis Code(s): --- Professional --- K52.9, Noninfective gastroenteritis and colitis, unspecified R19.7, Diarrhea, unspecified R63.4, Abnormal weight loss --- Technical --- K52.9, Noninfective gastroenteritis and colitis, unspecified R19.7, Diarrhea, unspecified R63.4, Abnormal weight loss CPT copyright 2018 [employer]. All rights reserved. The codes documented in this report are preliminary and upon property management accountant reviewmay be revised to meet current compliance requirements. Procedure Date: 03/13/2019 11:50:[address] [place] [address] Ramesh PAUL GI PROCEDURE ORDERABLES Edited Result - Final from Last 3 Months or Most Recently Relevant to Health Maintenance Insurance MEDICARE PART A & B [facility] MEDICARE PART A & B [employer] [facility] MEDIC[facility] PART A & [facility] MEDIC[facility] A & [place] [phone] MEDIC[place] PART A [place] [phone] MEDICARE PART A & B [facility] Care Teams Gamer Relationship Specialty Start Date End Date Ramesh Sampson PA [facility] [place] [address] PCP - General 03/13/19 Additional Source Comments The information contained in this document represents components of the legal health record. It is not the complete legal health record.[facility]
--- OUTSIDE RECORDS SUMMARY | 2025-01-14 16:48 | XMS_ITS | Encounter Summary ---
Author Organization [facility] Address [address] [place] [address] Phone Care Team Providers Care Window Shade Installer Name Role Phone Ramesh Sampson Primary Care Provider + Reason for Visit * Reason Comments Med Change Request Encounter Details Date Type Department Care Team (Late st Contact Info) Description 10/26/2021 Refill [facility] [address] [address] Kodi Enriquez PA-C [address] [place] [address] [email or web address] Med Change Request Social History Tobacco Use [...] 9:11 AM EDT Saray Short RN * [place] Suicide Severity Rating Scale (Screener/Recent Self-Report) Question [...] 01/23/2025 12:00 PM EST Office [place] [facility] Department of Orthopaedic Surgery, Shoulder Service [address] [place] [address], 3rd Floor, [address] [place] [address] Josiah Menendez MD [address] [place] [address] [email or web address] documented as of this encounter Visit Diagnoses Not on filedocumented in this encounter Care Teams Window Shade Installer Relationship Specialty Start Date End Date Ramesh Sampson PA [employer] [place] [address] PCP - General 03/13/19 documented as of this encounter Additional Source Comments The information contained in this document represents components of the legal health record. It is not the complete legal health record.[facility]
--- OUTSIDE RECORDS SUMMARY | 2025-01-14 16:48 | XMS_ITS | Encounter Summary ---
Author Organization [facility] Address [address] [place] [address] Phone Care Team Providers Care Afloat Cryptologic Manager Name Role Phone ElenaWalt Primary Care Provider [phone] Ramesh Sampson Primary Care Provider + Encounter Details Date Type Department Care Team (Latest Contact Info) Description 02/08/2019 Transcribe Orders [facility] [address] 2[address] [place] [address] Antonio Aleman MD [address] [address] [email or web address] Loss of weight (Primary Dx); Chronic diarrhea [...] Description 01/23/2025 12:00 PM EST Office Visit [facility] Department of Orthopaedic Surgery, Shoulder Service [address] [place] [address], 3rd Floor, [address] [place] [address] Josiah Menendez MD 55 [facility] [place] [address] [email or web address] documented as of this encounter Results * C-Reactive Protein (02/08/2019 1:33 PM EST) C REACTIVE PROTEIN 0.6 0.0 - 4.0 mg/L [facility] Blood 02/08/2019 1:33 PM EST 02/08/2019 1:37 PM EST Antonio Aleman MD LAB BLOOD BKR ORDERABLES Final Result Performing Organization Address [facility] de Phone Number [address] [address] * Immunoglobulin A (02/08/2019 1:33 PM EST) IgA 131 70 - 400 mg/dL [facility] Blood 02/08/2019 1:33 PM EST 02/08/2019 1:37 PM EST Antonio Aleman MD LAB BLOOD BKR ORDERABLES Final Result Performing Organization Address [facility] Co de Phone Number [address] [address] * Tissue transglutaminase IgA (02/08/2019 1:33 PM EST) TTG IGA ANTIBODY <1.2 <4.0 (Negative) U/mL [facility] Blood 02/08/2019 1:33 PM EST 02/08/2019 1:37 PM EST Antonio Aleman MD LAB BLOOD BKR ORDERABLES Final Result Performing Organization Address [facility] Co de Phone Number [facility] [address] [place] [address] documented in this encounter Visit Diagnoses Diagnosis Loss of weight- Primary Chronic diarrhea of unknown origin Diarrhea documented in this encounter Care Teams Afloat Cryptologic Manager Relationship Specialty Start Date End Date Walt Parker DO PCP - General Family Medicine 05/01/13 03/12/19 Ramesh Sampson PA [address] [place] [address] PCP - General 03/13/19 documented as of this encounter Additional Source Comments The information contained in this document represents components of the legal health record. It is not the complete legal health record.[facility]
--- OUTSIDE RECORDS SUMMARY | 2025-01-14 16:48 | XMS_ITS | Encounter Summary ---
Author Organization [facility] Address [address] [place] [address] Phone Care Team Providers Care Machine Edge Bander Name Role Phone Ramesh Sampson Primary Care Provider + Encounter Details Date Type Department Care Team (Late st Contact Info) Description 05/28/2024 Procedure Pass [facility] [address] [place] [address] Social History Tobacco Use Types Packs/Day Years [...] Description 01/23/2025 12:00 PM EST Office Visit [facility] Department of Orthopaedic Surgery, Shoulder Service [address] [place] [address], 3rd Floor, [address] [place] [address] Josiah Menendez MD [address] [facility] [place] [id number] [email or web address] documented as of this encounter Visit Diagnoses Not on filedocumented in this encounter Care Teams Machine Edge Bander Relationship Specialty [place] [address] [place] [id number] PCP - General 03/13/19 documented as of this encounter Additional Source Comments The information contained in this document represents components of the legal health record. It is not the complete legal health record.[facility]
== END 2025-01-14 15:41 | disposition home or self-care (01) ==
LOC: HO.HMCH 15:05
PROVIDERS: PCP Physician Assistant; Visit Provider Physician Assistant
DX: Z00.00 Encounter for general adult medical examination without abnormal findings (principal); M25.512 Pain in left shoulder; F17.210 Nicotine dependence, cigarettes, uncomplicated; F31.12 Bipolar disorder, current episode manic without psychotic features, moderate

== ENCOUNTER → 2025-01-14 15:04 | Outpatient (BNVA) | payer MEDICARE, MEDICAID, SELFPAY | PROVIDERS: PCP Physician Assistant; Visit Provider Physician Assistant | DX: Z00.00 Encounter for general adult medical examination without abnormal findings (principal); M25.512 Pain in left shoulder; F31.12 Bipolar disorder, current episode manic without psychotic features, moderate; F17.200 Nicotine dependence, unspecified, uncomplicated | CPT/HCPCS: 99396 ==